=== PATIENT | male | born 1945 | race Caucasian/White ===

== ENCOUNTER 2017-06-09 07:00 | Inpatient (IN) | payer MEDICARE ==
[~2017-06-09] VITALS: Ht 185.4 cm; Wt 92.1 kg
[2017-06-13] MEDS ORDERED: ASPI81TA11 PO (10:46)
[2017-06-13] MEDS ORDERED: CARV3.12 PO (10:46)
[2017-06-13] MEDS ORDERED: CYCL1TAB29 PO (10:46)
[2017-06-13] MEDS ORDERED: SODI650T PO (10:46)
[2017-06-13] MEDS ORDERED: DESO0.0560 TOPICAL (10:46)
[2017-06-13] MEDS ORDERED: ALLO100T PO (10:46)
[2017-06-13] MEDS ORDERED: TRIA1SPR5 EACH NARE (10:46)
[2017-06-13] MEDS ORDERED: VITA100036 PO (10:46)
[2017-06-13] MEDS ORDERED: TAMS0.4C4 PO (10:46)
[2017-06-13] MEDS ORDERED: HYZA100T6 PO (10:46)
[2017-06-13] MEDS ORDERED: AMLO10 PO (10:46)
[2017-06-13] MEDS ORDERED: TRIA1SPR6 EACH NARE (10:46)
[2017-06-23 14:35] VITALS: BP 137/65; PULSE 62; RESP 18; TEMP 97.1; O2SAT 96
[2017-06-23 16:00] VITALS: BP 159/69; PULSE 60; RESP 16; TEMP 96.6; O2SAT 97
[2017-06-23 18:20] LABS: BLOOD, URINE TRACE (NEG); COMMENT (UR) CULT NOT INDICATED; CULTURE IF INDICATED CULT NOT INDICATED; GLUCOSE,URINE NEG (NEG); KETONE, URINE NEG (NEG); NITRITE,URINE NEG (NEG); PH, URINE 5.5 (5.0-8.5); SQUAMOUS EPITHELIAL CELL URINE <1 /hpf (0-5); URINE COLOR LIGHT-YELLOW (YELLW/STRAW)
[2017-06-23] MEDS ORDERED: SODIUM CHLOR 0.9% 1000 ML INJ 1,000 ML IV SCH (19:15)
--- NOTE | 2017-06-23 19:45 | PD.CONS ---
HPI Consult Requested By Reason for Consult Management of chronic kidney disease perioperatively. Primary Care Physician Unknown History of Present Illness This patient is a 72-year-old male well known to me from the office for several years. The patient has a history of progressive CKD stage IV slowly approaching end-stage renal disease. The patient also has a history of severe osteoarthritis of the left knee. The patient was attempting to delay total left knee arthroplasty because of the associated risk of acute renal insufficiency associated with the surgery however recently the patient informed me that his arthritis was essentially now incapacitating with chronic pain. It is estimated that patient will require renal replacement therapy within a few months and the patient has decided given the severity of his osteoarthritis wishes to proceed with knee surgery and accepts the fact that he may require renal replacement therapy permanently postoperatively. The patient's base line GFR lately he has been in the low 20s but when he came in for preoperative evaluation as GFR had deteriorated significantly to about 17 with evidence of hyperkalemia. His losartan which he was taking for blood pressure control as well as to slow progression of chronic kidney disease in the presence of proteinuria was discontinued in view of the hyperkalemia. Subsequent follow-up laboratory study indicated an improvement in his GFR to about 20 and hyperkalemia had improved. It was decided to continue to hold losartan and the patient was placed on Veltassa for management of hyperkalemia in the preoperative phase. In view of improvement in laboratory studies although still indicating severe CKD the patient wishes to proceed with knee arthroplasty and as indicated above accepts that there is a risk that he may have to require dialysis postoperatively. Review of Systems Constitutional: DENIES: Diaphoretic episodes, Fatigue, Fever, Weight gain, Weight loss, Chills, Dizziness, Change in appetite, Night Sweats Cardiovascular: DENIES: Chest pain, Palpitations, Syncope, Dyspnea on Exertion , PND, Lower Extremity Edema, Orthopnea, Claudication Gastrointestinal: DENIES: Abdominal pain, Black stools, Bloody stools, Constipation, Diarrhea, Nausea, Vomiting, Difficulty Swallowing, Anorexia Musculoskeletal: COMPLAINS OF: Joint pain, Stiffness, DENIES: Muscle aches, Joint Swelling, Back pain, Neck pain Neurologic: COMPLAINS OF: Abnormal gait (related to osteoarthritis of knee.) Past Family Social History Allergies: Coded Allergies: acetaminophen (Verified Allergy, Severe, 06/13/17) renal protection morphine (Verified Allergy, Severe, Nausea/Vomiting, 06/13/17) oxycodone (Verified Allergy, Severe, 06/13/17) renal protection rivaroxaban (Verified Allergy, Severe, 06/13/17) renal protection diclofenac (Unverified Adverse Reaction, Severe, PATIENT HAS RENAL INSUFFICIENCY STAGE IV, 05/06/17) etodolac (Unverified Adverse Reaction, Severe, PATIENT HAS RENAL INSUFFICIENCY STAGE IV, 05/06/17) flurbiprofen (Unverified Adverse Reaction, Severe, PATIENT HAS RENAL INSUFFICIENCY STAGE IV, 05/06/17) ibuprofen (Unverified Adverse Reaction, Severe, PATIENT HAS RENAL INSUFFICIENCY STAGE IV, 05/06/17) indomethacin (Unverified Adverse Reaction, Severe, PATIENT HAS RENAL INSUFFICIENCY STAGE IV, 05/06/17) ketoprofen (Unverified Adverse Reaction, Severe, PATIENT HAS RENAL INSUFFICIENCY STAGE IV, 05/06/17) ketorolac (Unverified Adverse Reaction, Severe, PATIENT HAS STAGE IV CHRONIC RENAL INSUFFICIENCY, 05/06/17) naproxen (Unverified Adverse Reaction, Severe, PATIENT HAS RENAL INSUFFICIENCY STAGE IV, 05/06/17) oxaprozin (Unverified Adverse Reaction, Severe, PATIENT HAS RENAL INSUFFICIENCY STAGE IV, 05/06/17) lactose (Unverified Adverse Reaction, Intermediate, STOMACH ACHE, 05/06/17) Past Medical History CKD stage IV progressive and approaching end-stage renal disease. 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 Hemangioma of the bladder. Proteinuria. Severe osteoarthritis knee. Recent development of hyperkalemia being managed with diet and more recently with Veltassa. Past Surgical History Previous left knee arthroplasty. Reported Medications Reported Meds & Active Scripts Active Reported Flexeril (Cyclobenzaprine HCl) 10 Mg Tab 10 Mg PO PRN Desonide Topical (Desonide) 0.05% Cream 1 Applic TOPICAL DAILY Nasacort Allergy 24Hr Nasal [place] (Triamcinolone Acetonide Nasal [place]) 55 Mcg Spr 16.5 Gm EACH NARE PRN [place] Allergy 24Hr Nasal (Triamcinolone Nasal) 55 Mcg Spr 1 [place] EACH NARE DAILY Vitamin D3 (Cholecalciferol) 1,000 Unit Cap 2 Cap PO DAILY Aspirin EC (Aspirin) 81 Mg Tabdr 81 Mg PO EVERY OTHER DAY Sodium Bicarbonate 650 Mg Tab 650 Mg PO TIDPC Allopurinol 100 Mg Tab 100 Mg PO BID Carvedilol 3.125 Mg Tab 3.125 Mg PO BID Tamsulosin (Tamsulosin HCl) 0.4 Mg Cap 0.4 Mg PO HS Norvasc (Amlodipine Besylate) 10 Mg Tab 10 Mg PO DAILY Hyzaar (Losartan-Hydrochlorothiazide) 100-25 Mg Tab 1 Tab PO DAILY Active Ordered Medications Current Medications Sodium Chloride 1,000 ml @ 70 mls/hr [id number] IV ; Start 06/23/17 at 19:15 Amlodipine Besylate (Norvasc) 10 mg DAILY PO ; Start 06/24/17 at 09:00 Tamsulosin HCl (Flomax) 0.4 mg HS PO ; Start 06/23/17 at 21:00 Carvedilol (Coreg) 3.125 mg Q12HR PO ; Start 06/23/17 at 21:00 Sodium Bicarbonate (Sodium Bicarbonate) 1,300 mg Q8HR PO ; Start 06/23/17 at 22: 00 Cholecalciferol (Vitamin D3) 1,000 units DAILY PO ; Start 06/24/17 at 09:00 Family History Family history of coronary disease and CVA. Social History No history of illicit drug use, alcohol abuse. Physical Exam Physical Exam GENERAL: Patient lying comfortably in bed. Not in respiratory distress. SKIN: Warm and dry. HEAD: Normocephalic. EYES: No scleral icterus. No injection or drainage. NECK: Supple, trachea midline. No JVD or lymphadenopathy. CARDIOVASCULAR: Regular rate and rhythm without murmurs, gallops, or rubs. RESPIRATORY: Breath sounds equal bilaterally. No accessory muscle use. GASTROINTESTINAL: Abdomen soft, non-tender, nondistended. MUSCULOSKELETAL: No cyanosis, or edema. BACK: Nontender without obvious deformity. No CVA tenderness. Laboratory Laboratory Tests Test 06/23/17 17:00 Urine Color LIGHT-YELLOW Urine Turbidity CLEAR Urine pH 5.5 Urine Specific [place] 1.007 Urine Protein 30 Urine Glucose (UA) NEG Urine Ketones NEG Urine Occult Blood TRACE Urine Nitrite NEG Urine Bilirubin NEG Urine Urobilinogen LESS THAN 2.0 Urine Leukocyte Esterase NEG Urine RBC LESS THAN 1 Urine Squamous Epithelial Cells <1 Microscopic Urinalysis Comment CULT NOT INDICATED Assessment and Plan Problem List: (1) CKD (chronic kidney disease) stage 4, GFR 15-29 ml/min ICD Codes: N18.4 - Chronic kidney disease, stage 4 (severe) Status: Chronic Plan: As discussed with the patient he is at significant risk for development of acute renal insufficiency associated with his surgery which may result in a requirement for dialytic support temporarily or permanently postoperatively. In view of the severity of his osteoarthritis with associated debilitating symptoms he has decided he accepts this risk and wishes to proceed with surgery and is clear as such from a renal point of view. His renal indices did improve somewhat after his office visit and hopefully dialysis will not be required during this admission but this remains to be determined. As discussed with orthopedic surgeon the patient is being admitted day prior to surgery for IV hydration overnight. I have ordered normal saline at 70 cc an hour. Medication should be adjusted for the patient's estimated GFR when indicated. Please avoid agents with significant potential for nephrotoxicity including NSAIDs for analgesia such as Toradol. Also avoid iodine contrast agents if possible. Gadolinium is contraindicated. In view of recent development of hyperkalemia believe it would be prudent to avoid Bactrim can precipitate hyperkalemia in susceptible patients secondary to trimethoprim. Adequate hydration should be maintained postoperatively also. Try to avoid hypotension if possible. (2) Hyperkalemia ICD Codes: E87.5 - Hyperkalemia Plan: Recommendations as above. Losartan has been held also in view of recent development of hyperkalemia. I may however consider resuming same postoperatively in view of his history of proteinuria as angiotensin receptor blockers have been shown to slow progression of CKD insetting of proteinuria. He was originally on the 100 mg a consideration will be given to resumption at a lower dose. Low potassium diet as ordered. Please avoid potassium-containing parenteral fluids unless the patient does have evidence of hypokalemia. (3) chronic metabolic acidosis Status: Chronic Plan: Continue all sodium bicarbonate. If the patient is nothing by mouth for a period of time with a low bicarbonate level will supplement parenterally. (4) Hypertension ICD Codes: I10 - Hypertension Status: Chronic Plan: Continue current hypertensive regimen with monitoring of blood pressure. Didi Valencia MD Jun 23, 2017 19:45
[2017-06-23 20:00] VITALS: BP 144/65; PULSE 59; RESP 20; TEMP 98.1; O2SAT 96
[2017-06-23] MEDS ORDERED: TAMSULOSIN HCL 0.4 MG CAP PO SCH (21:00)
[2017-06-23] MEDS: SODIUM BICARBONATE 650 MG TAB PO SCH (21:05)
[2017-06-23] MEDS: CARVEDILOL 3.125 MG TAB PO SCH (21:05)
[2017-06-23] MEDS ORDERED: POVIDONE IODINE 5% (ANTISEPSIS KIT) 4 APPLICATIONS EACH NARE PRN (23:15)
[2017-06-23] MEDS ORDERED: CHLORHEXIDINE GLUCONATE 2 % 1 PACK (2 CLOTHS) TOPICAL PRN (23:15)
[2017-06-23] MEDS ORDERED: INSULIN HUMAN REGULAR 1,000 UNITS/10 ML VIAL SQ PRN (23:15)
[2017-06-23] MEDS ORDERED: SODIUM CHLORID 0.9% 500 ML IV PRN (23:15)
[2017-06-23] MEDS ORDERED: LACTATED RINGER'S 1000 ML IV PRN (23:15)
[2017-06-23] MEDS ORDERED: CHLORHEXIDINE GLUCONATE 4% SOLN 120 ML BTL TOPICAL SCH (23:45)
[2017-06-24] VITALS: BP 137/68; PULSE 63; RESP 20; TEMP 98.5; O2SAT 97
[2017-06-24] MEDS: CARVEDILOL 3.125 MG TAB PO SCH ×2 (05:32→22:12)
[2017-06-24 05:35] LABS: AUTOMATED NEUTROPHIL # 2.9 TH/MM3 (1.8-7.7); BASOPHIL # 0.1 TH/MM3 (0-0.2); BASOPHIL % 1.1 % (0.0-2.0); EOSINOPHIL # 0.2 TH/MM3 (0-0.4); EOSINOPHIL % 3.3 % (0.0-4.0); HEMATOCRIT 28.6 % (39.0-51.0); HEMO FLAGS DIFF FINAL; LYMPH % 36.3 % (9.0-44.0); LYMPHOCYTE # 2.3 TH/MM3 (1.0-4.8); MEAN CELL VOLUME 92.4 FL (80.0-100.0); MEAN CORPUSCULAR HEMOGLOBIN 31.5 PG (27.0-34.0); MEAN CORPUSCULAR HGB CONC 34.1 % (32.0-36.0); MONO % 14.1 % (0.0-8.0); NEUT % 45.2 % (16.0-70.0); PLATELET COUNT 261 TH/MM3 (150-450); RED CELL DISTRIBUTION WIDTH 14.8 % (11.6-17.2); WHITE BLOOD COUNT 6.5 TH/MM3 (4.0-11.0)
[2017-06-24] MEDS: SODIUM BICARBONATE 650 MG TAB PO SCH ×3 (05:48→22:13)
[2017-06-24 05:49] LABS: PROTHROMBIN TIME - PATIENT 11.1 SEC (9.8-11.6)
[2017-06-24] MEDS ORDERED: GENTAMICIN SULFATE 80 MG/2 ML VIAL ONE (06:00)
[2017-06-24 06:02] LABS: BICARBONATE 24.5 MEQ/L (21.0-32.0); POTASSIUM 4.2 MEQ/L (3.5-5.1)
[2017-06-24] MEDS: ceFAZolin 2 GM PREMIX 50 ML IV SCH ×2 (06:48→06:50)
[2017-06-24] MEDS ORDERED: ONDANSETRON HCL 4 MG/2 ML VIAL IVP PRN (07:15)
[2017-06-24] MEDS ORDERED: Post-op Orders (for Pharmacy) MISC XX ONE (07:15)
[2017-06-24] MEDS ORDERED: SODIUM CHLORIDE 0.9% FLUSH 5 ML FLUSH IVF PRN (07:15)
[2017-06-24] MEDS ORDERED: MAGNESIUM HYDROXIDE SUSP 30 ML CUP PO PRN (07:15)
[2017-06-24] MEDS ORDERED: SODIUM CHLORIDE 0.9% IV SCH ×3 (07:15→10:30)
[2017-06-24] MEDS ORDERED: ZOLPIDEM TARTRATE 5 MG TAB PO PRN (07:15)
[2017-06-24] MEDS ORDERED: TRANEXAMIC ACID IV SCH ×3 (07:15→10:30)
[2017-06-24] MEDS ORDERED: ACETAMINOPHEN/HYDROcodone 325 MG/7.5 MG TAB PO PRN (07:15)
[2017-06-24] MEDS ORDERED: HYDROmorphone HCL PF 2 MG/ML VIAL IV PRN (07:15)
[2017-06-24] MEDS ORDERED: EXPAREL PERI-ARTICULAR INJECTION (TOTAL VOL. 100 ML) P-ARTICULR SCH ×2 (07:30)
[2017-06-24] MEDS ORDERED: PROPOFOL 500 MG/50 ML INJ 50 ML ONE (08:24)
[2017-06-24] MEDS: CHOLECALCIFEROL (VIT D3) 1000 UNIT TAB PO SCH (09:00)
[2017-06-24] MEDS: ASPIRIN EC 81 MG TABEC PO SCH ×2 (09:00→22:12)
[2017-06-24] MEDS: SODIUM CHLORIDE 0.9% FLUSH 5 ML FLUSH IVF SCH ×2 (09:00→22:12)
--- NOTE | 2017-06-24 09:43 | HHI.FF ---
Face to Face Verification Diagnosis: (1) Status post total right knee replacement Physical Therapy Gait training Knee: Total knee, Protocol: Right, Full weight bearing Right LE Weight Bearing: WB as tolerated Right LE Range of Motion: Active ROM (AROM, AAROM, PROM. ROM goal is 0 to 135 degrees. ROM in the OR was 0 to 150 degrees.) Nursing Nursing: Dressing changes Dressing Changes: Daily dressing change, Coverderm/Primapore Additional Instructions Remove steristrips on postop day 14. I have seen patient Anurag Cervanteskavita Bolton, on 06/24/17. My clinical findings support the need for the requested home health care services because: Ltd mobility - disease progression Limited ability to care for self High risk of falls I certify that my clinical findings support that this patient is homebound because: Post-op weakness Unsteady gait/balance Unsafe to leave home unassisted Olayinka Marcelino MD (Charles) Jun 24, 2017 09:43
[2017-06-24] MEDS ORDERED: DO NOT ADM ANY ANTICOAGULANT DRUGS PRN (09:51)
--- NOTE | 2017-06-24 10:23 | MP ---
cc: Naz THOMPSON. DATE OF SURGERY 06/24/2017 PREOPERATIVE DIAGNOSIS Primary osteoarthritis right knee POSTOPERATIVE DIAGNOSIS Primary osteoarthritis right knee OPERATION PERFORMED Right total knee arthroplasty using David Triathlon prosthesis (uncemented). SURGEON Sarah Thompson MD [employer] Anurag Snyder, CSF ANESTHESIA Spinal with supplemental adductor canal block and local. INDICATIONS AND FINDINGS This 72-year-old man has had longstanding arthritis in his right knee which has been nonresponsive to conservative measures. He is unable to take anti-inflammatory agents because of chronic renal failure. He has used analgesics and in the past has had injections of corticosteroid, but none recently. His ambulation tolerance is limited to less than a few blocks. He has rest pain and has pain on standing from a seated position and sitting. He has difficulty with stairs. Physical findings showed genu varum with palpable medial osteophytes and crepitation throughout the entire range of motion. There is an effusion. There is medial laxity. Radiographic findings showed loss of articular cartilage to [id number] in the medial compartment with large osteophytes medially, laterally and in the patellofemoral joint. Operative findings showed severe osteoarthritis in the medial compartment with degeneration also into the lateral compartment with loss of articular cartilage to exposed subchondral bone in both compartments. There was also a change in the patellofemoral compartment which is slightly less, but still fairly significant. The prosthesis used was a David Triathlon prosthesis with the femur being a size 6 cruciate-retaining uncemented, the tibia being a size 7 Tritanium baseplate also uncemented with a 13 mm cruciate-retaining spacer and a size 38 asymmetric patella Tritanium backed. PROCEDURE The patient was brought to the clean-air operating suite and a spinal anesthetic was administered. An adductor canal block was then administered by Dr. Soni as well. He was then placed into a supine position on the operating table with a small bolster under the right hip. Pneumatic tourniquet was applied to the right thigh. The limb was then prepped with alcohol, Hibiclens and Chloraprep and draped in the usual manner with the knee draped free. An appropriate time-out procedure was carried out. Local anesthesia was administered into the incision site with Exparel. The incision was then made from about three fingerbreadths above the superior medial pole of patella down to the tibial tubercle. The incision was deepened through the subcutaneous tissues to the retinacular structures which were exposed medially and laterally. A medial retinacular incision was made from the superior medial pole of the patella down to the tibial tubercle and up to the quadriceps tendon splitting it longitudinally in the medial one-third. The patella was reflected. The infrapatellar fat pad was debulked. Medial and lateral dissection was carried out. The posterior surface of the patella was excised with the oscillating saw taking care to prevent injury to ligamentous and tendinous structures. The patella protector was applied. Fenestrations were made in the distal end of the femur and at the proximal end of the tibia for intermedullary referencing guides. Osteophytes were trimmed from the medial femur and the medial tibia. The distal femoral cutting guide and jig were assembled for a 5 degrees 8-mm cut. The cutting guide was stabilized with pins. The jig was removed. The distal femoral cut was completed with the oscillating saw. The sizing guide was positioned along white sides line in the epicondylar axis. With this pinned in place, the size was determined to be a size six femur. The four in one cutting block was then positioned on the distal femur and stabilized with pins. Anterior and posterior cuts were made followed by posterior and anterior chamfer cuts. After removal of this, further osteophytes were trimmed. Medial and lateral meniscectomies were carried out. Dissection was carried out about the proximal tibia. Osteophytes were trimmed from the tibia. The proximal tibial cutting guide and jig were then assembled and positioned appropriately with the this being pinned into position after determining appropriate rotation. The stylus was used to identify the level of cut, removing 2 mm from the medial side. The cutting block was stabilized with pins. The jig was removed. The depth of cut was verified with the spacer block. The proximal and tibial cut was then completed with the oscillating saw taking care to prevent injury to neurovascular and ligamentous structures. The size of the tibia was determined to be a size seven. The fenestrations in the distal femur and proximal tibia were plugged with bone graft. Local anesthesia was administered in the posterior capsule medially and laterally with Exparel. The tibial baseplate trial with the spacer was inserted. The femoral trial was impacted into place. The tibial baseplate was stabilized with pins in the appropriate rotation. The patella drill holes were made for a 38-mm asymmetric patella. The trial patella was then positioned in place. The knee was taken through a range of motion which was 0 degrees extension to 150 degrees of flexion with excellent stability in flexion and extension and throughout the entire range. The tracking of the patella was appropriate. The patella trial was removed. The femoral drill holes were made. The femoral trial was removed. The tibial spacer was removed. The tibial punch was impacted through its guide and then removed. After removal of the tibial baseplate trial, the drill guide was positioned and drill holes were made. The cut ends of bone were cleaned with pulse lavage. The uncemented tibial component was then impacted into place and seated appropriately. The spacer was inserted and seated as well. The knee was repositioned. Pulse lavage was used to clean the cut ends of bone again for the patella and the femur. The femoral component was then impacted into place and seated appropriately. The patella component was placed on the posterior surface of the patella and seated with the patella vice. The stability was excellent. The range of motion was comparable to the operative range of motion with the trial. The tracking was appropriate. Drains were brought out the superolateral aspect of the suprapatellar pouch. The remainder of the Exparel was injected throughout the knee in the usual manner. Wound closure then commenced using 0 Vicryl interrupted [id number] sutures for the capsular and retinacular structures, 2-0 Vicryl interrupted simple sutures with buried knots for the subcutaneous tissues and 4-0 Monocryl continuous subcuticular closure for the skin. The wound was dressed with Steri-Strips followed by dry dressing, sterile Sof-Rol, cooling pad, further sterile Sof-Rol and Jose bandage from the base the toes to the midthigh. The patient was transferred from the operating room to the recovery room in satisfactory condition having tolerated the procedure well. Counts were correct. Specimens, none. Estimated blood loss 150 mL. MD FERNANDO Burt/JORY /9:45 AM /10:07 AM
[2017-06-24] MEDS ORDERED: ONDANSETRON HCL 4 MG/2 ML VIAL IV PUSH ONE (10:24)
[2017-06-24] MEDS ORDERED: MIDAZOLAM HCL 2 MG/2 ML VIAL IV ONE (10:24)
[2017-06-24] MEDS ORDERED: PROPOFOL 200 MG/20 ML AMP IV ONE (10:24)
[2017-06-24] MEDS ORDERED: PHENYLEPH/NS 1000 MCG/10 ML SYR IV ONE (10:24)
[2017-06-24] MEDS ORDERED: SODIUM CHLORIDE 0.9% 20 ML VIAL IV ONE (10:24)
[2017-06-24] MEDS ORDERED: SODIUM CHLORID 0.9% 500 ML INJ 500 ML IV ONE (10:24)
[2017-06-24] MEDS ORDERED: ePHEDrine/NS 25 MG/5 ML SYR IV ONE (10:24)
[2017-06-24] MEDS ORDERED: METOPROLOL TARTRATE 5 MG/5 ML VIAL IV PUSH ONE (10:24)
[2017-06-24] MEDS ORDERED: GLYCOPYRROLATE 1 MG/5 ML SYRINGE IV PUSH ONE (10:24)
[2017-06-24] MEDS ORDERED: *HYDROmorphone PF 1 MG VIAL PERIprocedural Use ONLY ONE (10:27)
[2017-06-24] MEDS: SODIUM CHLOR 0.9% 1000 ML INJ 1,000 ML IV SCH (10:30)
--- NOTE | 2017-06-24 10:38 | RADRPT ---
EXAM DATE/TIME: 06/24/2017 09:59 [facility] COMPARISON: No previous studies available for comparison. INDICATIONS : Post op right total knee. MEDICAL HISTORY : None. SURGICAL HISTORY : None. ENCOUNTER: Initial ACUITY: 1 day PAIN SCORE: 8/10 LOCATION: Right Knee. FINDINGS: Postsurgical features of right knee arthroplasty. Arthroplasty components are in anatomic alignment. No significant acute bony fracture. Immediate postsurgical soft tissue features. CONCLUSION: 1. Status post right knee arthroplasty in anatomic alignment without significant acute bony fracture. Masoud Johnson MD on June 24, 2017 at 10:35 Board Certified Radiologist. This report was verified electronically.
[2017-06-24 11:44] VITALS: BP 139/72; PULSE 73; RESP 19; TEMP 95.2; O2SAT 95
--- NOTE | 2017-06-24 14:55 | PD.CONS ---
HPI Service [facility] Hospitalists Consult Requested By Primary Care Physician Unknown Diagnoses: History of Present Illness Hospitalist is being consulted for medical management of a 72-year-old white male who was admitted for a right knee replacement. Patient has a significant past medical history of hypertension, CKD, BPH. Patient is getting his right knee replaced due to refractory, painful osteoarthritis. He is currently status post surgery, says that he feels he has to urinate but hasn't been able to go just yet. Denies any nausea or vomiting and abdominal discomfort, has no Abdul in place currently. Review of Systems Except as stated in HPI: all other systems reviewed are Neg Past Family Social History Allergies: Coded Allergies: acetaminophen (Verified Allergy, Severe, 06/13/17) renal protection morphine (Verified Allergy, Severe, Nausea/Vomiting, 06/13/17) oxycodone (Verified Allergy, Severe, 06/13/17) renal protection rivaroxaban (Verified Allergy, Severe, 06/13/17) renal protection diclofenac (Unverified Adverse Reaction, Severe, PATIENT HAS RENAL INSUFFICIENCY STAGE IV, 05/06/17) etodolac (Unverified Adverse Reaction, Severe, PATIENT HAS RENAL INSUFFICIENCY STAGE IV, 05/06/17) flurbiprofen (Unverified Adverse Reaction, Severe, PATIENT HAS RENAL INSUFFICIENCY STAGE IV, 05/06/17) ibuprofen (Unverified Adverse Reaction, Severe, PATIENT HAS RENAL INSUFFICIENCY STAGE IV, 05/06/17) indomethacin (Unverified Adverse Reaction, Severe, PATIENT HAS RENAL INSUFFICIENCY STAGE IV, 05/06/17) ketoprofen (Unverified Adverse Reaction, Severe, PATIENT HAS RENAL INSUFFICIENCY STAGE IV, 05/06/17) ketorolac (Unverified Adverse Reaction, Severe, PATIENT HAS STAGE IV CHRONIC RENAL INSUFFICIENCY, 05/06/17) naproxen (Unverified Adverse Reaction, Severe, PATIENT HAS RENAL INSUFFICIENCY STAGE IV, 05/06/17) oxaprozin (Unverified Adverse Reaction, Severe, PATIENT HAS RENAL INSUFFICIENCY STAGE IV, 05/06/17) lactose (Unverified Adverse Reaction, Intermediate, STOMACH ACHE, 05/06/17) Past Medical History Hypertension, CKD, OA Past Surgical History Left knee replacement Family History No family history of kidney disease Social History Lives with his , denies ever smoking or any illicit drug use. Says he drinks light alcohol - wine about twice a week. Physical Exam Vital Signs Vital Signs Date Time Temp Pulse Resp B/P (MAP) Pulse Ox O2 Delivery O2 Flow Rate FiO2 06/24/17 11:44 95.2 73 19 139/72 (94) 95 06/24/17 11:15 97.5 68 16 131/68 (89) 98 Room Air 06/24/17 10:45 69 16 130/69 (89) 97 Room Air 06/24/17 10:30 70 15 132/67 (88) 96 Room Air 06/24/17 10:15 72 15 134/69 (90) 96 Room Air 06/24/17 10:00 78 14 128/75 (92) 95 Room Air 06/24/17 09:50 97.5 82 12 126/71 (89) 100 Nasal Cannula 2 06/24/17 00:00 98.5 63 20 137/68 (91) 97 06/23/17 20:00 98.1 59 20 144/65 (91) 96 06/23/17 16:00 96.6 60 16 159/69 (99) 97 Physical Exam VS: Normotensive, afebrile GENERAL: No acute distress SKIN: Warm and dry. EYES: No scleral icterus. No injection or drainage. ENT: No nasal bleeding or discharge. Mucous membranes pink and moist. CARDIOVASCULAR: Regular rate and rhythm. no murmurs RESPIRATORY: No accessory muscle use. Clear to auscultation. Breath sounds equal bilaterally. GASTROINTESTINAL: Abdomen soft, non-tender, nondistended. MUSCULOSKELETAL: Extremities without clubbing, cyanosis, or edema. No obvious deformities. grossly intact ROM with 5/5 strength in proximal upper extremities bilaterally and as well as left proximal lower extremity, is actually moving his right knee considerably well for being postop, RLE in postop dressing. intact motion of BL feet, intact pedal pulses NEUROLOGICAL: Awake and alert. No obvious cranial nerve deficits. No facial droop nor slurred speech noted. PSYCHIATRIC: Appropriate mood and affect; insight and judgment normal. Laboratory Laboratory Tests Test 06/23/17 17:00 06/24/17 05:24 Urine Color LIGHT-YELLOW Urine Turbidity CLEAR Urine pH 5.5 Urine Specific [place] 1.007 Urine Protein 30 Urine Glucose (UA) NEG Urine Ketones NEG Urine Occult Blood TRACE Urine Nitrite NEG Urine Bilirubin NEG Urine Urobilinogen LESS THAN 2.0 Urine Leukocyte Esterase NEG Urine RBC LESS THAN 1 Urine Squamous Epithelial Cells <1 Microscopic Urinalysis Comment CULT NOT INDICATED White Blood Count 6.5 Red Blood Count 3.10 Hemoglobin 9.8 Hematocrit 28.6 Mean Corpuscular Volume 92.4 Mean Corpuscular Hemoglobin 31.5 Mean Corpuscular Hemoglobin Concent 34.1 Red Cell Distribution Width 14.8 Platelet Count 261 Mean Platelet Volume 7.1 Neutrophils (%) (Auto) 45.2 Lymphocytes (%) (Auto) 36.3 Monocytes (%) (Auto) 14.1 Eosinophils (%) (Auto) 3.3 Basophils (%) (Auto) 1.1 Neutrophils # (Auto) 2.9 Lymphocytes # (Auto) 2.3 Monocytes # (Auto) 0.9 Eosinophils # (Auto) 0.2 Basophils # (Auto) 0.1 CBC Comment DIFF FINAL Differential Comment Prothrombin Time 11.1 Prothromb Time International Ratio 1.0 Blood Urea Nitrogen 60 Creatinine 3.05 Random Glucose 88 Calcium Level 8.8 Sodium Level 135 Potassium Level 4.2 Chloride Level 101 Carbon Dioxide Level 24.5 Anion Gap 10 Estimat Glomerular Filtration Rate 20 Result Diagram: 06/24/1752306/24/1724 Imaging Last Impressions Knee X-Ray 06/24/17 0706 Signed Impressions: Service Date/Time: Saturday, June 24, 2017 09:59 - CONCLUSION: 1. Status post right knee arthroplasty in anatomic alignment without significant acute bony fracture. Masoud Johnson MD Assessment and Plan Assessment and Plan 72-year-old white male status post right knee replacement with significant past medical history of hypertension and CKD, hemodynamically stable Hypertension - Continue home medications per nephrology recommendations CKD - Monitor renal function, nephrology following Hypercoagulable state - Secondary to knee replacement, prefer Lovenox given patient's extensive medication contraindication list given his CKD and allergies, will touch base with nephrology before doing so, SCDs in place otherwise until then. Left vcm w / nephro, awaiting call back. BPH - floTrevor Burnham MD Jun 24, 2017 14:55
[2017-06-24 16:00] VITALS: BP 133/61; PULSE 62; RESP 18; TEMP 96.1; O2SAT 96
[2017-06-24 16:10] LABS: BICARBONATE 21.3 MEQ/L (21.0-32.0); POTASSIUM 4.3 MEQ/L (3.5-5.1)
[2017-06-24] MEDS: ACETAMINOPHEN/HYDROcodone 325 MG/7.5 MG TAB PO PRN ×2 (18:15→22:13)
[2017-06-24 20:05] VITALS: BP 156/69; PULSE 71; RESP 17; TEMP 98.3; O2SAT 96
[2017-06-24] MEDS ORDERED: TAMSULOSIN HCL 0.4 MG CAP PO SCH (21:00)
[2017-06-24 21:50] VITALS: O2SAT 97
[2017-06-25 00:19] VITALS: BP 177/76; PULSE 70; RESP 17; TEMP 97.8; O2SAT 95
[2017-06-25] MEDS: SODIUM CHLOR 0.9% 1000 ML INJ 1,000 ML IV SCH (02:14)
[2017-06-25] MEDS: ACETAMINOPHEN/HYDROcodone 325 MG/7.5 MG TAB PO PRN ×5 (02:14→18:05)
[2017-06-25 04:32] VITALS: BP 150/69; PULSE 74; RESP 18; TEMP 99.7; O2SAT 93
[2017-06-25] MEDS: SODIUM BICARBONATE 650 MG TAB PO SCH ×2 (06:01→13:59)
[2017-06-25 07:51] VITALS: BP 150/71; PULSE 78; RESP 19; TEMP 98.6; O2SAT 92
--- NOTE | 2017-06-25 08:09 | PD.ORT.PN ---
Subjective Post Op Day #: 1 Subjective Remarks He had trouble sleeping due to full bladder. He is okay since catheterization. The knee is fairly comfortable. Range of Motion -10 to 75 degrees. Distance Walked 20 feet with PT. Objective Vitals Vital Signs Date Time Temp Pulse Resp B/P (MAP) Pulse Ox O2 Delivery O2 Flow Rate FiO2 06/25/17 07:51 98.6 78 19 150/71 (97) 92 06/25/17 04:32 99.7 74 18 150/69 (96) 93 06/25/17 00:19 97.8 70 17 177/76 (109) 95 06/24/17 21:50 97 06/24/17 20:05 98.3 71 17 156/69 (98) 96 06/24/17 16:00 96.1 62 18 133/61 (85) 96 06/24/17 15:16 18 06/24/17 11:44 95.2 73 19 139/72 (94) 95 06/24/17 11:15 97.5 68 16 131/68 (89) 98 Room Air 06/24/17 10:45 69 16 130/69 (89) 97 Room Air 06/24/17 10:30 70 15 132/67 (88) 96 Room Air 06/24/17 10:15 72 15 134/69 (90) 96 Room Air 06/24/17 10:00 78 14 128/75 (92) 95 Room Air 06/24/17 09:50 97.5 82 12 126/71 (89) 100 Nasal Cannula 2 I/O 06/24/17 06/24/17 06/24/17 06/25/17 06/25/17 06/25/17 07:00 15:00 23:00 07:00 15:00 23:00 Intake Total 650 ml 909.21 ml 680 ml 1257 ml Output Total 275 ml 140 ml 1535 ml Balance 650 ml 634.21 ml 540 ml -278 ml Intake Oral 0 ml 480 ml 240 ml IV Total 650 ml 209.21 ml 200 ml 1017 ml Other 700 ml Output Urine Total 1475 ml Drainage Total 125 ml 140 ml 60 ml Other 150 ml Bladder Scan Volume Amount 534 ml 999 ml 534 ml # Voids 3 0 0 # Bowel Movements 0 Result Diagram: 06/24/17 0524 06/24/17 1456 Imaging Last 72 hours Impressions Knee X-Ray 06/24/17 0706 Signed Impressions: Service Date/Time: Saturday, June 24, 2017 09:59 - CONCLUSION: 1. Status post right knee arthroplasty in anatomic alignment without significant acute bony fracture. Masoud Johnson MD Objective Remarks He is resting comfortably, supine in bed in the CPM. The neurovascular status is intact. The dressing is dry and intact. Assessment & Plan Ortho Post Op Day #: 1 Problem List: (1) Status post total right knee replacement ICD Codes: Z96.651 - Presence of right artificial knee joint Plan: Continue postop care and PT. (2) CKD (chronic kidney disease) stage 4, GFR 15-29 ml/min ICD Codes: N18.4 - Chronic kidney disease, stage 4 (severe) Status: Chronic Assessment and Plan Condition: Good. Orthopaedically stable. DVT prophylaxis: TEDs, sequentials, ASA. Discharge plans: Home with [facility]. Has appointment. Rx: [place] 7.5/325 Olayinka Marcelino MD (Charles) Jun 25, 2017 08:09
[2017-06-25 08:15] LABS: HEMATOCRIT 25.5 % (39.0-51.0); MEAN CELL VOLUME 93.8 FL (80.0-100.0); MEAN CORPUSCULAR HEMOGLOBIN 31.7 PG (27.0-34.0); MEAN CORPUSCULAR HGB CONC 33.8 % (32.0-36.0); PLATELET COUNT 223 TH/MM3 (150-450); RED BLOOD COUNT 2.72 MIL/MM3 (4.50-5.90); RED CELL DISTRIBUTION WIDTH 15.1 % (11.6-17.2); REVIEW FLAG FINAL; WHITE BLOOD COUNT 9.6 TH/MM3 (4.0-11.0)
[2017-06-25] MEDS ORDERED: HYDR-3580 PO (08:40)
[2017-06-25 08:55] LABS: BICARBONATE 23.8 MEQ/L (21.0-32.0); POTASSIUM 4.2 MEQ/L (3.5-5.1)
[2017-06-25] MEDS: SODIUM CHLORIDE 0.9% FLUSH 5 ML FLUSH IVF SCH (09:00)
[2017-06-25 09:38] VITALS: O2SAT 92
[2017-06-25] MEDS: CARVEDILOL 3.125 MG TAB PO SCH (10:04)
[2017-06-25] MEDS: CHOLECALCIFEROL (VIT D3) 1000 UNIT TAB PO SCH (10:04)
[2017-06-25] MEDS: ASPIRIN EC 81 MG TABEC PO SCH (10:05)
[2017-06-25] MEDS ORDERED: TAMS0.4C4 PO (10:21)
[2017-06-25] MEDS ORDERED: TAMSULOSIN HCL 0.4 MG CAP PO ONE (10:30)
[2017-06-25 11:18] VITALS: BP 146/76; PULSE 84; RESP 19; TEMP 98.1; O2SAT 94
--- NOTE | 2017-06-25 13:05 | HHI.PR ---
Subjective Remarks Discussed with Dr. Valencia from nephrology, no contraindication to anticoagulation just needs appropriate renal dosing. When discussed with Dr. Marcelino, prefers to keep patient just on aspirin for DVT PE prophylaxis. Per nursing, patient did have persistently significant urinary hesitancy last night, was unable to spontaneously void. Needed a in and out catheterization, bladder scan initially showed retaining 900 mL's. Second in and out catheterization was needed, bladder scan at that time showed a retention of about 1400 mL's per nursing. Discussed with Dr. Montes from urology, recommended increasing Flomax to max dose of 0.8 mg daily and to discharge patient with Abdul catheter to do voiding trial in his office next week on the . Objective Vital Signs Date Time Temp Pulse Resp B/P (MAP) Pulse Ox O2 Delivery O2 Flow Rate FiO2 06/25/17 11:18 98.1 84 19 146/76 (99) 94 06/25/17 11:04 18 06/25/17 09:38 92 06/25/17 07:51 98.6 78 19 150/71 (97) 92 06/25/17 04:32 99.7 74 18 150/69 (96) 93 06/25/17 00:19 97.8 70 17 177/76 (109) 95 06/24/17 21:50 97 06/24/17 20:05 98.3 71 17 156/69 (98) 96 06/24/17 16:00 96.1 62 18 133/61 (85) 96 06/24/17 15:16 18 I/O 06/24/17 06/24/17 06/24/17 06/25/17 06/25/17 06/25/17 07:00 15:00 23:00 07:00 15:00 23:00 Intake Total 650 ml 909.21 ml 680 ml 1257 ml Output Total 275 ml 140 ml 1535 ml Balance 650 ml 634.21 ml 540 ml -278 ml Intake Oral 0 ml 480 ml 240 ml IV Total 650 ml 209.21 ml 200 ml 1017 ml Other 700 ml Output Urine Total 1475 ml Drainage Total 125 ml 140 ml 60 ml Other 150 ml Bladder Scan Volume Amount 534 ml 999 ml 534 ml # Voids 3 0 0 # Bowel Movements 0 Result Diagram: 06/25/17 0656 06/25/17 0656 Imaging Last Impressions Knee X-Ray 06/24/17 0706 Signed Impressions: Service Date/Time: Saturday, June 24, 2017 09:59 - CONCLUSION: 1. Status post right knee arthroplasty in anatomic alignment without significant acute bony fracture. Masoud Johnson MD Objective Remarks No acute distress, lying in bed, awake No suprapubic tenderness to palpation, no distention of abdomen Abdul catheter in place Able to wiggle toes on right foot and move his lower leg as well. A/P Assessment and Plan 72-year-old white male status post right knee replacement with significant past medical history of hypertension and CKD, hemodynamically stable Hypertension - Continue home medications per nephrology recommendations CKD - Monitor renal function, nephrology following Hypercoagulable state - Secondary to knee replacement, ASA per ortho. BPH - flomax (doubling to max dose) New problem of urinary hesitancy - Likely combination of BPH and postanesthesia retention - doubling Flomax to max dose per urology, stable to discharge with Abdul catheter, suspect acute stretch injury of bladder, will need voiding trial next week at urology office. Trevor Mann MD Jun 25, 2017 13:05
[2017-06-25 16:00] VITALS: BP 160/65; PULSE 68; RESP 19; TEMP 97.4; O2SAT 96
--- NOTE | 2017-06-25 16:38 | HHI.NPPN ---
Subjective History of Present Illness This patient is a 72-year-old male well known to me from the office for several years. The patient has a history of progressive CKD stage IV slowly approaching end-stage renal disease. The patient also has a history of severe osteoarthritis of the left knee. The patient was attempting to delay total left knee arthroplasty because of the associated risk of acute renal insufficiency associated with the surgery however recently the patient informed me that his arthritis was essentially now incapacitating with chronic pain. It is estimated that patient will require renal replacement therapy within a few months and the patient has decided given the severity of his osteoarthritis wished to proceed with knee surgery and accepts the fact that he may have required renal replacement therapy permanently postoperatively. The patient's base line GFR lately he has been in the low 20s but when he came in for preoperative evaluation as GFR had deteriorated significantly to about 17 with evidence of hyperkalemia. His losartan which he was taking for blood pressure control as well as to slow progression of chronic kidney disease in the presence of proteinuria was discontinued in view of the hyperkalemia. Subsequent follow-up laboratory study indicated an improvement in his GFR to about 20 and hyperkalemia had improved. It was decided to continue to hold losartan and the patient was placed on Veltassa for management of hyperkalemia in the preoperative phase. Interval History Patient apparently was having issues with bladder obstruction last night requiring straight catheter and subsequently Abdul catheter placement. Urology was consulted and they recommended increasing his Flomax with outpatient follow- up. Discharge with a Abdul catheter. Objective Data Data 06/25/17 06/26/17 19:00 07:00 Intake Total 800 ml Output Total 300 ml Balance 500 ml Intake Oral 800 ml Output Urine Total 300 ml # Bowel Movements 0 Vital Signs Date Time Temp Pulse Resp B/P (MAP) Pulse Ox O2 Delivery O2 Flow Rate FiO2 06/25/17 16:00 97.4 68 19 160/65 (96) 96 06/25/17 14:49 18 06/25/17 11:18 98.1 84 19 146/76 (99) 94 06/25/17 09:38 92 06/25/17 07:51 98.6 78 19 150/71 (97) 92 06/25/17 04:32 99.7 74 18 150/69 (96) 93 06/25/17 00:19 97.8 70 17 177/76 (109) 95 06/24/17 21:50 97 06/24/17 20:05 98.3 71 17 156/69 (98) 96 -: 06/25/17 0656 06/25/17 0656 Tubes & Lines: Abdul Physical Exam General Appearance: Well Developed, Well Nourished, No Acute Distress, Comfortable Eyes Eye Exam: Sclera White Pulmonary Resp Exam: Clear Bilaterally, Breath Sounds Equal, No Distress Cardiology CV Exam: Regular, Normal Sinus Rhythm, Good Perfusion Gastrointestinal/Abdomen GI Exam: Soft, Non-Tender Genitourinary Exam: Clear Urine Integumentary Skin Exam: Clear, Normal Turgor Extremeties Extremities Exam: No Edema Neurologic Neuro Exam: Alert, Awake Psychiatric Psych Exam: Appropriate Responses Assessment/Plan Discussed Condition With: Patient, Spouse Problem List: (1) CKD (chronic kidney disease) stage 4, GFR 15-29 ml/min ICD Codes: N18.4 - Chronic kidney disease, stage 4 (severe) Status: Chronic Plan: On questioning the patient he indicated that he was having some increasing nocturia prior to this admission and his urinary stream was diminishing. It appears that he was developing worsening bladder outlet obstruction. Agree with the patient follow-up with urology post discharge and this was emphasized to the patient. Hopefully the increased dosage of Flomax will improve the situation. Potassium has been stable in house. He was advised to continue a low potassium diet. Blood pressure slightly elevated most likely related to anxiety regarding his bladder issues. Increase dose of Flomax may also help to improve his blood pressure. He was advised however to contact me if his blood pressure remains elevated. I may consider resuming a small dose of losartan as an outpatient. Repeat renal panel this coming Friday with follow-up visit in the office this coming Friday. Medication should be adjusted for the patient's estimated GFR when indicated. Please avoid agents with significant potential for nephrotoxicity including NSAIDs for analgesia such as Toradol. Also avoid iodine contrast agents if possible. Gadolinium is contraindicated. In view of recent development of hyperkalemia believe it would be prudent to avoid Bactrim can precipitate hyperkalemia in susceptible patients secondary to trimethoprim. Adequate hydration should be maintained postoperatively also. Try to avoid hypotension if possible. (2) Hyperkalemia ICD Codes: E87.5 - Hyperkalemia Plan: Continue low potassium diet. (3) chronic metabolic acidosis Status: Chronic Plan: Continue all sodium bicarbonate. (4) Hypertension ICD Codes: I10 - Hypertension Status: Chronic Plan: Continue current hypertensive regimen with monitoring of blood pressure. Didi Valencia MD Jun 25, 2017 16:38
[2017-06-25] MEDS ORDERED: DOCUSATE SODIUM 100 MG CAP PO SCH (21:00)
== END 2017-06-25 18:16 | disposition home health service (06) | DRG 470 ==
LOC: N06B 06-23 13:51 → OBSVTOIN 06-24 07:09
PROVIDERS: ADMIT Orthopaedic Surgery; ATTEND Orthopaedic Surgery
PROC: 3E0T3BZ Introduction of Anesthetic Agent into Peripheral Nerves and Plexi, Percutaneous Approach (ICD-10-PCS; 2017-06-24)
PROC: 0SRC0JA Replacement of Right Knee Joint with Synthetic Substitute, Uncemented, Open Approach (ICD-10-PCS; principal; 2017-06-24 07:00)
DX: M17.11 Unilateral primary osteoarthritis, right knee (principal); E87.2 Acidosis; N18.4 Chronic kidney disease, stage 4 (severe); I12.9 Hypertensive chronic kidney disease with stage 1 through stage 4 chronic kidney disease, or unspecified chronic kidney disease; E87.5 Hyperkalemia; Z96.652 Presence of left artificial knee joint; N40.1 Benign prostatic hyperplasia with lower urinary tract symptoms; R39.11 Hesitancy of micturition; N32.0 Bladder-neck obstruction; M21.161 Varus deformity, not elsewhere classified, right knee
CPT/HCPCS: 73560; 80048; 80069; 81001; 85025; 85027; 85610; 86850; 86900; 86901; 94150; C1776; C9290; J0690; J1170; J1580; J2250; J2370; J2405; J3010; J7030; J7040; J7120

== ENCOUNTER → 2017-06-13 | Outpatient (CLI) | payer MEDICARE ==
[~2017-06-13] MED LIST: 1-ME1LIQ PO; ALLO100T PO; AMIO200T PO; AMLO10 PO; ASPI81CH25 PO; ASPI81TA11 PO; BRIL90TA PO; BUME1TAB PO; CARV3.12 PO; CARV3.125 PO; COZA50TA PO; CYCL1TAB29 PO; DESO0.0560 TOPICAL; ENOX30P SQ; ERGO1CAP30 PO; FLUT50SP NASAL; FOLI1TAB6 PO; HYDR-3580 PO; HYZA100T6 PO; LACT10SO PO; LORTA5 PO; Lactulose Liq PO; NEPHRO PO; PANT20 PO; POLY119S PO; POLY17S PO; PRAV20TA PO; SENN1TAB PO; SODI650T PO; TAMS0.4C4 PO; TRIA1SPR5 EACH NARE; TRIA1SPR6 EACH NARE; ULTR50TA5 PO; VITA100036 PO; [UNRECOGNIZED DRUG - OTHER] PO
[2017-06-13 09:37] LABS: HEMATOCRIT 31.4 % (39.0-51.0); MEAN CELL VOLUME 93.2 FL (80.0-100.0); MEAN CORPUSCULAR HEMOGLOBIN 30.9 PG (27.0-34.0); MEAN CORPUSCULAR HGB CONC 33.2 % (32.0-36.0); PLATELET COUNT 315 TH/MM3 (150-450); RED BLOOD COUNT 3.37 MIL/MM3 (4.50-5.90); RED CELL DISTRIBUTION WIDTH 14.8 % (11.6-17.2); REVIEW FLAG FINAL
[2017-06-13 09:46] LABS: APTT (PATIENT) 26.7 SEC (24.3-30.1); PROTHROMBIN TIME - PATIENT 10.8 SEC (9.8-11.6)
[2017-06-13 10:02] LABS: BICARBONATE 22.4 MEQ/L (21.0-32.0)
[2017-06-13 10:46] LABS: BLOOD, URINE NEG (NEG); COMMENT (UR) CULT NOT INDICATED; CULTURE IF INDICATED CULT NOT INDICATED; GLUCOSE,URINE NEG (NEG); KETONE, URINE NEG (NEG); MUCUS URINE FEW /lpf (OCC); NITRITE,URINE NEG (NEG); PH, URINE 5.5 (5.0-8.5); URINE COLOR LIGHT-YELLOW (YELLW/STRAW)
--- NOTE | 2017-06-14 14:56 | EKG ---
Date Performed: 06/13/2017 Time Performed: 09:24:59 PTAGE: 72 years EKG: SINUS BRADYCARDIA WITH FIRST DEGREE AV BLOCK NONSPECIFIC T-WAVE ABNORMALITY ABNORMAL ECG NO PREVIOUS TRACING DOCTOR: Nikolai Lipscomb Interpretating Date/Time 06/14/2017 14:54:01
== END ==
LOC: CPRE 08:58
PROVIDERS: ATTEND Orthopaedic Surgery
DX: Z01.810 Encounter for preprocedural cardiovascular examination (principal); Z01.812 Encounter for preprocedural laboratory examination; M79.609 Pain in unspecified limb; M17.11 Unilateral primary osteoarthritis, right knee; I10 Essential (primary) hypertension; R94.31 Abnormal electrocardiogram [ECG] [EKG]
CPT/HCPCS: 36415; 80048; 81001; 85027; 85610; 85730; 93005

== ENCOUNTER 2017-06-27 12:03 | Inpatient (IN) | payer MEDICARE ==
[2017-06-27] VITALS (14 sets, daily range): BP systolic 114–130; BP diastolic 50–65; PULSE 77–93; RESP 16–18; TEMP 98.6–99.5; O2SAT 93–99
[~2017-06-27] VITALS: Ht 185.4 cm; Wt 85.0 kg
[~2017-06-27 12:03] MED LIST changes: -1-ME1LIQ PO; -AMIO200T PO; -ASPI81CH25 PO; -BRIL90TA PO; -BUME1TAB PO; -CARV3.125 PO; -COZA50TA PO; -ENOX30P SQ; -ERGO1CAP30 PO; -FLUT50SP NASAL; -FOLI1TAB6 PO; -LACT10SO PO; -LORTA5 PO; -Lactulose Liq PO; -NEPHRO PO; -PANT20 PO; -POLY119S PO; -POLY17S PO; -PRAV20TA PO; -SENN1TAB PO; -ULTR50TA5 PO; -[UNRECOGNIZED DRUG - OTHER] PO
[2017-06-27] MEDS ORDERED: [UNRECOGNIZED DRUG - OTHER] PO (12:57)
--- NOTE | 2017-06-27 13:09 | PD ---
HPI Chief Complaint: Fever Time Seen by Provider: 12:51 Travel History International Travel<30 days: No Contact w/Intl Traveler<30days: No Traveled to known affect area: No History of Present Illness HPI This 72-year-old male is complaining of low-grade fever. He had a temp of 99.5 yesterday. He's had a slight cough. On Friday he had his right knee replaced by Dr. Marcelino. The surgery apparently went well. Since then he's been very tired. He's had a bad taste in his mouth. He's had a slight cough. He did develop urinary retention after surgery and has an indwelling catheter now. He has had some trouble urinating off and on in the past. He is concerned that he might have a urinary tract infection. He has had some burning from his stomach going up his chest to the back of his throat she thinks his accident yesterday. He has not had this before. He has been having it since his surgery. 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) Cardiovascular Problems: No High Cholesterol: Yes Diabetes: No Endocrine: No Genitourinary: No Hepatitis: No Hiatal Hernia: No Hypertension: Yes Immune Disorder: No Implanted Vascular Access Dvce: Yes Musculoskeletal: Yes (OSTEOARTHRITIS, BACK, NECK PROBLEMS) Neurologic: No Psychiatric: Yes (CLAUSTROPHOBIC) Reproductive: No Respiratory: No Thyroid Disease: No Influenza Vaccination: Yes Past Surgical History Abdominal Surgery: No AICD: No Cardiac Surgery: No Ear Surgery: No Endocrine Surgery: No Eye Surgery: Yes (bilat cataract removal) Genitourinary Surgery: No Gynecologic Surgery: No Joint Replacement: Yes (LEFT TOTAL KNEE; rt total knee) Oral Surgery: Yes (dentures) Pacemaker: No Thoracic Surgery: No Social History Alcohol Use: Yes (twice a week) Tobacco Use: No (never) Substance Use: No Allergies-Medications (Allergen,Severity, Reaction): Coded Allergies: acetaminophen (Verified Allergy, Severe, 06/27/17) renal protection morphine (Verified Allergy, Severe, Nausea/Vomiting, 06/27/17) oxycodone (Verified Allergy, Severe, 06/27/17) renal protection rivaroxaban (Verified Allergy, Severe, 06/27/17) renal protection diclofenac (Unverified Adverse Reaction, Severe, PATIENT HAS RENAL INSUFFICIENCY STAGE IV, 06/27/17) etodolac (Unverified Adverse Reaction, Severe, PATIENT HAS RENAL INSUFFICIENCY STAGE IV, 06/27/17) flurbiprofen (Unverified Adverse Reaction, Severe, PATIENT HAS RENAL INSUFFICIENCY STAGE IV, 06/27/17) ibuprofen (Unverified Adverse Reaction, Severe, PATIENT HAS RENAL INSUFFICIENCY STAGE IV, 06/27/17) indomethacin (Unverified Adverse Reaction, Severe, PATIENT HAS RENAL INSUFFICIENCY STAGE IV, 06/27/17) ketoprofen (Unverified Adverse Reaction, Severe, PATIENT HAS RENAL INSUFFICIENCY STAGE IV, 06/27/17) ketorolac (Unverified Adverse Reaction, Severe, PATIENT HAS STAGE IV CHRONIC RENAL INSUFFICIENCY, 06/27/17) naproxen (Unverified Adverse Reaction, Severe, PATIENT HAS RENAL INSUFFICIENCY STAGE IV, 06/27/17) oxaprozin (Unverified Adverse Reaction, Severe, PATIENT HAS RENAL INSUFFICIENCY STAGE IV, 06/27/17) lactose (Unverified Adverse Reaction, Intermediate, STOMACH ACHE, 06/27/17) Reported Meds & Prescriptions Reported Meds & Active Scripts Active Tamsulosin (Tamsulosin HCl) 0.4 Mg Cap 2 Cap PO HS Hydrocodone-Acetaminophen 7.5-325 mg Tab 1 Tab PO Q4H PRN Reported [proOptic Areds 2] 1 Tab PO BID Desonide Topical (Desonide) 0.05% Cream 1 Applic TOPICAL DAILY Nasacort Allergy 24Hr Nasal [place] (Triamcinolone Acetonide Nasal [place]) 55 Mcg Spr 16.5 Gm EACH NARE PRN Vitamin D3 (Cholecalciferol) 1,000 Unit Cap 1 Cap PO BID Aspirin EC (Aspirin) 81 Mg Tabdr 162 Mg PO EVERY OTHER DAY Sodium Bicarbonate 650 Mg Tab 650 Mg PO TIDPC Allopurinol 100 Mg Tab 100 Mg PO BID Carvedilol 3.125 Mg Tab 3.125 Mg PO BID Norvasc (Amlodipine Besylate) 10 Mg Tab 10 Mg PO DAILY Review of Systems General / Constitutional: Positive: Fever, No: Chills Eyes: No: Diploplia, Blurred Vision HENT: No: Headaches, Vertigo Cardiovascular: No: Chest Pain or Discomfort, Palpitations Respiratory: Positive: Cough Gastrointestinal: No: Vomiting, Diarrhea Genitourinary: Positive: Other (indwelling Abdul), No: Urgency, Frequency Musculoskeletal: No: Myalgias, Arthralgias Skin: No Rash Physical Exam Narrative GENERAL: Well-developed male SKIN: Focused skin assessment warm/dry. HEAD: Atraumatic. Normocephalic. EYES: Pupils equal and round. No scleral icterus. No injection or drainage. ENT: No nasal bleeding or discharge. Mucous membranes pink and moist. NECK: Trachea midline. No JVD. CARDIOVASCULAR: Regular rate and rhythm. No murmur appreciated. RESPIRATORY: No accessory muscle use. There are a few bibasilar rales. Breath sounds equal bilaterally. GASTROINTESTINAL: Abdomen soft, non-tender, nondistended. Hepatic and splenic margins not palpable. MUSCULOSKELETAL: No obvious deformities. No clubbing. No cyanosis. No edema. There is a midline incision on the knee which has Steri-Strips on it. There is no evidence of infection. NEUROLOGICAL: Awake and alert. No obvious cranial nerve deficits. Motor grossly within normal limits. Normal speech. PSYCHIATRIC: Appropriate mood and affect; insight and judgment normal. Data Data Last Documented VS Vital Signs Date Time Temp Pulse Resp B/P (MAP) Pulse Ox O2 Delivery O2 Flow Rate FiO2 06/27/17 14:36 84 18 117/59 (78) 97 Room Air 06/27/17 12:38 98.6 Orders Orders Complete Blood Count With Diff (06/27/17 13:04) Basic Metabolic Panel (Bmp) (06/27/17 13:04) Urinalysis - C+S If Indicated (06/27/17 13:04) Chest, Single Ap (06/27/17 13:04) Al-Mag Hy-Si 40-40-4 Mg/Ml Liq (Mag-Al P (06/27/17 13:45) Electrocardiogram (06/27/17 13:34) Troponin I (06/27/17 13:48) B-Type Natriuretic Peptide (06/27/17 13:48) Aspirin (Aspirin) (06/27/17 14:00) Nitroglycerin Sl (Nitrostat Sl) (06/27/17 14:00) Nitroglycerin 2% Oint (Nitroglycerin 2% (06/27/17 14:00) Prothrombin Time / Inr (Pt) (06/27/17 14:36) Act Partial Throm Time (Ptt) (06/27/17 14:36) Consult Cardiology (06/27/17 ) Consult Nephrology (06/27/17 ) Admit Order (Ed Use Only) (06/27/17 15:23) Labs Laboratory Tests Test 06/27/17 13:15 White Blood Count 12.2 TH/MM3 Red Blood Count 2.65 MIL/MM3 Hemoglobin 7.9 GM/DL Hematocrit 24.5 % Mean Corpuscular Volume 92.3 FL Mean Corpuscular Hemoglobin 29.8 PG Mean Corpuscular Hemoglobin Concent 32.2 % Red Cell Distribution Width 14.2 % Platelet Count 255 TH/MM3 Mean Platelet Volume 7.5 FL Neutrophils (%) (Auto) 78.4 % Lymphocytes (%) (Auto) 7.6 % Monocytes (%) (Auto) 12.7 % Eosinophils (%) (Auto) 0.7 % Basophils (%) (Auto) 0.6 % Neutrophils # (Auto) 9.6 TH/MM3 Lymphocytes # (Auto) 0.9 TH/MM3 Monocytes # (Auto) 1.5 TH/MM3 Eosinophils # (Auto) 0.1 TH/MM3 Basophils # (Auto) 0.1 TH/MM3 CBC Comment DIFF FINAL Differential Comment Prothrombin Time 10.7 SEC Prothromb Time International Ratio 1.0 RATIO Activated Partial Thromboplast Time 35.7 SEC Urine Collection Type CLEAN CATCH Urine Color STRAW Urine Turbidity CLEAR Urine pH 5.0 Urine Specific [place] 1.011 Urine Protein 100 mg/dL Urine Glucose (UA) NEG mg/dL Urine Ketones NEG mg/dL Urine Occult Blood MOD Urine Nitrite NEG Urine Bilirubin NEG Urine Leukocyte Esterase SMALL Urine RBC 0-3 /hpf Urine WBC 0-2 /hpf Microscopic Urinalysis Comment CULT NOT INDICATED Blood Urea Nitrogen 66 MG/DL Creatinine 3.60 MG/DL Random Glucose 118 MG/DL Calcium Level 8.6 MG/DL Sodium Level 127 MEQ/L Potassium Level 4.1 MEQ/L Chloride Level 92 MEQ/L Carbon Dioxide Level 24.3 MEQ/L Anion Gap 11 MEQ/L Estimat Glomerular Filtration Rate 17 ML/MIN Troponin I 4.30 NG/ML B-Type Natriuretic Peptide 837 PG/ML [facility] Medical Decision Making Medical Screen Exam Complete: Yes Emergency Medical Condition: Yes Medical Record Reviewed: Yes Differential Diagnosis Because of the burning sensation that he had requested an EKG. EKG shows some ST depression in leads 1 2 V4 through V6. The patient had an EKG prior to his surgery and these abnormalities are not present on that EKG. The patient was given an antacid with good response of his indigestion. His creatinine is elevated at 3.6. His troponin has come back at 4. Narrative Course Patient appears well in the emergency department. He was complaining of indigestion in his been given an antacid with good response. I was concerned the burning may represent ischemia and an EKG is suggestive of possible ischemia. Troponin is elevated at 4.6. Patient has been given aspirin though his been taking aspirin every day. He is not having precordial pain though he is having intermittent burning which she thinks is heartburn and which responded to antacids. Patient requests Dr. Eddi nowak. At this time the patient is pain-free. Diagnosis Primary Impression: NSTEMI (non-ST elevated myocardial infarction) Admitting Information Admitting Physician Requests: Eben Altamirano MD Jun 27, 2017 13:09
[2017-06-27 13:28] LABS: AUTOMATED NEUTROPHIL # 9.6 TH/MM3 (1.8-7.7); BASOPHIL # 0.1 TH/MM3 (0-0.2); BASOPHIL % 0.6 % (0.0-2.0); EOSINOPHIL # 0.1 TH/MM3 (0-0.4); EOSINOPHIL % 0.7 % (0.0-4.0); HEMATOCRIT 24.5 % (39.0-51.0); LYMPH % 7.6 % (9.0-44.0); LYMPHOCYTE # 0.9 TH/MM3 (1.0-4.8); MEAN CELL VOLUME 92.3 FL (80.0-100.0); MEAN CORPUSCULAR HEMOGLOBIN 29.8 PG (27.0-34.0); MEAN CORPUSCULAR HGB CONC 32.2 % (32.0-36.0); MONO % 12.7 % (0.0-8.0); NEUT % 78.4 % (16.0-70.0); PLATELET COUNT 255 TH/MM3 (150-450); RED BLOOD COUNT 2.65 MIL/MM3 (4.50-5.90); RED CELL DISTRIBUTION WIDTH 14.2 % (11.6-17.2); WHITE BLOOD COUNT 12.2 TH/MM3 (4.0-11.0)
[2017-06-27 13:29] LABS: BLOOD, URINE MOD (NEG); GLUCOSE,URINE NEG (NEG); HEMO FLAGS DIFF FINAL; KETONE, URINE NEG (NEG); NITRITE,URINE NEG (NEG)
[2017-06-27 13:35] LABS: POTASSIUM 4.1 MEQ/L (3.5-5.1)
[2017-06-27 13:38] LABS: BICARBONATE 24.3 MEQ/L (21.0-32.0); METHOD OF COLLECTION CLEAN CATCH; URINE COLOR STRAW (YELLW/STRAW)
[2017-06-27 13:39] LABS: COMMENT (UR) CULT NOT INDICATED; CULTURE IF INDICATED CULT NOT INDICATED; RBC, URINE 0-3 /hpf (0-3); WBC, URINE 0-2 /hpf (0-5)
[2017-06-27] MEDS ORDERED: ALUMINUM/MAGNESIUM/SIMETH 30 ML CUP PO ONE (13:45)
[2017-06-27] MEDS ORDERED: ASPIRIN 325 MG TAB PO ONE (14:00)
[2017-06-27] MEDS ORDERED: NITROGLYCERIN 0.4 MG SL 25 TABS/BTL SL ONE (14:00)
[2017-06-27] MEDS ORDERED: NITROGLYCERIN 2% OINT 1 GM PACKET TOPICAL ONE (14:00)
--- NOTE | 2017-06-27 14:02 | RADRPT ---
EXAM DATE/TIME: 06/27/2017 13:28 [facility] COMPARISON: CHEST PA & LAT, September 30, 2013, 11:25. INDICATIONS : Fever post total knee surgery. MEDICAL HISTORY : Hypercholesterolemia. Hypertension Osteoarthritis. Stage 4 renal disease SURGICAL HISTORY : Total knee replacement, right. Total knee replacement, left. ENCOUNTER: Initial ACUITY: 1 day PAIN SCORE: 0/10 LOCATION: chest FINDINGS: Mild interstitial prominence with minimal left basilar airspace disease. Cardiac silhouette is in the upper limits of normal. Osseous structures are intact. CONCLUSION: 1. Mild interstitial prominence may reflect minimal positive fluid balance. 2. Mild left lower lung zone airspace disease, likely atelectasis. Masoud Johnson MD on June 27, 2017 at 14:00 Board Certified Radiologist. This report was verified electronically.
[2017-06-27 15:00] LABS: APTT (PATIENT) 35.7 SEC (24.3-30.1); PROTHROMBIN TIME - PATIENT 10.7 SEC (9.8-11.6)
[2017-06-27] MEDS ORDERED: SODIUM CHLOR 0.9% 1000 ML INJ 1,000 ML IV SCH (16:15)
[2017-06-27] MEDS ORDERED: HEPARIN-D5W 25,000 U/250 ML 250 ML IV PRN ×2 (16:15)
[2017-06-27] MEDS ORDERED: MORPHINE SULFATE 4 MG/ML INJ IV PUSH PRN (16:15)
[2017-06-27] MEDS ORDERED: HEPARIN SODIUM - IV 10,000 UNITS/10 ML VIAL IV PUSH ONE (16:15)
[2017-06-27] MEDS ORDERED: SODIUM CHLORIDE 0.9% FLUSH 10 ML FLUSH IV FLUSH PRN (16:15)
[2017-06-27] MEDS ORDERED: ATORVASTATIN 80 MG TAB PO ONE (16:15)
[2017-06-27] MEDS ORDERED: ATORVASTATIN 40 MG TAB PO ONE (16:30)
--- NOTE | 2017-06-27 16:40 | HHI.HP ---
[facility] Primary Care Physician Bo Flannery MD Admission Diagnosis NSTEMI Diagnoses: Chief Complaint: Heartburn Travel History International Travel<30 Days: No Contact w/Intl Traveler <30 Da: No Traveled to Known Affected Are: No History of Present Illness This patient is a very pleasant 72-year-old gentleman with a strong family history of coronary artery disease. He did have severe unexplained heartburn symptoms over the last evening. He says the discomfort was 10 out of 10 and he did not find any relief with supportive measures. Patient was recently discharged from the hospital on 06/24 after a right total knee replacement. During that hospitalization he had some severe urinary retention which required a urinary catheter to be maintained he was referred to outpatient urology. Patient apparently over the last several days had initially been doing well at home but began to be lethargic and had some low-grade temperatures of about 100.5. His significant other says that he was much more sleepy and then he began complaining of the chest discomfort. Patient describes it as severe heartburn in the middle of his chest and radiating up into his throat. Chest pain was improved with nitroglycerin. He was brought into the emergency room and evaluation did show patient had elevated troponin 4.3 as well as EKG changes which were worrisome for ischemic changes. Patient is admitted to the hospital for further evaluation of non-ST elevation [place]. He has no personal cardiac history but has significant family history of sudden cardiac . At age 72 he has outlived all of his immediate family including mother father and brother and sister who apparently from sudden cardiac. 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 He has been hyponatremic and anemic and this evaluation today also. Patient's been admitted to the cardiac unit for further evaluation. Review of Systems Constitutional: COMPLAINS OF: Fatigue, Fever (100.5 at home), DENIES: Diaphoretic episodes, Weight gain, Weight loss, Chills, Dizziness, Change in appetite, Night Sweats Endocrine: DENIES: Heat/cold intolerance, Polydipsia, Polyuria, Polyphagia Eyes: DENIES: Blurred vision, Diplopia, Eye inflammation, Eye pain, Vision loss , Photosensitivity, Double Vision Ears, nose, mouth, throat: DENIES: Tinnitus, Hearing loss, Vertigo, Nasal discharge, Oral lesions, Throat pain, Hoarseness, Ear Pain, Running Nose, Epistaxis, Sinus Pain, Toothache, Odynophagia Respiratory: DENIES: Apneas, Cough, Snoring, Wheezing, Hemoptysis, Sputum production, Shortness of breath Cardiovascular: COMPLAINS OF: Chest pain Gastrointestinal: COMPLAINS OF: Nausea, DENIES: Abdominal pain, Black stools, Bloody stools, Constipation, Diarrhea, Vomiting, Difficulty Swallowing, Anorexia Genitourinary: DENIES: Sexual dysfunction, Urinary frequency, Urinary incontinence, Urgency, Hematuria, Dysuria, Nocturia, Penile Discharge, Testicular Pain, Testicular Swelling Musculoskeletal: COMPLAINS OF: Joint pain, DENIES: Muscle aches, Stiffness, Joint Swelling, Back pain, Neck pain Integumentary: DENIES: Abnormal pigmentation, Nail changes, Pruritus, Rash Hematologic/lymphatic: DENIES: Bruising, Lymphadenopathy Immunologic/allergic: DENIES: Eczema, Urticaria Neurologic: COMPLAINS OF: Abnormal gait (perioperatively), DENIES: Headache, Localized weakness, Paresthesias, Seizures, Speech Problems, Tremor, Poor Balance Psychiatric: DENIES: Anxiety, Confusion, Mood changes, Depression, Hallucinations, Agitation, Suicidal Ideation, Homicidal Ideation, Delusions Except as stated in HPI: all other systems reviewed are Neg Past Family Social History Past Medical History Osteoarthritis Chronic kidney disease stage IV Past Surgical History Left knee replacement Right knee replacement 06/24 Reported Medications Reviewed in the EMR Allergies: Coded Allergies: acetaminophen (Verified Allergy, Severe, 06/27/17) renal protection morphine (Verified Allergy, Severe, Nausea/Vomiting, 06/27/17) oxycodone (Verified Allergy, Severe, 06/27/17) renal protection rivaroxaban (Verified Allergy, Severe, 06/27/17) renal protection diclofenac (Unverified Adverse Reaction, Severe, PATIENT HAS RENAL INSUFFICIENCY STAGE IV, 06/27/17) etodolac (Unverified Adverse Reaction, Severe, PATIENT HAS RENAL INSUFFICIENCY STAGE IV, 06/27/17) flurbiprofen (Unverified Adverse Reaction, Severe, PATIENT HAS RENAL INSUFFICIENCY STAGE IV, 06/27/17) ibuprofen (Unverified Adverse Reaction, Severe, PATIENT HAS RENAL INSUFFICIENCY STAGE IV, 06/27/17) indomethacin (Unverified Adverse Reaction, Severe, PATIENT HAS RENAL INSUFFICIENCY STAGE IV, 06/27/17) ketoprofen (Unverified Adverse Reaction, Severe, PATIENT HAS RENAL INSUFFICIENCY STAGE IV, 06/27/17) ketorolac (Unverified Adverse Reaction, Severe, PATIENT HAS STAGE IV CHRONIC RENAL INSUFFICIENCY, 06/27/17) naproxen (Unverified Adverse Reaction, Severe, PATIENT HAS RENAL INSUFFICIENCY STAGE IV, 06/27/17) oxaprozin (Unverified Adverse Reaction, Severe, PATIENT HAS RENAL INSUFFICIENCY STAGE IV, 06/27/17) lactose (Unverified Adverse Reaction, Intermediate, STOMACH ACHE, 06/27/17) Active Ordered Medications Reviewed in the EMR Family History "Everyone of a heart attack", mom decided her 50s from sudden cardiac , father in his 60s from sudden cardiac , sister and brother also have had acute MIs in their 50s and 60s Social History No tobacco, no alcohol, lives with his significant other Retired from [place] with the [employer] Physical Exam Vital Signs Vital Signs Date Time Temp Pulse Resp B/P (MAP) Pulse Ox O2 Delivery O2 Flow Rate FiO2 06/27/17 14:36 84 18 117/59 (78) 97 Room Air 06/27/17 14:10 83 16 120/60 (80) 06/27/17 12:39 87 18 97 Room Air 06/27/17 12:38 98.6 06/27/17 12:12 99.5 87 17 130/60 (83) Physical Exam GENERAL: This is a well-nourished, well-developed patient, in no apparent distress. SKIN: No rashes, ecchymoses or lesions. Cool and dry. HEAD: Atraumatic. Normocephalic. No temporal or scalp tenderness. EYES: Pupils equal round and reactive. Extraocular motions intact. No scleral icterus. No injection or drainage. ENT: Nose without bleeding, purulent drainage or septal hematoma. Throat without erythema, tonsillar hypertrophy or exudate. Uvula midline. Airway patent. NECK: Trachea midline. No JVD or lymphadenopathy. Supple, nontender, no meningeal signs. CARDIOVASCULAR: Regular rate and rhythm without murmurs, gallops, or rubs. RESPIRATORY: Clear to auscultation. Breath sounds equal bilaterally. No wheezes , rales, or rhonchi. GASTROINTESTINAL: Abdomen soft, non-tender, nondistended. No hepato-splenomegaly , or palpable masses. No guarding. MUSCULOSKELETAL: right knee dressed, Extremities without clubbing, cyanosis, or edema. No joint tenderness, effusion, or edema noted. No calf tenderness. Negative Homans sign bilaterally. NEUROLOGICAL: Awake and alert. Cranial nerves II through XII intact. Motor and sensory grossly within normal limits. Five out of 5 muscle strength in all muscle groups. Normal speech. Laboratory Laboratory Tests Test 06/27/17 13:15 White Blood Count 12.2 Red Blood Count 2.65 Hemoglobin 7.9 Hematocrit 24.5 Mean Corpuscular Volume 92.3 Mean Corpuscular Hemoglobin 29.8 Mean Corpuscular Hemoglobin Concent 32.2 Red Cell Distribution Width 14.2 Platelet Count 255 Mean Platelet Volume 7.5 Neutrophils (%) (Auto) 78.4 Lymphocytes (%) (Auto) 7.6 Monocytes (%) (Auto) 12.7 Eosinophils (%) (Auto) 0.7 Basophils (%) (Auto) 0.6 Neutrophils # (Auto) 9.6 Lymphocytes # (Auto) 0.9 Monocytes # (Auto) 1.5 Eosinophils # (Auto) 0.1 Basophils # (Auto) 0.1 CBC Comment DIFF FINAL Differential Comment Prothrombin Time 10.7 Prothromb Time International Ratio 1.0 Activated Partial Thromboplast Time 35.7 Urine Collection Type CLEAN CATCH Urine Color STRAW Urine Turbidity CLEAR Urine pH 5.0 Urine Specific [place] 1.011 Urine Protein 100 Urine Glucose (UA) NEG Urine Ketones NEG Urine Occult Blood MOD Urine Nitrite NEG Urine Bilirubin NEG Urine Leukocyte Esterase SMALL Urine RBC 0-3 Urine WBC 0-2 Microscopic Urinalysis Comment CULT NOT INDICATED Blood Urea Nitrogen 66 Creatinine 3.60 Random Glucose 118 Calcium Level 8.6 Sodium Level 127 Potassium Level 4.1 Chloride Level 92 Carbon Dioxide Level 24.3 Anion Gap 11 Estimat Glomerular Filtration Rate 17 Troponin I 4.30 B-Type Natriuretic Peptide 837 Result Diagram: 06/27/17 1315 06/27/17 1315 Imaging Last Impressions Chest X-Ray 06/27/17 1304 Signed Impressions: Service Date/Time: Tuesday, June 27, 2017 13:28 - CONCLUSION: 1. Mild interstitial prominence may reflect minimal positive fluid balance. 2. Mild left lower lung zone airspace disease, likely atelectasis. Masoud Johnson MD Course transfer to [facility] cardiac unit Caprinadeline VTE Risk Assessment Caprini VTE Risk Assessment: Mod/High Risk (score >= 2) Caprini Risk Assessment Model Point Value = 1 Point Value = 2 Point Value = 3 Point Value = 5 Age 41-60 Minor surgery BMI > 25 kg/m2 Swollen legs Varicose veins or History of unexplained or recurrent spontaneous Oral contraceptives or hormone replacement Sepsis (< 1 month) Serious lung disease, including pneumonia (< 1 month) Abnormal pulmonary function Acute myocardial infarction Congestive heart failure (< 1 month) History of inflammatory bowel disease Medical patient at bed rest Age 61-74 Arthroscopic surgery Major open surgery (> 45 min) Laparoscopic surgery (> 45 min) Malignancy Confined to bed (> 72 hours) Immobilizing plaster cast Central venous access Age >= 75 History of VTE Family history of VTE Factor V Leiden Prothrombin [id number] Lupus anticoagulant Anticardiolipin antibodies Elevated serum homocysteine Heparin-induced thrombocytopenia Other congenital or acquired thrombophilia Stroke (< 1 month) Elective arthroplasty Hip, pelvis, or leg fracture Acute spinal cord injury (< 1 month) Prophylaxis Regimen Total Risk Factor Score Risk Level Prophylaxis Regimen 0-1 Low Early ambulation 2 Moderate Order ONE of the following: *Sequential Compression Device (SCD) *Heparin 5000 units SQ BID 3-4 Higher Order ONE of the following medications: *Heparin 5000 units SQ TID *Enoxaparin/Lovenox 40 mg SQ daily (WT < 150 kg, CrCl > 30 mL/min) *Enoxaparin/Lovenox 30 mg SQ daily (WT < 150 kg, CrCl > 10-29 mL/min) *Enoxaparin/Lovenox 30 mg SQ BID (WT < 150 kg, CrCl > 30 mL/min) AND/OR *Sequential Compression Device (SCD) 5 or more Highest Order ONE of the following medications: *Heparin 5000 units SQ TID (Preferred with Epidurals) *Enoxaparin/Lovenox 40 mg SQ daily (WT < 150 kg, CrCl > 30 mL/min) *Enoxaparin/Lovenox 30 mg SQ daily (WT < 150 kg, CrCl > 10-29 mL/min) *Enoxaparin/Lovenox 30 mg SQ BID (WT < 150 kg, CrCl > 30 mL/min) AND *Sequential Compression Device (SCD) Assessment and Plan Problem List: (1) Anemia ICD Code: D64.9 - Anemia, unspecified Plan: type screen hg has gone from 9.8 to 7.9, follow trend transfuse as needed (2) Hyponatremia ICD Code: E87.1 - Hypo-osmolality and hyponatremia Plan: We'll follow with gentle IV hydration and avoid overcorrection (3) Urinary retention ICD Code: R33.9 - Retention of urine, unspecified Plan: Patient with benign prostatic hypertrophy and will need to retain Abdul ( present on admission and placed at last admission), Dr. Montes urologist (4) CKD (chronic kidney disease) stage 4, GFR 15-29 ml/min ICD Code: N18.4 - Chronic kidney disease, stage 4 (severe) Status: Chronic Plan: Patient follows up with Dr. Valencia About at baseline We'll continue hydration prior to possible heart catheter (5) Primary osteoarthritis of right knee ICD Code: M17.11 - Unilateral primary osteoarthritis, right knee (6) NSTEMI (non-ST elevated myocardial infarction) ICD Code: I21.4 - Non-ST elevation (NSTEMI) myocardial infarction Status: Acute Plan: Perioperative? Right knee replacement 06/24 With anginal equivalent symptoms, abnormal EKG and with positive troponin ST aspirin and Heparin, statin, BB, no Acei due to renal failure) he depression in leads 1 2 V4 through V6 on my review (7) status post left total knee replacement Status: Acute Plan: Currently weightbearing as tolerated, right knee with DME Postop from 06/24 Dr. Martin (discharged on TEDs and aspirin) program Code Status Full code Discussed Condition With Plan of care discussed with patient, significant other and ER M.D. 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 In the case of services not specified as inpatient-only, they are appropriately provided as inpatient services in accordance with the 2-midnight benchmark. Estimated LOS (days): 3 3 days is the estimated time the patient will need to remain in the hospital, assuming treatment plan goals are met and no additional complications. Post-Hospital Plan: Not yet determined Renetta Montoya MD Jun 27, 2017 16:40
[2017-06-27] MEDS ORDERED: NITROGLYCERIN 2% OINT 1 GM PACKET TOP SCH ×2 (17:00→20:00)
[2017-06-27] MEDS: PANTOPRAZOLE SODIUM 40 MG VIAL IV PUSH SCH (17:35)
[2017-06-27] MEDS ORDERED: NITROGLYCERIN-D5W 50 MG/250 ML 250 ML IV PRN (17:45)
[2017-06-27] MEDS ORDERED: SODIUM BICARBONATE 650 MG TAB PO SCH (18:30)
[2017-06-27] MEDS: SODIUM BICARBONATE 325 MG TAB PO SCH (18:36)
[2017-06-27] MEDS: HYDROmorphone HCL PF 2 MG/ML VIAL IVS PRN (19:36)
[2017-06-27 20:15] LABS: CREATINE KINASE 227 U/L (39-308)
[2017-06-27 20:27] LABS: CKMB 12.4 NG/ML (0.5-3.6)
[2017-06-27] MEDS: SODIUM CHLORIDE 0.9% FLUSH 10 ML FLUSH IV FLUSH SCH (21:00)
[2017-06-27] MEDS ORDERED: HEPARIN SODIUM - IV 10,000 UNITS/10 ML VIAL IV PUSH PRN ×2 (22:15)
[2017-06-28] VITALS (17 sets, daily range): BP systolic 124–158; BP diastolic 59–83; PULSE 81–128; RESP 14–25; TEMP 99.1–101.6; O2SAT 91–100
[2017-06-28 00:11] LABS: APTT (PATIENT) 52.7 SEC (24.3-30.1)
--- NOTE | 2017-06-28 00:39 | RADRPT ---
EXAM DATE/TIME: 06/28/2017 00:30 [facility] COMPARISON: CHEST SINGLE AP, June 27, 2017, 13:28. INDICATIONS : Shortness of breath MEDICAL HISTORY : Hypercholesterolemia. Hypertension Stage 4 Renal disease, Osteoarthritis SURGICAL HISTORY : Total knee replacement, left. Total knee replacement, right. ENCOUNTER: Subsequent ACUITY: 2 days PAIN SCORE: 7/10 LOCATION: Bilateral chest FINDINGS: A single portable frontal view of the chest shows cardiomegaly with pulmonary vascular engorgement. B ibasilar intralobular opacities. No discrete effusions. A degenerative thoracic spine. CONCLUSION: Radiographic pattern consistent with intra-alveolar pulmonary edema. Simon Gomez Jr., MD on June 28, 2017 at 0:37 Board Certified Radiologist. This report was verified electronically.
[2017-06-28] MEDS ORDERED: RESP: ALBUTEROL 2.5 MG/IPRATROPIUM 0.5 MG NEB (SCH) NEB ONE (00:45)
[2017-06-28] MEDS ORDERED: FUROSEMIDE 40 MG/4 ML VIAL IV PUSH ONE (00:45)
[2017-06-28] MEDS: CARVEDILOL 3.125 MG TAB PO SCH ×3 (00:56→20:20)
[2017-06-28] MEDS: ALLOPURINOL 100 MG TAB PO SCH ×3 (00:56→20:20)
[2017-06-28 00:57] LABS: BLOOD GAS BASE EXCESS -3.2 mmol/L (-2-2); BLOOD GAS CARBOXYHEMOGLOBIN 1.6 % (0-4); BLOOD GAS HCO3 21 mmol/L (22-26); BLOOD GAS METHEMOGLOBIN 0.7 % (0-2); BLOOD GAS O2 HGB SATURATION 92 % (90-100); BLOOD GAS OXYGEN CONTENT 8.9 Vol % (12.0-20.0); BLOOD GAS PCO2 32 mmHg (38-42); BLOOD GAS PO2 68 mmHG (61-120); BLOOD GAS TOTAL HGB 6.8 G/DL (12.0-16.0); TEMP CORR TO 98.6
[2017-06-28 00:59] LABS: CRITICAL VALUE YES; LITER FLOW 12 L/M; OXYGEN DEVICE NONREB MASK
[2017-06-28 01:00] LABS: DRAW SITE RT RADIAL; NUMBER OF ARTERIAL PUNCTURES 1; STAT YES; ULNAR PULSE PRESENT
[2017-06-28] MEDS ORDERED: SODIUM CHLOR 0.9% 250 ML INJ 250 ML IV ONE (01:30)
[2017-06-28] MEDS ORDERED: FUROSEMIDE 20 MG/2 ML VIAL IV PUSH PRN (01:30)
[2017-06-28] MEDS ORDERED: ATROPINE SULFATE 1 MG/10 ML SYRINGE ONE (01:58)
[2017-06-28] MEDS ORDERED: EPINEPHrine HCL (1:10,000) 1 MG/10 ML SYRINGE ONE (01:58)
[2017-06-28] MEDS ORDERED: LIDOCAINE HCL 2% 100 MG/5 ML SYRINGE ONE (01:58)
[2017-06-28 02:19] LABS: AUTOMATED NEUTROPHIL # 8.8 TH/MM3 (1.8-7.7); BASOPHIL % 0.2 % (0.0-2.0); EOSINOPHIL % 0.1 % (0.0-4.0); LYMPH % 8.7 % (9.0-44.0); MEAN CORPUSCULAR HEMOGLOBIN 31.3 PG (27.0-34.0); MEAN CORPUSCULAR HGB CONC 32.9 % (32.0-36.0); MONO % 15.3 % (0.0-8.0); NEUT % 75.7 % (16.0-70.0); PLATELET COUNT 204 TH/MM3 (150-450); RED BLOOD COUNT 2.15 MIL/MM3 (4.50-5.90); WHITE BLOOD COUNT 11.6 TH/MM3 (4.0-11.0)
[2017-06-28 02:21] LABS: HEMO FLAGS DIFF FINAL
[2017-06-28 02:22] LABS: CREATINE KINASE 221 U/L (39-308)
[2017-06-28 02:30] LABS: HEMATOCRIT 20.4 % (39.0-51.0)
[2017-06-28 02:49] LABS: CKMB 11.3 NG/ML (0.5-3.6)
[2017-06-28] MEDS ORDERED: RESP: ALBUTEROL 2.5 MG/IPRATROPIUM 0.5 MG NEB (PRN) NEB (03:00)
[2017-06-28] MEDS ORDERED: DEXTROSE 50% IN WATER 50 ML VIAL(D50) IV PUSH PRN (03:00)
[2017-06-28] MEDS ORDERED: GLUCAGON 1 MG/ML VIAL OTHER PRN (03:00)
[2017-06-28] MEDS: INSULIN NovoLIN REGULAR SUPPLEMENTAL SCALE SQ SCH ×4 (03:00→20:20)
[2017-06-28] MEDS: RESP: ALBUTEROL 2.5 MG/IPRATROPIUM 0.5 MG NEB (SCH) NEB ×5 (03:11→20:31)
--- NOTE | 2017-06-28 04:31 | HHI.PR ---
Addendum to Inpatient Note Addendum Reason: Additional Documentation Additional Information 72 y/o male s/p total knee replacement by Dr. Marcelino on 06/24/17 presented to the [place] ED with chest pain and was found to have an elevated Troponin I of 4.3, 4.4 and EKGs with significant ST changes in anterolateral leads. He was placed on Heparin and ntg drips and cardiology was consulted. He was transferred from [place] to the [facility] via ambulance. En route to the [facility], he developed hypoxia requiring placement on a non- rebreather mask at 100%. Of note, he has acute on chronic renal failure with a creatinine of 3.6 and eGFR of 17. We were notified by nursing of the patient's change in condition upon arrival to the [facility]. The patient was still complaining of some chest discomfort on arrival but did not appear to be in any distress. He denies feeling short of breath. I ordered a stat CXR and ABGs. The case was reviewed with Dr. Arriaza. She recommended Lasix 40 mg IV , duo nebs, cardiac enzymes and for nurse to notify cardiology of patient's current situation to assist with management of complex cardiac condition. ABGs showed hgb 6.8, oxygen saturation of 92, PO2 68, PCO2 32 on nonrebreather mask. CXR shows intra-alveolar pulmonary edema. The patient demonstrates no respiratory distress at the time of my visit. He is complaining of 2/10 central chest pain that is described as a burning sensation radiating to back but not arms, jaw, or neck and not accompanied by palpitations, nausea, vomiting , or diaphoresis. The pain is worsened with deep breathing. Bilateral lower lobe fine crackles are auscultated. VSS. Discussed with Dr. Arriaza; will transfer to ICU, Dr. Arriaza. Orders placed for blood transfusion 2 units, bipap, and auto dealer consult - I spoke with Dr. Charlton and he graciously agreed to accept the patient in transfer. He asked that one unit of blood be transfused and the second unit to be placed upon hold. Orders were placed. Neelam Johnson Jun 28, 2017 04:31
--- NOTE | 2017-06-28 05:06 | EKG ---
Date Performed: 06/27/2017 Time Performed: 19:22:48 PTAGE: 72 years EKG: Sinus rhythm NONSPECIFIC ST & T-WAVE ABNORMALITY BORDERLINE ECG PREVIOUS TRACING : 06/27/2017 17.26 DOCTOR: Dao Bradley Interpretating Date/Time 06/28/2017 05:03:25
--- NOTE | 2017-06-28 05:09 | EKG ---
Date Performed: 06/27/2017 Time Performed: 17:26:03 PTAGE: 72 years EKG: Sinus rhythm NONSPECIFIC ST & T-WAVE ABNORMALITY BORDERLINE ECG PREVIOUS TRACING : 06/27/2017 13.46 DOCTOR: Dao Bradley Interpretating Date/Time 06/28/2017 05:04:36
--- NOTE | 2017-06-28 05:15 | EKG ---
Date Performed: 06/27/2017 Time Performed: 13:46:23 PTAGE: 72 years EKG: Sinus rhythm NONSPECIFIC ST & T-WAVE ABNORMALITY BORDERLINE ECG PREVIOUS TRACING : 06/13/2017 09.24 DOCTOR: Dao Bradley Interpretating Date/Time 06/28/2017 05:08:05
[2017-06-28 07:04] LABS: AUTOMATED NEUTROPHIL # 8.8 TH/MM3 (1.8-7.7); BASOPHIL % 0.4 % (0.0-2.0); EOSINOPHIL % 0.1 % (0.0-4.0); HEMATOCRIT 27.2 % (39.0-51.0); HEMO FLAGS DIFF FINAL; LYMPHOCYTE # 0.9 TH/MM3 (1.0-4.8); MEAN CELL VOLUME 91.7 FL (80.0-100.0); MEAN CORPUSCULAR HEMOGLOBIN 30.6 PG (27.0-34.0); MEAN CORPUSCULAR HGB CONC 33.4 % (32.0-36.0); MONO % 15.4 % (0.0-8.0); NEUT % 76.1 % (16.0-70.0); PLATELET COUNT 206 TH/MM3 (150-450); RED BLOOD COUNT 2.97 MIL/MM3 (4.50-5.90); RED CELL DISTRIBUTION WIDTH 14.8 % (11.6-17.2); WHITE BLOOD COUNT 11.6 TH/MM3 (4.0-11.0)
[2017-06-28 07:09] LABS: PROTHROMBIN TIME - PATIENT 11.1 SEC (9.8-11.6)
[2017-06-28 07:12] LABS: APTT (PATIENT) 56.7 SEC (24.3-30.1)
--- NOTE | 2017-06-28 07:16 | MB ---
cc: LUKE NATARAJAN M.D. DATE OF CONSULTATION: 06/27/2017 DATE OF : 1945 REASON FOR CONSULTATION: The patient is a 72 year old male with past medical history of osteoarthritis, chronic kidney disease, stage IV who was admitted to [facility] on June 27, 2017 under hospitalist service for anemia and non-ST elevation myocardial infarction. The patient was found to have a troponin of 4.3 which is gradually increasing to 6.05 early this morning. He was placed on heparin and nitro drip. In addition the patient was found to have acute on chronic kidney disease with creatinine level of 3.6, BUN 66 and hyponatremia with sodium level of 127. His initial chest x-ray showed mild interstitial prominence and atelectasis at the left lower lung zone. The patient has been requiring increased o2 and was subsequently placed on a [id number], repeat chest x-ray was preformed this morning which shows a pulmonary edema. Also he had arterial blood gas on non-rebreather mask which showed pH of 7.42, co2 32, pa02 68, bicarb 21, saturation 92%. He was found to have a hemoglobin of 6.7 and the patient is scheduled to receive two units of packed red blood cells. The patient was given 40 mg IV push prior to transfer. When seen he was on a BiPAP 10/5 with 40% FIO2. The patient appears uncomfortable. An electrocardiogram from last night showed nonspecific ST wave abnormalities, sinus rhythm with heart rate of 92 beats per minute. PAST MEDICAL HISTORY: Significant for osteoarthritis. Chronic kidney disease stage IV. PAST SURGICAL HISTORY: Previous left and right knee replacements. ALLERGIES ACETAMINOPHEN MORPHINE OXYCODONE XARELTO NAPROXEN MEDICATIONS current medications include 1. Heparin drip. 2. Nitro drip. 3. Lasix. 4. Coreg. FAMILY HISTORY Coronary artery disease runs in the family. SOCIAL HISTORY No history of tobacco, alcohol use. REVIEW OF SYSTEMS As per HPI. Rest of the system unremarkable. PHYSICAL EXAMINATION: IN GENERAL: 72-year-old male lying in bed in mild respiratory distress on BiPAP. VITAL SIGNS: Temperature 100.3, pulse of 82, blood pressure 123/61, saturation 99% on a BiPap 10 over five at 40% FIO2. HEAD, EYES, EARS, NOSE, AND THROAT: Atraumatic, normocephalic pupil equal and reactive to accommodation X on muscles intact. Conjunctivae pink. Nonicteric sclerae. Oral mucosa within normal. NECK: Supple. No JVD, adenopathy, thyromegaly. Trachea midline CARDIOVASCULAR SYSTEM: Regular rate and rhythm. Normal S1-S2. No murmurs, rubs or gallops noted. PULMONARY: Pulmonary exam bilateral equal entry with few coarse breath sounds. ABDOMEN: Abdomen: Soft, nontender, no distension. Positive bowel sounds. EXTREMITIES: No cyanosis or edema. NEUROLOGIC: No focal sensory deficit. LABORATORY DATA WBC 11.6, hemoglobin 6.7, hematocrit 28, 20, platelet count 204, sodium 127, 1004.1, chloride 92, CO2 24, BUN 66, creatinine 3.60, glucose 118. Troponin 6.05 with total CK 221 and MB 11.3 years. RADIOGRAPHY Chest x-ray From this morning showed pulmonary edema. EKG showed a normal sinus rhythm rate 92 beats per minute, nonspecific ST wave abnormalities. IMPRESSION 1. Acute hypoxemic respiratory insufficiency 2. Non-ST elevation myocardial infarction. 3. Pulmonary edema. 4. Anemia 5. Acute on chronic kidney disease. 6. Hyponatremia. 7. Osteoarthritis. RECOMMENDATIONS: 1. We will monitor the neuro status and avoid any sedatives. 2. Wean down oxygen as tolerated and maintain sats above 92%. 3. Bronchodilators in the form of DuoNeb q. 4+ q. two p.r.n. for shortness of breath. 4. Noninvasive positive pressure ventilation p.r.n. for respiratory distress. 5. Monitor heart rate and blood pressure closely and maintain MAP greater than 65 mmHg. 6. Monitor cardiac enzymes with troponins and we will obtain 2-D echo to evaluate LV function and to rule out regional wall motion abnormalities. 7. Dr. Jenkins from cardiology service is following. 8. Continue with heparin and nitro drip for now. 9. The patient is on Coreg 3.125 mg b.i.d. 10. He was given Lipitor x1 yesterday. 11. Monitor renal function, Is and Os and avoid nephrotoxins. 12. We will obtain renal ultrasound to rule out hydronephrosis. 13. 14. Consult the nephrology service. 15. Keep n.p.o. for now until respiratory status improves. 16. Place on Protonix 40 mg IV daily for GI prophylaxis. 17. Monitor for signs of infections which include fever and WBC. 18. Obtain culture if spikes a fever. 19. His urinalysis from yesterday negative for UTI. 20. Sliding scale insulin with Accu-Chek's if needed for glycemic control. 21. Monitor CBC. 22. The patient is for transfusion 2 units of packed RBCs. Will check H&H post transfusion. 23. GI prophylaxis with Protonix 40 mg daily and DVT prophylaxis with SCDs, in addition he is on heparin drip. 24. Further recommendations will be based on hospital course. Critical care time 35 minutes excluding procedures. MD ANAHI Rojo/kevin /3:13 AM /6:57 AM
[2017-06-28 07:23] LABS: ANION GAP 12 MEQ/L (5-15); BICARBONATE 22.2 MEQ/L (21.0-32.0); BLOOD UREA NITROGEN 76 MG/DL (7-18); CHLORIDE 97 MEQ/L (98-107); GLOMERULAR FILTRATION RATE 15 ML/MIN (>89); POTASSIUM 4.2 MEQ/L (3.5-5.1); SODIUM (NA) 131 MEQ/L (136-145)
[2017-06-28 07:26] LABS: ALKALINE PHOSPHATASE 96 U/L (45-117); ALT (GPT) 7 U/L (12-78); AST (GOT) 36 U/L (15-37); FERRITIN 351 NG/ML (26-388); TOTAL BILIRUBIN ADULT 1.1 MG/DL (0.2-1.0); TRANSFERRIN IRON PROFILE 136 MG/DL (200-360)
[2017-06-28 07:40] LABS: CREATINE KINASE 237 U/L (39-308)
[2017-06-28 07:52] LABS: CKMB 11.2 NG/ML (0.5-3.6)
[2017-06-28] MEDS ORDERED: IOHEXOL 350 MG/ML 50 ML BTL (for Cath Lab) OTHER ONE (08:44)
[2017-06-28] MEDS ORDERED: IOHEXOL 350 MG/ML 100 ML BTL (for Cath Lab) OTHER ONE (08:44)
[2017-06-28] MEDS: SODIUM CHLORIDE 0.9% FLUSH 10 ML FLUSH IV FLUSH SCH ×2 (09:00→20:20)
[2017-06-28] MEDS: HYDROmorphone HCL PF 2 MG/ML VIAL IVS PRN ×2 (09:24→18:01)
[2017-06-28] MEDS: SODIUM BICARBONATE 325 MG TAB PO SCH ×3 (09:49→17:40)
--- NOTE | 2017-06-28 10:09 | RADRPT ---
EXAM DATE/TIME: 06/28/2017 09:24 [place] COMPARISON: No previous studies available for comparison. INDICATIONS : Acute renal failure. MEDICAL HISTORY : Hypercholesterolemia. Hypertension. Chronic kidney disease stage 4. osteoarthritis. SURGICAL HISTORY : Left knee surgery. Bilateral cataracts. ENCOUNTER: Initial ACUITY: 1 day PAIN SCORE: 0/10 LOCATION: Bilateral flank MEASUREMENTS: RIGHT KIDNEY: 11.4 x 4.4 x 4.5 cm LEFT KIDNEY: 11.3 x 4.3 x 5.6 cm FINDINGS: RIGHT KIDNEY: There is increased echogenicity of the renal cortex. The renal cortex appears thinned. There is no hy dronephrosis. Exam would be consistent with underlying medical renal disease. LEFT KIDNEY: There is increased echogenicity of the renal cortex. The renal cortex appears thinned. There is no hy dronephrosis. Findings would be consistent with underlying medical renal disease. BLADDER: Within normal limits given the degree of distension. There is a Abdul catheter within the bladder. CONCLUSION: 1. Cortical thinning and increased echogenicity suggesting underlying medical renal disease. Kei Daley MD on June 28, 2017 at 10:03 Board Certified Radiologist. This report was verified electronically.
[2017-06-28] MEDS ORDERED: SODIUM CHLORID 0.9% 500 ML INJ 500 ML ONE (11:51)
[2017-06-28] MEDS ORDERED: HEPARIN-NS/PF INJ 1,000 ML ONE (11:51)
[2017-06-28] MEDS ORDERED: MIDAZOLAM HCL 2 MG/2 ML VIAL ONE (11:51)
--- NOTE | 2017-06-28 12:32 | MB ---
cc: Didi SEGURA M.D. JOSE MANUEL SERNA MD DATE OF CONSULTATION: 06/28/2017 REASON FOR CONSULTATION: Mr. Bolton is a 72-year-old white male with a history of Stage IV chronic kidney disease and recent right knee surgery. He presented to [facility] Emergency room with substernal chest discomfort for. He was found to have elevated troponin 4.3. He developed increased short of the night. He was found to be anemic and his chest x-ray was consistent with pulmonary edema, his hemoglobin was 6.7 and he received two units of packed red blood cells. He was also given IV Lasix. PAST MEDICAL HISTORY Positive for chronic kidney disease stage IV Bilateral arthritis Recent right knee surgery. No previous cardiac history. MEDICATIONS medications include 1. DuoNeb inhaler. 2. Insulin. 3. Allopurinol. 4. Carvedilol. 5. Sodium bicarbonate. 6. Pantoprazole. ALLERGIES ACETAMINOPHEN DICLOFENAC ETODOLAC FLURBIPROFEN IBUPROFEN INDOMETHACIN KETOPROFEN KETOROLAC LACTULOSE MORPHINE NAPROXEN OXAPROZIN OXYCODONE XARELTO RIVAROXABAN SOCIAL HISTORY: Patient does not smoke, does not drink excessively. FAMILY HISTORY: Positive for heart disease. REVIEW OF SYSTEMS Otherwise negative. PHYSICAL EXAMINATION: VITAL SIGNS: Blood pressure 124/65, 88 and regular. HEAD, EYES, EARS, NOSE, AND THROAT: Negative. NECK: 2+ carotid upstrokes, no bruits. LUNGS: Clear to rhonchi. HEART: Regular with no murmur, gallop or rub. ABDOMEN: Soft, no bruits. EXTREMITIES: Without edema, 1-2+ positive pulses, NEUROLOGIC: Neurologically nonfocal. The patient appears comfortable lying flat. RADIOLOGIC: EKG was reviewed and showed normal sinus rhythm, normal axis and diffuse ST-T changes. LABORATORY DATA Hemoglobin 7.9, 67 and 90.1 after transfusion testing for point to creatinine 3.6 and 3.9, troponin 0.40, 6.05 and 8.11, CK 227, 221 and 237, CK-MB 12.4, 11.3 and 11.2. DIAGNOSIS [id number] myocardial function. Pulmonary edema Acute hypoxemic respiratory insufficiency. Acute exacerbation of Stage IV chronic kidney disease. Recent right knee surgery. DISPOSITION: Mr. Bloton was found to have evidence [id number] myocardial function. He continues to have intermittent chest discomfort. We will proceed with cardiac catheterization and coronary intervention if necessary. The procedure has significant risks due to his anemia and progressive renal insufficiency. With ongoing angina I do believe that risk of medical management alone is significant. This was discussed with the patient and family and they wish to be wish to proceed with the cardiac catheterization. This will be scheduled today with Dr. Segura, his primary saturator tender will follow him as well. MD JESSE Tan/kevin /10:51 AM /11:58 AM
[2017-06-28] MEDS ORDERED: HEPARIN SODIUM - IV 10,000 UNITS/10 ML VIAL ONE (12:34)
[2017-06-28] MEDS ORDERED: ASPIRIN 81 MG CHEW TAB ONE (13:16)
[2017-06-28] MEDS ORDERED: TICAGRELOR 90 MG TAB PO ONE ×2 (13:16→13:32)
--- NOTE | 2017-06-28 13:34 | PD.CONS ---
HPI Consult Requested By Reason for Consult Acute on chronic renal insufficiency Primary Care Physician Bo Flannery MD History of Present Illness This patient is a 72-year-old male with a history of progressive severe chronic kidney disease with a baseline GFR of approximately 20 although more recently has had GFR is below this level. Patient underwent a total right knee arthroplasty deferred of June, for severe degenerative joint disease. Patient wished to proceed despite the severity of his chronic kidney disease and risk of worsening renal function because of the severity of debilitation associated with his degenerative joint disease. Patient's renal function fortunately did remain relatively stable postoperatively and the patient was discharged in stable clinical condition except for the fact that he did develop some bladder outlet obstruction and required an indwelling Abdul catheter with follow-up with urology post discharge. Patient noted to have presented to the emergency room in [place] with complaints of "heartburn". Subsequent diagnosis having and non-ST AK with elevations in troponin. His serum creatinine level on presentation was 3.6 subsequently deteriorating today to 3.9. He is also said to have developed some respiratory insufficiency in route to the main campus. Chest x-ray showed some evidence of interstitial edema and symptomatology improved with IV furosemide. Patient was seen by cardiology and was taken urgently to the cardiac catheter lab for angiogram. Patient did receive IV saline since admission. Patient now status post placement of 2 bare metal stents. Seen postprocedure resting comfortably. Review of Systems Constitutional: DENIES: Diaphoretic episodes, Fatigue, Fever, Weight gain, Weight loss, Chills, Dizziness, Change in appetite, Night Sweats Respiratory: DENIES: Apneas, Cough, Snoring, Wheezing, Hemoptysis, Sputum production, Shortness of breath Cardiovascular: DENIES: Chest pain, Palpitations, Syncope, Dyspnea on Exertion , PND, Lower Extremity Edema, Orthopnea, Claudication Gastrointestinal: DENIES: Abdominal pain, Black stools, Bloody stools, Constipation, Diarrhea, Nausea, Vomiting, Difficulty Swallowing, Anorexia Musculoskeletal: COMPLAINS OF: Joint pain, DENIES: Muscle aches, Stiffness, Joint Swelling, Back pain, Neck pain Past Family Social History Allergies: Coded Allergies: acetaminophen (Verified Allergy, Severe, 06/27/17) renal protection morphine (Verified Allergy, Severe, Nausea/Vomiting, 06/27/17) oxycodone (Verified Allergy, Severe, 06/27/17) renal protection rivaroxaban (Verified Allergy, Severe, 06/27/17) renal protection diclofenac (Unverified Adverse Reaction, Severe, PATIENT HAS RENAL INSUFFICIENCY STAGE IV, 06/27/17) etodolac (Unverified Adverse Reaction, Severe, PATIENT HAS RENAL INSUFFICIENCY STAGE IV, 06/27/17) flurbiprofen (Unverified Adverse Reaction, Severe, PATIENT HAS RENAL INSUFFICIENCY STAGE IV, 06/27/17) ibuprofen (Unverified Adverse Reaction, Severe, PATIENT HAS RENAL INSUFFICIENCY STAGE IV, 06/27/17) indomethacin (Unverified Adverse Reaction, Severe, PATIENT HAS RENAL INSUFFICIENCY STAGE IV, 06/27/17) ketoprofen (Unverified Adverse Reaction, Severe, PATIENT HAS RENAL INSUFFICIENCY STAGE IV, 06/27/17) ketorolac (Unverified Adverse Reaction, Severe, PATIENT HAS STAGE IV CHRONIC RENAL INSUFFICIENCY, 06/27/17) naproxen (Unverified Adverse Reaction, Severe, PATIENT HAS RENAL INSUFFICIENCY STAGE IV, 06/27/17) oxaprozin (Unverified Adverse Reaction, Severe, PATIENT HAS RENAL INSUFFICIENCY STAGE IV, 06/27/17) lactose (Unverified Adverse Reaction, Intermediate, STOMACH ACHE, 06/27/17) Past Medical History Chronic kidney disease stage IV progressive and approaching end-stage renal disease. Hypertension Proteinuria Degenerative joint disease Recent hyperkalemia controlled by discontinuance of losartan and dietary restriction. Past Surgical History Initial left total knee arthroplasty and subsequent more recently right total knee arthroplasty. Reported Medications Reported Meds & Active Scripts Active Tamsulosin (Tamsulosin HCl) 0.4 Mg Cap 2 Cap PO HS Hydrocodone-Acetaminophen 7.5-325 mg Tab 1 Tab PO Q4H PRN Reported [proOptic Areds 2] 1 Tab PO BID Desonide Topical (Desonide) 0.05% Cream 1 Applic TOPICAL DAILY Nasacort Allergy 24Hr Nasal Printer (Triamcinolone Acetonide Nasal Printer) 55 Mcg Spr 16.5 Gm EACH NARE PRN Vitamin D3 (Cholecalciferol) 1,000 Unit Cap 1 Cap PO BID Aspirin EC (Aspirin) 81 Mg Tabdr 162 Mg PO EVERY OTHER DAY Sodium Bicarbonate 650 Mg Tab 650 Mg PO TIDPC Allopurinol 100 Mg Tab 100 Mg PO BID Carvedilol 3.125 Mg Tab 3.125 Mg PO BID Norvasc (Amlodipine Besylate) 10 Mg Tab 10 Mg PO DAILY Active Ordered Medications Current Medications Al Hydrox/Mg Hydrox/Simethicone (Mag-Al Plus Susp Liq) 30 ml ONCE ONCE PO Last administered on 06/27/17 14:13; Start 06/27/17 at 13:45; Stop 06/27/17 at 13:46; Status DC Aspirin (Aspirin) 325 mg ONCE ONCE PO Last administered on 06/27/17 14:13; Start 06/27/17 at 14:00; Stop 06/27/17 at 14:01; Status DC Nitroglycerin (Nitrostat Sl) 0.4 mg ONCE ONCE SL Last administered on 14:19; Start 06/27/17 at 14:00; Stop 06/27/17 at 14:01; Status DC Nitroglycerin (Nitroglycerin 2% Oint) 0.5 inch ONCE ONCE TOPICAL Last administered on 06/27/17 14:23; Start 06/27/17 at 14:00; Stop 06/27/17 at 17:34 ; Status DC Atorvastatin Calcium (Lipitor) 80 mg ONCE ONCE PO ; Start 06/27/17 at 16:15; Stop 06/27/17 at 16:16; Status DC Sodium Chloride 1,000 ml @ 100 mls/hr Q10H IV Last administered on 06/27/17 16:48; Start 06/27/17 at 16:15; Stop 06/28/17 at 00:18; Status DC Heparin Sodium (Porcine) (Heparin Inj) 5,000 units UNSCH PRN IV PUSH APTT LESS THAN 25; Start 06/27/17 at 22:15; Status Cancel Heparin Sodium (Porcine) (Heparin Inj) 2,500 units UNSCH PRN IV PUSH APTT 25 TO 39; Start 06/27/17 at 22:15; Status Cancel Heparin Sodium/ Dextrose 250 ml @ 11.436 mls/ hr TITRATE PRN IV Coagulation management; Start 06/27/17 at 16:15; Status UNV Heparin Sodium (Porcine) (Heparin Inj) 4,000 units ONCE ONCE IV PUSH Last administered on 06/27/17 16:57; Start 06/27/17 at 16:15; Stop 06/27/17 at 16:16 ; Status DC Sodium Chloride (NS Flush) 2 ml BID IV FLUSH Last administered on 06/28/17 09: 00; Start 06/27/17 at 21:00 Sodium Chloride (NS Flush) 2 ml UNSCH PRN IV FLUSH FLUSH AFTER USING IV ACCESS ; Start 06/27/17 at 16:15 Nitroglycerin (Nitroglycerin 2% Oint) 1 inch Q6H TOP ; Start 06/27/17 at 17:00; Stop 06/27/17 at 17:22; Status DC Morphine Sulfate (Morphine Inj) 2 mg Q30M PRN IV PUSH CHEST PAIN; Start at 16:15; Stop 06/27/17 at 18:30; Status DC Heparin Sodium/ Dextrose 250 ml @ 11.436 mls/ hr TITRATE PRN IV Coagulation management Last administered on 06/27/17 16:59; Start 06/27/17 at 16:15 Atorvastatin Calcium (Lipitor) 80 mg ONCE ONCE PO Last administered on 16:57; Start 06/27/17 at 16:30; Stop 06/27/17 at 16:31; Status DC Pantoprazole Sodium (Protonix Inj) 40 mg Q24H IV PUSH Last administered on 06/27 17:35; Start 06/27/17 at 17:00 Allopurinol (Zyloprim) 100 mg BID PO Last administered on 06/28/17 09:22; Start 06/27/17 at 21:00 Carvedilol (Coreg) 3.125 mg BID PO Last administered on 06/28/17 09:22; Start 06/27/17 at 21:00 Sodium Bicarbonate (Sodium Bicarbonate) 650 mg TIDPC PO ; Start 06/27/17 at 18: 30; Stop 06/27/17 at 18:30; Status DC Nitroglycerin (Nitroglycerin 2% Oint) 1 inch Q6H TOP ; Start 06/27/17 at 20:00; Stop 06/27/17 at 20:00; Status DC Nitroglycerin/ Dextrose 250 ml @ 1.5 mls/hr TITRATE PRN IV Chest pain relief Last administered on 06/27/17 18:32; Start 06/27/17 at 17:45 Sodium Bicarbonate (Sodium Bicarbonate) 650 mg TIDPC PO Last administered on 09:49; Start 06/27/17 at 18:30 Hydromorphone HCl (Dilaudid Pf Inj) 2 mg Q4H PRN IVS pain Last administered on 06/28/17 09:24; Start 06/27/17 at 18:30 Albuterol/ Ipratropium (Duoneb Neb) 1 ampule ONCE ONCE NEB Last administered on 06/28/17 03:11; Start 06/28/17 at 00:45; Stop 06/28/17 at 00:46; Status DC Furosemide (Lasix Inj) 40 mg ONCE ONCE IV PUSH Last administered on 06/28/17 00:56; Start 06/28/17 at 00:45; Stop 06/28/17 at 00:46; Status DC Sodium Chloride 250 ml @ 15 mls/hr ONCE ONCE IV ; Start 06/28/17 at 01:30; Stop 06/28/17 at 18:09 Furosemide (Lasix Inj) 20 mg UNSCH X1 PRN IV PUSH SEE LABEL COMMENTS Last administered on 06/28/17 03:56; Start 06/28/17 at 01:30; Stop 06/28/17 at 15:00 Atropine Sulfate (Atropine Inj) 1 mg STK-MED ONCE .ROUTE ; Start 06/28/17 at 01: 58; Stop 06/28/17 at 01:59; Status DC Lidocaine HCl (Xylocaine 2% Inj) 100 mg STK-MED ONCE .ROUTE ; Start 06/28/17 at 01:58; Stop 06/28/17 at 01:59; Status DC Epinephrine HCl (EPINEPHrine (1:10,000) INJ) 1 mg STK-MED ONCE .ROUTE ; Start 06/28/17 at 01:58; Stop 06/28/17 at 01:59; Status DC Albuterol/ Ipratropium (Duoneb Neb) 1 ampule Q4HR NEB NEB Last administered on 06/28/17 10:02; Start 06/28/17 at 04:00 Albuterol/ Ipratropium (Duoneb Neb) 1 ampule Q2HR NEB PRN NEB SHORTNESS OF BREATH; Start 06/28/17 at 03:00 Dextrose (D50w (Vial) Inj) 50 ml UNSCH PRN IV PUSH HYPOGLYCEMIA-SEE COMMENTS; Start 06/28/17 at 03:00 Glucagon (Glucagon Inj) 1 mg UNSCH PRN OTHER HYPOGLYCEMIA-SEE COMMENTS; Start 06/28/17 at 03:00 Insulin Human Regular (NovoLIN R SUPPLEMENTAL SCALE) 1 Q6H SQ ; Start 06/28/17 at 03:00 Influenza Virus Vaccine (Flu (Quadrivalent) Vaccine Inj) 0.5 ml ONCE ONCE IM ; Start 06/29/17 at 10:00; Stop 06/29/17 at 10:01 Heparin Sodium/ Sodium Chloride 1,000 ml @ As Directed STK-MED ONCE .ROUTE ; Start 06/28/17 at 11:51; Stop 06/28/17 at 11:52; Status DC Sodium Chloride 500 ml @ As Directed STK-MED ONCE .ROUTE ; Start 06/28/17 at 11 :51; Stop 06/28/17 at 11:52; Status DC Midazolam HCl (Versed Inj) 2 mg STK-MED ONCE .ROUTE ; Start 06/28/17 at 11:51; Stop 06/28/17 at 11:52; Status DC Fentanyl Citrate (fentaNYL INJ) 100 mcg STK-MED ONCE .ROUTE ; Start 06/28/17 at 11:51; Stop 06/28/17 at 11:52; Status DC Heparin Sodium (Porcine) (Heparin Inj) 10,000 units STK-MED ONCE .ROUTE ; Start 06/28/17 at 12:34; Stop 06/28/17 at 12:35; Status DC Ticagrelor (Brilinta) 180 mg STK-MED ONCE PO ; Start 06/28/17 at 13:16; Stop at 13:17; Status DC Aspirin (Aspirin Chew) 81 mg STK-MED ONCE .ROUTE ; Start 06/28/17 at 13:16; Stop 06/28/17 at 13:17; Status DC Family History Family history of cardiac disease. Social History No history of illicit drug use. No history of alcohol abuse. Patient is . Physical Exam Vital Signs Vital Signs Date Time Temp Pulse Resp B/P (MAP) Pulse Ox O2 Delivery O2 Flow Rate FiO2 06/28/17 10:04 97 Partial Rebreather 12.00 06/28/17 10:00 88 06/28/17 08:00 87 06/28/17 08:00 100.7 96 25 140/71 (94) 91 06/28/17 07:00 94 Partial Non-Rebreather 13.00 06/28/17 04:30 100.1 82 22 124/60 95 06/28/17 04:13 99.8 90 20 124/60 95 06/28/17 04:00 100.3 82 22 124/60 (81) 95 06/28/17 04:00 81 06/28/17 03:12 99.7 83 22 124/59 100 06/28/17 03:00 100.3 86 20 126/59 93 06/28/17 02:30 99 40 06/28/17 01:57 99.7 87 127/68 (87) 95 06/28/17 01:31 87 127/68 06/28/17 01:30 83 06/28/17 00:41 99.8 94 136/70 (92) 95 06/27/17 23:30 85 06/27/17 23:30 94 136/70 06/27/17 23:00 93 Non-Rebreather 12.00 06/27/17 22:22 77 119/61 (80) 06/27/17 21:26 88 16 126/65 (85) 97 Nasal Cannula 2.00 06/27/17 20:11 78 16 114/59 (77) 98 06/27/17 19:40 96 06/27/17 19:40 99.5 86 16 118/50 (72) 96 Nasal Cannula 2.00 06/27/17 19:20 93 Nasal Cannula 2.00 06/27/17 19:00 98.9 93 16 120/63 (82) 97 Room Air 06/27/17 18:32 91 118/56 06/27/17 17:30 97 21 06/27/17 17:00 92 16 118/65 (82) 99 Nasal Cannula 2.00 06/27/17 14:36 84 18 117/59 (78) 97 Room Air 06/27/17 14:10 83 16 120/60 (80) Physical Exam GENERAL: Patient lying in bed not in respiratory distress. SKIN: Warm and dry. HEAD: Normocephalic. EYES: No scleral icterus. No injection or drainage. NECK: Supple, trachea midline. No JVD or lymphadenopathy. CARDIOVASCULAR: Regular rate and rhythm without murmurs, gallops, or rubs. RESPIRATORY: Breath sounds equal bilaterally. No accessory muscle use. GASTROINTESTINAL: Abdomen soft, non-tender, nondistended. MUSCULOSKELETAL: No cyanosis, or edema. BACK: Nontender without obvious deformity. No CVA tenderness. Laboratory Laboratory Tests Test 06/27/17 19:30 06/27/17 23:40 06/28/17 00:45 06/28/17 01:52 Total Creatine Kinase 227 221 Creatine Kinase MB 12.4 11.3 Troponin I 4.40 6.05 Activated Partial Thromboplast Time 52.7 Blood Gas Puncture Site RT RADIAL Blood Gas Patient Temperature 98.6 Blood Gas HCO3 21 Blood Gas Base Excess -3.2 Blood Gas Oxygen Saturation 92 Arterial Blood pH 7.42 Arterial Blood Partial Pressure CO2 32 Arterial Blood Partial Pressure O2 68 Arterial Blood Oxygen Content 8.9 Arterial Blood Carboxyhemoglobin 1.6 Arterial Blood Methemoglobin 0.7 Blood Gas Hemoglobin 6.8 Oxygen Delivery Device NONREB MASK Blood Gas Liter Flow 12 White Blood Count 11.6 Red Blood Count 2.15 Hemoglobin 6.7 Hematocrit 20.4 Mean Corpuscular Volume 95.0 Mean Corpuscular Hemoglobin 31.3 Mean Corpuscular Hemoglobin Concent 32.9 Red Cell Distribution Width 15.0 Platelet Count 204 Mean Platelet Volume 7.8 Neutrophils (%) (Auto) 75.7 Lymphocytes (%) (Auto) 8.7 Monocytes (%) (Auto) 15.3 Eosinophils (%) (Auto) 0.1 Basophils (%) (Auto) 0.2 Neutrophils # (Auto) 8.8 Lymphocytes # (Auto) 1.0 Monocytes # (Auto) 1.8 Eosinophils # (Auto) 0.0 Basophils # (Auto) 0.0 CBC Comment DIFF FINAL Differential Comment Test 06/28/17 05:15 06/28/17 06:35 Nasal Screen MRSA (PCR) MRSA NOT DETECTED White Blood Count 11.6 Red Blood Count 2.97 Hemoglobin 9.1 Hematocrit 27.2 Mean Corpuscular Volume 91.7 Mean Corpuscular Hemoglobin 30.6 Mean Corpuscular Hemoglobin Concent 33.4 Red Cell Distribution Width 14.8 Platelet Count 206 Mean Platelet Volume 7.9 Neutrophils (%) (Auto) 76.1 Lymphocytes (%) (Auto) 8.0 Monocytes (%) (Auto) 15.4 Eosinophils (%) (Auto) 0.1 Basophils (%) (Auto) 0.4 Neutrophils # (Auto) 8.8 Lymphocytes # (Auto) 0.9 Monocytes # (Auto) 1.8 Eosinophils # (Auto) 0.0 Basophils # (Auto) 0.0 CBC Comment DIFF FINAL Differential Comment Prothrombin Time 11.1 Prothromb Time International Ratio 1.0 Activated Partial Thromboplast Time 56.7 Blood Urea Nitrogen 76 Creatinine 3.90 Random Glucose 109 Total Protein 6.6 Albumin 2.7 Calcium Level 8.4 Alkaline Phosphatase 96 Aspartate Amino Transf (AST/SGOT) 36 Alanine Aminotransferase (ALT/SGPT) 7 Total Bilirubin 1.1 Sodium Level 131 Potassium Level 4.2 Chloride Level 97 Carbon Dioxide Level 22.2 Anion Gap 12 Estimat Glomerular Filtration Rate 15 Iron Level 37 Total Iron Binding Capacity 190 Percent Iron Saturation 19.4 Ferritin 351 Total Creatine Kinase 237 Creatine Kinase MB 11.2 Troponin I 8.11 Result Diagram: 06/28/1763406/28/17634 Assessment and Plan Problem List: (1) Acute kidney insufficiency ICD Codes: N28.9 - Disorder of kidney and ureter, unspecified Status: Acute Plan: Most likely secondary to hemodynamic factors related to acute AK with cardiac decompensation. Unfortunately the patient is that high risk for development of contrast nephrotoxicity but given the situation does not appear that there was any significant alternative. Patient did receive IV fluids initially however this had to be discontinued appropriately secondary to cardiac decompensation. It was inevitable patient would approach end-stage renal disease prior to this episode and the patient has been counseled previously regarding options available for dialysis. He expressed interest in peritoneal dialysis. If he requires dialysis during this acute illness however he will have to proceed with hemodialysis pending stabilization my opinion. Remains be determined however if dialysis will be required during this admission. Unfortunately patient will require antiplatelet therapy with current medication for about 1 month as indicated by cardiology which would preclude placement of hemodialysis PermCath or peritoneal catheter. If we do need dialysis within may have to get by with a Vas-Cath for a few weeks. (2) NSTEMI (non-ST elevated myocardial infarction) ICD Codes: I21.4 - Non-ST elevation (NSTEMI) myocardial infarction Status: Acute Plan: Management per cardiology. (3) CKD (chronic kidney disease) stage 4, GFR 15-29 ml/min ICD Codes: N18.4 - Chronic kidney disease, stage 4 (severe) Status: Chronic Plan: History of progressive and severe stage IV CKD. Prior to this admission associated with chronic metabolic acidosis being managed by by mouth sodium bicarbonate. As indicated above the patient was being prepared for initiation of dialysis the not too distant future. Peritoneal dialysis was his chronic modality of choice. (4) Hypertension ICD Codes: I10 - Hypertension Status: Chronic (5) chronic metabolic acidosis Status: Chronic Plan: Will need to continue sodium bicarbonate supplementation pending initiation of dialysis chronically. (6) Urinary retention ICD Codes: R33.9 - Retention of urine, unspecified Plan: Discontinue Abdul catheter at drainage pending stabilization and evaluation by urology which was planned as an outpatient. (7) Anemia of renal disease ICD Codes: D63.1 - Anemia in chronic kidney disease Plan: With a component of iron deficiency and hemodilution. Didi Valencia MD Jun 28, 2017 13:33
--- NOTE | 2017-06-28 13:41 | CATHPROC ---
[employer] HIS Report Study Information Study Number Admission Scheduled Start Study Start [id number] Jun 27 2017 3:25PM 06/28/2017 Jun 28 2017 11:30AM [facility] Cardiac Catheterization Admit Source Facility Department Emergency department [facility] - Basketball Coach Physician and Clinical Staff Initial Brittany Rothman Field Sales Consultant Neol Dillon,RN Field Sales Consultant Cyn Bruno,SRI Recorder Reena Perera,RT(R) Scrub Ashley Snell,FITZ TECH2 Procedures Performed Procedure Location (Site) Vessel Name Angiogram LV LV Ventricle Coronary Angiograms LCA Left Coronary Coronary Angiograms RCA Right Coronary L Heart Cath PTCA CIRC Prox CIRC PTCA RCA Prox Right Coronary Stent CIRC Prox CIRC Stent RCA Prox Right Coronary Wire insertion Fem Art (right) Femoral Art Equipment Time Insurance Sales Manager Description Size Mfg Part Number Used/Scraped WIRE, BALANCE MIDDLEWEIGHT [id number] 12:34 [employer] 190CM Used 190CM (CHANDNI) *[id number] TRANSDUCER, TRUWAVE [id number] 12:02 [employer]AM[employer] P[place] * Used W/STOCKCOCK *[id number] [phone] *[id number] [phone] *[id number] [id number] *[id number] 534-520T *[id number] [id number] *[id number] [phone] *[id number] [phone] *[id number] 13:16 [facility] [employer] ANGIOSEAL, FR6 VIP FR 6 Used *[id number] 12:02 [employer] PACK, CCL CUSTOM * Used *[id number] 12:02 [employer] PACER PEN, SKIN DUAL W/ RULER * Used *[id number] 12:37 MED[employer] BALLOON, 2.5 X 12MM EUPHORA 12MM Used *[id number] 13:09 [employer] STENT, 2.5 18 INTEGRITY 2.5 18 Used *[id number] 12:49 [employer] STENT, 3.5 30 INTEGRITY 3.5 30 Used *[id number] 12:41 [employer] 30 DAPHNIE INDEFLATOR Used *[id number] 12:34 [employer] SHEATH, FR6.5 PRELUDE 11CM FR 6.5 038ACT Used *[id number] 12:29 [employer] WIRE, 3MMJ .035 180CM 180CM Used *[id number] 12:02 [employer] WIRE, 3MMJ .035 180CM 180CM Used *[id number] PROBE COVER, STERILE [id number] 12:02 [employer] MEDICAL * Used ULTRASOUND W/ GEL *[id number] 12:02 NAMIC MANIFOLD, 4 PORT * Used *[id number] 12:02 NAMIC TUBING, HIGH PRESSURE 48" 48" Used *[id number] 12:02 [employer] OMNIPAQUE, 350 MG, 150ML 150ML [id number] Used [id number] 12:02 [employer],WARM AIR CCL * Used *[id number] 12:02 [employer] MED[employer] SHEATH, FR5 TERUMO (10CM) FR 5 Used *[id number] Equipment Model, Serial, Lot Number and Expiration Data Description Model Number Serial Number Lot Number Expiration Date ANGIOSEAL, FR6 VIP [id number] 04-21-2018 STENT, 2.5 18 INTEGRITY [id number] 12-10-2018 STENT, 3.5 30 INTEGRITY [id number] 03-18-2018 History: Current Medications Medication Dosage/Unit Route Frequency Last Date/Time Taken LIPITOR Beta Angie ASA HEPARIN History: Allergies Allergy Reaction indomethacin PATIENT HAS RENAL INSUFFICIENCY STAGE IV ibuprofen PATIENT HAS RENAL INSUFFICIENCY STAGE IV naproxen PATIENT HAS RENAL INSUFFICIENCY STAGE IV flurbiprofen PATIENT HAS RENAL INSUFFICIENCY STAGE IV ketoprofen PATIENT HAS RENAL INSUFFICIENCY STAGE IV lactose STOMACH ACHE etodolac PATIENT HAS RENAL INSUFFICIENCY STAGE IV oxaprozin PATIENT HAS RENAL INSUFFICIENCY STAGE IV diclofenac PATIENT HAS RENAL INSUFFICIENCY STAGE IV ketorolac PATIENT HAS STAGE IV CHRONIC RENAL INSUFFICIENCY morphine Nausea/Vomiting oxycodone acetaminophen rivaroxaban History: Risk Factors Family History of Hypertension Dyslipidemia Previous PA Previous Heart Failure Premature CAD Yes Yes Yes No No Prior Valve Prior PCI Prior CABG Surgery No No No Cerebrovascular Peripheral Artery Chronic Lung On Dialysis Diabetes Disease Disease Disease Yes No No No No History: Stress Tests Stress or Imaging Studies Performed No History: Other Current Smoker No Labs Hgb (g/dl) Hct (%) WBC (l/cumm) Platelets (thousands) 11.60-17.00 35.00-51.00 4.00-11.00 150.00-450.00 9.1 27.2 11.6 206 Glucose (mg/dl) BUN (mg/dl) Creatinine (mg/dl) BUN:Creatinine (1:x) 74.00-106.00 7.00-18.00 0.50-1.30 10.00-20.00 109 76 3.9 19.5 Na (meq/l) K (meq/l) 136.00-145.00 3.50-5.10 131 4.2 INR (PTT:PT) 0.90-1.10 1 Troponin I (ng/ml) CPK (u/l) CPK-MB (ng/ML) 0.02-0.05 26.00-308.00 0.50-3.60 8.11 237 11.2 Medication Medication Total Dose (Bolus/Oral) Medication Total Dosage/Unit 1% XYLOCAINE 20 mL ASPIRIN 81 mg BRILLINTA 180 mg FENTANYL 25 mcg HEPARIN 7000 units NTG (IC) 100 mcg VERSED 0.5 mg Medications (Bolus/Oral) Medication Time Given Dosage/Unit Administered By Reason VERSED 06/28/2017 12:15:00 PM 0.5 mg Noel Dillon 0.5 mg VERSED given in lab by Noel Dillon RN in Right Antecubital via Peripheral IV. FENTANYL 06/28/2017 12:15:30 PM 25 mcg Noel Dillon 25 mcg FENTANYL given in lab by Noel Dillon RN in Right Antecubital via Peripheral IV. 1% XYLOCAINE 06/28/2017 12:16:47 PM 20 mL Brittany Jenkins 20 mL 1% XYLOCAINE given in lab by Brittany Jenkins in Right Groin via Subcutaneous. HEPARIN 06/28/2017 12:35:00 PM 7000 units Noel Dillon 7000 units HEPARIN given in lab by Noel Dillon RN in Right Antecubital via Peripheral IV. NTG (IC) 06/28/2017 1:12:54 PM 100 mcg Brittany Jenkins 100 mcg NTG (IC) given in lab by Brittany Jenkins in Right Groin via Intra-coronary. BRILLINTA 06/28/2017 1:30:00 PM 180 mg Noel Dillon 180 mg BRILLINTA given in lab by Noel Dillon RN in Per mouth via Oral. Ordered by Brittany Jenkins . ASPIRIN 06/28/2017 1:31:00 PM 81 mg Noel Dillon 81 mg ASPIRIN given in lab by Noel Dillon RN via Oral. Ordered by Brittany Jenkins. Initial Case Assessment Cardiovascular HR Rhythm NIBP Chest Pain 85 sr 137/698 0 Skin color Skin Normal Warm Dry Circulatory - Right Pulses Dorsalis Pedis Femoral 2 2 Scale (0,1,2,3,4,d) Circulatory - Left Pulses Dorsalis Pedis Femoral 2 2 Scale (0,1,2,3,4,d) Neurological State Oriented to time-place- Alert Moves all extremities person Respiration - General Respiration Rate SpO2 (%) O2 (lpm) (B/min) 13 92 15 Comment: non-rebreather Chronological Log Time Study Chronological Log 11:41:56 Patient arrived via Bed. 11:42:01 Patient Name, D.O.B, / Armband Verified By R.N. 11:42:02 Consent signed by the physician and the patient and verified by the Basketball Coach staff. 11:42:42 Pre-op and post- op instructions given; patient acknowledges understanding of instructions. 11:42:43 Verbal Stimulation=2 Physical Stimulation=2 Airway=2 Respiration=2 TOTAL=8. (0=absent, 1=li mited, 2=present) 11:42:49 Presedation assessment performed by Basketball Coach RN. 11:42:55 Patient has been NPO for More than 6Hrs. 11:42:56 Skin Breakdown- right knee surgical incision 11:42:57 Patient Warmer Placed on the Table. 11:43:00 Julisa Prominences Protected 11:43:03 A # 20 IV was noted in the Antecubital (right). Grade = 0 11:43:03 A # 20 IV was noted in the Wrist (left). Grade = 0 11:43:03 A # 20 IV was noted in the Forearm (left). Grade = 0 11:43:04 History and physical on the chart or being dictated. Assessment: Initial Case, HR=85 BPM, Rhythm=sr, QHKP=045/698 mmhg, Chest Pain=0, Color=Normal, Skin = Warm, Dry Right Pulses: Geoffrey Ped=2, Femoral=2 11:43:05 Left Pulses: Geoffrey Ped=2, Femoral=2 Neurological: State=Alert, Ox3, YO Respiration: Resp=13 B/min, SpO2=92 %, O2=15 lpm, Comment=non-rebreather Vitals capture started with the following parameters, Patient=Adult, Interval=3 min, Initial Pr vmueke=212 mmHg, 11:48:01 Deflation Rate=5 mmHg, Cuff placed on Left Ankle 11:48:44 AETX=233/78 mmhg, SpO2=91.0 % 11:51:01 Reference ECG taken 11:51:44 HR=86 bpm, DXDA=446/69 mmhg, SpO2=91.0 %, Resp=16 B/min 11:54:42 HR=83 bpm, GXGL=749/79 mmhg, SpO2=92.0 %, Resp=12 B/min 11:57:41 HR=83 bpm, CAIH=425/73 mmhg, SpO2=94.0 %, Resp=15 B/min 12:00:41 HR=84 bpm, BKRY=105/70 mmhg, SpO2=91.0 %, Resp=13 B/min 12:02:00 MD paged 12:03:41 HR=80 bpm, YWUU=271/69 mmhg, SpO2=93.0 %, Resp=11 B/min 12:06:41 HR=77 bpm, YIEE=543/69 mmhg, SpO2=95.0 %, Resp=10 B/min 12:07:04 Pressure channel 1 zeroed. 12:07:32 MD responded 12:09:42 HR=76 bpm, WHGD=423/69 mmhg, SpO2=95.0 %, Resp=10 B/min 12:12:42 HR=78 bpm, VSST=198/71 mmhg, SpO2=96.0 %, Resp=10 B/min 12:13:55 MD arrived. 12:15:00 0.5 mg VERSED given in lab by Noel Dillon, SRI in Right Antecubital via Peripheral IV. 12:15:30 25 mcg FENTANYL given in lab by Noel Dillon, RN in Right Antecubital via Peripheral IV. 12:15:42 HR=77 bpm, TGER=220/68 mmhg, SpO2=95.0 %, Resp=10 B/min Time Out. Correct patient, correct procedure, correct physician, power injector loaded, or not loaded with contrast with 12:16:25 surgical team present. Time Out Concurred by MD and individual staff in procedure. 12:16:44 Case Start 12:16:47 20 mL 1% XYLOCAINE given in lab by Brittany Jenkins in Right Groin via Subcutaneous. 12:18:36 Access site was Right Femoral Artery. 12:18:42 HR=78 bpm, PZMQ=614/69 mmhg, SpO2=95.0 %, Resp=9 B/min 12:19:21 A SHEATH, FR5 TERUMO (10CM) FR 5 was advanced into the Fem Art (right) using the Percutaneo us technique. A PIGTAIL ANG. INFINITI CATHETER FR 5 was advanced over a wire. OMNIPAQUE, 350 MG, 150ML 150ML was used 12:20:13 for injections. Recorded Pressure: LV, HR=80, Condition=Condition 1 12:21:33 (Left Ventricle) LV 122/18/27 12:21:43 HR=76 bpm, CPPA=637/74 mmhg, SpO2=95.0 %, Resp=8 B/min 12:22:00 The LV was injected at 10 cc/sec for a total of 20. OMNIPAQUE, 350 MG, 150ML 150ML used. Recorded Pressure: LV, Ao, HR=82, Condition=Condition 1 12:23:13 (Left Ventricle) LV 119/16/25, (Aorta) Ao 119/55/84 After removing the current catheter a JL 4.0 INFINITI CATHETER FR 5 was advanced over a WIRE, 3 MMJ .035 180CM 12:24:15 180CM. 12:24:45 HR=78 bpm, EPOF=414/71 mmhg, SpO2=96.0 %, Resp=9 B/min 12:24:53 The LCA was injected and visualized at various angles. OMNIPAQUE, 350 MG, 150ML 150ML used . After removing the current catheter a AR MOD INFINITI CATHETER FR 5 was advanced over a WIRE, 3 MMJ .035 180CM 12:27:19 180CM. 12:27:43 HR=77 bpm, SLHX=872/73 mmhg, SpO2=96.0 %, Resp=9 B/min 12:27:56 Activated Clotting Time Drawn 12::24 The RCA was injected and visualized at various angles. OMNIPAQUE, 350 MG, 150ML 150ML used . Recorded Pressure: Ao, HR=76, Condition=Condition 1 12:29:27 (Aorta) Ao 107/56/76 12:29:37 Catheter was removed 12:30:47 HR=77 bpm, KFYD=866/70 mmhg, SpO2=96.0 %, Resp=9 B/min 12:30:59 ACT (Normal Range 90-180) = 130 12:33:46 HR=77 bpm, RWVX=823/74 mmhg, SpO2=96.0 %, Resp=9 B/min 12:35:00 7000 units HEPARIN given in lab by Noel Dillon RN in Right Antecubital via Peripheral I V. A SHEATH, FR6.5 PRELUDE 11CM FR 6.5 was exchanged in the Fem Art (right). This was necessary in order to 12:35:20 accomodate a larger catheter. A [address] [place] [address] GUIDE CATHETER FR 6 was advanced over a wire. OMNIPAQUE, 350 MG, 150ML 150ML was used for 12:36:27 injections. 12:36:44 HR=79 bpm, IVOP=305/72 mmhg, SpO2=95.0 %, Resp=10 B/min 12:37:57 A WIRE, BALANCE MIDDLEWEIGHT 190CM (CHANDNI) 190CM was inserted via Fem Art (right). 12:38:34 Interventional wire has crossed the lesion A BALLOON, 2.5 X 12MM EUPHORA 12MM was inserted over WIRE, BALANCE MIDDLEWEIGHT 190CM (CHANDNI) 19 0CM 12:39:26 via the Fem Art (right). 12:39:44 HR=76 bpm, YUOM=858/72 mmhg, SpO2=97.0 %, Resp=10 B/min A BALLOON, 2.5 X 12MM EUPHORA 12MM over a WIRE, BALANCE MIDDLEWEIGHT 190CM (CHANDNI) 190CM in the RCA 12:40:30 Prox was inflated using a 30 DAPHNIE INDEFLATOR at 17 daphnie for 14 sec. A BALLOON, 2.5 X 12MM EUPHORA 12MM over a WIRE, BALANCE MIDDLEWEIGHT 190CM (CHANDNI) 190CM in the RCA 12:41:00 Prox was inflated using a 30 DAPHNIE INDEFLATOR at 17 daphnie for 6 sec. A BALLOON, 2.5 X 12MM EUPHORA 12MM over a WIRE, BALANCE MIDDLEWEIGHT 190CM (CHANDNI) 190CM in the RCA 12:41:13 Prox was inflated using a 30 DAPHNIE INDEFLATOR at 17 daphnie for 7 sec. A BALLOON, 2.5 X 12MM EUPHORA 12MM over a WIRE, BALANCE MIDDLEWEIGHT 190CM (CHANDNI) 190CM in the RCA 12:41:25 Prox was inflated using a 30 DAPHNIE INDEFLATOR at 17 daphnie for 6 sec. 12:42:40 HR=76 bpm, OGAO=329/72 mmhg, SpO2=96.0 %, Resp=10 B/min 12:45:01 Balloon Removed. 12:45:42 HR=76 bpm, FXYA=122/76 mmhg, SpO2=96.0 %, Resp=10 B/min 12:46:45 Activated Clotting Time Drawn 12:48:43 HR=75 bpm, GGFV=282/73 mmhg, SpO2=96.0 %, Resp=10 B/min An STENT, 3.5 30 INTEGRITY 3.5 30 Bare Metal Stent was inserted through a [address] [place] [address] GUIDE CATHETE R FR 6 over a 12:49:41 WIRE, BALANCE MIDDLEWEIGHT 190CM (CHANDNI) 190CM. 12:51:47 HR=75 bpm, AYES=381/67 mmhg, SpO2=95.0 %, Resp=9 B/min A STENT, 3.5 30 INTEGRITY 3.5 30 was deployed using a 30 DAPHNIE INDEFLATOR at 9 atmospheres for 14 seconds in the 12:51:51 RCA Prox. 12:52:03 ACT (Normal Range 90-180) = 263 12:53:18 Re-inflated the stent balloon in the RCA Prox to 12 DAPHNIE for 12 seconds. 12:53:34 Stent deployed. Delivery device removed 12:54:30 Wire removed 12:54:43 HR=81 bpm, WXUY=201/71 mmhg, SpO2=95.0 %, Resp=12 B/min 12:55:17 Catheter was removed A XBC 3.5 GUIDE CATHETER FR 6 was advanced over a wire. OMNIPAQUE, 350 MG, 150ML 150ML was used for 12:56:43 injections. 12:57:45 HR=78 bpm, FNEA=460/71 mmhg, SpO2=95.0 %, Resp=9 B/min 12:59:14 Catheter was removed A XBC 3.0 GUIDE CATHETER FR 6 was advanced over a wire. OMNIPAQUE, 350 MG, 150ML 150ML was used for 13:00:01 injections. 13:00:46 HR=77 bpm, WPMI=855/71 mmhg, SpO2=95.0 %, Resp=9 B/min 13:00:49 Catheter was removed 13:01:55 A AL 2 GUIDE CATHETER FR 6 was advanced over a wire. OMNIPAQUE, 350 MG, 150ML 150ML was use d for injections. 13:03:10 A WIRE, BALANCE MIDDLEWEIGHT 190CM (CHANDNI) 190CM was inserted via Fem Art (right). 13:03:48 HR=78 bpm, XDPQ=139/67 mmhg, SpO2=95.0 %, Resp=9 B/min 13:06:06 Interventional wire has crossed the lesion A BALLOON, 2.5 X 12MM EUPHORA 12MM was inserted over WIRE, BALANCE MIDDLEWEIGHT 190CM (CHANDNI) 19 0CM 13:06:12 via the CIRC Prox. A BALLOON, 2.5 X 12MM EUPHORA 12MM over a WIRE, BALANCE MIDDLEWEIGHT 190CM (CHANDNI) 190CM in the CIRC 13:06:37 Prox was inflated using a 30 DAPHNIE INDEFLATOR at 8 daphnie for 14 sec. 13:06:46 HR=80 bpm, DRHD=964/72 mmhg, SpO2=93.0 %, Resp=9 B/min 13:08:00 Balloon Removed. 13:09:44 HR=81 bpm, FQON=749/74 mmhg, SpO2=94.0 %, Resp=10 B/min An STENT, 2.5 18 INTEGRITY 2.5 18 Bare Metal Stent was inserted through a AL 2 GUIDE CATHETER F R 6 over a 13:10:18 WIRE, BALANCE MIDDLEWEIGHT 190CM (CHANDNI) 190CM. A STENT, 2.5 18 INTEGRITY 2.5 18 was deployed using a 30 DAPHNIE INDEFLATOR at 10 atmospheres for 3 0 seconds in 13:10:47 the CIRC Prox. 13:11:46 Stent deployed. Delivery device removed 13:11:50 Wire removed 13:12:47 HR=78 bpm, NECG=268/72 mmhg, SpO2=95.0 %, Resp=10 B/min 13:12:54 100 mcg NTG (IC) given in lab by Brittany Jenkins in Right Groin via Intra-coronary. 13:13:53 Catheter was removed A JL 4.0 INFINITI CATHETER FR 5 was advanced over a wire. OMNIPAQUE, 350 MG, 150ML 150ML was us ed for 13:14:27 injections. 13:15:47 HR=85 bpm, JTKS=618/73 mmhg, SpO2=93.0 %, Resp=14 B/min 13:16:01 Catheter was removed 13:16:51 An injection in the Groin (right) was made through the SHEATH, FR6.5 PRELUDE 11CM FR 6.5. 13:17:23 ANGIOSEAL, FR6 VIP FR 6 placement in the Fem Art (right) 13:18:33 Case End 13:18:49 HR=91 bpm, RXXC=175/69 mmhg, SpO2=89.0 %, Resp=19 B/min 13:21:06 Sterile dressing applied to site 13:21:06 No case complications noted. 13:21:08 Cine recording checked. 13:21:47 HR=90 bpm, LNFG=726/75 mmhg, SpO2=89.0 %, Resp=18 B/min 13:22:50 Bedside Report will be given. 13:22:52 Implantable Device card placed in patient's chart. 13:22:58 A Left Heart Cath was performed. 13:23:02 Patient moved to [facility] 13:24:50 HR=76 bpm, GODM=268/78 mmhg, SpO2=91.0 %, Resp=14 B/min 13:25:06 Vitals capture stopped. 13:30:00 180 mg BRILLINTA given in lab by Noel Dillon, SRI in Per mouth via Oral. Ordered by Brittany Enciso. 13:31:00 81 mg ASPIRIN given in lab by Noel Dillon, SRI via Oral. Ordered by Brittany Jenkins. End Study - Contrast Media Used In Study Contrast Total Opened (mL) Total Used (mL) Total Wasted (mL) Omnipaque 140 140 0 End Study - Maximum Contrast Load Max Contrast Load (mL) 121.8 End Study - Radiation Exposure Fluoro Time (minutes) 13.0 End Study - Patient Disposition Complications Transferred To Interventional Outcome No Telemetry Bed successful
--- NOTE | 2017-06-28 13:52 | MA ---
cc: JOSE MANUEL SERNA DATE: 06/28/2017 INDICATIONS FOR THE PROCEDURE: Non-ST elevation myocardial infarction, class IV angina, cardiomyopathy, congestive heart failure class IV. PROCEDURES PERFORMED: 1. Retrograde heart catheterization with left ventriculography and selective coronary angiography. 2. Angioplasty and stenting of the proximal right coronary artery. 3. Angioplasty and stenting of the proximal circumflex artery. 4. Moderate sedation. ACCESS SITE: Right femoral artery using ultrasound guidance. MEDICATIONS: 1. Versed IV. 2. Fentanyl IV. 3. Heparin IV. 4. Brilinta 180 milligrams p.o. 5. Aspirin 81 milligrams p.o. 6. Nitroglycerin. EQUIPMENT USED: 3DRC guide with side holes. 2.5 balloon for pre-dilatation. 3.5 x 30 mm Integrity stent at 12 atmospheres. AR2 guide, 2.5 mm balloon for pre-dilatation. 2.5 x 18 mm Integrity stent at 10 atmospheres. CONTRAST: Omnipaque 140 cc. COMPLICATIONS: None. ESTIMATED BLOOD LOSS: Less than 10 cc. METHOD OF HEMOSTASIS: Angio-Seal closure. RESULTS: A. Heart rate 80 beats per minute. Left ventricular end diastolic pressure 60 mmHg. Left ventricle 110/16. Aorta 110/56/76. B. Left ventriculography: Ejection fraction 35%. Wall motion inferior kinesis, no mitral regurgitation. C. Coronary arteriography: 1. Right main coronary artery has 20% distal stenosis. 2. The proximal left anterior descending has 75% ostial stenosis. 3. Ramus intermedius is patent. 4. Left circumflex artery has 90% stenosis in the proximal portion. 5. Large obtuse marginal branch is patent. 6. Diagonal arteries are small and patent. 7. Right coronary artery is the dominant vessel with 80% and 95% sequential stenosis in the proximal portion. 8. The posterior descending artery has 70% ostial stenosis and 80% stenosis in the midportion. 9. The PLV is patent. 10. Stenosis in the right coronary artery was 25 mm long. LUCINDA flow III. Post stenosis is 0. 11. Stenosis in the left circumflex artery was 14 mm long. LUCINDA flow III. Post stenosis is 0. DIAGNOSIS: 1. Non-ST elevation myocardial infarction. 2. Severe multivessel coronary artery disease. 3. Moderate left ventricular dysfunction consistent with ischemic cardiomyopathy. 4. Successful stenting of the right coronary artery. 5. Successful stenting of the left circumflex artery. DISPOSITION: Mr. Bolton will be managed on telemetry after his procedure. Will continue aggressive modification of his cardiac risk factors. Will continue therapy for congestive heart failure. Will monitor his hemoglobin and hematocrit. Will closely monitor his renal function. I will follow him for cardiology during his hospitalization. He will be also seen by his liquor tester. MD JESSE Tan/SEVERO /1:30 PM /1:35 PM
--- NOTE | 2017-06-28 14:20 | EKG ---
Date Performed: 06/28/2017 Time Performed: 07:59:54 PTAGE: 72 years EKG: Sinus rhythm POSSIBLE LEFT ATRIAL ENLARGEMENT BORDERLINE ECG PREVIOUS TRACING : 06/28/2017 01.18 DOCTOR: Dao Bradley Interpretating Date/Time 06/28/2017 14:14:56
--- NOTE | 2017-06-28 14:22 | EKG ---
Date Performed: 06/28/2017 Time Performed: 01:18:12 PTAGE: 72 years EKG: Sinus rhythm Anterolateral ST-T changes are nonspecific Borderline ECG PREVIOUS TRACING : 06/27/2017 19.22 DOCTOR: Dao Bradley Interpretating Date/Time 06/28/2017 14:16:00
[2017-06-28] MEDS: FLUTICASONE PROPIONATE 50 MCG/ACT 16 GM NASAL SPRAY NASAL PRN (15:37)
[2017-06-28] MEDS: PATIENT OWN MEDICATION PO SCH (16:00)
[2017-06-28] MEDS: PANTOPRAZOLE SODIUM 40 MG VIAL IV PUSH SCH (16:18)
[2017-06-28] MEDS: ACETYLCYSTEINE 20% 6,000 MG/30 ML ORAL SOLN VIAL PO SCH ×2 (16:51→20:31)
[2017-06-28] MEDS ORDERED: METOPROLOL TARTRATE 5 MG/5 ML VIAL IV PUSH PRN (17:30)
[2017-06-28] MEDS ORDERED: METOPROLOL TARTRATE 5 MG/5 ML VIAL ONE (17:32)
[2017-06-28] MEDS ORDERED: CARVEDILOL 6.25 MG TAB PO ONE (18:15)
[2017-06-28 18:55] LABS: AUTOMATED NEUTROPHIL # 9.5 TH/MM3 (1.8-7.7); BASOPHIL % 0.3 % (0.0-2.0); EOSINOPHIL % 0.2 % (0.0-4.0); HEMATOCRIT 27.9 % (39.0-51.0); HEMO FLAGS DIFF FINAL; LYMPH % 5.3 % (9.0-44.0); LYMPHOCYTE # 0.6 TH/MM3 (1.0-4.8); MEAN CELL VOLUME 90.5 FL (80.0-100.0); MEAN CORPUSCULAR HEMOGLOBIN 31.4 PG (27.0-34.0); MEAN CORPUSCULAR HGB CONC 34.7 % (32.0-36.0); MONO % 12.4 % (0.0-8.0); NEUT % 81.8 % (16.0-70.0); PLATELET COUNT 225 TH/MM3 (150-450); RED BLOOD COUNT 3.09 MIL/MM3 (4.50-5.90); RED CELL DISTRIBUTION WIDTH 15.1 % (11.6-17.2); WHITE BLOOD COUNT 11.6 TH/MM3 (4.0-11.0)
[2017-06-28] MEDS: PRAVASTATIN SOD 10 MG TAB PO SCH (20:20)
[2017-06-28] MEDS: TICAGRELOR 90 MG TAB PO SCH (20:21)
[2017-06-28] MEDS ORDERED: METOPROLOL TARTRATE 5 MG/5 ML VIAL IV PUSH ONE (21:45)
[2017-06-28] MEDS: ACETAMINOPHEN 325 MG TAB PO PRN (21:58)
[2017-06-29] VITALS (12 sets, daily range): BP systolic 118–156; BP diastolic 70–80; PULSE 80–118; RESP 16–21; TEMP 98.5–101.8; O2SAT 93–98
[2017-06-29] MEDS: RESP: ALBUTEROL 2.5 MG/IPRATROPIUM 0.5 MG NEB (SCH) NEB ×6 (00:56→21:47)
[2017-06-29] MEDS: INSULIN NovoLIN REGULAR SUPPLEMENTAL SCALE SQ SCH ×4 (03:00→21:00)
--- NOTE | 2017-06-29 06:03 | EKG ---
Date Performed: 06/28/2017 Time Performed: 14:28:41 PTAGE: 72 years EKG: Sinus rhythm NORMAL ECG PREVIOUS TRACING : 06/28/2017 07.59 DOCTOR: Dao Bradley Interpretating Date/Time 06/29/2017 05:58:16
[2017-06-29 06:10] LABS: AUTOMATED NEUTROPHIL # 9.5 TH/MM3 (1.8-7.7); BASOPHIL % 0.2 % (0.0-2.0); EOSINOPHIL % 0.2 % (0.0-4.0); HEMATOCRIT 28.2 % (39.0-51.0); HEMO FLAGS DIFF FINAL; LYMPH % 7.2 % (9.0-44.0); LYMPHOCYTE # 0.9 TH/MM3 (1.0-4.8); MEAN CELL VOLUME 91.8 FL (80.0-100.0); MEAN CORPUSCULAR HEMOGLOBIN 30.9 PG (27.0-34.0); MEAN CORPUSCULAR HGB CONC 33.7 % (32.0-36.0); NEUT % 79.4 % (16.0-70.0); PLATELET COUNT 242 TH/MM3 (150-450); RED BLOOD COUNT 3.07 MIL/MM3 (4.50-5.90); RED CELL DISTRIBUTION WIDTH 15.1 % (11.6-17.2); WHITE BLOOD COUNT 11.9 TH/MM3 (4.0-11.0)
[2017-06-29 06:41] LABS: ANION GAP 13 MEQ/L (5-15); BICARBONATE 21.6 MEQ/L (21.0-32.0); BLOOD UREA NITROGEN 87 MG/DL (7-18); CHLORIDE 95 MEQ/L (98-107); CREATINE KINASE 190 U/L (39-308); GLOMERULAR FILTRATION RATE 13 ML/MIN (>89); HDL CHOLESTEROL 36.9 MG/DL (40.0-60.0); LDL CHOLESTEROL 64 MG/DL (0-99); POTASSIUM 4.3 MEQ/L (3.5-5.1); SODIUM (NA) 130 MEQ/L (136-145)
[2017-06-29 06:45] LABS: APTT (PATIENT) 35.9 SEC (24.3-30.1)
[2017-06-29 07:20] LABS: CKMB 6.7 NG/ML (0.5-3.6)
[2017-06-29] MEDS: SODIUM BICARBONATE 325 MG TAB PO SCH ×3 (08:12→17:52)
[2017-06-29] MEDS: ALLOPURINOL 100 MG TAB PO SCH ×2 (08:12→20:32)
[2017-06-29] MEDS: IRON SUCROSE INJ 100 MG in SODIUM CHLORIDE 0.9% INJ 100 ML IV SCH (08:12)
[2017-06-29] MEDS: ASPIRIN 81 MG CHEW TAB PO SCH (08:12)
[2017-06-29] MEDS: CARVEDILOL 3.125 MG TAB PO SCH ×2 (08:13→20:32)
[2017-06-29] MEDS: SODIUM CHLORIDE 0.9% FLUSH 10 ML FLUSH IV FLUSH SCH ×2 (08:13→21:00)
[2017-06-29] MEDS: TICAGRELOR 90 MG TAB PO SCH ×2 (08:13→20:32)
[2017-06-29] MEDS: PATIENT OWN MEDICATION PO SCH (08:13)
[2017-06-29] MEDS ORDERED: INFLUENZA VIRUS VACCINE (QUADRIVALENT) 0.5 ML SYR IM ONE (10:00)
--- NOTE | 2017-06-29 12:09 | HHI.NPPN ---
Subjective History of Present Illness This patient is a 72-year-old male with a history of progressive severe chronic kidney disease with a baseline GFR of approximately 20 although more recently has had GFR is below this level. Patient underwent a total right knee arthroplasty deferred of June, for severe degenerative joint disease. Patient wished to proceed despite the severity of his chronic kidney disease and risk of worsening renal function because of the severity of debilitation associated with his degenerative joint disease. Patient's renal function fortunately did remain relatively stable postoperatively and the patient was discharged in stable clinical condition except for the fact that he did develop some bladder outlet obstruction and required an indwelling Abdul catheter with follow-up with urology post discharge. Patient noted to have presented to the emergency room in [place] with complaints of "heartburn". Subsequent diagnosis having and non-ST UT with elevations in troponin. His serum creatinine level on presentation was 3.6 subsequently deteriorating today to 3.9. He is also said to have developed some respiratory insufficiency in route to the main campus. Chest x-ray showed some evidence of interstitial edema and symptomatology improved with IV furosemide. Patient was seen by cardiology and was taken urgently to the cardiac catheter lab for angiogram. Patient did receive IV saline since admission. Patient now status post placement of 2 bare metal stents. Interval History Patient denying any shortness of breath. Had an episode of atrial fibrillation. Objective Data Data Vital Signs Date Time Temp Pulse Resp B/P (MAP) Pulse Ox O2 Delivery O2 Flow Rate FiO2 06/29/17 10:00 114 06/29/17 09:16 96 Partial Rebreather 12.00 06/29/17 08:00 97 06/29/17 08:00 100.2 90 16 136/80 (98) 97 06/29/17 07:00 97 Partial Non-Rebreather 13.00 06/29/17 04:00 98.5 94 16 118/77 (91) 95 06/29/17 00:00 99.4 118 16 129/73 (91) 98 06/28/17 22:58 20 06/28/17 20:34 96 Partial Rebreather 14.00 06/28/17 20:00 Partial Non-Rebreather 13.00 06/28/17 20:00 111 06/28/17 20:00 101.6 128 14 158/83 (108) 92 06/28/17 18:00 117 06/28/17 16:00 99.1 94 24 156/72 (100) 96 06/28/17 16:00 97 06/28/17 14:00 85 -: 06/29/17 0552 06/29/17 0552 Imaging Last 48 hours Impressions Renal Ultrasound 06/28/17 0000 Signed Impressions: Service Date/Time: Wednesday, June 28, 2017 09:24 - CONCLUSION: 1. Cortical thinning and increased echogenicity suggesting underlying medical renal disease. Kei Daley MD Chest X-Ray 06/28/17 0000 Signed Impressions: Service Date/Time: Wednesday, June 28, 2017 00:30 - CONCLUSION: Radiographic pattern consistent with intra-alveolar pulmonary edema. Simon Gomez Jr., MD Chest X-Ray 06/27/17 1304 Signed Impressions: Service Date/Time: Tuesday, June 27, 2017 13:28 - CONCLUSION: 1. Mild interstitial prominence may reflect minimal positive fluid balance. 2. Mild left lower lung zone airspace disease, likely atelectasis. Masoud Johnson MD Physical Exam General Appearance: Comfortable Eyes Eye Exam: Sclera White Pulmonary Resp Exam: Breath Sounds Equal, Decreased Bases Resp Remarks Few basilar crackles. Cardiology CV Exam: Regular Gastrointestinal/Abdomen GI Exam: Soft, Non-Tender Integumentary Skin Exam: Clear, Warm, Normal Turgor Extremeties Extremities Exam: No Edema Neurologic Neuro Exam: Alert, Awake, Speech Clear, Moving All Extremities Psychiatric Psych Exam: Appropriate Responses Assessment/Plan Discussed Condition With: Patient, Daughter Problem List: (1) Acute kidney insufficiency ICD Codes: N28.9 - Disorder of kidney and ureter, unspecified Status: Acute Plan: Acute renal insufficiency. Contributory factors include hemodynamic issues with acute UT, cardiac decompensation as well as now contrast nephrotoxicity with probable development of some degree of ATN. No acute indication to initiate dialysis presently. Acid base status is stable , potassium is normal however if azotemia continues to deteriorate significantly we'll have to consider initiation of hemodialysis as discussed with patient and significant other. Monitor volume status and renal indices daily. It was inevitable patient would approach end-stage renal disease prior to this episode and the patient has been counseled previously regarding options available for dialysis. He expressed interest in peritoneal dialysis. If he requires dialysis during this acute illness however he will have to proceed with hemodialysis pending stabilization my opinion. Remains be determined however if dialysis will be required during this admission. Unfortunately patient will require antiplatelet therapy with current medication for about 1 month as indicated by cardiology which would preclude placement of hemodialysis PermCath or peritoneal catheter. If we do need dialysis within may have to get by with a Vas-Cath for a few weeks. (2) NSTEMI (non-ST elevated myocardial infarction) ICD Codes: I21.4 - Non-ST elevation (NSTEMI) myocardial infarction Status: Acute Plan: Management per cardiology. (3) CKD (chronic kidney disease) stage 4, GFR 15-29 ml/min ICD Codes: N18.4 - Chronic kidney disease, stage 4 (severe) Status: Chronic Plan: History of progressive and severe stage IV CKD. Prior to this admission associated with chronic metabolic acidosis being managed by by mouth sodium bicarbonate. As indicated above the patient was being prepared for initiation of dialysis the not too distant future. Peritoneal dialysis was his chronic modality of choice. (4) Hypertension ICD Codes: I10 - Hypertension Status: Chronic (5) chronic metabolic acidosis Status: Chronic Plan: Will need to continue sodium bicarbonate supplementation pending initiation of dialysis chronically. (6) Urinary retention ICD Codes: R33.9 - Retention of urine, unspecified Plan: Discontinue Abdul catheter at drainage pending stabilization and evaluation by urology which was planned as an outpatient. (7) Anemia of renal disease ICD Codes: D63.1 - Anemia in chronic kidney disease Plan: With a component of iron deficiency and hemodilution. Didi Valencia MD Jun 29, 2017 12:09
[2017-06-29] MEDS: HYDROmorphone HCL PF 2 MG/ML VIAL IVS PRN (12:10)
--- NOTE | 2017-06-29 12:11 | HHI.CCPN ---
Subjective Remarks/Hospital Course The patient is a 72 year old male with past medical history of osteoarthritis, chronic kidney disease, stage IV who was admitted to [facility] on June 27, 2017 under hospitalist service for anemia and non-ST elevation myocardial infarction. The patient was found to have a troponin of 4.3 which is gradually increasing to 6.05 early this morning. He was placed on heparin and nitro drip. In addition the patient was found to have acute on chronic kidney disease with creatinine level of 3.6, BUN 66 and hyponatremia with sodium level of 127. 06/29: Cardiac cath and stent X 2 yesterday. Rising creatinine > 4 today. Hx CKD. New a-fib with rate controlled. Breathing comfortably. Objective Vital Signs Date Time Temp Pulse Resp B/P (MAP) Pulse Ox O2 Delivery O2 Flow Rate FiO2 06/29/17 10:00 114 06/29/17 09:16 96 Partial Rebreather 12.00 06/29/17 08:00 100.2 16 136/80 (98) 06/28/17 02:30 40 Intake and Output 06/29/17 06/29/17 06/30/17 08:00 16:00 00:00 Intake Total 240 ml Output Total 475 ml Balance -235 ml Result Diagram: 06/29/17 0552 06/29/17 0552 Objective Remarks HEAD, EYES, EARS, NOSE, AND THROAT: Atraumatic, normocephalic pupil equal and reactive to accommodation X on muscles intact. Conjunctivae pink. Nonicteric sclerae. Oral mucosa within normal. NECK: Supple. No JVD, adenopathy, thyromegaly. Trachea midline CARDIOVASCULAR SYSTEM: Irreg rate and rhythm. Normal S1-S2. No JVD. PULMONARY: Clear, comfortable pattern, good shashi air movement. ABDOMEN: Abdomen: Soft, nontender, no distension. Active bowel sounds. EXTREMITIES: No cyanosis or edema. Well perfused. NEUROLOGIC: M/S grossly intact. Conversant, O X 3. A/P Assessment and Plan IMPRESSION: 1. Acute hypoxemic respiratory insufficiency 2. Non-ST elevation myocardial infarction -> Stent X 2 (06/28) 3. Pulmonary edema. 4. Anemia 5. Acute on chronic kidney disease. 6. Hyponatremia. 7. Osteoarthritis. Plan: CV: DAPT, rate control per cardiology. RESP: FM O2. Unable to diurese now. NEURO: Minimal sedation. GI: Renal diet. RENAL: Per nephrology service. ENDO: SSI prn HEME: Follow Hgb. ID: Culture for fevers. PX: Pepcid, reduced heparin when OK with Cardiology Service Overall impression: Critically ill on arrival with respiratory distress and chest pain. Due to CKD catheterization occurred after considerable deliberation with family. Creatinine rise after expected. Jaurez Sin MD Jun 29, 2017 12:11
[2017-06-29] MEDS ORDERED: BUMETANIDE INJ 1 MG/4 ML VIAL IV PUSH ONE (12:30)
--- NOTE | 2017-06-29 12:57 | EKG ---
Date Performed: 06/29/2017 Time Performed: 07:27:49 PTAGE: 72 years EKG: ATRIAL FIBRILLATION ST DEVIATION AND MODERATE T-WAVE ABNORMALITY, CONSIDER LATERAL ISCHEMIA ST DEVIATION AND MODERATE T-WAVE ABNORMALITY, CONSIDER INFERIOR ISCHEMIA ABNORMAL ECG PREVIOUS TRACING : 06/28/2017 14.28 DOCTOR: Dao Bradley Interpretating Date/Time 06/29/2017 12:55:42
--- NOTE | 2017-06-29 14:56 | PD.CARD.PN ---
Subjective Subjective Remarks No angina. Now in a fib with increased VR. Objective Medications Administered Medications Medications (Trade) Dose Ordered Sig/Cory Route PRN Reason Start Time Stop Time Status Last Admin Dose Admin Sodium Chloride (NS Flush) 2 ml BID IV FLUSH 06/27/17 21:00 06/29/17 08:13 Heparin Sodium/ Dextrose 250 ml @ 11.436 mls/ hr TITRATE PRN IV Coagulation management 06/27/17 16:15 06/27/17 16:59 Pantoprazole Sodium (Protonix Inj) 40 mg Q24H IV PUSH 06/27/17 17:00 06/28/17 16:18 Allopurinol (Zyloprim) 100 mg BID PO 06/27/17 21:00 06/29/17 08:12 Carvedilol (Coreg) 3.125 mg BID PO 06/27/17 21:00 06/29/17 08:13 Nitroglycerin/ Dextrose 250 ml @ 1.5 mls/hr TITRATE PRN IV Chest pain relief 06/27/17 17:45 06/27/17 18:32 Sodium Bicarbonate (Sodium Bicarbonate) 650 mg TIDPC PO 06/27/17 18:30 06/29/17 12:10 Hydromorphone HCl (Dilaudid Pf Inj) 2 mg Q4H PRN IVS pain 06/27/17 18:30 06/29/17 12:10 Albuterol/ Ipratropium (Duoneb Neb) 1 ampule Q4HR NEB NEB 06/28/17 04:00 06/29/17 12:07 Albuterol/ Ipratropium (Duoneb Neb) 1 ampule Q2HR NEB PRN NEB SHORTNESS OF BREATH 06/28/17 03:00 06/28/17 13:50 Aspirin (Aspirin Chew) 81 mg DAILY PO 06/29/17 09:00 06/29/17 08:12 Ticagrelor (Brilinta) 90 mg BID PO 06/28/17 21:00 06/29/17 08:13 Pravastatin Sodium (Pravachol) 20 mg HS PO 06/28/17 21:00 06/28/17 20:20 Iron Sucrose 100 mg/Sodium Chloride 105 ml @ 105 mls/hr DAILY IV 06/29/17 09:00 07/01/17 09:59 06/29/17 08:12 Fluticasone Propionate (Flonase Ethan Spr) 1 spray Q12H PRN NASAL NASAL CONGESTION 06/28/17 14:45 06/28/17 15:37 Patient Own Medication PT OWN MED: [facility] ARED... DAILY PO 06/28/17 16:00 06/29/17 08:13 Metoprolol Tartrate (Lopressor Inj) 5 mg Q6H PRN IV PUSH Pulse > 120 06/28/17 17:30 06/28/17 17:46 Acetaminophen (Tylenol) 650 mg Q6H PRN PO SEE LABEL COMMENTS 06/28/17 21:30 06/28/17 21:58 Vital Signs / I&O Vital Signs Date Time Temp Pulse Resp B/P (MAP) Pulse Ox O2 Delivery O2 Flow Rate FiO2 06/29/17 12:00 99.5 112 21 146/73 (97) 94 06/29/17 12:00 112 06/29/17 10:00 114 06/29/17 09:16 96 Partial Rebreather 12.00 06/29/17 08:00 97 06/29/17 08:00 100.2 90 16 136/80 (98) 97 06/29/17 07:00 97 Partial Non-Rebreather 13.00 06/29/17 04:00 98.5 94 16 118/77 (91) 95 06/29/17 00:00 99.4 118 16 129/73 (91) 98 06/28/17 22:58 20 06/28/17 20:34 96 Partial Rebreather 14.00 06/28/17 20:00 Partial Non-Rebreather 13.00 06/28/17 20:00 111 06/28/17 20:00 101.6 128 14 158/83 (108) 92 06/28/17 18:00 117 06/28/17 16:00 99.1 94 24 156/72 (100) 96 06/28/17 16:00 97 I/O 06/28/17 06/28/17 06/28/17 06/29/17 06/29/17 06/29/17 07:00 15:00 23:00 07:00 15:00 23:00 Intake Total 739 ml 240 ml Output Total 575 ml 1300 ml 475 ml Balance 164 ml -1300 ml -235 ml Intake Oral 240 ml IV Total 89 ml Packed Cells 500 ml Blood Product IV Normal Saline Flush 150 ml Output Urine Total 575 ml 1300 ml 475 ml # Bowel Movements 0 0 0 Physical Exam GENERAL: In NAD. SKIN: Warm and dry. HEAD: Normocephalic. EYES: No scleral icterus. No injection or drainage. NECK: Supple, trachea midline. No JVD or lymphadenopathy. CARDIOVASCULAR: Irreg, without murmurs, gallops, or rubs. RESPIRATORY: Breath sounds equal bilaterally. No accessory muscle use. GASTROINTESTINAL: Abdomen soft, non-tender, nondistended. MUSCULOSKELETAL: No cyanosis, mild edema. Groin stable. Laboratory Laboratory Tests Test 06/28/17 18:12 06/29/17 05:52 White Blood Count 11.6 TH/MM3 11.9 TH/MM3 Red Blood Count 3.09 MIL/MM3 3.07 MIL/MM3 Hemoglobin 9.7 GM/DL 9.5 GM/DL Hematocrit 27.9 % 28.2 % Mean Corpuscular Volume 90.5 FL 91.8 FL Mean Corpuscular Hemoglobin 31.4 PG 30.9 PG Mean Corpuscular Hemoglobin Concent 34.7 % 33.7 % Red Cell Distribution Width 15.1 % 15.1 % Platelet Count 225 TH/MM3 242 TH/MM3 Mean Platelet Volume 7.7 FL 7.3 FL Neutrophils (%) (Auto) 81.8 % 79.4 % Lymphocytes (%) (Auto) 5.3 % 7.2 % Monocytes (%) (Auto) 12.4 % 13.0 % Eosinophils (%) (Auto) 0.2 % 0.2 % Basophils (%) (Auto) 0.3 % 0.2 % Neutrophils # (Auto) 9.5 TH/MM3 9.5 TH/MM3 Lymphocytes # (Auto) 0.6 TH/MM3 0.9 TH/MM3 Monocytes # (Auto) 1.4 TH/MM3 1.5 TH/MM3 Eosinophils # (Auto) 0.0 TH/MM3 0.0 TH/MM3 Basophils # (Auto) 0.0 TH/MM3 0.0 TH/MM3 CBC Comment DIFF FINAL DIFF FINAL Differential Comment Activated Partial Thromboplast Time 35.9 SEC Blood Urea Nitrogen 87 MG/DL Creatinine 4.45 MG/DL Random Glucose 96 MG/DL Calcium Level 8.9 MG/DL Sodium Level 130 MEQ/L Potassium Level 4.3 MEQ/L Chloride Level 95 MEQ/L Carbon Dioxide Level 21.6 MEQ/L Anion Gap 13 MEQ/L Estimat Glomerular Filtration Rate 13 ML/MIN Total Creatine Kinase 190 U/L Creatine Kinase MB 6.7 NG/ML Triglycerides Level 132 MG/DL Cholesterol Level 127 MG/DL LDL Cholesterol 64 MG/DL HDL Cholesterol 36.9 MG/DL Cholesterol/HDL Ratio 3.44 RATIO Assessment and Plan Problem List: (1) NSTEMI (non-ST elevated myocardial infarction) ICD Codes: I21.4 - Non-ST elevation (NSTEMI) myocardial infarction Status: Acute (2) Multi-vessel coronary artery stenosis ICD Codes: I25.10 - Atherosclerotic heart disease of [place] coronary artery without angina pectoris (3) Cardiomyopathy ICD Codes: I42.9 - Cardiomyopathy, unspecified (4) Atrial fibrillation ICD Codes: I48.91 - Unspecified atrial fibrillation (5) Stented coronary artery ICD Codes: Z95.5 - Presence of coronary angioplasty implant and graft (6) CKD (chronic kidney disease) stage 4, GFR 15-29 ml/min ICD Codes: N18.4 - Chronic kidney disease, stage 4 (severe) Status: Chronic (7) Anemia ICD Codes: D64.9 - Anemia, unspecified (8) Hypertension ICD Codes: I10 - Hypertension Status: Chronic Assessment and Plan No recurrent angina. Renal fx worse. He developed a fib which complicates his management from the standpoint of anticoagulation given his recent significant anemia. Continue Brilinta and baby ASA for now to prevent stent thrombosis. Will start amiodarone. Continue tx for CHF. Aggressive risk factor modification. Increase activity. Continue monitoring in the ICU. Brittany Jenkins MD Jun 29, 2017 14:56
[2017-06-29] MEDS: AMIODARONE 200 MG TAB PO SCH ×2 (15:25→20:33)
[2017-06-29] MEDS: PANTOPRAZOLE SODIUM 40 MG VIAL IV PUSH SCH (17:52)
[2017-06-29] MEDS: ACETAMINOPHEN 325 MG TAB PO PRN (20:33)
[2017-06-29] MEDS: PRAVASTATIN SOD 10 MG TAB PO SCH (20:33)
[2017-06-30] VITALS (14 sets, daily range): BP systolic 131–151; BP diastolic 58–78; PULSE 76–94; RESP 16–26; TEMP 98.7–100.8; O2SAT 90–99
[2017-06-30] MEDS: RESP: ALBUTEROL 2.5 MG/IPRATROPIUM 0.5 MG NEB (SCH) NEB ×7 (00:30→23:22)
[2017-06-30] MEDS: INSULIN NovoLIN REGULAR SUPPLEMENTAL SCALE SQ SCH ×4 (03:00→21:00)
[2017-06-30 06:17] LABS: HEMATOCRIT 26.9 % (39.0-51.0); MEAN CELL VOLUME 91.1 FL (80.0-100.0); MEAN CORPUSCULAR HEMOGLOBIN 31.2 PG (27.0-34.0); MEAN CORPUSCULAR HGB CONC 34.2 % (32.0-36.0); PLATELET COUNT 250 TH/MM3 (150-450); RED BLOOD COUNT 2.96 MIL/MM3 (4.50-5.90); REVIEW FLAG FINAL; WHITE BLOOD COUNT 10.4 TH/MM3 (4.0-11.0)
[2017-06-30 06:45] LABS: BICARBONATE 22.1 MEQ/L (21.0-32.0); POTASSIUM 4.1 MEQ/L (3.5-5.1)
[2017-06-30] MEDS ORDERED: INFLUENZA VIRUS VACCINE (QUADRIVALENT) 0.5 ML SYR IM ONE (09:00)
--- NOTE | 2017-06-30 09:58 | PD.ORT.PN ---
Subjective Post Op Day #: 6 Subjective Remarks He was hospitalized for an acute ME last Friday. He had cardiac catheterization with stents placed. His right knee, which was replaced 6 days ago, is not really causing him pain. He is somewhat concerned about its rehabilitation. Distance Walked He is not walking yet. Objective Vitals Vital Signs Date Time Temp Pulse Resp B/P (MAP) Pulse Ox O2 Delivery O2 Flow Rate FiO2 06/30/17 08:25 96 Partial Rebreather 15.00 06/30/17 06:00 76 06/30/17 04:00 99.9 80 18 133/65 (87) 97 06/30/17 04:00 80 06/30/17 02:00 82 06/30/17 00:00 77 06/30/17 00:00 100.0 77 16 135/67 (89) 96 06/29/17 22:00 80 06/29/17 21:49 93 Partial Rebreather 06/29/17 20:00 92 06/29/17 20:00 101.8 88 19 156/72 (100) 93 06/29/17 19:00 92 Partial Non-Rebreather 13.00 06/29/17 18:00 118 06/29/17 16:00 109 06/29/17 16:00 99.7 118 16 136/70 (92) 93 06/29/17 14:00 106 06/29/17 12:00 99.5 112 21 146/73 (97) 94 06/29/17 12:00 112 06/29/17 10:00 114 I/O 06/29/17 06/29/17 06/29/17 06/30/17 06/30/17 06/30/17 07:00 15:00 23:00 07:00 15:00 23:00 Intake Total 240 ml 720 ml 120 ml Output Total 475 ml 325 ml 50 ml Balance -235 ml 395 ml 70 ml Intake Oral 240 ml 720 ml 120 ml Output Urine Total 475 ml 325 ml 50 ml # Bowel Movements 0 0 Result Diagram: 06/30/17 0548 06/30/17 0548 Objective Remarks He is resting relatively comfortably, supine in bed with the knees flexed on a pillow. The dressing is dry and intact. There is no erythema, nor induration. Assessment & Plan Ortho Post Op Day #: 6 Problem List: (1) Status post total right knee replacement ICD Codes: Z96.651 - Presence of right artificial knee joint Plan: Continue postop care. Resume PT when stable from a medical/cardiac standpoint. CPM can be used until PT can resume. Assessment and Plan Orthopaedically, he is stable. Plans for the knee are as above. Please contact me if there are issues, concerns or questions about his knee. Olayinka Marcelino MD (Charles) Jun 30, 2017 09:58
[2017-06-30] MEDS: FLUTICASONE PROPIONATE 50 MCG/ACT 16 GM NASAL SPRAY NASAL PRN (10:11)
[2017-06-30] MEDS: PATIENT OWN MEDICATION PO SCH (10:13)
[2017-06-30] MEDS: ACETAMINOPHEN 325 MG TAB PO PRN (10:14)
[2017-06-30] MEDS: ALLOPURINOL 100 MG TAB PO SCH ×2 (10:15→21:19)
[2017-06-30] MEDS: SODIUM CHLORIDE 0.9% FLUSH 10 ML FLUSH IV FLUSH SCH ×2 (10:16→21:18)
[2017-06-30] MEDS: IRON SUCROSE INJ 100 MG in SODIUM CHLORIDE 0.9% INJ 100 ML IV SCH (10:16)
[2017-06-30] MEDS: TICAGRELOR 90 MG TAB PO SCH ×2 (10:16→21:18)
[2017-06-30] MEDS: SODIUM BICARBONATE 325 MG TAB PO SCH ×3 (10:16→18:13)
[2017-06-30] MEDS: ASPIRIN 81 MG CHEW TAB PO SCH (10:16)
[2017-06-30] MEDS: CARVEDILOL 3.125 MG TAB PO SCH ×2 (10:16→21:19)
[2017-06-30] MEDS: AMIODARONE 200 MG TAB PO SCH ×2 (10:27→21:19)
[2017-06-30] MEDS ORDERED: SODIUM CHLOR 0.9% 1000 ML INJ 1,000 ML IV PRN (10:38)
[2017-06-30] MEDS ORDERED: SODIUM CHLOR 0.9% 1000 ML INJ 1,000 ML OTHER PRN ×2 (10:38)
[2017-06-30] MEDS ORDERED: NITROGLYCERIN 0.4 MG SL 25 TABS/BTL SL PRN (10:45)
[2017-06-30] MEDS ORDERED: HEPARIN SODIUM - IV 10,000 UNITS/10 ML VIAL PRN (10:45)
[2017-06-30] MEDS ORDERED: cloNIDine HCL 0.1 MG TAB PO PRN (10:45)
[2017-06-30] MEDS ORDERED: diphenhydrAMINE HCL 25 MG CAP PO PRN (10:45)
[2017-06-30] MEDS ORDERED: ALBUMIN HUMAN 25% 25 GM/100 ML BAGP IV PRN (10:45)
[2017-06-30] MEDS ORDERED: GELATIN 12 MM/7 MM FOAM TOP PRN (10:45)
[2017-06-30] MEDS ORDERED: ACETAMINOPHEN 325 MG TAB PO PRN (10:45)
[2017-06-30] MEDS ORDERED: SODIUM CHLORIDE 0.9% FLUSH 10 ML FLUSH IV FLUSH PRN ×2 (10:45→12:00)
[2017-06-30] MEDS ORDERED: HEPARIN SODIUM - IV 10,000 UNITS/10 ML VIAL IV FLUSH PRN (10:45)
[2017-06-30] MEDS ORDERED: MANNITOL 12.5 GM/50 ML VIAL IV PRN (10:45)
[2017-06-30] MEDS ORDERED: ONDANSETRON HCL 4 MG/2 ML VIAL IV PUSH PRN (10:45)
--- NOTE | 2017-06-30 10:54 | HHI.NPPN ---
Subjective History of Present Illness This patient is a 72-year-old male with a history of progressive severe chronic kidney disease with a baseline GFR of approximately 20 although more recently has had GFR is below this level. Patient underwent a total right knee arthroplasty deferred of June, for severe degenerative joint disease. Patient wished to proceed despite the severity of his chronic kidney disease and risk of worsening renal function because of the severity of debilitation associated with his degenerative joint disease. Patient's renal function fortunately did remain relatively stable postoperatively and the patient was discharged in stable clinical condition except for the fact that he did develop some bladder outlet obstruction and required an indwelling Abdul catheter with follow-up with urology post discharge. Patient noted to have presented to the emergency room in [place] with complaints of "heartburn". Subsequent diagnosis having and non-ST [place] with elevations in troponin. His serum creatinine level on presentation was 3.6 subsequently deteriorating today to 3.9. He is also said to have developed some respiratory insufficiency in route to the main campus. Chest x-ray showed some evidence of interstitial edema and symptomatology improved with IV furosemide. Patient was seen by cardiology and was taken urgently to the cardiac catheter lab for angiogram. Patient did receive IV saline since admission. Patient now status post placement of 2 bare metal stents. Interval History Patient had some nausea this a.m. Still requiring oxygen supplementation. Otherwise no verbal complaints. Review of Systems General Constitutional: Fatigue Respiratory Lungs: Cough Objective Data Data Vital Signs Date Time Temp Pulse Resp B/P (MAP) Pulse Ox O2 Delivery O2 Flow Rate FiO2 06/30/17 08:25 96 Partial Rebreather 15.00 06/30/17 06:00 76 06/30/17 04:00 99.9 80 18 133/65 (87) 97 06/30/17 04:00 80 06/30/17 02:00 82 06/30/17 00:00 77 06/30/17 00:00 100.0 77 16 135/67 (89) 96 06/29/17 22:00 80 06/29/17 21:49 93 Partial Rebreather 06/29/17 20:00 92 06/29/17 20:00 101.8 88 19 156/72 (100) 93 06/29/17 19:00 92 Partial Non-Rebreather 13.00 06/29/17 18:00 118 06/29/17 16:00 109 06/29/17 16:00 99.7 118 16 136/70 (92) 93 06/29/17 14:00 106 06/29/17 12:00 99.5 112 21 146/73 (97) 94 06/29/17 12:00 112 -: 06/30/17 0548 06/30/17 0548 Tubes & Lines: Abdul Physical Exam General Appearance: Comfortable Eyes Eye Exam: Sclera White Pulmonary Resp Exam: Breath Sounds Equal, Decreased Bases Resp Remarks Few basilar crackles. Cardiology CV Exam: Regular Gastrointestinal/Abdomen GI Exam: Soft, Non-Tender Integumentary Skin Exam: Clear, Warm, Normal Turgor Extremeties Extremities Exam: No Edema, Trace Edema (lower legs.) Neurologic Neuro Exam: Alert, Awake, Speech Clear, Moving All Extremities Psychiatric Psych Exam: Appropriate Responses Assessment/Plan Discussed Condition With: Patient, Daughter Problem List: (1) Acute kidney insufficiency ICD Codes: N28.9 - Disorder of kidney and ureter, unspecified Status: Acute Plan: Acute renal insufficiency. Contributory factors include hemodynamic issues with acute [place], cardiac decompensation as well as now contrast nephrotoxicity with probable development of some degree of ATN. Unfortunately the patient's renal indices are deteriorating fairly rapidly and the patient is oliguric with only 50 cc of urine output overnight despite having a Abdul catheter with a dose of bumetanide yesterday. Still requiring oxygen with some bibasilar rales. In view of severe CKD previously and severity of acute renal insufficiency with oliguria still evidence of some fluid retention clinically and development of what I suspect are uremic symptoms I recommended the initiation of dialytic support at this time. Indications for, alternatives to and risks of dialysis including hypotension, cardiac arrhythmia and were reviewed with them and the patient agreed to proceed with Vas-Cath placement and initiation of dialysis. I advised patient previously we initiated dialysis there is a good chance it would be permanent. Dialysis services contacted. Consult placed to radiology for Vas-Cath placement. Issues regarding subsequent placement of PermCath if required discussed below. Plan will be to stabilize patient on hemodialysis and when clinically stable subsequently convert patient to peritoneal dialysis most likely as an outpatient. It was inevitable patient would approach end-stage renal disease prior to this episode and the patient has been counseled previously regarding options available for dialysis. He expressed interest in peritoneal dialysis.. Unfortunately patient will require antiplatelet therapy with current medication for about 1 month as indicated by cardiology which would preclude placement of hemodialysis PermCath or peritoneal catheter. (2) NSTEMI (non-ST elevated myocardial infarction) ICD Codes: I21.4 - Non-ST elevation (NSTEMI) myocardial infarction Status: Acute Plan: Management per cardiology. (3) CKD (chronic kidney disease) stage 4, GFR 15-29 ml/min ICD Codes: N18.4 - Chronic kidney disease, stage 4 (severe) Status: Chronic Plan: History of progressive and severe stage IV CKD. Prior to this admission associated with chronic metabolic acidosis being managed by by mouth sodium bicarbonate. As indicated above the patient was being prepared for initiation of dialysis the not too distant future. Peritoneal dialysis was his chronic modality of choice. (4) Hypertension ICD Codes: I10 - Hypertension Status: Chronic (5) chronic metabolic acidosis Status: Chronic Plan: Will need to continue sodium bicarbonate supplementation pending initiation of dialysis chronically. (6) Urinary retention ICD Codes: R33.9 - Retention of urine, unspecified Plan: Discontinue Abdul catheter at drainage pending stabilization and evaluation by urology which was planned as an outpatient. (7) Anemia of renal disease ICD Codes: D63.1 - Anemia in chronic kidney disease Plan: With a component of iron deficiency and hemodilution. Didi Valencia MD Jun 30, 2017 10:54
--- NOTE | 2017-06-30 11:52 | PD.RAD ---
Post Procedure Progress Note Pre Procedure Diagnosis: (1) CKD (chronic kidney disease) stage 4, GFR 15-29 ml/min (2) Acute kidney insufficiency Post Procedure Diagnosis: (1) CKD (chronic kidney disease) stage 4, GFR 15-29 ml/min (2) Acute kidney insufficiency Procedure Date: Jun 30, 2017 Supervising Radiologist: Masoud Johnson Proceduralist/Assist: Neida Noe, RT(R), Starr Hunt RT(R)() Anesthesia: Local Plan of Activity Patient to Unit: Nursing Unit Patient Condition: Good Additional Comments: Placed right IJ temp HD cath See PACS Report for procedural detail/treatment Masoud Johnson MD Jun 30, 2017 11:52
[2017-06-30] MEDS ORDERED: HEPARIN SODIUM - IV 2,000 UNITS/2 ML VIAL IV FLUSH PRN (12:00)
[2017-06-30] MEDS ORDERED: HEPARIN SODIUM - IV 10,000 UNITS/10 ML VIAL IV ONE (12:03)
--- NOTE | 2017-06-30 12:59 | ECHRPT ---
Indication: + TROP CONCLUSIONS Normal left ventricular size. Wall thickness is normal. The left ventricular systolic function is low normal with an estimated ejection fraction in the rang e of 50- 55%. Moderate mitral valve regurgitation. Trace aortic valve regurgitation. There is moderate to severe tricuspid valve regurgitation. There is estimated nqvtqnsd-[id number]-tnhgnq pulmonary hypertension present ( 66 mmHg). BP: / HR: Rhythm: Sinus MEASUREMENTS (Male / Female) Normal Values Technical Quality:Good 2D ECHO LV Diastolic Diameter PLAX 5.2 cm 4.2 - 5.9 / 3.9 - 5.3 cm LV Systolic Diameter PLAX 4.3 cm IVS Diastolic Thickness 1.1 cm 0.6 - 1.0 / 0.6 - 0.9 cm LVPW Diastolic Thickness 0.8 cm 0.6 - 1.0 / 0.6 - 0.9 cm LV Relative Wall Thickness 0.4 RV Internal Dim ED PLAX 2.0 cm LA Systolic Diameter LX 4.7 cm 3.0 - 4.0 / 2.7 - 3.8 cm M-MODE Aortic Root Diameter MM 3.5 cm AV Cusp Separation MM 1.9 cm DOPPLER MR Peak Velocity 506.0 cm/s MR Peak Gradient 102.4 mmHg Mitral E Point Velocity 122.0 cm/s Mitral A Point Velocity 85.8 cm/s Mitral E to A Ratio 1.4 LV E' Lateral Velocity 6.1 cm/s Mitral E to LV E' Lateral Ratio 19.9 LV E' Septal Velocity 5.2 cm/s Mitral E to LV E' Septal Ratio 23.6 TR Peak Velocity 358.0 cm/s TR Peak Gradient 51.3 mmHg Right Atrial Pressure 15.0 mmHg Pulmonary Artery Systolic Pressu 66.3 mmHg Right Ventricular Systolic Press 66.3 mmHg FINDINGS LEFT VENTRICLE Normal left ventricular size. Wall thickness is normal. The left ventricular systolic function is low normal with an estimated ejection fraction in the rang e of 50- 55%. RIGHT VENTRICLE Normal right ventricular size and systolic function. LEFT ATRIUM The left atrial size is normal. RIGHT ATRIUM The right atrial size is normal. ATRIAL SEPTUM Normal atrial septal thickness without atrial level shunting by limited color doppler interrogation. AORTA The aortic root and proximal ascending aorta are normal in size on limited imaging. MITRAL VALVE Moderate mitral valve regurgitation. AORTIC VALVE Trace aortic valve regurgitation. TRICUSPID VALVE There is moderate to severe tricuspid valve regurgitation. There is estimated ypajlisu-dc-hbcyfg pulmonary hypertension present ( 66 mmHg). PULMONARY VALVE No pulmonary valve regurgitation or stenosis. VESSELS The inferior vena cava is normal in size. PERICARDIUM No pericardial effusion. Aamir Osborn MD, FACC (Electronically Signed) Final Date:30 June 2017 12:58
--- NOTE | 2017-06-30 13:23 | RADRPT ---
EXAM DATE/TIME: 06/30/2017 12:05 [facility] COMPARISON: No previous studies available for comparison. INDICATIONS : Dyspnea with chest pain and hypoxia. DOSE: 8.5 mCi Tc99m MAA IV 1.1 mCi Tc99m DTPA aerosol MEDICAL HISTORY : Hypertension. Renal failure, chronic. Myocardial infarction. Pulmonary edema. SURGICAL HISTORY : Coronary artery stent. Right and left knee. ENCOUNTER: Initial ACUITY: 2 days PAIN SCALE: 1/10 LOCATION: Left chest TECHNIQUE: Following five minutes of tidal breathing of DTPA aerosol, planar images of the lungs were performed in eight projections. The patient was then injected with MAA, and eight-view perfusion scan was perf ormed. FINDINGS: Minimal central airway tracer deposition is noted on the left. The perfusion lung scan demonstrates a homogenous pattern of uptake in both lungs. No segmental or s ubsegmental defects are seen. CONCLUSION: Perfusion better than the ventilation, low probability for pulmonary embolism. Venkat Daley MD FACR on June 30, 2017 at 13:20 Board Certified Radiologist. This report was verified electronically.
--- NOTE | 2017-06-30 13:30 | RADRPT ---
EXAM DATE/TIME: 06/30/2017 11:20 [facility] COMPARISON: No previous studies available for comparison. INDICATIONS : Patient with a history of renal failure. MEDICAL HISTORY : Chronic renal disease Osteoarthritis SURGICAL HISTORY : Left knee replacement Right knee replacement ENCOUNTER: Initial ACUITY: 3 days PAIN SCORE: 5/10 LOCATION: Right knee FLUORO TIME: 0.2 minutes IMAGE SERIES: 0 ACCESS: Right internal jugular vein DEVICE(S): 1.) 14 [place] dual lumen 15 cm Vas Cath PROCEDURE : 1. Ultrasound guided venipuncture. 2. Fluoroscopic guidance. 3. Central line placement. The risks, benefits and alternatives to the procedure were explained and verbal and written consent w as obtained. The site was prepped in sterile fashion. Full sterile technique was used, including ca p, mask, sterile gloves and gown and a large sterile sheet. Hand hygiene and 2% chlorhexidine prep w as utilized per protocol for cutaneous antisepsis with appropriate dry time for site. Sterile gel an d sterile probe cover were utilized for ultrasound guidance. The skin and subcutaneous tissues were infiltrated with local anesthetic solution. A suitable site a lyssa the vein was selected with ultrasound and fluoroscopic guidance. A small incision was made. Th e vein was accessed under direct ultrasound visualization using the micropuncture technique. The robyn ropuncture set was exchanged for a 0.035 wire. The tract was dilated. The catheter was advanced int o position under direct fluoroscopic visualization. The catheter was fixed in place with suture and a sterile dressing was applied. The patient tolerated the procedure well and there were no complications. CONCLUSION: Successful Vas-Cath placement via the right internal jugular vein. The patient tolera bridger the procedure without difficulty. Kei Daley MD on June 30, 2017 at 13:28 Board Certified Radiologist. This report was verified electronically.
[2017-06-30] MEDS: GENTAMICIN SULFATE (DIALYSIS USE ONLY) 20 MG/2 ML VIAL OTHER PRN (13:54)
[2017-06-30] MEDS: EPOETIN ALFA 10,000 UNITS/ML VIAL IV PUSH PRN (13:54)
--- NOTE | 2017-06-30 17:27 | PD.CARD.PN ---
Subjective Subjective Remarks No CP or SOB, in dialysis, 3 l removed Objective Medications Administered Medications Medications (Trade) Dose Ordered Sig/Cory Route PRN Reason Start Time Stop Time Status Last Admin Dose Admin Sodium Chloride (NS Flush) 2 ml BID IV FLUSH 06/27/17 21:00 06/30/17 10:16 Pantoprazole Sodium (Protonix Inj) 40 mg Q24H IV PUSH 06/27/17 17:00 06/29/17 17:52 Allopurinol (Zyloprim) 100 mg BID PO 06/27/17 21:00 06/30/17 10:15 Carvedilol (Coreg) 3.125 mg BID PO 06/27/17 21:00 06/30/17 10:16 Sodium Bicarbonate (Sodium Bicarbonate) 650 mg TIDPC PO 06/27/17 18:30 06/30/17 14:20 Hydromorphone HCl (Dilaudid Pf Inj) 2 mg Q4H PRN IVS pain 06/27/17 18:30 06/29/17 12:10 Albuterol/ Ipratropium (Duoneb Neb) 1 ampule Q4HR NEB NEB 06/28/17 04:00 06/30/17 16:28 Albuterol/ Ipratropium (Duoneb Neb) 1 ampule Q2HR NEB PRN NEB SHORTNESS OF BREATH 06/28/17 03:00 06/28/17 13:50 Aspirin (Aspirin Chew) 81 mg DAILY PO 06/29/17 09:00 06/30/17 10:16 Ticagrelor (Brilinta) 90 mg BID PO 06/28/17 21:00 06/30/17 10:16 Pravastatin Sodium (Pravachol) 20 mg HS PO 06/28/17 21:00 06/29/17 20:33 Iron Sucrose 100 mg/Sodium Chloride 105 ml @ 105 mls/hr DAILY IV 06/29/17 09:00 07/01/17 09:59 06/30/17 10:16 Fluticasone Propionate (Flonase Ethan Spr) 1 spray Q12H PRN NASAL NASAL CONGESTION 06/28/17 14:45 06/30/17 10:11 Patient Own Medication PT OWN MED: [facility]... DAILY PO 06/28/17 16:00 06/30/17 10:13 Metoprolol Tartrate (Lopressor Inj) 5 mg Q6H PRN IV PUSH Pulse > 120 06/28/17 17:30 06/28/17 17:46 Acetaminophen (Tylenol) 650 mg Q6H PRN PO SEE LABEL COMMENTS 06/28/17 21:30 06/30/17 10:14 Amiodarone HCl (Cordarone) 400 mg Q12HR PO 06/29/17 15:00 06/30/17 10:27 Gentamicin Sulfate (Gentamicin (Dialysis) Inj) 20 mg UNSCH PRN OTHER WITH DIALYSIS 06/30/17 10:45 06/30/17 13:54 Epoetin Benji (Epogen Inj) 5,000 units UNSCH PRN IV PUSH WITH DIALYSIS 06/30/17 10:45 06/30/17 13:54 Vital Signs / I&O Vital Signs Date Time Temp Pulse Resp B/P (MAP) Pulse Ox O2 Delivery O2 Flow Rate FiO2 06/30/17 16:00 85 06/30/17 16:00 98.7 85 25 146/78 (100) 99 06/30/17 14:00 84 06/30/17 12:00 85 06/30/17 12:00 98.7 85 17 135/65 (88) 95 06/30/17 10:00 86 06/30/17 08:25 96 Partial Rebreather 15.00 06/30/17 08:00 99.6 88 26 131/58 (82) 93 06/30/17 08:00 88 06/30/17 07:00 97 Partial Non-Rebreather 13.00 06/30/17 06:00 76 06/30/17 04:00 99.9 80 18 133/65 (87) 97 06/30/17 04:00 80 06/30/17 02:00 82 06/30/17 00:00 77 06/30/17 00:00 100.0 77 16 135/67 (89) 96 06/29/17 22:00 80 06/29/17 21:49 93 Partial Rebreather 06/29/17 20:00 92 06/29/17 20:00 101.8 88 19 156/72 (100) 93 06/29/17 19:00 92 Partial Non-Rebreather 13.00 06/29/17 18:00 118 I/O 10/8/17 06/29/17 06/29/17 06/30/17 06/30/17 06/30/17 06:59 14:59 22:59 06:59 14:59 22:59 Intake Total 240 ml 720 ml 120 ml 100 ml Output Total 475 ml 325 ml 50 ml 3000 ml Balance -235 ml 395 ml 70 ml -2900 ml Intake Oral 240 ml 720 ml 120 ml IV Total 100 ml Output Urine Total 475 ml 325 ml 50 ml Hemodialysis 3000 ml # Bowel Movements 0 0 Physical Exam GENERAL: In NAD. SKIN: Warm and dry. HEAD: Normocephalic. EYES: No scleral icterus. No injection or drainage. NECK: Supple, trachea midline. No JVD or lymphadenopathy. CARDIOVASCULAR: Irreg, without murmurs, gallops, or rubs. RESPIRATORY: Breath sounds equal bilaterally. No accessory muscle use. GASTROINTESTINAL: Abdomen soft, non-tender, nondistended. MUSCULOSKELETAL: No cyanosis, mild edema. Groin stable. Laboratory Laboratory Tests Test 06/30/17 05:48 06/30/17 14:20 White Blood Count 10.4 TH/MM3 Red Blood Count 2.96 MIL/MM3 Hemoglobin 9.2 GM/DL Hematocrit 26.9 % Mean Corpuscular Volume 91.1 FL Mean Corpuscular Hemoglobin 31.2 PG Mean Corpuscular Hemoglobin Concent 34.2 % Red Cell Distribution Width 15.0 % Platelet Count 250 TH/MM3 Mean Platelet Volume 7.6 FL Blood Urea Nitrogen 108 MG/DL Creatinine 6.44 MG/DL Random Glucose 98 MG/DL Albumin 2.3 GM/DL Calcium Level 8.5 MG/DL Phosphorus Level 5.2 MG/DL Sodium Level 129 MEQ/L Potassium Level 4.1 MEQ/L Chloride Level 94 MEQ/L Carbon Dioxide Level 22.1 MEQ/L Anion Gap 13 MEQ/L Estimat Glomerular Filtration Rate 9 ML/MIN Imaging Last 24 hours Impressions Lung Scan-VQ Nuclear Medicine 06/30/17 0000 Signed Impressions: Service Date/Time: Friday, June 30, 2017 12:05 - CONCLUSION: Perfusion better than the ventilation, low probability for pulmonary embolism. Venkat Daley MD FACR Catheter Placement X-Ray 06/30/17 0000 Signed Impressions: Service Date/Time: Friday, June 30, 2017 11:20 - CONCLUSION: Successful Vas-Cath placement via the right internal jugular vein. The patient tolerated the procedure without difficulty. Kei Daley MD Assessment and Plan Problem List: (1) NSTEMI (non-ST elevated myocardial infarction) ICD Codes: I21.4 - Non-ST elevation (NSTEMI) myocardial infarction Status: Acute (2) Multi-vessel coronary artery stenosis ICD Codes: I25.10 - Atherosclerotic heart disease of [place] coronary artery without angina pectoris (3) Cardiomyopathy ICD Codes: I42.9 - Cardiomyopathy, unspecified (4) Atrial fibrillation ICD Codes: I48.91 - Unspecified atrial fibrillation (5) Stented coronary artery ICD Codes: Z95.5 - Presence of coronary angioplasty implant and graft (6) CKD (chronic kidney disease) stage 4, GFR 15-29 ml/min ICD Codes: N18.4 - Chronic kidney disease, stage 4 (severe) Status: Chronic (7) Anemia ICD Codes: D64.9 - Anemia, unspecified (8) Hypertension ICD Codes: I10 - Hypertension Status: Chronic Assessment and Plan No recurrent angina. Renal fx worse, dialysis started. He developed a fib which complicates his management from the standpoint of anticoagulation given his recent significant anemia, amio started, now back in SR. Continue Brilinta and baby ASA for now to prevent stent thrombosis. Continue tx for CHF. VQ scan low prob. Aggressive risk factor modification. Increase activity. Continue monitoring in the ICU. Brittany Jenkins MD Jun 30, 2017 17:27
[2017-06-30] MEDS: PANTOPRAZOLE SODIUM 40 MG VIAL IV PUSH SCH (18:13)
[2017-06-30] MEDS: PRAVASTATIN SOD 10 MG TAB PO SCH (21:19)
[2017-06-30] MEDS ORDERED: RESP: ALBUTEROL 2.5 MG/3 ML NEB (PRN) NEB (22:30)
[2017-06-30] MEDS ORDERED: LACTULOSE SYRUP 20 GM/30 ML CUP PO ONE (22:45)
[2017-06-30] MEDS ORDERED: METHYLNALTREXONE BROMIDE 12 MG/0.6 ML VIAL SQ ONE (22:45)
[2017-06-30] MEDS ORDERED: GLYCERIN ADULT 2 GM SUPP RECTAL PRN ×2 (22:45)
--- NOTE | 2017-06-30 22:48 | HHI.CCPN ---
Subjective Remarks/Hospital Course The patient is a 72 year old male with past medical history of osteoarthritis, chronic kidney disease, stage IV who was admitted to [facility] on June 27, 2017 under hospitalist service for anemia and non-ST elevation myocardial infarction. The patient was found to have a troponin of 4.3 which is gradually increasing to 6.05 early this morning. He was placed on heparin and nitro drip. In addition the patient was found to have acute on chronic kidney disease with creatinine level of 3.6, BUN 66 and hyponatremia with sodium level of 127. 06/29: Cardiac cath and stent X 2 yesterday. Rising creatinine > 4 today. Hx CKD. New a-fib with rate controlled. Breathing comfortably. Subjective 06/30: Resting currently in bed in no acute distress. Currently on aerosolized mask. Currently in atrial fibrillation currently rate controlled. Status post hemodialysis catheter today with -3 L. Objective Vital Signs Date Time Temp Pulse Resp B/P (MAP) Pulse Ox O2 Delivery O2 Flow Rate FiO2 06/30/17 19:36 90 Aerosol Mask 70 06/30/17 19:00 13.00 06/30/17 18:00 92 06/30/17 16:00 98.7 25 146/78 (100) Intake and Output 06/30/17 06/30/17 07/01/17 08:00 16:00 00:00 Intake Total 120 ml 100 ml Output Total 50 ml 3000 ml 150 ml Balance 70 ml -3000 ml -50 ml Result Diagram: 06/30/17 0548 06/30/17 0548 Imaging Last Impressions Lung Scan-VQ Nuclear Medicine 06/30/17 0000 Signed Impressions: Service Date/Time: Friday, June 30, 2017 12:05 - CONCLUSION: Perfusion better than the ventilation, low probability for pulmonary embolism. Venkat Daley MD FACR Catheter Placement X-Ray 06/30/17 0000 Signed Impressions: Service Date/Time: Friday, June 30, 2017 11:20 - CONCLUSION: Successful Vas-Cath placement via the right internal jugular vein. The patient tolerated the procedure without difficulty. Kei Daley MD Renal Ultrasound 06/28/17 0000 Signed Impressions: Service Date/Time: Wednesday, June 28, 2017 09:24 - CONCLUSION: 1. Cortical thinning and increased echogenicity suggesting underlying medical renal disease. Kei Daley MD Chest X-Ray 06/28/17 0000 Signed Impressions: Service Date/Time: Wednesday, June 28, 2017 00:30 - CONCLUSION: Radiographic pattern consistent with intra-alveolar pulmonary edema. Simon Gomez Jr., MD Objective Remarks GENERAL: 72-year-old male, resting in bed in no acute distress SKIN: Warm and dry. HEAD: Atraumatic. Normocephalic. EYES: Pupils equal and round. No scleral icterus. No injection or drainage. ENT: No nasal bleeding or discharge. Mucous membranes pink and moist. NECK: Trachea midline. No JVD. CARDIOVASCULAR: IRR. S1, S2. No S4. RESPIRATORY: Few crackles appreciated in the bases bilaterally. Essentially clear anteriorly no wheezes. GASTROINTESTINAL: Abdomen soft, non-tender, nondistended. Hepatic and splenic margins not palpable. MUSCULOSKELETAL: Right lower extremity with Steri-Strips over right knee. Incision site is clean dry and intact No significant peripheral edema. NEUROLOGICAL: Awake and alert. No obvious cranial nerve deficits. Motor grossly within normal limits. Five out of 5 muscle strength in the arms and legs. Normal speech. A/P Assessment and Plan Neuro/psych: Acetaminophen for fever Hydromorphone for pain management CV: Non-STEMI Coronary disease status post stent 2 Hypertension Dyslipidemia Status post cardiac catheterization with stents to the RCA and left circumflex Currently being on aspirin 81 mg daily and Ticagrelor 90 mg twice a day Cardiology/Dr. cote following Echocardiogram 06/30 revealed EF 50-55%. Moderate to severe TR. PAP 60 mmHg Continue pravastatin 20 mg by mouth daily for dyslipidemia Continue amiodarone 400 mg by mouth 3 times a day for atrial fibrillation currently rate controlled Continue carvedilol 3.125 mg by mouth twice a day for hypertension. Holding amlodipine 10 mg daily/home medication Resp: Acute hypoxemic respiratory failure likely secondary to pulmonary edema/ pulmonary hypertension Currently on aerosolized mask to maintain saturations greater than or equal to 92% Incentive spirometry while awake Added a cappella every 4 hours to aerosolized treatments Follow-up chest x-ray in a.m. -3 L with hemodialysis today. VQ scan 06/30 low probability for pulmonary embolism. GI: Continue heart healthy diet Pantoprazole 20 mg by mouth daily for GI prophylaxis Docusate sodium, Senokot, polyethylene glycol lactulose for bowel regimen. : BPH Resumed tamsulosin 0.8 mg by mouth daily Endo: Gout Continue allopurinol 100 mg by mouth twice a day/home medication Check TSH with atrial fibrillation Sliding-scale insulin low scale every before meals/at bedtime Renal: Acute and chronic kidney disease stage V Hemodialysis catheter right IJ placed by IR today. Status post hemodialysis -3 L today. Likely repeat in AM. Nephrology following Heme: Anemia of chronic kidney disease Hemoglobin essentially stable. No indication for transfusion of blood products at this time ID: Monitor for infection MSK: Status post right total knee replacement by Dr. Marcelino Osteoarthritis Knee device FEN: Hyponatremia Hyperphosphatemia Replace electrolytes as clinically indicated Start calcium acetate 667 mg 3 times a day Access - Utilize peripheral IV. Central line if indicated Prophylaxis - GI - pantoprazole - DVT - SCD/pharmacological prophylaxis/therapy once okay with cardiology Level II follow-up Zain Garcia MD Jun 30, 2017 22:48
[2017-07-01] VITALS (13 sets, daily range): BP systolic 123–140; BP diastolic 61–73; PULSE 74–94; RESP 16–30; TEMP 98.5–99; O2SAT 88–97
[2017-07-01] MEDS: HYDROmorphone HCL PF 2 MG/ML VIAL IVS PRN (00:05)
[2017-07-01] MEDS: RESP: ALBUTEROL 2.5 MG/IPRATROPIUM 0.5 MG NEB (SCH) NEB ×6 (03:05→23:33)
[2017-07-01 06:21] LABS: BICARBONATE 24.8 MEQ/L (21.0-32.0); POTASSIUM 3.7 MEQ/L (3.5-5.1)
--- NOTE | 2017-07-01 07:01 | PD.ORT.PN ---
Subjective Post Op Day #: 7 Subjective Remarks He is improved somewhat since dialysis yesterday. The CPM has helped with his knee. He has not been OOB. Objective Vitals Vital Signs Date Time Temp Pulse Resp B/P (MAP) Pulse Ox O2 Delivery O2 Flow Rate FiO2 07/01/17 04:00 80 07/01/17 04:00 98.5 80 30 135/71 (92) 97 07/01/17 02:00 86 07/01/17 00:35 21 07/01/17 00:00 94 07/01/17 00:00 99.0 94 21 140/71 (94) 88 06/30/17 22:00 92 06/30/17 20:00 100.8 92 25 151/67 (95) 91 06/30/17 20:00 94 06/30/17 19:36 90 Aerosol Mask 70 06/30/17 19:00 95 Partial Non-Rebreather 13.00 06/30/17 18:00 92 06/30/17 16:00 85 06/30/17 16:00 98.7 85 25 146/78 (100) 99 06/30/17 14:00 84 06/30/17 12:00 85 06/30/17 12:00 98.7 85 17 135/65 (88) 95 06/30/17 10:00 86 06/30/17 08:25 96 Partial Rebreather 15.00 06/30/17 08:00 99.6 88 26 131/58 (82) 93 06/30/17 08:00 88 06/30/17 07:00 97 Partial Non-Rebreather 13.00 I/O 06/30/17 06/30/17 06/30/17 07/01/17 07/01/17 07/01/17 07:00 15:00 23:00 07:00 15:00 23:00 Intake Total 120 ml 100 ml Output Total 50 ml 3150 ml Balance 70 ml -3050 ml Intake Oral 120 ml IV Total 100 ml Output Urine Total 50 ml 150 ml Hemodialysis 3000 ml # Bowel Movements 0 Result Diagram: 06/30/17 0548 07/01/17 0531 Objective Remarks He is resting relatively comfortably, supine in bed. The dressing is dry and intact. There is no erythema, nor induration. Assessment & Plan Ortho Post Op Day #: 6 Problem List: (1) Status post total right knee replacement ICD Codes: Z96.651 - Presence of right artificial knee joint Plan: Continue postop care. Resume PT when stable from a medical/cardiac standpoint. CPM can be used until PT can resume. Assessment and Plan Orthopaedically, he remains stable. Plans for the knee are as above. Please contact me if there are issues, concerns or questions about his knee. Olayinka Marcelino MD ([place]) Jul 01, 2017 07:01
[2017-07-01] MEDS: INSULIN NovoLIN REGULAR SUPPLEMENTAL SCALE SQ SCH ×4 (08:00→21:00)
[2017-07-01] MEDS: SODIUM BICARBONATE 325 MG TAB PO SCH (08:39)
[2017-07-01] MEDS: AMIODARONE 200 MG TAB PO SCH ×2 (08:39→20:25)
[2017-07-01] MEDS: PANTOPRAZOLE SOD 20 MG DELAYED RELEASE TAB PO SCH (08:40)
[2017-07-01] MEDS: SODIUM CHLORIDE 0.9% FLUSH 10 ML FLUSH IV FLUSH SCH ×2 (08:40→20:26)
[2017-07-01] MEDS: ASPIRIN 81 MG CHEW TAB PO SCH (08:40)
[2017-07-01] MEDS: TICAGRELOR 90 MG TAB PO SCH ×2 (08:40→20:23)
[2017-07-01] MEDS: PATIENT OWN MEDICATION PO SCH (08:40)
[2017-07-01] MEDS: DOCUSATE SODIUM 50 MG/SENNA 8.6 MG TAB PO SCH ×2 (08:41→20:25)
[2017-07-01] MEDS: LACTULOSE SYRUP 20 GM/30 ML CUP PO SCH (08:41)
[2017-07-01] MEDS: CALCIUM ACETATE 667 MG CAP PO SCH ×3 (08:41→18:48)
[2017-07-01] MEDS: POLYETHYLENE GLYCOL 17 GM PKG PO SCH ×2 (08:41→20:23)
[2017-07-01] MEDS: ALLOPURINOL 100 MG TAB PO SCH ×2 (08:42→20:24)
[2017-07-01] MEDS: IRON SUCROSE INJ 100 MG in SODIUM CHLORIDE 0.9% INJ 100 ML IV SCH (08:48)
--- NOTE | 2017-07-01 11:35 | HHI.NPPN ---
Subjective History of Present Illness This patient is a 72-year-old male with a history of progressive severe chronic kidney disease with a baseline GFR of approximately 20 although more recently has had GFR is below this level. Patient underwent a total right knee arthroplasty deferred of June, for severe degenerative joint disease. Patient wished to proceed despite the severity of his chronic kidney disease and risk of worsening renal function because of the severity of debilitation associated with his degenerative joint disease. Patient's renal function fortunately did remain relatively stable postoperatively and the patient was discharged in stable clinical condition except for the fact that he did develop some bladder outlet obstruction and required an indwelling Abdul catheter with follow-up with urology post discharge. Patient noted to have presented to the emergency room in [place] with complaints of "heartburn". Subsequent diagnosis having and non-ST AL with elevations in troponin. His serum creatinine level on presentation was 3.6 subsequently deteriorating today to 3.9. He is also said to have developed some respiratory insufficiency in route to the main campus. Chest x-ray showed some evidence of interstitial edema and symptomatology improved with IV furosemide. Patient was seen by cardiology and was taken urgently to the cardiac catheter lab for angiogram. Patient did receive IV saline since admission. Patient now status post placement of 2 bare metal stents. Interval History Pt seen during 2nd session of HD today. Says he is feeling much better Breathing improved UF of 3L 06/30 & 07/01 (Deborah Garcia) Review of Systems General Constitutional: Fatigue (Deborah Garcia) Objective Data Data 07/01/17 07/02/17 19:00 07:00 Intake Total 105 ml Balance 105 ml IV Total 105 ml Vital Signs Date Time Temp Pulse Resp B/P (MAP) Pulse Ox O2 Delivery O2 Flow Rate FiO2 07/01/17 10:00 79 07/01/17 08:00 88 07/01/17 08:00 98.7 88 28 127/62 (83) 93 07/01/17 07:53 94 Partial Rebreather 12.00 07/01/17 07:00 92 Partial Non-Rebreather 15.00 07/01/17 06:00 80 07/01/17 04:00 80 07/01/17 04:00 98.5 80 30 135/71 (92) 97 07/01/17 02:00 86 07/01/17 00:35 21 07/01/17 00:00 94 07/01/17 00:00 99.0 94 21 140/71 (94) 88 06/30/17 22:00 92 06/30/17 20:00 100.8 92 25 151/67 (95) 91 06/30/17 20:00 94 06/30/17 19:36 90 Aerosol Mask 70 06/30/17 19:00 95 Partial Non-Rebreather 13.00 06/30/17 18:00 92 06/30/17 16:00 85 06/30/17 16:00 98.7 85 25 146/78 (100) 99 06/30/17 14:00 84 06/30/17 12:00 85 06/30/17 12:00 98.7 85 17 135/65 (88) 95 (Deborah Garcia) -: 06/30/17 0548 07/01/17 0531 Microbiology 07/01/17 Stool Occult Blood (ISHA) - Final, Complete HEMOCCULT NEGATIVE Imaging Last Impressions Lung Scan-VQ Nuclear Medicine 06/30/17 0000 Signed Impressions: Service Date/Time: Friday, June 30, 2017 12:05 - CONCLUSION: Perfusion better than the ventilation, low probability for pulmonary embolism. Venkat Daley MD FACR Catheter Placement X-Ray 06/30/17 0000 Signed Impressions: Service Date/Time: Friday, June 30, 2017 11:20 - CONCLUSION: Successful Vas-Cath placement via the right internal jugular vein. The patient tolerated the procedure without difficulty. Kei Daley MD Renal Ultrasound 06/28/17 0000 Signed Impressions: Service Date/Time: Wednesday, June 28, 2017 09:24 - CONCLUSION: 1. Cortical thinning and increased echogenicity suggesting underlying medical renal disease. Kei Daley MD Chest X-Ray 06/28/17 0000 Signed Impressions: Service Date/Time: Wednesday, June 28, 2017 00:30 - CONCLUSION: Radiographic pattern consistent with intra-alveolar pulmonary edema. Simon Gomez Jr., MD Tubes & Lines: Abdul Medication Review Current Medications Medications (Trade) Dose Ordered Sig/Cory Route Start Time Stop Time Status Last Admin (NS Flush) 2 ml BID IV FLUSH 06/27/17 21:00 07/01/17 08:40 (NS Flush) 2 ml UNSCH PRN IV FLUSH 06/27/17 16:15 (Zyloprim) 100 mg BID PO 06/27/17 21:00 07/01/17 08:42 (Coreg) 3.125 mg BID PO 06/27/17 21:00 06/30/17 21:19 (Sodium Bicarbonate) 650 mg TIDPC PO 06/27/17 18:30 06/30/17 18:13 (Dilaudid Pf Inj) 2 mg Q4H PRN IVS 06/27/17 18:30 07/01/17 00:05 (Duoneb Neb) 1 ampule Q4HR NEB NEB 06/28/17 04:00 07/01/17 07:52 (D50w (Vial) Inj) 50 ml UNSCH PRN IV PUSH 06/28/17 03:00 (Glucagon Inj) 1 mg UNSCH PRN OTHER 06/28/17 03:00 (Aspirin Chew) 81 mg DAILY PO 06/29/17 09:00 07/01/17 08:40 (Brilinta) 90 mg BID PO 06/28/17 21:00 07/01/17 08:40 (Pravachol) 20 mg HS PO 06/28/17 21:00 06/30/17 21:19 (Flonase Ethan Spr) 1 spray Q12H PRN NASAL 06/28/17 14:45 06/30/17 10:11 Patient Own Medication PT OWN MED: OPTIC ARED... DAILY PO 06/28/17 16:00 07/01/17 08:40 (Lopressor Inj) 5 mg Q6H PRN IV PUSH 06/28/17 17:30 06/28/17 17:46 (Tylenol) 650 mg Q6H PRN PO 06/28/17 21:30 06/30/17 10:14 (Cordarone) 400 mg Q12HR PO 06/29/17 15:00 07/01/17 08:39 Sodium Chloride 1,000 ml @ 0 mls/hr Q0M PRN OTHER 06/30/17 10:38 (Heparin Inj) 8,000 units UNSCH PRN IV FLUSH 06/30/17 10:45 Sodium Chloride 1,000 ml @ 200 mls/hr Q5H PRN IV 06/30/17 10:38 Sodium Chloride 1,000 ml @ 0 mls/hr Q0M PRN OTHER 06/30/17 10:38 (Mannitol Inj) 12.5 gm UNSCH PRN IV 06/30/17 10:45 (Albumin 25% Inj) 25 gm UNSCH PRN IV 06/30/17 10:45 (NS Flush) 5 ml UNSCH PRN IV FLUSH 06/30/17 10:45 (Heparin Inj) UNSCH PRN .XX 06/30/17 10:45 (Gentamicin (Dialysis) Inj) 20 mg UNSCH PRN OTHER 06/30/17 10:45 06/30/17 13:54 (Zofran Inj) 4 mg UNSCH PRN IV PUSH 06/30/17 10:45 (Tylenol) 650 mg UNSCH PRN PO 06/30/17 10:45 (Benadryl) 25 mg UNSCH PRN PO 06/30/17 10:45 (Nitrostat Sl) 0.4 mg UNSCH PRN SL 06/30/17 10:45 (Catapres) 0.1 mg UNSCH PRN PO 06/30/17 10:45 (Epogen Inj) 5,000 units UNSCH PRN IV PUSH 06/30/17 10:45 06/30/17 13:54 (Gelfoam 12 Mm/7 Mm Top) 1 foam UNSCH PRN TOP 06/30/17 10:45 (NS Flush) UNSCH PRN IV FLUSH 06/30/17 12:00 (Heparin Inj) UNSCH PRN IV FLUSH 06/30/17 12:00 (Albuterol Neb) 2.5 mg Q2HR NEB PRN NEB 06/30/17 22:30 (Protonix) 20 mg DAILY PO 07/01/17 09:00 07/01/17 08:40 (Ally-Colace) 1 tab BID PO 07/01/17 09:00 (Glycerin Adult Supp) 2 gm DAILY PRN RECTAL 06/30/17 22:45 (Miralax) 17 gm BID PO 07/01/17 09:00 (Lactulose Liq) 30 ml DAILY PO 07/01/17 09:00 (Glycerin Adult Supp) 2 gm BID PRN RECTAL 06/30/17 22:45 (NovoLIN R SUPPLEMENTAL SCALE) 1 ACHS SQ 07/01/17 08:00 (Flomax) 0.8 mg HS PO 07/01/17 21:00 (Phoslo) 667 mg TID PO 07/01/17 09:00 07/01/17 08:41 (Deborah Garcia) Physical Exam General Appearance: Comfortable (Deborah Garcia) Eyes Eye Exam: Sclera White (Deborah Garcia) Pulmonary Resp Exam: Breath Sounds Equal, Decreased Bases (Deborah Garcia) Cardiology CV Exam: Regular (Deborah Garcia) Gastrointestinal/Abdomen GI Exam: Soft, Non-Tender (Deborah Garcia) Integumentary Skin Exam: Clear, Warm, Normal Turgor (Deborah Garcia) Extremeties Extremities Exam: No Edema (Deborah Garcia) Neurologic Neuro Exam: Alert, Awake, Speech Clear, Moving All Extremities (Deborah Garcia) Psychiatric Psych Exam: Appropriate Responses (Deborah Garcia) Assessment/Plan Discussed Condition With: Patient, Daughter Problem List: (1) Acute kidney insufficiency ICD Codes: N28.9 - Disorder of kidney and ureter, unspecified Status: Acute Plan: Contributory factors include hemodynamic issues with acute AL, cardiac decompensation as well as now contrast nephrotoxicity with probable development of some degree of ATN. Pt seen during HD today. Access working well. States he feels much better. Understands this is likely chronic and voices again that he wishes to transition in the future to peritoneal dialysis and potentially even go for transplant evaluation. Ideally would like his VasCath exchanged for PermCath before discharge, but his need for antiplatelet therapy precludes this. Will continue to follow labs and dialyze TTS Epogen with HD as ordered. On PhosLo for hyperphosphatemia Check iPTH and Vit D. D/C po bicarbonate (2) NSTEMI (non-ST elevated myocardial infarction) ICD Codes: I21.4 - Non-ST elevation (NSTEMI) myocardial infarction Status: Acute Plan: Management per cardiology. (3) CKD (chronic kidney disease) stage 4, GFR 15-29 ml/min ICD Codes: N18.4 - Chronic kidney disease, stage 4 (severe) Status: Chronic Plan: History of progressive and severe stage IV CKD. Prior to this admission associated with chronic metabolic acidosis being managed by by mouth sodium bicarbonate. As indicated above the patient was being prepared for initiation of dialysis the not too distant future. Peritoneal dialysis was his chronic modality of choice. (4) Hypertension ICD Codes: I10 - Hypertension Status: Chronic (5) chronic metabolic acidosis Status: Chronic Plan: Resolved with HD (6) Urinary retention ICD Codes: R33.9 - Retention of urine, unspecified Plan: Discontinue Abdul catheter at drainage pending stabilization and evaluation by urology which was planned as an outpatient. (7) Anemia of renal disease ICD Codes: D63.1 - Anemia in chronic kidney disease Plan: With a component of iron deficiency and hemodilution. Epogen with HD as ordered (Deborah Garcia) Plan Patient clinically improved with dialysis. Urine output still marginal. At this point in time believe patient has developed end-stage renal disease and will require dialysis indefinitely considering the severity of his CKD prior to initiation.. Volume status improved. Remains be determined whether or not we will need to repeat dialysis tomorrow. It is noted that the patient may be discharged to [facility]. I did inform the patient and family that I do not have privileges of inpatient care at that facility presently and a covering special forces senior sergeant would have to see the patient during his stated with the patient did indicate that he would like to return to my care post discharge. My discussion with the radiologist indicated that he may be able to convert his Vas-Cath to a PermCath prior to discharge even with the antiplatelet therapy on board. I will discuss again with the radiologist when discharge appears to be near. All of the above reviewed with patient and his family by bedside today. The exam, history, and the medical decision-making described in the above note were completed with the assistance of the MAGALI. I reviewed and agree with the findings presented. I attest that I had a [id number] encounter with the patient on the same day, and personally performed and documented my assessment and findings in the medical record. (Didi Valencia MD) Deborah Garcia Jul 01, 2017 11:35 Didi Valencia MD Jul 01, 2017 19:58
[2017-07-01] MEDS: CARVEDILOL 3.125 MG TAB PO SCH ×2 (13:08→20:25)
[2017-07-01] MEDS: HEPARIN SODIUM - SQ 10,000 UNITS/ML VIAL SQ SCH ×2 (14:00→20:23)
--- NOTE | 2017-07-01 17:31 | HHI.CCPN ---
Subjective Remarks/Hospital Course The patient is a 72 year old male with past medical history of osteoarthritis, chronic kidney disease, stage IV who was admitted to [facility] on June 27, 2017 under hospitalist service for anemia and non-ST elevation myocardial infarction. The patient was found to have a troponin of 4.3 which is gradually increasing to 6.05 early this morning. He was placed on heparin and nitro drip. In addition the patient was found to have acute on chronic kidney disease with creatinine level of 3.6, BUN 66 and hyponatremia with sodium level of 127. 06/29: Cardiac cath and stent X 2 yesterday. Rising creatinine > 4 today. Hx CKD. New a-fib with rate controlled. Breathing comfortably. 06/30: Resting currently in bed in no acute distress. Currently on aerosolized mask. Currently in atrial fibrillation currently rate controlled. Status post hemodialysis catheter today with -3 L. Subjective 07/01: Resting currently in bed in no acute distress. -3 L hemodialysis today. Currently on nasal cannula at 5 L. Appears most comfortable. Examination much improved Objective Vital Signs Date Time Temp Pulse Resp B/P (MAP) Pulse Ox O2 Delivery O2 Flow Rate FiO2 07/01/17 16:00 98.5 80 18 135/73 (93) 93 07/01/17 07:53 Partial Rebreather 12.00 06/30/17 19:36 70 Intake and Output 07/01/17 07/01/17 07/02/17 08:00 16:00 00:00 Intake Total 480 ml 105 ml Output Total 275 ml 3000 ml Balance 205 ml -2895 ml Result Diagram: 06/30/17 0548 07/01/17 0531 Other Results Microbiology Date/Time Source Procedure Growth Status 07/01/17 05:30 Stool Stool Stool Occult Blood (ISHA) - Final HEMOCCULT NEGATIVE Complete Imaging Last Impressions Lung Scan-VQ Nuclear Medicine 06/30/17 0000 Signed Impressions: Service Date/Time: Friday, June 30, 2017 12:05 - CONCLUSION: Perfusion better than the ventilation, low probability for pulmonary embolism. Venkat Daley MD FACR Catheter Placement X-Ray 06/30/17 0000 Signed Impressions: Service Date/Time: Friday, June 30, 2017 11:20 - CONCLUSION: Successful Vas-Cath placement via the right internal jugular vein. The patient tolerated the procedure without difficulty. Kei Daley MD Renal Ultrasound 06/28/17 0000 Signed Impressions: Service Date/Time: Wednesday, June 28, 2017 09:24 - CONCLUSION: 1. Cortical thinning and increased echogenicity suggesting underlying medical renal disease. Kei Daley MD Chest X-Ray 06/28/17 Signed Impressions: Service Date/Time: Wednesday, June 28, 2017 00:30 - CONCLUSION: Radiographic pattern consistent with intra-alveolar pulmonary edema. Simon Goemz Jr., MD Objective Remarks GENERAL: 72-year-old male, resting in bed in no acute distress on nasal cannula SKIN: Warm and dry. HEAD: Atraumatic. Normocephalic. EYES: Pupils equal and round. No scleral icterus. No injection or drainage. ENT: No nasal bleeding or discharge. Mucous membranes pink and moist. NECK: Trachea midline. No JVD. CARDIOVASCULAR: IRR. S1, S2. No S4. RESPIRATORY: Few crackles appreciated in the bases bilaterally. Essentially clear anteriorly no wheezes. GASTROINTESTINAL: Abdomen soft, non-tender, nondistended. Hepatic and splenic margins not palpable. MUSCULOSKELETAL: Right lower extremity with Steri-Strips over right knee. Incision site is clean dry and intact No significant peripheral edema. NEUROLOGICAL: Awake and alert. No obvious cranial nerve deficits. Motor grossly within normal limits. Five out of 5 muscle strength in the arms and legs. Normal speech. A/P Assessment and Plan Neuro/psych: Acetaminophen for fever Hydromorphone for pain management CV: Non-STEMI Coronary disease status post stent 2 Hypertension Dyslipidemia Status post cardiac catheterization with stents to the RCA and left circumflex Currently being on aspirin 81 mg daily and Ticagrelor 90 mg twice a day Cardiology/Dr. cote following Echocardiogram 06/30 revealed EF 50-55%. Moderate to severe TR. PAP 60 mmHg Continue pravastatin 20 mg by mouth daily for dyslipidemia Continue amiodarone 400 mg by mouth 3 times a day for atrial fibrillation currently rate controlled Continue carvedilol 3.125 mg by mouth twice a day for hypertension. Holding amlodipine 10 mg daily/home medication Resp: Acute hypoxemic respiratory failure likely secondary to pulmonary edema/ pulmonary hypertension Currently on nasal cannula at 5 L to maintain saturations greater than or equal to 92% Incentive spirometry while awake Added a cappella every 4 hours with duo nebs every 4 hours scheduled Follow-up chest x-ray in a.m. -3 L with hemodialysis today. VQ scan 06/30 low probability for pulmonary embolism. GI: Continue heart healthy diet Pantoprazole 20 mg by mouth daily for GI prophylaxis Docusate sodium, Senokot, polyethylene glycol lactulose for bowel regimen. : BPH Resumed tamsulosin 0.8 mg by mouth daily Endo: Gout Continue allopurinol 100 mg by mouth twice a day/home medication Check TSH with atrial fibrillation Sliding-scale insulin low scale every before meals/at bedtime Renal: Acute and chronic kidney disease stage V Hemodialysis catheter right IJ placed by IR today. Status post hemodialysis -3 L today. Likely repeat in AM. Nephrology following Heme: Anemia of chronic kidney disease Hemoglobin essentially stable. No indication for transfusion of blood products at this time ID: Monitor for infection MSK: Status post right total knee replacement by Dr. Marcelino Osteoarthritis Knee device FEN: Hyponatremia Hyperphosphatemia Replace electrolytes as clinically indicated Start calcium acetate 667 mg 3 times a day Access - Utilize peripheral IV. Central line if indicated Prophylaxis - GI - pantoprazole - DVT - SCD/pharmacological prophylaxis/therapy once okay with cardiology Level II follow-up. Patient is stable from a critical care medicine standpoint. We'll assign care to hospitalist in a.m. 07/02 Zain Garcia MD Jul 01, 2017 17:31
[2017-07-01] MEDS ORDERED: ALUMINUM/MAGNESIUM/SIMETH 30 ML CUP PO PRN (18:00)
--- NOTE | 2017-07-01 18:17 | PD.CARD.PN ---
Subjective Subjective Remarks No CP, SOB improved, tolerating dialysis well again today, fluid removed Objective Medications Administered Medications Medications (Trade) Dose Ordered Sig/Cory Route PRN Reason Start Time Stop Time Status Last Admin Dose Admin Sodium Chloride (NS Flush) 2 ml BID IV FLUSH 06/27/17 21:00 07/01/17 08:40 Allopurinol (Zyloprim) 100 mg BID PO 06/27/17 21:00 07/01/17 08:42 Carvedilol (Coreg) 3.125 mg BID PO 06/27/17 21:00 07/01/17 13:08 Hydromorphone HCl (Dilaudid Pf Inj) 2 mg Q4H PRN IVS pain 06/27/17 18:30 07/01/17 00:05 Aspirin (Aspirin Chew) 81 mg DAILY PO 06/29/17 09:00 07/01/17 08:40 Ticagrelor (Brilinta) 90 mg BID PO 06/28/17 21:00 07/01/17 08:40 Pravastatin Sodium (Pravachol) 20 mg HS PO 06/28/17 21:00 06/30/17 21:19 Fluticasone Propionate (Flonase Ethan Spr) 1 spray Q12H PRN NASAL NASAL CONGESTION 06/28/17 14:45 06/30/17 10:11 Patient Own Medication PT OWN MED: OPTIC ARED... DAILY PO 06/28/17 16:00 07/01/17 08:40 Metoprolol Tartrate (Lopressor Inj) 5 mg Q6H PRN IV PUSH Pulse > 120 06/28/17 17:30 06/28/17 17:46 Acetaminophen (Tylenol) 650 mg Q6H PRN PO SEE LABEL COMMENTS 06/28/17 21:30 06/30/17 10:14 Amiodarone HCl (Cordarone) 400 mg Q12HR PO 06/29/17 15:00 07/01/17 08:39 Gentamicin Sulfate (Gentamicin (Dialysis) Inj) 20 mg UNSCH PRN OTHER WITH DIALYSIS 06/30/17 10:45 06/30/17 13:54 Epoetin Benji (Epogen Inj) 5,000 units UNSCH PRN IV PUSH WITH DIALYSIS 06/30/17 10:45 06/30/17 13:54 Pantoprazole Sodium (Protonix) 20 mg DAILY PO 07/01/17 09:00 07/01/17 08:40 Calcium Acetate (Phoslo) 667 mg TID PO 07/01/17 09:00 07/01/17 13:08 Vital Signs / I&O Vital Signs Date Time Temp Pulse Resp B/P (MAP) Pulse Ox O2 Delivery O2 Flow Rate FiO2 07/01/17 16:00 98.5 80 18 135/73 (93) 93 07/01/17 16:00 80 07/01/17 12:00 78 07/01/17 12:00 98.9 78 16 123/61 (81) 93 07/01/17 10:00 79 07/01/17 08:00 88 07/01/17 08:00 98.7 88 28 127/62 (83) 93 07/01/17 07:53 94 Partial Rebreather 12.00 07/01/17 07:00 92 Partial Non-Rebreather 15.00 07/01/17 06:00 80 07/01/17 04:00 80 07/01/17 04:00 98.5 80 30 135/71 (92) 97 07/01/17 02:00 86 07/01/17 00:35 21 07/01/17 00:00 94 07/01/17 00:00 99.0 94 21 140/71 (94) 88 06/30/17 22:00 92 06/30/17 20:00 100.8 92 25 151/67 (95) 91 06/30/17 20:00 94 06/30/17 19:36 90 Aerosol Mask 70 06/30/17 19:00 95 Partial Non-Rebreather 13.00 I/O 06/30/17 06/30/17 06/30/17 07/01/17 07/01/17 07/01/17 07:00 15:00 23:00 07:00 15:00 23:00 Intake Total 120 ml 100 ml 480 ml 105 ml Output Total 50 ml 3150 ml 275 ml 3000 ml Balance 70 ml -3050 ml 205 ml -2895 ml Intake Oral 120 ml 480 ml IV Total 100 ml 105 ml Output Urine Total 50 ml 150 ml 275 ml Hemodialysis 3000 ml 3000 ml # Bowel Movements 0 1 Physical Exam GENERAL: In NAD. SKIN: Warm and dry. HEAD: Normocephalic. EYES: No scleral icterus. No injection or drainage. NECK: Supple, trachea midline. No JVD or lymphadenopathy. CARDIOVASCULAR: Irreg, without murmurs, gallops, or rubs. RESPIRATORY: Breath sounds equal bilaterally. No accessory muscle use. GASTROINTESTINAL: Abdomen soft, non-tender, nondistended. MUSCULOSKELETAL: No cyanosis, mild edema. Groin stable. Laboratory Laboratory Tests Test 07/01/17 05:31 07/01/17 13:53 Blood Urea Nitrogen 79 MG/DL Creatinine 5.63 MG/DL Random Glucose 112 MG/DL Albumin 2.4 GM/DL Calcium Level 9.0 MG/DL Phosphorus Level 4.6 MG/DL Sodium Level 133 MEQ/L Potassium Level 3.7 MEQ/L Chloride Level 95 MEQ/L Carbon Dioxide Level 24.8 MEQ/L Anion Gap 13 MEQ/L Estimat Glomerular Filtration Rate 10 ML/MIN 25-Hydroxy Vitamin D Total 29.0 ng/ML Parathyroid Hormone (Intact) 216.6 PG/ML Assessment and Plan Problem List: (1) NSTEMI (non-ST elevated myocardial infarction) ICD Codes: I21.4 - Non-ST elevation (NSTEMI) myocardial infarction Status: Acute (2) Multi-vessel coronary artery stenosis ICD Codes: I25.10 - Atherosclerotic heart disease of [place] coronary artery without angina pectoris (3) Cardiomyopathy ICD Codes: I42.9 - Cardiomyopathy, unspecified (4) Atrial fibrillation ICD Codes: I48.91 - Unspecified atrial fibrillation (5) Stented coronary artery ICD Codes: Z95.5 - Presence of coronary angioplasty implant and graft (6) CKD (chronic kidney disease) stage 4, GFR 15-29 ml/min ICD Codes: N18.4 - Chronic kidney disease, stage 4 (severe) Status: Chronic (7) Anemia ICD Codes: D64.9 - Anemia, unspecified (8) Hypertension ICD Codes: I10 - Hypertension Status: Chronic Assessment and Plan No recurrent angina. Tolerating dialysis well. He developed a fib which complicates his management from the standpoint of anticoagulation given his recent significant anemia. Amio started, stays in SR. Continue Brilinta and baby ASA for now to prevent stent thrombosis. Continue therapy for CHF. VQ scan low prob. Aggressive risk factor modification. Increase activity. Continue monitoring in the ICU, will be ready for transfer to [facility] soon. Brittany Jenkins MD Jul 01, 2017 18:17
[2017-07-01] MEDS: PRAVASTATIN SOD 10 MG TAB PO SCH (20:23)
[2017-07-01] MEDS: TAMSULOSIN HCL 0.4 MG CAP PO SCH (20:24)
[2017-07-02] VITALS (15 sets, daily range): BP systolic 120–140; BP diastolic 65–70; PULSE 66–85; RESP 12–23; TEMP 98.1–99; O2SAT 92–99
[2017-07-02] MEDS: RESP: ALBUTEROL 2.5 MG/IPRATROPIUM 0.5 MG NEB (SCH) NEB ×5 (03:13→20:09)
[2017-07-02 05:44] LABS: HEMATOCRIT 30.5 % (39.0-51.0); MEAN CELL VOLUME 91.9 FL (80.0-100.0); MEAN CORPUSCULAR HEMOGLOBIN 30.1 PG (27.0-34.0); MEAN CORPUSCULAR HGB CONC 32.7 % (32.0-36.0); PLATELET COUNT 318 TH/MM3 (150-450); RED BLOOD COUNT 3.32 MIL/MM3 (4.50-5.90); RED CELL DISTRIBUTION WIDTH 14.9 % (11.6-17.2); REVIEW FLAG FINAL; WHITE BLOOD COUNT 9.8 TH/MM3 (4.0-11.0)
[2017-07-02] MEDS: HEPARIN SODIUM - SQ 10,000 UNITS/ML VIAL SQ SCH ×3 (06:09→20:34)
[2017-07-02 06:14] LABS: BICARBONATE 28.2 MEQ/L (21.0-32.0); POTASSIUM 3.7 MEQ/L (3.5-5.1)
[2017-07-02] MEDS: INSULIN NovoLIN REGULAR SUPPLEMENTAL SCALE SQ SCH ×4 (08:00→20:19)
--- NOTE | 2017-07-02 08:15 | PD.ORT.PN ---
Subjective Post Op Day #: 8 Subjective Remarks He is improved somewhat since dialysis yesterday. The CPM has helped with his knee. He has been OOB to the BSC and was surprised at how weak he feels. Objective Vitals Vital Signs Date Time Temp Pulse Resp B/P (MAP) Pulse Ox O2 Delivery O2 Flow Rate FiO2 07/02/17 06:00 79 07/02/17 04:00 71 07/02/17 04:00 98.6 71 12 120/66 (84) 97 07/02/17 02:00 71 07/02/17 00:00 98.7 75 23 130/65 (86) 92 07/02/17 00:00 76 07/01/17 22:00 75 07/01/17 21:24 23 07/01/17 20:03 94 Nasal Cannula 5.00 07/01/17 20:00 74 07/01/17 20:00 98.7 76 17 133/70 (91) 91 07/01/17 19:00 94 Nasal Cannula 5.00 07/01/17 18:00 80 07/01/17 16:00 98.5 80 18 135/73 (93) 93 07/01/17 16:00 80 07/01/17 12:00 78 07/01/17 12:00 98.9 78 16 123/61 (81) 93 07/01/17 10:00 79 I/O 07/01/17 07/01/17 07/01/17 07/02/17 07/02/17 07/02/17 07:00 15:00 23:00 07:00 15:00 23:00 Intake Total 480 ml 105 ml 650 ml 420 ml Output Total 275 ml 3000 ml 225 ml 500 ml Balance 205 ml -2895 ml 425 ml -80 ml Intake Oral 480 ml 650 ml 420 ml IV Total 105 ml 0 ml Output Urine Total 275 ml 225 ml 500 ml Stool Total 0 ml Hemodialysis 3000 ml # Bowel Movements 1 1 Result Diagram: 07/02/1751507/02/17 0516 Objective Remarks He is resting relatively comfortably, supine in bed. The wound is clean and dry. There is no erythema, nor induration. Assessment & Plan Ortho Post Op Day #: 8 Problem List: (1) Status post total right knee replacement ICD Codes: Z96.651 - Presence of right artificial knee joint Plan: Continue postop care. Resume PT when stable from a medical/cardiac standpoint. CPM can be used until PT can resume. Assessment and Plan Orthopaedically, he remains stable. Plans for the knee are as above. Please contact me if there are issues, concerns or questions about his knee. When he is ready for discharge, I believe that he would be a good candidate for placement in [facility], considering the TKR, recent UT and stents and his renal insufficiency. This facility would offer better continuity of care compared to similar facilities elsewhere. He still has a postop appointment with me. Olayinka Marcelino MD (Charles) Jul 02, 2017 08:15
[2017-07-02] MEDS: PATIENT OWN MEDICATION PO SCH (09:00)
[2017-07-02] MEDS: POLYETHYLENE GLYCOL 17 GM PKG PO SCH ×2 (09:00→20:06)
[2017-07-02] MEDS: LACTULOSE SYRUP 20 GM/30 ML CUP PO SCH (09:00)
[2017-07-02] MEDS: SODIUM CHLORIDE 0.9% FLUSH 10 ML FLUSH IV FLUSH SCH ×2 (09:00→20:07)
[2017-07-02] MEDS: ALLOPURINOL 100 MG TAB PO SCH ×2 (09:30→20:06)
[2017-07-02] MEDS: CALCIUM ACETATE 667 MG CAP PO SCH ×3 (09:30→17:25)
[2017-07-02] MEDS: TICAGRELOR 90 MG TAB PO SCH ×2 (09:31→20:05)
[2017-07-02] MEDS: CARVEDILOL 3.125 MG TAB PO SCH ×2 (09:31→20:06)
[2017-07-02] MEDS: VITAMIN B CMPLX/VITC/FOLIC AC CAP PO SCH (09:31)
[2017-07-02] MEDS: AMIODARONE 200 MG TAB PO SCH ×2 (09:31→20:06)
[2017-07-02] MEDS: DOCUSATE SODIUM 50 MG/SENNA 8.6 MG TAB PO SCH ×2 (09:31→20:06)
[2017-07-02] MEDS: FOLIC ACID 1 MG TAB PO SCH (09:31)
[2017-07-02] MEDS: PANTOPRAZOLE SOD 20 MG DELAYED RELEASE TAB PO SCH (09:31)
[2017-07-02] MEDS: ASPIRIN 81 MG CHEW TAB PO SCH (09:31)
--- NOTE | 2017-07-02 15:35 | PD.CARD.PN ---
Subjective Subjective Remarks No CP or SOB, feels much better, ambulating in the room Objective Medications Current Medications Medications (Trade) Dose Ordered Sig/Cory Route Start Time Stop Time Status Last Admin (NS Flush) 2 ml BID IV FLUSH 06/27/17 21:00 07/02/17 09:00 (NS Flush) 2 ml UNSCH PRN IV FLUSH 06/27/17 16:15 (Zyloprim) 100 mg BID PO 06/27/17 21:00 07/02/17 09:30 (Dilaudid Pf Inj) 2 mg Q4H PRN IVS 06/27/17 18:30 07/01/17 00:05 (D50w (Vial) Inj) 50 ml UNSCH PRN IV PUSH 06/28/17 03:00 (Glucagon Inj) 1 mg UNSCH PRN OTHER 06/28/17 03:00 (Aspirin Chew) 81 mg DAILY PO 06/29/17 09:00 07/02/17 09:31 (Brilinta) 90 mg BID PO 06/28/17 21:00 07/02/17 09:31 (Pravachol) 20 mg HS PO 06/28/17 21:00 07/01/17 20:23 (Flonase Ethan Spr) 1 spray Q12H PRN NASAL 06/28/17 14:45 06/30/17 10:11 Patient Own Medication PT OWN MED: OPTIC ARED... DAILY PO 06/28/17 16:00 07/02/17 09:00 (Lopressor Inj) 5 mg Q6H PRN IV PUSH 06/28/17 17:30 06/28/17 17:46 (Tylenol) 650 mg Q6H PRN PO 06/28/17 21:30 06/30/17 10:14 (Cordarone) 400 mg Q12HR PO 06/29/17 15:00 07/02/17 09:31 Sodium Chloride 1,000 ml @ 0 mls/hr Q0M PRN OTHER 06/30/17 10:38 (Heparin Inj) 8,000 units UNSCH PRN IV FLUSH 06/30/17 10:45 Sodium Chloride 1,000 ml @ 200 mls/hr Q5H PRN IV 06/30/17 10:38 Sodium Chloride 1,000 ml @ 0 mls/hr Q0M PRN OTHER 06/30/17 10:38 (Mannitol Inj) 12.5 gm UNSCH PRN IV 06/30/17 10:45 (Albumin 25% Inj) 25 gm UNSCH PRN IV 06/30/17 10:45 (NS Flush) 5 ml UNSCH PRN IV FLUSH 06/30/17 10:45 (Heparin Inj) UNSCH PRN .XX 06/30/17 10:45 (Gentamicin (Dialysis) Inj) 20 mg UNSCH PRN OTHER 06/30/17 10:45 06/30/17 13:54 (Zofran Inj) 4 mg UNSCH PRN IV PUSH 06/30/17 10:45 (Tylenol) 650 mg UNSCH PRN PO 06/30/17 10:45 07/01/17 20:24 (Benadryl) 25 mg UNSCH PRN PO 06/30/17 10:45 07/01/17 20:25 (Nitrostat Sl) 0.4 mg UNSCH PRN SL 06/30/17 10:45 (Catapres) 0.1 mg UNSCH PRN PO 06/30/17 10:45 (Epogen Inj) 5,000 units UNSCH PRN IV PUSH 06/30/17 10:45 06/30/17 13:54 (Gelfoam 12 Mm/7 Mm Top) 1 foam UNSCH PRN TOP 06/30/17 10:45 (NS Flush) UNSCH PRN IV FLUSH 06/30/17 12:00 (Heparin Inj) UNSCH PRN IV FLUSH 06/30/17 12:00 (Albuterol Neb) 2.5 mg Q2HR NEB PRN NEB 06/30/17 22:30 (Protonix) 20 mg DAILY PO 07/01/17 09:00 07/02/17 09:31 (Ally-Colace) 1 tab BID PO 07/01/17 09:00 07/02/17 09:31 (Glycerin Adult Supp) 2 gm DAILY PRN RECTAL 06/30/17 22:45 (Miralax) 17 gm BID PO 07/01/17 09:00 07/01/17 20:23 (Lactulose Liq) 30 ml DAILY PO 07/01/17 09:00 (Glycerin Adult Supp) 2 gm BID PRN RECTAL 06/30/17 22:45 (NovoLIN R SUPPLEMENTAL SCALE) 1 ACHS SQ 07/01/17 08:00 (Flomax) 0.8 mg HS PO 07/01/17 21:00 07/01/17 20:24 (Phoslo) 667 mg TID PO 07/01/17 09:00 07/02/17 13:06 (Heparin Inj) 5,000 units Q8HR SQ 07/01/17 14:00 07/02/17 13:06 (Mag-Al Plus Susp Liq) 30 ml Q6HR PRN PO 07/01/17 18:00 (Duoneb Neb) 1 ampule Q4HR NEB NEB 07/01/17 20:00 07/02/17 15:26 (Coreg) 6.25 mg BID PO 07/01/17 21:00 07/02/17 09:31 (Folate) 1 mg DAILY PO 07/02/17 09:00 07/02/17 09:31 (Nephrocaps) 1 cap DAILY PO 07/02/17 09:00 07/02/17 09:31 Vital Signs / I&O Vital Signs Date Time Temp Pulse Resp B/P (MAP) Pulse Ox O2 Delivery O2 Flow Rate FiO2 07/02/17 12:00 66 07/02/17 12:00 99 Nasal Cannula 2.00 07/02/17 12:00 98.1 66 22 130/68 (88) 99 07/02/17 11:07 97 Nasal Cannula 4.00 07/02/17 10:00 79 07/02/17 08:51 93 Nasal Cannula 5.00 07/02/17 08:00 98.3 78 20 134/68 (90) 94 07/02/17 08:00 78 07/02/17 07:00 95 Nasal Cannula 5.00 07/02/17 06:00 79 07/02/17 04:00 71 07/02/17 04:00 98.6 71 12 120/66 (84) 97 07/02/17 02:00 71 07/02/17 00:00 98.7 75 23 130/65 (86) 92 07/02/17 00:00 76 07/01/17 22:00 75 07/01/17 21:24 23 07/01/17 20:03 94 Nasal Cannula 5.00 07/01/17 20:00 74 07/01/17 20:00 98.7 76 17 133/70 (91) 91 07/01/17 19:00 94 Nasal Cannula 5.00 07/01/17 18:00 80 07/01/17 16:00 98.5 80 18 135/73 (93) 93 07/01/17 16:00 80 I/O 07/01/17 07/01/17 07/01/17 07/02/17 07/02/17 07/02/17 07:00 15:00 23:00 07:00 15:00 23:00 Intake Total 480 ml 105 ml 650 ml 420 ml Output Total 275 ml 3000 ml 225 ml 500 ml Balance 205 ml -2895 ml 425 ml -80 ml Intake Oral 480 ml 650 ml 420 ml IV Total 105 ml 0 ml Output Urine Total 275 ml 225 ml 500 ml Stool Total 0 ml Hemodialysis 3000 ml # Bowel Movements 1 1 Physical Exam GENERAL: In NAD. SKIN: Warm and dry. HEAD: Normocephalic. EYES: No scleral icterus. No injection or drainage. NECK: Supple, trachea midline. No JVD or lymphadenopathy. CARDIOVASCULAR: Reg, without murmurs, gallops, or rubs. RESPIRATORY: Breath sounds equal bilaterally. No accessory muscle use. GASTROINTESTINAL: Abdomen soft, non-tender, nondistended. MUSCULOSKELETAL: No cyanosis, mild edema. Groin stable. Laboratory Laboratory Tests Test 07/02/17 05:16 White Blood Count 9.8 TH/MM3 Red Blood Count 3.32 MIL/MM3 Hemoglobin 10.0 GM/DL Hematocrit 30.5 % Mean Corpuscular Volume 91.9 FL Mean Corpuscular Hemoglobin 30.1 PG Mean Corpuscular Hemoglobin Concent 32.7 % Red Cell Distribution Width 14.9 % Platelet Count 318 TH/MM3 Mean Platelet Volume 7.2 FL Blood Urea Nitrogen 73 MG/DL Creatinine 4.94 MG/DL Random Glucose 92 MG/DL Albumin 2.3 GM/DL Calcium Level 8.6 MG/DL Phosphorus Level 2.8 MG/DL Sodium Level 137 MEQ/L Potassium Level 3.7 MEQ/L Chloride Level 99 MEQ/L Carbon Dioxide Level 28.2 MEQ/L Anion Gap 10 MEQ/L Estimat Glomerular Filtration Rate 12 ML/MIN Assessment and Plan Problem List: (1) NSTEMI (non-ST elevated myocardial infarction) ICD Codes: I21.4 - Non-ST elevation (NSTEMI) myocardial infarction Status: Acute (2) Multi-vessel coronary artery stenosis ICD Codes: I25.10 - Atherosclerotic heart disease of [place] coronary artery without angina pectoris (3) Cardiomyopathy ICD Codes: I42.9 - Cardiomyopathy, unspecified (4) Atrial fibrillation ICD Codes: I48.91 - Unspecified atrial fibrillation (5) Stented coronary artery ICD Codes: Z95.5 - Presence of coronary angioplasty implant and graft (6) CKD (chronic kidney disease) stage 4, GFR 15-29 ml/min ICD Codes: N18.4 - Chronic kidney disease, stage 4 (severe) Status: Chronic (7) Anemia ICD Codes: D64.9 - Anemia, unspecified (8) Hypertension ICD Codes: I10 - Hypertension Status: Chronic Assessment and Plan No recurrent angina of CHF. Tolerating dialysis well. He developed a fib which complicates his management from the standpoint of anticoagulation given his recent significant anemia. Amio started, stays in SR. Continue Brilinta and baby ASA for now to prevent stent thrombosis, full anticoagulation later. Hgb stable. Continue therapy for CHF. VQ scan low prob. Aggressive risk factor modification. Increase activity. Transfer to [facility]. Brittany Jenkins MD Jul 02, 2017 15:35
--- NOTE | 2017-07-02 16:59 | HHI.PR ---
Subjective Remarks Follow-up for multiple medical issues Patient stated that he feels great today. He stated that he was able to move his leg little more today. She stated that shortness of breathing is improving. He stated that he has some soreness around his chest but now like the chest pain he had before. Deny any palpitations or lightheadedness dizziness. No events since patient was last seen. Objective Vitals Vital Signs Date Time Temp Pulse Resp B/P (MAP) Pulse Ox O2 Delivery O2 Flow Rate FiO2 07/02/17 16:00 98.3 74 17 138/70 (92) 95 07/02/17 16:00 74 07/02/17 14:00 74 07/02/17 12:00 66 07/02/17 12:00 99 Nasal Cannula 2.00 07/02/17 12:00 98.1 66 22 130/68 (88) 99 07/02/17 11:07 97 Nasal Cannula 4.00 07/02/17 10:00 79 07/02/17 08:51 93 Nasal Cannula 5.00 07/02/17 08:00 98.3 78 20 134/68 (90) 94 07/02/17 08:00 78 07/02/17 07:00 95 Nasal Cannula 5.00 07/02/17 06:00 79 07/02/17 04:00 71 07/02/17 04:00 98.6 71 12 120/66 (84) 97 07/02/17 02:00 71 07/02/17 00:00 98.7 75 23 130/65 (86) 92 07/02/17 00:00 76 07/01/17 22:00 75 07/01/17 21:24 23 07/01/17 20:03 94 Nasal Cannula 5.00 07/01/17 20:00 74 07/01/17 20:00 98.7 76 17 133/70 (91) 91 07/01/17 19:00 94 Nasal Cannula 5.00 07/01/17 18:00 80 I/O 07/01/17 07/01/17 07/01/17 07/02/17 07/02/17 07/02/17 06:59 14:59 22:59 06:59 14:59 22:59 Intake Total 480 ml 105 ml 650 ml 420 ml Output Total 275 ml 3000 ml 225 ml 500 ml Balance 205 ml -2895 ml 425 ml -80 ml Intake Oral 480 ml 650 ml 420 ml IV Total 105 ml 0 ml Output Urine Total 275 ml 225 ml 500 ml Stool Total 0 ml Hemodialysis 3000 ml # Bowel Movements 1 1 Result Diagram: 07/02/[id number]/02/17515 Objective Remarks GENERAL: in NAD CARDIOVASCULAR: Regular rate and rhythm without murmurs, gallops, or rubs. RESPIRATORY: Breath sounds equal bilaterally. No accessory muscle use. GASTROINTESTINAL: Abdomen soft, non-tender, nondistended. MUSCULOSKELETAL: No cyanosis, or edema. BACK: Nontender without obvious deformity. No CVA tenderness. Medications and IVs Current Medications Al Hydrox/Mg Hydrox/Simethicone (Mag-Al Plus Susp Liq) 30 ml ONCE ONCE PO Last administered on 06/27/17 14:13; Start 06/27/17 at 13:45; Stop 06/27/17 at 13:46; Status DC Aspirin (Aspirin) 325 mg ONCE ONCE PO Last administered on 06/27/17 14:13; Start 06/27/17 at 14:00; Stop 06/27/17 at 14:01; Status DC Nitroglycerin (Nitrostat Sl) 0.4 mg ONCE ONCE SL Last administered on 14:19; Start 06/27/17 at 14:00; Stop 06/27/17 at 14:01; Status DC Nitroglycerin (Nitroglycerin 2% Oint) 0.5 inch ONCE ONCE TOPICAL Last administered on 06/27/17 14:23; Start 06/27/17 at 14:00; Stop 06/27/17 at 17:34 ; Status DC Atorvastatin Calcium (Lipitor) 80 mg ONCE ONCE PO ; Start 06/27/17 at 16:15; Stop 06/27/17 at 16:16; Status DC Sodium Chloride 1,000 ml @ 100 mls/hr Q10H IV Last administered on 06/27/17 16:48; Start 06/27/17 at 16:15; Stop 06/28/17 at 00:18; Status DC Heparin Sodium (Porcine) (Heparin Inj) 5,000 units UNSCH PRN IV PUSH APTT LESS THAN 25; Start 06/27/17 at 22:15; Status Cancel Heparin Sodium (Porcine) (Heparin Inj) 2,500 units UNSCH PRN IV PUSH APTT 25 TO 39; Start 06/27/17 at 22:15; Status Cancel Heparin Sodium/ Dextrose 250 ml @ 11.436 mls/ hr TITRATE PRN IV Coagulation management; Start 06/27/17 at 16:15; Status UNV Heparin Sodium (Porcine) (Heparin Inj) 4,000 units ONCE ONCE IV PUSH Last administered on 06/27/17 16:57; Start 06/27/17 at 16:15; Stop 06/27/17 at 16:16 ; Status DC Sodium Chloride (NS Flush) 2 ml BID IV FLUSH Last administered on 07/02/17 09 :00; Start 06/27/17 at 21:00 Sodium Chloride (NS Flush) 2 ml UNSCH PRN IV FLUSH FLUSH AFTER USING IV ACCESS ; Start 06/27/17 at 16:15 Nitroglycerin (Nitroglycerin 2% Oint) 1 inch Q6H TOP ; Start 06/27/17 at 17:00; Stop 06/27/17 at 17:22; Status DC Morphine Sulfate (Morphine Inj) 2 mg Q30M PRN IV PUSH CHEST PAIN; Start at 16:15; Stop 06/27/17 at 18:30; Status DC Heparin Sodium/ Dextrose 250 ml @ 11.436 mls/ hr TITRATE PRN IV Coagulation management Last administered on 06/27/17 16:59; Start 06/27/17 at 16:15; Stop 06/29/17 at 14:59; Status DC Atorvastatin Calcium (Lipitor) 80 mg ONCE ONCE PO Last administered on 16:57; Start 06/27/17 at 16:30; Stop 06/27/17 at 16:31; Status DC Pantoprazole Sodium (Protonix Inj) 40 mg Q24H IV PUSH Last administered on 06/30 18:13; Start 06/27/17 at 17:00; Stop 06/30/17 at 22:25; Status DC Allopurinol (Zyloprim) 100 mg BID PO Last administered on 07/02/17 09:30; Start 06/27/17 at 21:00 Carvedilol (Coreg) 3.125 mg BID PO Last administered on 07/01/17 13:08; Start 06/27/17 at 21:00; Stop 07/01/17 at 18:19; Status DC Sodium Bicarbonate (Sodium Bicarbonate) 650 mg TIDPC PO ; Start 06/27/17 at 18: 30; Stop 06/27/17 at 18:30; Status DC Nitroglycerin (Nitroglycerin 2% Oint) 1 inch Q6H TOP ; Start 06/27/17 at 20:00; Stop 06/27/17 at 20:00; Status DC Nitroglycerin/ Dextrose 250 ml @ 1.5 mls/hr TITRATE PRN IV Chest pain relief Last administered on 06/27/17 18:32; Start 06/27/17 at 17:45; Stop 06/29/17 at 14:59; Status DC Sodium Bicarbonate (Sodium Bicarbonate) 650 mg TIDPC PO Last administered on 18:13; Start 06/27/17 at 18:30; Stop 07/01/17 at 11:37; Status DC Hydromorphone HCl (Dilaudid Pf Inj) 2 mg Q4H PRN IVS pain Last administered on 07/01/17 00:05; Start 06/27/17 at 18:30 Albuterol/ Ipratropium (Duoneb Neb) 1 ampule ONCE ONCE NEB Last administered on 06/28/17 03:11; Start 06/28/17 at 00:45; Stop 06/28/17 at 00:46; Status DC Furosemide (Lasix Inj) 40 mg ONCE ONCE IV PUSH Last administered on 06/28/17 00:56; Start 06/28/17 at 00:45; Stop 06/28/17 at 00:46; Status DC Sodium Chloride 250 ml @ 15 mls/hr ONCE ONCE IV ; Start 06/28/17 at 01:30; Stop 06/28/17 at 18:09; Status DC Furosemide (Lasix Inj) 20 mg UNSCH X1 PRN IV PUSH SEE LABEL COMMENTS Last administered on 06/28/17 03:56; Start 06/28/17 at 01:30; Stop 06/28/17 at 15:00 ; Status DC Atropine Sulfate (Atropine Inj) 1 mg STK-MED ONCE .ROUTE ; Start 06/28/17 at 01: 58; Stop 06/28/17 at 01:59; Status DC Lidocaine HCl (Xylocaine 2% Inj) 100 mg STK-MED ONCE .ROUTE ; Start 06/28/17 at 01:58; Stop 06/28/17 at 01:59; Status DC Epinephrine HCl (EPINEPHrine (1:10,000) INJ) 1 mg STK-MED ONCE .ROUTE ; Start 06/28/17 at 01:58; Stop 06/28/17 at 01:59; Status DC Albuterol/ Ipratropium (Duoneb Neb) 1 ampule Q4HR NEB NEB Last administered on 07/01/17 17:05; Start 06/28/17 at 04:00; Stop 07/01/17 at 17:30; Status DC Albuterol/ Ipratropium (Duoneb Neb) 1 ampule Q2HR NEB PRN NEB SHORTNESS OF BREATH Last administered on 06/28/17 13:50; Start 06/28/17 at 03:00; Stop 06/30 at 22:25; Status DC Dextrose (D50w (Vial) Inj) 50 ml UNSCH PRN IV PUSH HYPOGLYCEMIA-SEE COMMENTS; Start 06/28/17 at 03:00 Glucagon (Glucagon Inj) 1 mg UNSCH PRN OTHER HYPOGLYCEMIA-SEE COMMENTS; Start 06/28/17 at 03:00 Insulin Human Regular (NovoLIN R SUPPLEMENTAL SCALE) 1 Q6H SQ ; Start 06/28/17 at 03:00; Stop 06/30/17 at 22:51; Status DC Influenza Virus Vaccine (Flu (Quadrivalent) Vaccine Inj) 0.5 ml ONCE ONCE IM ; Start 06/29/17 at 10:00; Stop 06/29/17 at 10:00; Status DC Heparin Sodium/ Sodium Chloride 1,000 ml @ As Directed STK-MED ONCE .ROUTE Last administered on 06/28/17 11:51; Start 06/28/17 at 11:51; Stop 06/28/17 at 11:52; Status DC Sodium Chloride 500 ml @ As Directed STK-MED ONCE .ROUTE ; Start 06/28/17 at 11 :51; Stop 06/28/17 at 11:52; Status DC Midazolam HCl (Versed Inj) 2 mg STK-MED ONCE .ROUTE Last administered on 11:51; Start 06/28/17 at 11:51; Stop 06/28/17 at 11:52; Status DC Fentanyl Citrate (fentaNYL INJ) 100 mcg STK-MED ONCE .ROUTE Last administered on 06/28/17 11:51; Start 06/28/17 at 11:51; Stop 06/28/17 at 11:52; Status DC Heparin Sodium (Porcine) (Heparin Inj) 10,000 units STK-MED ONCE .ROUTE Last administered on 06/28/17 12:34; Start 06/28/17 at 12:34; Stop 06/28/17 at 12:35 ; Status DC Ticagrelor (Brilinta) 180 mg STK-MED ONCE PO Last administered on 06/28/17 13: 16; Start 06/28/17 at 13:16; Stop 06/28/17 at 13:17; Status DC Aspirin (Aspirin Chew) 81 mg STK-MED ONCE .ROUTE Last administered on 13:16; Start 06/28/17 at 13:16; Stop 06/28/17 at 13:17; Status DC Ticagrelor (Brilinta) 180 mg STK-MED ONCE PO ; Start 06/28/17 at 13:32; Stop at 13:33; Status DC Aspirin (Aspirin Chew) 81 mg DAILY PO Last administered on 07/02/17 09:31; Start 06/29/17 at 09:00 Ticagrelor (Brilinta) 90 mg BID PO Last administered on 07/02/17 09:31; Start 06/28/17 at 21:00 Pravastatin Sodium (Pravachol) 20 mg HS PO Last administered on 07/01/17 20: 23; Start 06/28/17 at 21:00 Iron Sucrose 100 mg/Sodium Chloride 105 ml @ 105 mls/hr DAILY IV Last administered on 07/01/17 08:48; Start 06/29/17 at 09:00; Stop 07/01/17 at 09: 59; Status DC Acetylcysteine (Mucomyst 20% Liq) 1,200 mg BID PO Last administered on 20:31; Start 06/28/17 at 14:30; Stop 06/29/17 at 04:00; Status DC Fluticasone Propionate (Flonase Ethan Spr) 1 spray Q12H PRN NASAL NASAL CONGESTION Last administered on 06/30/17 10:11; Start 06/28/17 at 14:45 Patient Own Medication PT OWN MED: OPTIC ARED... DAILY PO Last administered on 07/02/17 09:00; Start 06/28/17 at 16:00 Metoprolol Tartrate (Lopressor Inj) 5 mg STK-MED ONCE .ROUTE ; Start 06/28/17 at 17:32; Stop 06/28/17 at 17:33; Status DC Metoprolol Tartrate (Lopressor Inj) 5 mg Q6H PRN IV PUSH Pulse > 120 Last administered on 06/28/17 17:46; Start 06/28/17 at 17:30 Carvedilol (Coreg) 6.25 mg ONCE ONCE PO Last administered on 06/28/17 18:07; Start 06/28/17 at 18:15; Stop 06/28/17 at 18:16; Status DC Acetaminophen (Tylenol) 650 mg Q6H PRN PO SEE LABEL COMMENTS Last administered on 06/30/17 10:14; Start 06/28/17 at 21:30 Metoprolol Tartrate (Lopressor Inj) 5 mg NOW ONCE IV PUSH Last administered on 06/28/17 21:58; Start 06/28/17 at 21:45; Stop 06/28/17 at 21:46; Status DC Influenza Virus Vaccine (Flu (Quadrivalent) Vaccine Inj) 0.5 ml ONCE ONCE IM Last administered on 06/30/17 10:18; Start 06/30/17 at 09:00; Stop 06/30/17 at 09:01; Status DC Bumetanide (Bumex Inj) 1 mg ONCE ONCE IV PUSH Last administered on 06/29/17 12:10; Start 06/29/17 at 12:30; Stop 06/29/17 at 12:31; Status DC Amiodarone HCl (Cordarone) 400 mg Q12HR PO Last administered on 07/02/17 09: 31; Start 06/29/17 at 15:00 Iohexol (OMNIPAQUE 350 INJ (Feeder Catcher)) 100 ml STK-MED ONCE OTHER ; Start at 08:44; Stop 06/30/17 at 08:45; Status DC Iohexol (OMNIPAQUE 350 INJ (Feeder Catcher)) 50 ml STK-MED ONCE OTHER ; Start at 08:44; Stop 06/30/17 at 08:45; Status DC Sodium Chloride 1,000 ml @ 0 mls/hr Q0M PRN OTHER For Prime & Rinse Back; Start 06/30/17 at 10:38 Heparin Sodium (Porcine) (Heparin Inj) 8,000 units UNSCH PRN IV FLUSH WITH DIALYSIS; Start 06/30/17 at 10:45 Sodium Chloride 1,000 ml @ 200 mls/hr Q5H PRN IV WITH DIALYSIS; Start 06/30/17 at 10:38 Sodium Chloride 1,000 ml @ 0 mls/hr Q0M PRN OTHER WITH DIALYSIS; Start at 10:38 Mannitol (Mannitol Inj) 12.5 gm UNSCH PRN IV WITH DIALYSIS; Start 06/30/17 at 10:45 Albumin Human (Albumin 25% Inj) 25 gm UNSCH PRN IV WITH DIALYSIS; Start at 10:45 Sodium Chloride (NS Flush) 5 ml UNSCH PRN IV FLUSH WITH DIALYSIS; Start at 10:45 Heparin Sodium (Porcine) (Heparin Inj) UNSCH PRN .XX WITH DIALYSIS; Start 06/30/17 at 10:45 Gentamicin Sulfate (Gentamicin (Dialysis) Inj) 20 mg UNSCH PRN OTHER WITH DIALYSIS Last administered on 06/30/17 13:54; Start 06/30/17 at 10:45 Ondansetron HCl (Zofran Inj) 4 mg UNSCH PRN IV PUSH WITH DIALYSIS; Start at 10:45 Acetaminophen (Tylenol) 650 mg UNSCH PRN PO for headach, pain, temp > 101F Last administered on 07/01/17 20:24; Start 06/30/17 at 10:45 Diphenhydramine HCl (Benadryl) 25 mg UNSCH PRN PO for hives/itching/ anaphylaxis Last administered on 07/01/17 20:25; Start 06/30/17 at 10:45 Nitroglycerin (Nitrostat Sl) 0.4 mg UNSCH PRN SL CHEST PAIN; Start 06/30/17 at 10:45 Clonidine (Catapres) 0.1 mg UNSCH PRN PO for BP > 180/100 X 2 readings; Start 06/30/17 at 10:45 Epoetin Benji (Epogen Inj) 5,000 units UNSCH PRN IV PUSH WITH DIALYSIS Last administered on 06/30/17 13:54; Start 06/30/17 at 10:45 Gelatin (Gelfoam 12 Mm/7 Mm Top) 1 foam UNSCH PRN TOP SEE LABEL COMMENTS; Start 06/30/17 at 10:45 Sodium Chloride (NS Flush) UNSCH PRN IV FLUSH SEE PROTOCOL; Start 06/30/17 at 12:00 Heparin Sodium (Porcine) (Heparin Inj) UNSCH PRN IV FLUSH SEE PROTOCOL; Start 06/30/17 at 12:00 Heparin Sodium (Porcine) (Heparin Inj) 2,200 units STK-MED ONCE IV Last administered on 06/30/17 12:03; Start 06/30/17 at 12:03; Stop 06/30/17 at 12:05 ; Status DC Albuterol Sulfate (Albuterol Neb) 2.5 mg Q2HR NEB PRN NEB dyspnea; Start at 22:30 Pantoprazole Sodium (Protonix) 20 mg DAILY PO Last administered on 07/02/17 09:31; Start 07/01/17 at 09:00 Senna/Docusate Sodium (Ally-Colace) 1 tab BID PO Last administered on 09:31; Start 07/01/17 at 09:00 Glycerin (Glycerin Adult Supp) 2 gm DAILY PRN RECTAL CONSTIPATION; Start at 22:45 Polyethylene Glycol (Miralax) 17 gm BID PO Last administered on 07/01/17 20: 23; Start 07/01/17 at 09:00 Lactulose (Lactulose Liq) 30 ml ONCE ONCE PO Last administered on 07/01/17 03:13; Start 06/30/17 at 22:45; Stop 06/30/17 at 22:46; Status DC Lactulose (Lactulose Liq) 30 ml DAILY PO ; Start 07/01/17 at 09:00 Methylnaltrexone [place] (Relistor Inj) 12 mg ONCE ONCE SQ Last administered on 07/01/17 00:04; Start 06/30/17 at 22:45; Stop 06/30/17 at 22:46; Status DC Glycerin (Glycerin Adult Supp) 2 gm BID PRN RECTAL CONSTIPATION; Start at 22:45 Insulin Human Regular (NovoLIN R SUPPLEMENTAL SCALE) 1 ACHS SQ ; Start at 08:00 Tamsulosin HCl (Flomax) 0.8 mg HS PO Last administered on 07/01/17 20:24; Start 07/01/17 at 21:00 Calcium Acetate (Phoslo) 667 mg TID PO Last administered on 07/02/17 13:06; Start 07/01/17 at 09:00 Heparin Sodium (Porcine) (Heparin Inj) 5,000 units Q8HR SQ Last administered on 07/02/17 13:06; Start 07/01/17 at 14:00 Al Hydrox/Mg Hydrox/Simethicone (Mag-Al Plus Susp Liq) 30 ml Q6HR PRN PO dyspepsia; Start 07/01/17 at 18:00 Albuterol/ Ipratropium (Duoneb Neb) 1 ampule Q4HR NEB NEB Last administered on 07/02/17 15:26; Start 07/01/17 at 20:00 Carvedilol (Coreg) 6.25 mg BID PO Last administered on 07/02/17 09:31; Start 07/01/17 at 21:00 Folic Acid (Folate) 1 mg DAILY PO Last administered on 07/02/17 09:31; Start 07/02/17 at 09:00 Vitamin B Complex/ Vit C/Folic Acid (Nephrocaps) 1 cap DAILY PO Last administered on 07/02/17 09:31; Start 07/02/17 at 09:00 A/P Problem List: (1) Anemia ICD Code: D64.9 - Anemia, unspecified (2) Hyponatremia ICD Code: E87.1 - Hypo-osmolality and hyponatremia (3) Urinary retention ICD Code: R33.9 - Retention of urine, unspecified (4) CKD (chronic kidney disease) stage 4, GFR 15-29 ml/min ICD Code: N18.4 - Chronic kidney disease, stage 4 (severe) Status: Chronic (5) Primary osteoarthritis of right knee ICD Code: M17.11 - Unilateral primary osteoarthritis, right knee (6) NSTEMI (non-ST elevated myocardial infarction) ICD Code: I21.4 - Non-ST elevation (NSTEMI) myocardial infarction Status: Acute (7) status post left total knee replacement Status: Acute Assessment and Plan 72-year-old male p/w chest pain NSTEMI/atrial fibrillation/hypertension -Status post cardiac catheterization with stents to the RCA and left circumflex -on aspirin 81 mg daily and Ticagrelor 90 mg twice a day -Cardiology/Dr. cote following -Echocardiogram 06/30 revealed EF 50-55%. Moderate to severe TR. PAP 60 mmHg -Continue pravastatin, amiodarone, carvedilol. Amlodipine held. -Patient poor candidate for anticoagulation at the moment. Acute hypoxemic respiratory failure likely secondary to pulmonary edema/ pulmonary hypertension -Continue to wean off of nasal cannula as tolerated. -VQ scan 06/30 low probability for pulmonary embolism. -Patient is receiving hemodialysis to help with fluid removal. Acute and chronic kidney disease stage V -Hemodialysis catheter right IJ placed by IR today. -Per neurologist this is most likely end-stage renal disease and he most likely will need long-term dialysis. -Continue with dialysis per slubber runner. BPH/gout/anemia secondary to chronic kidney disease -Continue home medication. Status post right total knee replacement by Dr. Marcelino -Knee device -Orthosis following. FEN: Hyponatremia/Hyperphosphatemia -Replace electrolytes as clinically indicated -calcium acetate 667 mg 3 times a day Prophylaxis - GI - pantoprazole - DVT - SCD/pharmacological prophylaxis/therapy once okay with cardiology Discharge Planning Patient can be transferred to the [facility]. Sejal St MD Jul 02, 2017 16:59
--- NOTE | 2017-07-02 17:45 | HHI.NPPN ---
Subjective History of Present Illness This patient is a 72-year-old male with a history of progressive severe chronic kidney disease with a baseline GFR of approximately 20 although more recently has had GFR is below this level. Patient underwent a total right knee arthroplasty deferred of June, for severe degenerative joint disease. Patient wished to proceed despite the severity of his chronic kidney disease and risk of worsening renal function because of the severity of debilitation associated with his degenerative joint disease. Patient's renal function fortunately did remain relatively stable postoperatively and the patient was discharged in stable clinical condition except for the fact that he did develop some bladder outlet obstruction and required an indwelling Abdul catheter with follow-up with urology post discharge. Patient noted to have presented to the emergency room in [place] with complaints of "heartburn". Subsequent diagnosis having and non-ST WI with elevations in troponin. His serum creatinine level on presentation was 3.6 subsequently deteriorating today to 3.9. He is also said to have developed some respiratory insufficiency in route to the main campus. Chest x-ray showed some evidence of interstitial edema and symptomatology improved with IV furosemide. Patient was seen by cardiology and was taken urgently to the cardiac catheter lab for angiogram. Patient did receive IV saline since admission. Patient now status post placement of 2 bare metal stents. Interval History The patient states he is feeling much better. SOB improving, but still feels "tight" at times. present during exam. Had several questions regarding dialysis and rehab (Deborah Garcia) Review of Systems General Constitutional: Fatigue (Deborah Garcia) Respiratory Lungs: SOB (mild, improving) (Deborah Garcia) Objective Data Data Vital Signs Date Time Temp Pulse Resp B/P (MAP) Pulse Ox O2 Delivery O2 Flow Rate FiO2 07/02/17 16:00 98.3 74 17 138/70 (92) 95 07/02/17 16:00 74 07/02/17 14:00 74 07/02/17 12:00 66 07/02/17 12:00 99 Nasal Cannula 2.00 07/02/17 12:00 98.1 66 22 130/68 (88) 99 07/02/17 11:07 97 Nasal Cannula 4.00 07/02/17 10:00 79 07/02/17 08:51 93 Nasal Cannula 5.00 07/02/17 08:00 98.3 78 20 134/68 (90) 94 07/02/17 08:00 78 07/02/17 07:00 95 Nasal Cannula 5.00 07/02/17 06:00 79 07/02/17 04:00 71 07/02/17 04:00 98.6 71 12 120/66 (84) 97 07/02/17 02:00 71 07/02/17 00:00 98.7 75 23 130/65 (86) 92 07/02/17 00:00 76 07/01/17 22:00 75 07/01/17 21:24 23 07/01/17 20:03 94 Nasal Cannula 5.00 07/01/17 20:00 74 07/01/17 20:00 98.7 76 17 133/70 (91) 91 07/01/17 19:00 94 Nasal Cannula 5.00 07/01/17 18:00 80 (Deborah Garcia) -: 07/02/17 0516 07/02/17 0516 Imaging Last Impressions Lung Scan-V Nuclear Medicine 06/30/17 0000 Signed Impressions: Service Date/Time: Friday, June 30, 2017 12:05 - CONCLUSION: Perfusion better than the ventilation, low probability for pulmonary embolism. Venkat Daley MD FACR Catheter Placement X-Ray 06/30/17 0000 Signed Impressions: Service Date/Time: Friday, June 30, 2017 11:20 - CONCLUSION: Successful Vas-Cath placement via the right internal jugular vein. The patient tolerated the procedure without difficulty. Kei Daley MD Renal Ultrasound 06/28/17 0000 Signed Impressions: Service Date/Time: Wednesday, June 28, 2017 09:24 - CONCLUSION: 1. Cortical thinning and increased echogenicity suggesting underlying medical renal disease. Kei Daley MD Chest X-Ray 06/28/17 0000 Signed Impressions: Service Date/Time: Wednesday, June 28, 2017 00:30 - CONCLUSION: Radiographic pattern consistent with intra-alveolar pulmonary edema. Simon Gomez Jr., MD Tubes & Lines: Vas-Cath, Abdul Medication Review Current Medications Medications (Trade) Dose Ordered Sig/Cory Route Start Time Stop Time Status Last Admin (NS Flush) 2 ml BID IV FLUSH 06/27/17 21:00 07/02/17 09:00 (NS Flush) 2 ml UNSCH PRN IV FLUSH 06/27/17 16:15 (Zyloprim) 100 mg BID PO 06/27/17 21:00 07/02/17 09:30 (Dilaudid Pf Inj) 2 mg Q4H PRN IVS 06/27/17 18:30 07/01/17 00:05 (D50w (Vial) Inj) 50 ml UNSCH PRN IV PUSH 06/28/17 03:00 (Glucagon Inj) 1 mg UNSCH PRN OTHER 06/28/17 03:00 (Aspirin Chew) 81 mg DAILY PO 06/29/17 09:00 07/02/17 09:31 (Brilinta) 90 mg BID PO 06/28/17 21:00 07/02/17 09:31 (Pravachol) 20 mg HS PO 06/28/17 21:00 07/01/17 20:23 (Flonase Ethan Spr) 1 spray Q12H PRN NASAL 06/28/17 14:45 06/30/17 10:11 Patient Own Medication PT OWN MED: OPTIC ARED... DAILY PO 06/28/17 16:00 07/02/17 09:00 (Lopressor Inj) 5 mg Q6H PRN IV PUSH 06/28/17 17:30 06/28/17 17:46 (Tylenol) 650 mg Q6H PRN PO 06/28/17 21:30 06/30/17 10:14 (Cordarone) 400 mg Q12HR PO 06/29/17 15:00 07/02/17 09:31 Sodium Chloride 1,000 ml @ 0 mls/hr Q0M PRN OTHER 06/30/17 10:38 (Heparin Inj) 8,000 units UNSCH PRN IV FLUSH 06/30/17 10:45 Sodium Chloride 1,000 ml @ 200 mls/hr Q5H PRN IV 06/30/17 10:38 Sodium Chloride 1,000 ml @ 0 mls/hr Q0M PRN OTHER 06/30/17 10:38 (Mannitol Inj) 12.5 gm UNSCH PRN IV 06/30/17 10:45 (Albumin 25% Inj) 25 gm UNSCH PRN IV 06/30/17 10:45 (NS Flush) 5 ml UNSCH PRN IV FLUSH 06/30/17 10:45 (Heparin Inj) UNSCH PRN .XX 06/30/17 10:45 (Gentamicin (Dialysis) Inj) 20 mg UNSCH PRN OTHER 06/30/17 10:45 06/30/17 13:54 (Zofran Inj) 4 mg UNSCH PRN IV PUSH 06/30/17 10:45 (Tylenol) 650 mg UNSCH PRN PO 06/30/17 10:45 07/01/17 20:24 (Benadryl) 25 mg UNSCH PRN PO 06/30/17 10:45 07/01/17 20:25 (Nitrostat Sl) 0.4 mg UNSCH PRN SL 06/30/17 10:45 (Catapres) 0.1 mg UNSCH PRN PO 06/30/17 10:45 (Epogen Inj) 5,000 units UNSCH PRN IV PUSH 06/30/17 10:45 06/30/17 13:54 (Gelfoam 12 Mm/7 Mm Top) 1 foam UNSCH PRN TOP 06/30/17 10:45 (NS Flush) UNSCH PRN IV FLUSH 06/30/17 12:00 (Heparin Inj) UNSCH PRN IV FLUSH 06/30/17 12:00 (Albuterol Neb) 2.5 mg Q2HR NEB PRN NEB 06/30/17 22:30 (Protonix) 20 mg DAILY PO 07/01/17 09:00 07/02/17 09:31 (Ally-Colace) 1 tab BID PO 07/01/17 09:00 07/02/17 09:31 (Glycerin Adult Supp) 2 gm DAILY PRN RECTAL 06/30/17 22:45 (Miralax) 17 gm BID PO 07/01/17 09:00 07/01/17 20:23 (Lactulose Liq) 30 ml DAILY PO 07/01/17 09:00 (Glycerin Adult Supp) 2 gm BID PRN RECTAL 06/30/17 22:45 (NovoLIN R SUPPLEMENTAL SCALE) 1 ACHS SQ 07/01/17 08:00 (Flomax) 0.8 mg HS PO 07/01/17 21:00 07/01/17 20:24 (Phoslo) 667 mg TID PO 07/01/17 09:00 10/11/17 17:25 (Heparin Inj) 5,000 units Q8HR SQ 07/01/17 14:00 07/02/17 13:06 (Mag-Al Plus Susp Liq) 30 ml Q6HR PRN PO 07/01/17 18:00 (Duoneb Neb) 1 ampule Q4HR NEB NEB 07/01/17 20:00 07/02/17 15:26 (Coreg) 6.25 mg BID PO 07/01/17 21:00 07/02/17 09:31 (Folate) 1 mg DAILY PO 07/02/17 09:00 07/02/17 09:31 (Nephrocaps) 1 cap DAILY PO 07/02/17 09:00 07/02/17 09:31 (Deborah Garcia) Physical Exam General Appearance: Comfortable (Deborah Garcia) Eyes Eye Exam: Sclera White (Deborah Garcia) Pulmonary Resp Exam: Breath Sounds Equal, Crackles, Decreased Bases Resp Remarks mild crackles in LLL (Deborah Garcia) Cardiology CV Exam: Regular (Deborah Garcia) Gastrointestinal/Abdomen GI Exam: Soft, Non-Tender (Deborah Garcia) Integumentary Skin Exam: Clear, Warm, Normal Turgor (Deborah Garcia) Extremeties Extremities Exam: Trace Edema (hips) (Deborah Garcia) Neurologic Neuro Exam: Alert, Awake, Speech Clear, Moving All Extremities (Deborah Garcia) Psychiatric Psych Exam: Appropriate Responses (Deborah Garcia) Assessment/Plan Discussed Condition With: Patient, Daughter Problem List: (1) Acute kidney insufficiency ICD Codes: N28.9 - Disorder of kidney and ureter, unspecified Status: Acute Plan: Contributory factors include hemodynamic issues with acute WI, cardiac decompensation as well as now contrast nephrotoxicity with probable development of some degree of ATN. Next HD tomorrow with UF of 2-2.5L as tolerated. Will contact IR tomorrow regarding potential to exchange VasCath to PermCath on Friday. Epogen with HD as ordered. Will hold PhosLo for the present as PO4 2.8. Resume if level >5.5 Start Ergocalciferol weekly. Will continue to monitor. UOP picked up a bit, but as discussed with the patient, he likely will be chronic HD given his significantly impaired renal functions prior to his WI. Answered many questions today regarding current HD, exchanging to PermCath, and potential transfer to [facility] in the near future. He is going to rehab after his discharge and prefers to fo to [facility]. He has been advised that we do not round there and another nephrology group will see him while there, but desires to f/u again with our practice after discharge. (2) NSTEMI (non-ST elevated myocardial infarction) ICD Codes: I21.4 - Non-ST elevation (NSTEMI) myocardial infarction Status: Acute Plan: Management per cardiology. (3) CKD (chronic kidney disease) stage 4, GFR 15-29 ml/min ICD Codes: N18.4 - Chronic kidney disease, stage 4 (severe) Status: Chronic Plan: History of progressive and severe stage IV CKD. Prior to this admission associated with chronic metabolic acidosis being managed by by mouth sodium bicarbonate. As indicated above the patient was being prepared for initiation of dialysis the not too distant future. Peritoneal dialysis was his chronic modality of choice. (4) Hypertension ICD Codes: I10 - Hypertension Status: Chronic (5) chronic metabolic acidosis Status: Chronic Plan: Resolved with HD (6) Urinary retention ICD Codes: R33.9 - Retention of urine, unspecified Plan: Discontinue Abdul catheter at D/C pending stabilization and evaluation by urology which was planned as an outpatient. (7) Anemia of renal disease ICD Codes: D63.1 - Anemia in chronic kidney disease Plan: With a component of iron deficiency and hemodilution. Epogen with HD as ordered (Deborah Garcia) Plan The exam, history, and the medical decision-making described in the above note were completed with the assistance of the PA-C. I reviewed and agree with the findings presented. (Didi Valencia MD) Deborah Garcia Jul 02, 2017 17:45 Didi Valencia MD Jul 03, 2017 17:07
[2017-07-02] MEDS ORDERED: ERGOCALCIFEROL (VIT D2) 50,000 UNIT CAP PO SCH (18:00)
[2017-07-02] MEDS: PRAVASTATIN SOD 10 MG TAB PO SCH (20:05)
[2017-07-02] MEDS: TAMSULOSIN HCL 0.4 MG CAP PO SCH (20:05)
[2017-07-03] VITALS (16 sets, daily range): BP systolic 130–145; BP diastolic 67–78; PULSE 70–93; RESP 14–20; TEMP 98.3–99; O2SAT 92–96
[2017-07-03] MEDS: RESP: ALBUTEROL 2.5 MG/IPRATROPIUM 0.5 MG NEB (SCH) NEB ×6 (00:06→20:49)
[2017-07-03] MEDS ORDERED: FUROSEMIDE 40 MG/4 ML VIAL IV PUSH ONE (03:00)
[2017-07-03] MEDS ORDERED: HYDROmorphone HCL PF 2 MG/ML VIAL IVS PRN (05:00)
[2017-07-03] MEDS ORDERED: DEXTROSE 50% IN WATER 50 ML SYRINGE IV ONE (05:00)
[2017-07-03] MEDS: HEPARIN SODIUM - SQ 10,000 UNITS/ML VIAL SQ SCH ×3 (05:21→20:26)
[2017-07-03 05:45] LABS: HEMATOCRIT 30.8 % (39.0-51.0); MEAN CELL VOLUME 91.6 FL (80.0-100.0); MEAN CORPUSCULAR HEMOGLOBIN 30.5 PG (27.0-34.0); MEAN CORPUSCULAR HGB CONC 33.3 % (32.0-36.0); PLATELET COUNT 384 TH/MM3 (150-450); RED BLOOD COUNT 3.36 MIL/MM3 (4.50-5.90); RED CELL DISTRIBUTION WIDTH 14.9 % (11.6-17.2); REVIEW FLAG FINAL; WHITE BLOOD COUNT 10.5 TH/MM3 (4.0-11.0)
[2017-07-03 06:07] LABS: BICARBONATE 25.8 MEQ/L (21.0-32.0); POTASSIUM 3.7 MEQ/L (3.5-5.1)
[2017-07-03] MEDS: INSULIN NovoLIN REGULAR SUPPLEMENTAL SCALE SQ SCH ×4 (08:00→21:00)
[2017-07-03] MEDS: PATIENT OWN MEDICATION PO SCH (09:00)
[2017-07-03] MEDS: CARVEDILOL 3.125 MG TAB PO SCH ×2 (09:09→20:27)
[2017-07-03] MEDS: ASPIRIN 81 MG CHEW TAB PO SCH (09:09)
[2017-07-03] MEDS: AMIODARONE 200 MG TAB PO SCH ×2 (09:09→20:27)
[2017-07-03] MEDS: TICAGRELOR 90 MG TAB PO SCH ×2 (09:09→20:28)
[2017-07-03] MEDS: PANTOPRAZOLE SOD 20 MG DELAYED RELEASE TAB PO SCH (09:10)
[2017-07-03] MEDS: LACTULOSE SYRUP 20 GM/30 ML CUP PO SCH (09:10)
[2017-07-03] MEDS: POLYETHYLENE GLYCOL 17 GM PKG PO SCH ×2 (09:10→20:28)
[2017-07-03] MEDS: ALLOPURINOL 100 MG TAB PO SCH ×2 (09:10→20:27)
[2017-07-03] MEDS: FOLIC ACID 1 MG TAB PO SCH (09:10)
[2017-07-03] MEDS: DOCUSATE SODIUM 50 MG/SENNA 8.6 MG TAB PO SCH ×2 (09:10→20:28)
[2017-07-03] MEDS: SODIUM CHLORIDE 0.9% FLUSH 10 ML FLUSH IV FLUSH SCH ×2 (09:11→20:26)
--- NOTE | 2017-07-03 11:19 | HHI.PR ---
Subjective Remarks Follow-up for NSTEMI an acute on chronic renal failure Patient seen dialysis. He stated that last night he had some gas pain in which she was given IV pain medication were resolved. Patient denies any abdominal pain at the moment. Denies any nausea or vomiting. Patient also complaining of nasal congestion last night and stated that after blowing his nose he has some blood in the mucus. Otherwise he has no other complaints and stated that he is doing well. Objective Vitals Vital Signs Date Time Temp Pulse Resp B/P (MAP) Pulse Ox O2 Delivery O2 Flow Rate FiO2 07/03/17 08:38 96 Nasal Cannula 2.00 07/03/17 08:00 98.5 75 14 140/73 (95) 95 07/03/17 08:00 97 Nasal Cannula 3.00 07/03/17 07:15 74 07/03/17 06:00 77 07/03/17 05:52 16 07/03/17 05:00 75 07/03/17 04:00 78 07/03/17 03:00 94 Nasal Cannula 3.00 07/03/17 03:00 99.0 83 18 135/67 (89) 94 07/03/17 03:00 80 07/03/17 02:00 80 07/03/17 01:00 78 07/03/17 00:00 82 07/02/17 23:00 99.0 85 16 137/65 (89) 94 07/02/17 23:00 74 07/02/17 23:00 94 Nasal Cannula 3.00 07/02/17 22:00 82 07/02/17 20:10 93 Nasal Cannula 2.00 07/02/17 20:00 98.8 80 18 140/67 (91) 93 07/02/17 19:53 Nasal Cannula 2.00 07/02/17 18:00 79 07/02/17 16:00 98.3 74 17 138/70 (92) 95 07/02/17 16:00 74 07/02/17 14:00 74 07/02/17 12:00 66 07/02/17 12:00 99 Nasal Cannula 2.00 07/02/17 12:00 98.1 66 22 130/68 (88) 99 I/O 07/02/17 07/02/17 07/02/17 07/03/17 07/03/17 07/03/17 07:00 15:00 23:00 07:00 15:00 23:00 Intake Total 420 ml 700 ml 480 ml Output Total 500 ml 750 ml 1000 ml Balance -80 ml -50 ml -520 ml Intake Oral 420 ml 700 ml 480 ml IV Total 0 ml Output Urine Total 500 ml 750 ml 1000 ml # Bowel Movements 1 Result Diagram: 07/03/1753207/03/17532 Objective Remarks GENERAL: in NAD CARDIOVASCULAR: Regular rate and rhythm without murmurs, gallops, or rubs. RESPIRATORY: Breath sounds equal bilaterally. No accessory muscle use. GASTROINTESTINAL: Abdomen soft, non-tender, nondistended. MUSCULOSKELETAL: No cyanosis, or edema. BACK: Nontender without obvious deformity. No CVA tenderness. Medications and IVs Current Medications Al Hydrox/Mg Hydrox/Simethicone (Mag-Al Plus Susp Liq) 30 ml ONCE ONCE PO Last administered on 06/27/17 14:13; Start 06/27/17 at 13:45; Stop 06/27/17 at 13:46; Status DC Aspirin (Aspirin) 325 mg ONCE ONCE PO Last administered on 06/27/17 14:13; Start 06/27/17 at 14:00; Stop 06/27/17 at 14:01; Status DC Nitroglycerin (Nitrostat Sl) 0.4 mg ONCE ONCE SL Last administered on 14:19; Start 06/27/17 at 14:00; Stop 06/27/17 at 14:01; Status DC Nitroglycerin (Nitroglycerin 2% Oint) 0.5 inch ONCE ONCE TOPICAL Last administered on 06/27/17 14:23; Start 06/27/17 at 14:00; Stop 06/27/17 at 17:34 ; Status DC Atorvastatin Calcium (Lipitor) 80 mg ONCE ONCE PO ; Start 06/27/17 at 16:15; Stop 06/27/17 at 16:16; Status DC Sodium Chloride 1,000 ml @ 100 mls/hr Q10H IV Last administered on 06/27/17 16:48; Start 06/27/17 at 16:15; Stop 06/28/17 at 00:18; Status DC Heparin Sodium (Porcine) (Heparin Inj) 5,000 units UNSCH PRN IV PUSH APTT LESS THAN 25; Start 06/27/17 at 22:15; Status Cancel Heparin Sodium (Porcine) (Heparin Inj) 2,500 units UNSCH PRN IV PUSH APTT 25 TO 39; Start 06/27/17 at 22:15; Status Cancel Heparin Sodium/ Dextrose 250 ml @ 11.436 mls/ hr TITRATE PRN IV Coagulation management; Start 06/27/17 at 16:15; Status UNV Heparin Sodium (Porcine) (Heparin Inj) 4,000 units ONCE ONCE IV PUSH Last administered on 06/27/17 16:57; Start 06/27/17 at 16:15; Stop 06/27/17 at 16:16 ; Status DC Sodium Chloride (NS Flush) 2 ml BID IV FLUSH Last administered on 07/03/17 09 :11; Start 06/27/17 at 21:00 Sodium Chloride (NS Flush) 2 ml UNSCH PRN IV FLUSH FLUSH AFTER USING IV ACCESS ; Start 06/27/17 at 16:15 Nitroglycerin (Nitroglycerin 2% Oint) 1 inch Q6H TOP ; Start 06/27/17 at 17:00; Stop 06/27/17 at 17:22; Status DC Morphine Sulfate (Morphine Inj) 2 mg Q30M PRN IV PUSH CHEST PAIN; Start at 16:15; Stop 06/27/17 at 18:30; Status DC Heparin Sodium/ Dextrose 250 ml @ 11.436 mls/ hr TITRATE PRN IV Coagulation management Last administered on 06/27/17 16:59; Start 06/27/17 at 16:15; Stop 06/29/17 at 14:59; Status DC Atorvastatin Calcium (Lipitor) 80 mg ONCE ONCE PO Last administered on 16:57; Start 06/27/17 at 16:30; Stop 06/27/17 at 16:31; Status DC Pantoprazole Sodium (Protonix Inj) 40 mg Q24H IV PUSH Last administered on 06/30 18:13; Start 06/27/17 at 17:00; Stop 06/30/17 at 22:25; Status DC Allopurinol (Zyloprim) 100 mg BID PO Last administered on 07/03/17 09:10; Start 06/27/17 at 21:00 Carvedilol (Coreg) 3.125 mg BID PO Last administered on 07/01/17 13:08; Start 06/27/17 at 21:00; Stop 07/01/17 at 18:19; Status DC Sodium Bicarbonate (Sodium Bicarbonate) 650 mg TIDPC PO ; Start 06/27/17 at 18: 30; Stop 06/27/17 at 18:30; Status DC Nitroglycerin (Nitroglycerin 2% Oint) 1 inch Q6H TOP ; Start 06/27/17 at 20:00; Stop 06/27/17 at 20:00; Status DC Nitroglycerin/ Dextrose 250 ml @ 1.5 mls/hr TITRATE PRN IV Chest pain relief Last administered on 06/27/17 18:32; Start 06/27/17 at 17:45; Stop 06/29/17 at 14:59; Status DC Sodium Bicarbonate (Sodium Bicarbonate) 650 mg TIDPC PO Last administered on 18:13; Start 06/27/17 at 18:30; Stop 07/01/17 at 11:37; Status DC Hydromorphone HCl (Dilaudid Pf Inj) 2 mg Q4H PRN IVS pain Last administered on 07/01/17 00:05; Start 06/27/17 at 18:30; Stop 07/03/17 at 04:54; Status DC Albuterol/ Ipratropium (Duoneb Neb) 1 ampule ONCE ONCE NEB Last administered on 06/28/17 03:11; Start 06/28/17 at 00:45; Stop 06/28/17 at 00:46; Status DC Furosemide (Lasix Inj) 40 mg ONCE ONCE IV PUSH Last administered on 06/28/17 00:56; Start 06/28/17 at 00:45; Stop 06/28/17 at 00:46; Status DC Sodium Chloride 250 ml @ 15 mls/hr ONCE ONCE IV ; Start 06/28/17 at 01:30; Stop 06/28/17 at 18:09; Status DC Furosemide (Lasix Inj) 20 mg UNSCH X1 PRN IV PUSH SEE LABEL COMMENTS Last administered on 06/28/17 03:56; Start 06/28/17 at 01:30; Stop 06/28/17 at 15:00 ; Status DC Atropine Sulfate (Atropine Inj) 1 mg STK-MED ONCE .ROUTE ; Start 06/28/17 at 01: 58; Stop 06/28/17 at 01:59; Status DC Lidocaine HCl (Xylocaine 2% Inj) 100 mg STK-MED ONCE .ROUTE ; Start 06/28/17 at 01:58; Stop 06/28/17 at 01:59; Status DC Epinephrine HCl (EPINEPHrine (1:10,000) INJ) 1 mg STK-MED ONCE .ROUTE ; Start 06/28/17 at 01:58; Stop 06/28/17 at 01:59; Status DC Albuterol/ Ipratropium (Duoneb Neb) 1 ampule Q4HR NEB NEB Last administered on 07/01/17 17:05; Start 06/28/17 at 04:00; Stop 07/01/17 at 17:30; Status DC Albuterol/ Ipratropium (Duoneb Neb) 1 ampule Q2HR NEB PRN NEB SHORTNESS OF BREATH Last administered on 06/28/17 13:50; Start 06/28/17 at 03:00; Stop 06/30 at 22:25; Status DC Dextrose (D50w (Vial) Inj) 50 ml UNSCH PRN IV PUSH HYPOGLYCEMIA-SEE COMMENTS; Start 06/28/17 at 03:00 Glucagon (Glucagon Inj) 1 mg UNSCH PRN OTHER HYPOGLYCEMIA-SEE COMMENTS; Start 06/28/17 at 03:00 Insulin Human Regular (NovoLIN R SUPPLEMENTAL SCALE) 1 Q6H SQ ; Start 06/28/17 at 03:00; Stop 06/30/17 at 22:51; Status DC Influenza Virus Vaccine (Flu (Quadrivalent) Vaccine Inj) 0.5 ml ONCE ONCE IM ; Start 06/29/17 at 10:00; Stop 06/29/17 at 10:00; Status DC Heparin Sodium/ Sodium Chloride 1,000 ml @ As Directed STK-MED ONCE .ROUTE Last administered on 06/28/17 11:51; Start 06/28/17 at 11:51; Stop 06/28/17 at 11:52; Status DC Sodium Chloride 500 ml @ As Directed STK-MED ONCE .ROUTE ; Start 06/28/17 at 11 :51; Stop 06/28/17 at 11:52; Status DC Midazolam HCl (Versed Inj) 2 mg STK-MED ONCE .ROUTE Last administered on 11:51; Start 06/28/17 at 11:51; Stop 06/28/17 at 11:52; Status DC Fentanyl Citrate (fentaNYL INJ) 100 mcg STK-MED ONCE .ROUTE Last administered on 06/28/17 11:51; Start 06/28/17 at 11:51; Stop 06/28/17 at 11:52; Status DC Heparin Sodium (Porcine) (Heparin Inj) 10,000 units STK-MED ONCE .ROUTE Last administered on 06/28/17 12:34; Start 06/28/17 at 12:34; Stop 06/28/17 at 12:35 ; Status DC Ticagrelor (Brilinta) 180 mg STK-MED ONCE PO Last administered on 06/28/17 13: 16; Start 06/28/17 at 13:16; Stop 06/28/17 at 13:17; Status DC Aspirin (Aspirin Chew) 81 mg STK-MED ONCE .ROUTE Last administered on 13:16; Start 06/28/17 at 13:16; Stop 06/28/17 at 13:17; Status DC Ticagrelor (Brilinta) 180 mg STK-MED ONCE PO ; Start 06/28/17 at 13:32; Stop at 13:33; Status DC Aspirin (Aspirin Chew) 81 mg DAILY PO Last administered on 07/03/17 09:09; Start 06/29/17 at 09:00 Ticagrelor (Brilinta) 90 mg BID PO Last administered on 07/03/17 09:09; Start 06/28/17 at 21:00 Pravastatin Sodium (Pravachol) 20 mg HS PO Last administered on 07/02/17 20: 05; Start 06/28/17 at 21:00 Iron Sucrose 100 mg/Sodium Chloride 105 ml @ 105 mls/hr DAILY IV Last administered on 07/01/17 08:48; Start 06/29/17 at 09:00; Stop 07/01/17 at 09: 59; Status DC Acetylcysteine (Mucomyst 20% Liq) 1,200 mg BID PO Last administered on 20:31; Start 06/28/17 at 14:30; Stop 06/29/17 at 04:00; Status DC Fluticasone Propionate (Flonase Ethan Spr) 1 spray Q12H PRN NASAL NASAL CONGESTION Last administered on 06/30/17 10:11; Start 06/28/17 at 14:45 Patient Own Medication PT OWN MED: OPTIC ARED... DAILY PO Last administered on 07/02/17 09:00; Start 06/28/17 at 16:00 Metoprolol Tartrate (Lopressor Inj) 5 mg STK-MED ONCE .ROUTE ; Start 06/28/17 at 17:32; Stop 06/28/17 at 17:33; Status DC Metoprolol Tartrate (Lopressor Inj) 5 mg Q6H PRN IV PUSH Pulse > 120 Last administered on 06/28/17 17:46; Start 06/28/17 at 17:30 Carvedilol (Coreg) 6.25 mg ONCE ONCE PO Last administered on 06/28/17 18:07; Start 06/28/17 at 18:15; Stop 06/28/17 at 18:16; Status DC Acetaminophen (Tylenol) 650 mg Q6H PRN PO SEE LABEL COMMENTS Last administered on 06/30/17 10:14; Start 06/28/17 at 21:30 Metoprolol Tartrate (Lopressor Inj) 5 mg NOW ONCE IV PUSH Last administered on 06/28/17 21:58; Start 06/28/17 at 21:45; Stop 06/28/17 at 21:46; Status DC Influenza Virus Vaccine (Flu (Quadrivalent) Vaccine Inj) 0.5 ml ONCE ONCE IM Last administered on 06/30/17 10:18; Start 06/30/17 at 09:00; Stop 06/30/17 at 09:01; Status DC Bumetanide (Bumex Inj) 1 mg ONCE ONCE IV PUSH Last administered on 06/29/17 12:10; Start 06/29/17 at 12:30; Stop 06/29/17 at 12:31; Status DC Amiodarone HCl (Cordarone) 400 mg Q12HR PO Last administered on 07/03/17 09: 09; Start 06/29/17 at 15:00 Iohexol (OMNIPAQUE 350 INJ (Chemical Inspector)) 100 ml STK-MED ONCE OTHER ; Start at 08:44; Stop 06/30/17 at 08:45; Status DC Iohexol (OMNIPAQUE 350 INJ (Chemical Inspector)) 50 ml STK-MED ONCE OTHER ; Start at 08:44; Stop 06/30/17 at 08:45; Status DC Sodium Chloride 1,000 ml @ 0 mls/hr Q0M PRN OTHER For Prime & Rinse Back; Start 06/30/17 at 10:38 Heparin Sodium (Porcine) (Heparin Inj) 8,000 units UNSCH PRN IV FLUSH WITH DIALYSIS; Start 06/30/17 at 10:45 Sodium Chloride 1,000 ml @ 200 mls/hr Q5H PRN IV WITH DIALYSIS; Start 06/30/17 at 10:38 Sodium Chloride 1,000 ml @ 0 mls/hr Q0M PRN OTHER WITH DIALYSIS; Start at 10:38 Mannitol (Mannitol Inj) 12.5 gm UNSCH PRN IV WITH DIALYSIS; Start 06/30/17 at 10:45 Albumin Human (Albumin 25% Inj) 25 gm UNSCH PRN IV WITH DIALYSIS; Start at 10:45 Sodium Chloride (NS Flush) 5 ml UNSCH PRN IV FLUSH WITH DIALYSIS; Start at 10:45 Heparin Sodium (Porcine) (Heparin Inj) UNSCH PRN .XX WITH DIALYSIS; Start 06/30/17 at 10:45 Gentamicin Sulfate (Gentamicin (Dialysis) Inj) 20 mg UNSCH PRN OTHER WITH DIALYSIS Last administered on 06/30/17 13:54; Start 06/30/17 at 10:45 Ondansetron HCl (Zofran Inj) 4 mg UNSCH PRN IV PUSH WITH DIALYSIS; Start at 10:45 Acetaminophen (Tylenol) 650 mg UNSCH PRN PO for headach, pain, temp > 101F Last administered on 07/01/17 20:24; Start 06/30/17 at 10:45 Diphenhydramine HCl (Benadryl) 25 mg UNSCH PRN PO for hives/itching/ anaphylaxis Last administered on 07/01/17 20:25; Start 06/30/17 at 10:45 Nitroglycerin (Nitrostat Sl) 0.4 mg UNSCH PRN SL CHEST PAIN; Start 06/30/17 at 10:45 Clonidine (Catapres) 0.1 mg UNSCH PRN PO for BP > 180/100 X 2 readings; Start 06/30/17 at 10:45 Epoetin Benji (Epogen Inj) 5,000 units UNSCH PRN IV PUSH WITH DIALYSIS Last administered on 06/30/17 13:54; Start 06/30/17 at 10:45 Gelatin (Gelfoam 12 Mm/7 Mm Top) 1 foam UNSCH PRN TOP SEE LABEL COMMENTS; Start 06/30/17 at 10:45 Sodium Chloride (NS Flush) UNSCH PRN IV FLUSH SEE PROTOCOL; Start 06/30/17 at 12:00 Heparin Sodium (Porcine) (Heparin Inj) UNSCH PRN IV FLUSH SEE PROTOCOL; Start 06/30/17 at 12:00 Heparin Sodium (Porcine) (Heparin Inj) 2,200 units STK-MED ONCE IV Last administered on 06/30/17 12:03; Start 06/30/17 at 12:03; Stop 06/30/17 at 12:05 ; Status DC Albuterol Sulfate (Albuterol Neb) 2.5 mg Q2HR NEB PRN NEB dyspnea; Start at 22:30 Pantoprazole Sodium (Protonix) 20 mg DAILY PO Last administered on 07/03/17 09:10; Start 07/01/17 at 09:00 Senna/Docusate Sodium (Ally-Colace) 1 tab BID PO Last administered on 09:10; Start 07/01/17 at 09:00 Glycerin (Glycerin Adult Supp) 2 gm DAILY PRN RECTAL CONSTIPATION; Start at 22:45 Polyethylene Glycol (Miralax) 17 gm BID PO Last administered on 07/03/17 09: 10; Start 07/01/17 at 09:00 Lactulose (Lactulose Liq) 30 ml ONCE ONCE PO Last administered on 07/01/17 03:13; Start 06/30/17 at 22:45; Stop 06/30/17 at 22:46; Status DC Lactulose (Lactulose Liq) 30 ml DAILY PO Last administered on 07/03/17 09:10 ; Start 07/01/17 at 09:00 Methylnaltrexone [place] (Relistor Inj) 12 mg ONCE ONCE SQ Last administered on 10/10/17at 00:04; Start 06/30/17 at 22:45; Stop 06/30/17 at 22:46; Status DC Glycerin (Glycerin Adult Supp) 2 gm BID PRN RECTAL CONSTIPATION; Start at 22:45 Insulin Human Regular (NovoLIN R SUPPLEMENTAL SCALE) 1 ACHS SQ ; Start at 08:00 Tamsulosin HCl (Flomax) 0.8 mg HS PO Last administered on 07/02/17 20:05; Start 07/01/17 at 21:00 Calcium Acetate (Phoslo) 667 mg TID PO Last administered on 07/02/17 17:25; Start 07/01/17 at 09:00; Stop 07/02/17 at 17:47; Status DC Heparin Sodium (Porcine) (Heparin Inj) 5,000 units Q8HR SQ Last administered on 07/03/17 05:21; Start 07/01/17 at 14:00 Al Hydrox/Mg Hydrox/Simethicone (Mag-Al Plus Susp Liq) 30 ml Q6HR PRN PO dyspepsia; Start 07/01/17 at 18:00 Albuterol/ Ipratropium (Duoneb Neb) 1 ampule Q4HR NEB NEB Last administered on 07/03/17 08:38; Start 07/01/17 at 20:00 Carvedilol (Coreg) 6.25 mg BID PO Last administered on 07/03/17 09:09; Start 07/01/17 at 21:00 Folic Acid (Folate) 1 mg DAILY PO Last administered on 07/03/17 09:10; Start 07/02/17 at 09:00 Vitamin B Complex/ Vit C/Folic Acid (Nephrocaps) 1 cap DAILY PO Last administered on 07/02/17 09:31; Start 07/02/17 at 09:00 Ergocalciferol (Drisdol) 50,000 units Q7D PO ; Start 07/02/17 at 18:00 Furosemide (Lasix Inj) 40 mg ONCE ONCE IV PUSH Last administered on 02:58; Start 07/03/17 at 03:00; Stop 07/03/17 at 03:01; Status DC Hydromorphone HCl (Dilaudid Pf Inj) 2 mg Q4H PRN IVS pain Last administered on 07/03/17t 05:22; Start 07/03/17 at 05:00 Sodium Chloride (Baby [place] Saline 0.65% Ethan Drp/ [place]) 2 drop UNSCH PRN EACH NARE nasal congestion; Start 07/03/17 at 11:00; Status UNV Fluticasone Propionate (Flonase Ethan Spr) 1 spray BID NASAL ; Start 07/03/17 at 11:00; Status UNV A/P Problem List: (1) Anemia ICD Code: D64.9 - Anemia, unspecified (2) Hyponatremia ICD Code: E87.1 - Hypo-osmolality and hyponatremia (3) Urinary retention ICD Code: R33.9 - Retention of urine, unspecified (4) CKD (chronic kidney disease) stage 4, GFR 15-29 ml/min ICD Code: N18.4 - Chronic kidney disease, stage 4 (severe) Status: Chronic (5) Primary osteoarthritis of right knee ICD Code: M17.11 - Unilateral primary osteoarthritis, right knee (6) NSTEMI (non-ST elevated myocardial infarction) ICD Code: I21.4 - Non-ST elevation (NSTEMI) myocardial infarction Status: Acute (7) status post left total knee replacement Status: Acute Assessment and Plan 72-year-old male p/w chest pain NSTEMI/atrial fibrillation/hypertension -Status post cardiac catheterization with stents to the RCA and left circumflex -on aspirin 81 mg daily and Ticagrelor 90 mg twice a day -Cardiology/Dr. cote following -Echocardiogram 06/30 revealed EF 50-55%. Moderate to severe TR. PAP 60 mmHg -Continue pravastatin, amiodarone, carvedilol. Amlodipine held. -Patient poor candidate for anticoagulation at the moment. Acute hypoxemic respiratory failure likely secondary to pulmonary edema/ pulmonary hypertension -Continue to wean off of nasal cannula as tolerated. -VQ scan 06/30 low probability for pulmonary embolism. -Patient is receiving hemodialysis to help with fluid removal. Acute and chronic kidney disease stage V -Hemodialysis catheter right IJ placed by IR today. -Per neurologist this is most likely end-stage renal disease and he most likely will need long-term dialysis. -Continue with dialysis per boiler room operator. Nasal congestion -Will give nasal saline spray and Flonase. BPH/gout/anemia secondary to chronic kidney disease -Continue home medication. Status post right total knee replacement by Dr. Marcelino -Knee device -Orthosis following. Hyponatremia/Hyperphosphatemia -Replace electrolytes as clinically indicated -calcium acetate 667 mg 3 times a day Prophylaxis - GI - pantoprazole - DVT - SCD/pharmacological prophylaxis/therapy once okay with cardiology Discharge Planning Once patient is cleared by boiler room operator he can be discharged to rehabilitation. Sejal St MD Jul 03, 2017 11:19
--- NOTE | 2017-07-03 13:48 | PD.CARD.PN ---
Subjective Subjective Remarks No SOB, left sided atypical CP last night increased with deep inspiration Objective Medications Current Medications Medications (Trade) Dose Ordered Sig/Cory Route Start Time Stop Time Status Last Admin (NS Flush) 2 ml BID IV FLUSH 06/27/17 21:00 07/03/17 09:11 (NS Flush) 2 ml UNSCH PRN IV FLUSH 06/27/17 16:15 (Zyloprim) 100 mg BID PO 06/27/17 21:00 07/03/17 09:10 (D50w (Vial) Inj) 50 ml UNSCH PRN IV PUSH 06/28/17 03:00 (Glucagon Inj) 1 mg UNSCH PRN OTHER 06/28/17 03:00 (Aspirin Chew) 81 mg DAILY PO 06/29/17 09:00 07/03/17 09:09 (Brilinta) 90 mg BID PO 06/28/17 21:00 07/03/17 09:09 (Pravachol) 20 mg HS PO 06/28/17 21:00 07/02/17 20:05 (Flonase Ethan Spr) 1 spray Q12H PRN NASAL 06/28/17 14:45 06/30/17 10:11 Patient Own Medication PT OWN MED: OPTIC ARED... DAILY PO 06/28/17 16:00 07/02/17 09:00 (Lopressor Inj) 5 mg Q6H PRN IV PUSH 06/28/17 17:30 06/28/17 17:46 (Tylenol) 650 mg Q6H PRN PO 06/28/17 21:30 06/30/17 10:14 (Cordarone) 400 mg Q12HR PO 06/29/17 15:00 07/03/17 09:09 Sodium Chloride 1,000 ml @ 0 mls/hr Q0M PRN OTHER 06/30/17 10:38 (Heparin Inj) 8,000 units UNSCH PRN IV FLUSH 06/30/17 10:45 Sodium Chloride 1,000 ml @ 200 mls/hr Q5H PRN IV 06/30/17 10:38 Sodium Chloride 1,000 ml @ 0 mls/hr Q0M PRN OTHER 06/30/17 10:38 (Mannitol Inj) 12.5 gm UNSCH PRN IV 06/30/17 10:45 (Albumin 25% Inj) 25 gm UNSCH PRN IV 06/30/17 10:45 (NS Flush) 5 ml UNSCH PRN IV FLUSH 06/30/17 10:45 (Heparin Inj) UNSCH PRN .XX 06/30/17 10:45 (Gentamicin (Dialysis) Inj) 20 mg UNSCH PRN OTHER 06/30/17 10:45 06/30/17 13:54 (Zofran Inj) 4 mg UNSCH PRN IV PUSH 06/30/17 10:45 (Tylenol) 650 mg UNSCH PRN PO 06/30/17 10:45 07/01/17 20:24 (Benadryl) 25 mg UNSCH PRN PO 06/30/17 10:45 07/01/17 20:25 (Nitrostat Sl) 0.4 mg UNSCH PRN SL 06/30/17 10:45 (Catapres) 0.1 mg UNSCH PRN PO 06/30/17 10:45 (Epogen Inj) 5,000 units UNSCH PRN IV PUSH 06/30/17 10:45 06/30/17 13:54 (Gelfoam 12 Mm/7 Mm Top) 1 foam UNSCH PRN TOP 06/30/17 10:45 (NS Flush) UNSCH PRN IV FLUSH 06/30/17 12:00 (Heparin Inj) UNSCH PRN IV FLUSH 06/30/17 12:00 (Albuterol Neb) 2.5 mg Q2HR NEB PRN NEB 06/30/17 22:30 (Protonix) 20 mg DAILY PO 07/01/17 09:00 07/03/17 09:10 (Ally-Colace) 1 tab BID PO 07/01/17 09:00 07/03/17 09:10 (Glycerin Adult Supp) 2 gm DAILY PRN RECTAL 06/30/17 22:45 (Miralax) 17 gm BID PO 07/01/17 09:00 07/03/17 09:10 (Lactulose Liq) 30 ml DAILY PO 07/01/17 09:00 07/03/17 09:10 (Glycerin Adult Supp) 2 gm BID PRN RECTAL 06/30/17 22:45 (NovoLIN R SUPPLEMENTAL SCALE) 1 ACHS SQ 07/01/17 08:00 (Flomax) 0.8 mg HS PO 07/01/17 21:00 07/02/17 20:05 (Heparin Inj) 5,000 units Q8HR SQ 07/01/17 14:00 07/03/17 05:21 (Mag-Al Plus Susp Liq) 30 ml Q6HR PRN PO 07/01/17 18:00 (Duoneb Neb) 1 ampule Q4HR NEB NEB 07/01/17 20:00 07/03/17 08:38 (Coreg) 6.25 mg BID PO 07/01/17 21:00 07/03/17 09:09 (Folate) 1 mg DAILY PO 07/02/17 09:00 07/03/17 09:10 (Nephrocaps) 1 cap DAILY PO 07/02/17 09:00 07/02/17 09:31 (Drisdol) 50,000 units Q7D PO 07/02/17 18:00 (Dilaudid Pf Inj) 2 mg Q4H PRN IVS 07/03/17 05:00 07/03/17 05:22 ([address] Saline 0.65% Ethan Drp/ [place]) 2 drop UNSCH PRN EACH NARE 07/03/17 11:00 UNV (Flonase Ethan Spr) 1 spray BID NASAL 07/03/17 15:00 Vital Signs / I&O Vital Signs Date Time Temp Pulse Resp B/P (MAP) Pulse Ox O2 Delivery O2 Flow Rate FiO2 07/03/17 08:38 96 Nasal Cannula 2.00 07/03/17 08:00 98.5 75 14 140/73 (95) 95 07/03/17 08:00 97 Nasal Cannula 3.00 07/03/17 07:15 74 07/03/17 06:00 77 07/03/17 05:52 16 07/03/17 05:00 75 07/03/17 04:00 78 07/03/17 03:00 94 Nasal Cannula 3.00 07/03/17 03:00 99.0 83 18 135/67 (89) 94 07/03/17 03:00 80 07/03/17 02:00 80 07/03/17 01:00 78 07/03/17 00:00 82 07/02/17 23:00 99.0 85 16 137/65 (89) 94 07/02/17 23:00 74 07/02/17 23:00 94 Nasal Cannula 3.00 07/02/17 22:00 82 07/02/17 20:10 93 Nasal Cannula 2.00 07/02/17 20:00 98.8 80 18 140/67 (91) 93 07/02/17 19:53 Nasal Cannula 2.00 07/02/17 18:00 79 07/02/17 16:00 98.3 74 17 138/70 (92) 95 07/02/17 16:00 74 07/02/17 14:00 74 I/O 07/02/17 07/02/17 07/02/17 07/03/17 07/03/17 07/03/17 07:00 15:00 23:00 07:00 15:00 23:00 Intake Total 420 ml 700 ml 480 ml Output Total 500 ml 750 ml 1000 ml 2500 ml Balance -80 ml -50 ml -520 ml -2500 ml Intake Oral 420 ml 700 ml 480 ml IV Total 0 ml Output Urine Total 500 ml 750 ml 1000 ml Hemodialysis 2500 ml # Bowel Movements 1 Physical Exam GENERAL: In NAD. SKIN: Warm and dry. HEAD: Normocephalic. EYES: No scleral icterus. No injection or drainage. NECK: Supple, trachea midline. No JVD or lymphadenopathy. CARDIOVASCULAR: Reg, without murmurs, gallops, or rubs. RESPIRATORY: Breath sounds equal bilaterally. No accessory muscle use. GASTROINTESTINAL: Abdomen soft, non-tender, nondistended. MUSCULOSKELETAL: No cyanosis, trace edema. Laboratory Laboratory Tests Test 07/03/17 05:33 White Blood Count 10.5 TH/MM3 Red Blood Count 3.36 MIL/MM3 Hemoglobin 10.3 GM/DL Hematocrit 30.8 % Mean Corpuscular Volume 91.6 FL Mean Corpuscular Hemoglobin 30.5 PG Mean Corpuscular Hemoglobin Concent 33.3 % Red Cell Distribution Width 14.9 % Platelet Count 384 TH/MM3 Mean Platelet Volume 7.3 FL Blood Urea Nitrogen 78 MG/DL Creatinine 5.30 MG/DL Random Glucose 96 MG/DL Albumin 2.4 GM/DL Calcium Level 8.7 MG/DL Phosphorus Level 2.4 MG/DL Sodium Level 136 MEQ/L Potassium Level 3.7 MEQ/L Chloride Level 97 MEQ/L Carbon Dioxide Level 25.8 MEQ/L Anion Gap 13 MEQ/L Estimat Glomerular Filtration Rate 11 ML/MIN Assessment and Plan Problem List: (1) NSTEMI (non-ST elevated myocardial infarction) ICD Codes: I21.4 - Non-ST elevation (NSTEMI) myocardial infarction Status: Acute (2) Multi-vessel coronary artery stenosis ICD Codes: I25.10 - Atherosclerotic heart disease of [place] coronary artery without angina pectoris (3) Cardiomyopathy ICD Codes: I42.9 - Cardiomyopathy, unspecified (4) Atrial fibrillation ICD Codes: I48.91 - Unspecified atrial fibrillation (5) Stented coronary artery ICD Codes: Z95.5 - Presence of coronary angioplasty implant and graft (6) CKD (chronic kidney disease) stage 4, GFR 15-29 ml/min ICD Codes: N18.4 - Chronic kidney disease, stage 4 (severe) Status: Chronic (7) Anemia ICD Codes: D64.9 - Anemia, unspecified (8) Hypertension ICD Codes: I10 - Hypertension Status: Chronic Assessment and Plan No recurrent angina of CHF. Tolerating dialysis well. He developed a fib which complicates his management from the standpoint of anticoagulation given his recent significant anemia. Amio started, so far stays in SR. Continue Brilinta and baby ASA to prevent stent thrombosis, full anticoagulation later. Hgb stable. Continue therapy for CHF. VQ scan low prob. F/u echo with improved LV systolic fx. Aggressive risk factor modification. Increase activity. Dialysis today. Brittany Jenkins MD Jul 03, 2017 13:48
--- NOTE | 2017-07-03 14:39 | HHI.CCPN ---
Subjective Remarks/Hospital Course The patient is a 72 year old male with past medical history of osteoarthritis, chronic kidney disease, stage IV who was admitted to [facility] on June 27, 2017 under hospitalist service for anemia and non-ST elevation myocardial infarction. The patient was found to have a troponin of 4.3 which is gradually increasing to 6.05 early this morning. He was placed on heparin and nitro drip. In addition the patient was found to have acute on chronic kidney disease with creatinine level of 3.6, BUN 66 and hyponatremia with sodium level of 127. 06/29: Cardiac cath and stent X 2 yesterday. Rising creatinine > 4 today. Hx CKD. New a-fib with rate controlled. Breathing comfortably. 06/30: Resting currently in bed in no acute distress. Currently on aerosolized mask. Currently in atrial fibrillation currently rate controlled. Status post hemodialysis catheter today with -3 L. Subjective 07/01: Resting currently in bed in no acute distress. -3 L hemodialysis today. Currently on nasal cannula at 5 L. Appears most comfortable. Examination much improved 07/03: [facility] reconsult note: 72-year-old male originally admitted for non-ST elevation FL. History of chronic kidney disease stage IV CKD. On 06/28/17 and had cardiac catheterization and stent [address] Jenkins. He was moved to [facility] yesterday. I responded to [facility] today. Apparently patient was coming out of the bathroom after a shower and using the bathroom, had BM. While walking to bed, he felt lightheaded and RN assisted him to the floor, and then he lost pulses briefly. RN did CPR for less than 1 minute with return of spontaneous circulation and patient became conscious again. He was transferred to the bed, he was fully conscious and alert. Complains of left lateral chest wall tenderness. Patient did not feel arrhythmia palpitation or chest pain prior to his syncopal episode. Clinically sounds to be a vasovagal episode. I will check CBC CMP stat EKG and cardiac enzymes. Discussed with Dr. jenkins. He requested a stat echo for EF evaluation. VQ scan 06/30/17. Low probability for PE Objective Vital Signs Date Time Temp Pulse Resp B/P (MAP) Pulse Ox O2 Delivery O2 Flow Rate FiO2 07/03/17 08:38 96 Nasal Cannula 2.00 07/03/17 08:00 98.5 75 14 140/73 (95) 06/30/17 19:36 70 Intake and Output 07/03/17 07/03/17 07/04/17 08:00 16:00 00:00 Intake Total 480 ml Output Total 1000 ml 2500 ml Balance -520 ml -2500 ml Result Diagram: 07/03/17 0533 07/03/1733 Other Results Microbiology Date/Time Source Procedure Growth Status 07/01/17 05:30 Stool Stool Stool Occult Blood (ISHA) - Final HEMOCCULT NEGATIVE Complete Imaging Last Impressions Lung Scan-VQ Nuclear Medicine 06/30/17 0000 Signed Impressions: Service Date/Time: Friday, June 30, 2017 12:05 - CONCLUSION: Perfusion better than the ventilation, low probability for pulmonary embolism. Venkat Daley MD FACR Catheter Placement X-Ray 06/30/17 Signed Impressions: Service Date/Time: Friday, June 30, 2017 11:20 - CONCLUSION: Successful Vas-Cath placement via the right internal jugular vein. The patient tolerated the procedure without difficulty. Kei Daley MD Renal Ultrasound 06/28/17 Signed Impressions: Service Date/Time: Wednesday, June 28, 2017 09:24 - CONCLUSION: 1. Cortical thinning and increased echogenicity suggesting underlying medical renal disease. Kei Daley MD Chest X-Ray 06/28/17 Signed Impressions: Service Date/Time: Wednesday, June 28, 2017 00:30 - CONCLUSION: Radiographic pattern consistent with intra-alveolar pulmonary edema. Simon Gomez Jr., MD Objective Remarks GENERAL: 72-year-old male, lying in bed. AO x3 now. SKIN: Warm and diaphoretic HEAD: Atraumatic. Normocephalic. EYES: Pupils equal and round. No scleral icterus. No injection or drainage. ENT: No nasal bleeding or discharge. Mucous membranes pink and moist. NECK: Trachea midline. No JVD. CARDIOVASCULAR: IRR. S1, S2. No S4. Tenderness at the left cardiac apex RESPIRATORY: Few crackles appreciated in the bases bilaterally. Essentially clear anteriorly GASTROINTESTINAL: Abdomen soft, non-tender, nondistended. Hepatic and splenic margins not palpable. MUSCULOSKELETAL: Right lower extremity with Steri-Strips over right knee. Incision site is clean dry and intact No significant peripheral edema. NEUROLOGICAL: Awake and alert. No obvious cranial nerve deficits. Motor grossly within normal limits. Five out of 5 muscle strength in the arms and legs. Normal speech. A/P Assessment and Plan Neuro/psych: Syncope Most likely vasovagal syncope. No focal deficits no indication for CAT scan Acetaminophen for fever Hydromorphone for pain management CV: Brief cardiac arrest less than 1 minute Non-STEMI Coronary disease status post stent 2 Hypertension Dyslipidemia s/p probable vasovagal syncope, with loss of pulse. 1 minute CPR Check CBC CMP troponin and stat 2-D echo Stat EKG. Patient was not on telemetry during the episode because he using the shower Status post cardiac catheterization with stents to the RCA and left circumflex Currently being on aspirin 81 mg daily and Ticagrelor 90 mg twice a day Cardiology/Dr. jenkins following Echocardiogram 06/30 revealed EF 50-55%. Moderate to severe TR. PAP 60 mmHg Continue pravastatin 20 mg by mouth daily for dyslipidemia Continue amiodarone 400 mg by mouth 3 times a day for atrial fibrillation currently rate controlled Continue carvedilol 3.125 mg by mouth twice a day for hypertension. Holding amlodipine 10 mg daily/home medication Resp: Acute hypoxemic respiratory failure likely secondary to pulmonary edema/ pulmonary hypertension-Resolved Currently on nasal cannula to maintain saturations greater than or equal to 92% Incentive spirometry while awake Acapella every 4 hours with duo nebs every 4 hours scheduled Follow-up chest x-ray in a.m. HD per nephrology VQ scan 06/30 low probability for pulmonary embolism. GI: Continue heart healthy diet Pantoprazole 20 mg by mouth daily for GI prophylaxis Docusate sodium, Senokot, polyethylene glycol lactulose for bowel regimen. : BPH Tamsulosin 0.8 mg by mouth daily Endo: Gout Continue allopurinol 100 mg by mouth twice a day/home medication TSH with atrial fibrillation Sliding-scale insulin low scale every before meals/at bedtime Renal: Acute and chronic kidney disease stage V Hemodialysis catheter right IJ placed by IR HD per nephrology Nephrology following Heme: Anemia of chronic kidney disease Hemoglobin essentially stable. No indication for transfusion of blood products at this time ID: Monitor for infection MSK: Status post right total knee replacement by Dr. Marcelino Osteoarthritis Knee device. Incision clean dry FEN: Hyponatremia Hyperphosphatemia Replace electrolytes as clinically indicated Calcium acetate 667 mg 3 times a day Access Utilize peripheral IV. Central line if indicated Prophylaxis GI - pantoprazole DVT - SCD/pharmacological prophylaxis/therapy once okay with cardiology CCT 35 MIN D/W Dr. Jenkins and Jeremie Umana MD Jul 03, 2017 14:39
[2017-07-03] MEDS ORDERED: SODIUM CHLORIDE 0.65% NASAL DRP/SPRY 30 ML BTL EACH NARE PRN (15:00)
--- NOTE | 2017-07-03 15:00 | RADRPT ---
EXAM DATE/TIME: 07/03/2017 14:11 [place] COMPARISON: CHEST SINGLE AP, June 28, 2017, 0:30. INDICATIONS : Respiratory MEDICAL HISTORY : Hypercholesterolemia. Hypertension Stage 4 Renal disease, Osteoarthritis SURGICAL HISTORY : Total knee replacement, left. Total knee replacement, right ENCOUNTER: Subsequent ACUITY: 1 week PAIN SCORE: 0/10 LOCATION: chest FINDINGS: Right internal jugular Vas-Cath has been inserted. The lungs are well aerated without evidence of pneumothorax. Mild congestive changes seen on prior st udy have resolved. There is minimal residual airspace disease in the left base. Heart is mildly enlarged. CONCLUSION: 1. Resolving pulmonary congestion. 2. New right jugular Vas-Cath without evidence of pneumothorax. 3. Otherwise stable chest Marcus Devin Lewis MD on July 03, 2017 at 14:57 Board Certified Radiologist. This report was verified electronically.
[2017-07-03] MEDS: FLUTICASONE PROPIONATE 50 MCG/ACT 16 GM NASAL SPRAY NASAL SCH ×2 (15:03→20:25)
[2017-07-03] MEDS: VITAMIN B CMPLX/VITC/FOLIC AC CAP PO SCH (15:03)
[2017-07-03 15:30] LABS: MEAN CORPUSCULAR HEMOGLOBIN 30.3 PG (27.0-34.0); MEAN CORPUSCULAR HGB CONC 32.9 % (32.0-36.0); PLATELET COUNT 445 TH/MM3 (150-450); RED CELL DISTRIBUTION WIDTH 14.9 % (11.6-17.2); REVIEW FLAG FINAL; WHITE BLOOD COUNT 11.5 TH/MM3 (4.0-11.0)
[2017-07-03 15:53] LABS: ANION GAP 8 MEQ/L (5-15); AST (GOT) 35 U/L (15-37); BICARBONATE 31.5 MEQ/L (21.0-32.0); BLOOD UREA NITROGEN 45 MG/DL (7-18); CHLORIDE 97 MEQ/L (98-107); GLOMERULAR FILTRATION RATE 17 ML/MIN (>89); MAGNESIUM 2.3 MG/DL (1.5-2.5); POTASSIUM 3.5 MEQ/L (3.5-5.1); SODIUM (NA) 136 MEQ/L (136-145)
[2017-07-03 15:54] LABS: ALKALINE PHOSPHATASE 193 U/L (45-117); ALT (GPT) 20 U/L (12-78); TOTAL BILIRUBIN ADULT 0.7 MG/DL (0.2-1.0)
--- NOTE | 2017-07-03 16:30 | ECHRPT ---
Indication: EF S/P CARDIAC ARREST CONCLUSIONS Mildly dilated left ventricle. Wall thickness is normal. The left ventricular systolic function is low normal with an estimated ejection fraction in the rang e of 50- 55%. The left atrial size is mildly dilated. The right atrial size is mildly dilated. Moderate mitral valve regurgitation. Mitral annular calcification is present. There is moderate tricuspid regurgitation. There is estimated mild pulmonary hypertension present ( 48 mmHg). The pulmonary valve is not well visualized. BP: / HR: Rhythm: MEASUREMENTS (Male / Female) Normal Values Technical Quality: 2D ECHO LV Diastolic Diameter PLAX 6.0 cm 4.2 - 5.9 / 3.9 - 5.3 cm LV Systolic Diameter PLAX 4.9 cm IVS Diastolic Thickness 0.9 cm 0.6 - 1.0 / 0.6 - 0.9 cm LVPW Diastolic Thickness 0.8 cm 0.6 - 1.0 / 0.6 - 0.9 cm LV Relative Wall Thickness 0.3 DOPPLER TR Peak Velocity 328.0 cm/s TR Peak Gradient 43.0 mmHg FINDINGS LEFT VENTRICLE Mildly dilated left ventricle. Wall thickness is normal. The left ventricular systolic function is low normal with an estimated ejection fraction in the rang e of 50- 55%. RIGHT VENTRICLE Normal right ventricular size and systolic function. LEFT ATRIUM The left atrial size is mildly dilated. RIGHT ATRIUM The right atrial size is mildly dilated. ATRIAL SEPTUM Normal atrial septal thickness without atrial level shunting by limited color doppler interrogation. AORTA The aortic root and proximal ascending aorta are normal in size on limited imaging. MITRAL VALVE Moderate mitral valve regurgitation. Mitral annular calcification is present. AORTIC VALVE Trileaflet aortic valve. No aortic valve stenosis or regurgitation. TRICUSPID VALVE There is moderate tricuspid regurgitation. There is estimated mild pulmonary hypertension present ( 48 mmHg). PULMONARY VALVE The pulmonary valve is not well visualized. VESSELS The inferior vena cava is normal in size. PERICARDIUM No pericardial effusion. Aamir Osborn MD, FACC (Electronically Signed) Final Date:03 July 2017 16:29
--- NOTE | 2017-07-03 17:12 | HHI.NPPN ---
Subjective History of Present Illness This patient is a 72-year-old male with a history of progressive severe chronic kidney disease with a baseline GFR of approximately 20 although more recently has had GFR is below this level. Patient underwent a total right knee arthroplasty deferred of June, for severe degenerative joint disease. Patient wished to proceed despite the severity of his chronic kidney disease and risk of worsening renal function because of the severity of debilitation associated with his degenerative joint disease. Patient's renal function fortunately did remain relatively stable postoperatively and the patient was discharged in stable clinical condition except for the fact that he did develop some bladder outlet obstruction and required an indwelling Abdul catheter with follow-up with urology post discharge. Patient noted to have presented to the emergency room in [place] with complaints of "heartburn". Subsequent diagnosis having and non-ST AZ with elevations in troponin. His serum creatinine level on presentation was 3.6 subsequently deteriorating today to 3.9. He is also said to have developed some respiratory insufficiency in route to the main campus. Chest x-ray showed some evidence of interstitial edema and symptomatology improved with IV furosemide. Patient was seen by cardiology and was taken urgently to the cardiac catheter lab for angiogram. Patient did receive IV saline since admission. Patient now status post placement of 2 bare metal stents. Interval History Apparently shortly after his dialysis treatment patient went to the bar from and had a bowel movement subsequently stood up by himself and passed out. Patient now fully awake and alert. Critical care believes it was most likely vasovagal episode. Review of Systems General Constitutional: Fatigue Respiratory Lungs: SOB (mild, improving) Objective Data Data 07/03/17 07/04/17 19:00 07:00 Output Total 2500 ml Balance -2500 ml Hemodialysis 2500 ml Vital Signs Date Time Temp Pulse Resp B/P (MAP) Pulse Ox O2 Delivery O2 Flow Rate FiO2 07/03/17 15:00 98.6 70 20 145/70 (95) 94 07/03/17 15:00 70 07/03/17 15:00 94 Nasal Cannula 2.00 07/03/17 14:17 73 07/03/17 13:38 70 14 130/71 (90) 92 07/03/17 08:38 96 Nasal Cannula 2.00 07/03/17 08:00 98.5 75 14 140/73 (95) 95 07/03/17 08:00 97 Nasal Cannula 3.00 07/03/17 07:15 74 07/03/17 06:00 77 07/03/17 05:52 16 07/03/17 05:00 75 07/03/17 04:00 78 07/03/17 03:00 94 Nasal Cannula 3.00 07/03/17 03:00 99.0 83 18 135/67 (89) 94 07/03/17 03:00 80 07/03/17 02:00 80 07/03/17 01:00 78 07/03/17 00:00 82 07/02/17 23:00 99.0 85 16 137/65 (89) 94 07/02/17 23:00 74 07/02/17 23:00 94 Nasal Cannula 3.00 07/02/17 22:00 82 07/02/17 20:10 93 Nasal Cannula 2.00 07/02/17 20:00 98.8 80 18 140/67 (91) 93 07/02/17 19:53 Nasal Cannula 2.00 07/02/17 18:00 79 -: 07/03/17 1509 07/03/17 1509 Tubes & Lines: Vas-Cath, Abdul Physical Exam General Appearance: Comfortable Eyes Eye Exam: Sclera White Pulmonary Resp Exam: Breath Sounds Equal, Crackles, Decreased Bases Resp Remarks Few basilar crackles. Cardiology CV Exam: Regular Gastrointestinal/Abdomen GI Exam: Soft, Non-Tender Integumentary Skin Exam: Clear, Warm, Normal Turgor Extremeties Extremities Exam: Trace Edema (hips) Neurologic Neuro Exam: Alert, Awake, Speech Clear, Moving All Extremities Psychiatric Psych Exam: Appropriate Responses Assessment/Plan Discussed Condition With: Patient, Daughter Problem List: (1) Acute kidney insufficiency ICD Codes: N28.9 - Disorder of kidney and ureter, unspecified Status: Acute Plan: Contributory factors include hemodynamic issues with acute AZ, cardiac decompensation as well as now contrast nephrotoxicity with probable development of some degree of ATN. Patient's congestive heart failure improved clinically minimal presacral edema present. Patient was advised not to ambulate for the present without assistance especially just after dialysis. Patient still significantly debilitated given recent surgery and acute cardiac issues. Has also been on bed rest as discussed with them. Next hemodialysis tentatively Friday. Start Ergocalciferol weekly. Will continue to monitor. UOP picked up a bit, but as discussed with the patient, he likely will be chronic HD given his significantly impaired renal functions prior to his AZ. Answered many questions today regarding current HD, exchanging to [facility], and potential transfer to [facility] in the near future. He is going to rehab after his discharge and prefers to fo to [facility]. He has been advised that we do not round there and another nephrology group will see him while there, but desires to f/u again with our practice after discharge. (2) NSTEMI (non-ST elevated myocardial infarction) ICD Codes: I21.4 - Non-ST elevation (NSTEMI) myocardial infarction Status: Acute Plan: Management per cardiology. (3) CKD (chronic kidney disease) stage 4, GFR 15-29 ml/min ICD Codes: N18.4 - Chronic kidney disease, stage 4 (severe) Status: Chronic Plan: History of progressive and severe stage IV CKD. Prior to this admission associated with chronic metabolic acidosis being managed by by mouth sodium bicarbonate. As indicated above the patient was being prepared for initiation of dialysis the not too distant future. Peritoneal dialysis was his chronic modality of choice. (4) Hypertension ICD Codes: I10 - Hypertension Status: Chronic (5) chronic metabolic acidosis Status: Chronic Plan: Resolved with HD (6) Urinary retention ICD Codes: R33.9 - Retention of urine, unspecified Plan: Discontinue Abdul catheter at D/C pending stabilization and evaluation by urology which was planned as an outpatient. (7) Anemia of renal disease ICD Codes: D63.1 - Anemia in chronic kidney disease Plan: With a component of iron deficiency and hemodilution. Epogen with HD as ordered Plan The exam, history, and the medical decision-making described in the above note were completed with the assistance of the MAGALI. I reviewed and agree with the findings presented. Didi Valencia MD Jul 03, 2017 17:11
--- NOTE | 2017-07-03 18:48 | EKG ---
Date Performed: 07/03/2017 Time Performed: 14:11:12 PTAGE: 72 years EKG: Sinus rhythm . Inferior/lateral ST-T changes are nonspecific Borderline ECG PREVIOUS TRACING : 06/29/2017 07.27 Compared to previous tracing, sinus rhythm has replaced sin us rhythm, inferior/lateral ST/T changes have improved. DOCTOR: Sudhir Lee Interpretating Date/Time 07/03/2017 18:47:09
[2017-07-03] MEDS: PRAVASTATIN SOD 20 MG TAB PO SCH (20:26)
[2017-07-03] MEDS: TAMSULOSIN HCL 0.4 MG CAP PO SCH (20:26)
[2017-07-03] MEDS: HYDROmorphone HCL PF 1 MG/ML VIAL IV PRN (20:31)
[2017-07-04] VITALS (11 sets, daily range): BP systolic 115–140; BP diastolic 57–84; PULSE 68–83; RESP 16–18; TEMP 97.8–99.9; O2SAT 90–97
[2017-07-04] MEDS: RESP: ALBUTEROL 2.5 MG/IPRATROPIUM 0.5 MG NEB (SCH) NEB ×6 (00:08→19:43)
[2017-07-04] MEDS: HYDROmorphone HCL PF 1 MG/ML VIAL IV PRN (03:25)
[2017-07-04] MEDS: HEPARIN SODIUM - SQ 10,000 UNITS/ML VIAL SQ SCH ×3 (06:14→23:04)
[2017-07-04 07:35] LABS: CREATINE KINASE 101 U/L (39-308)
[2017-07-04] MEDS: INSULIN NovoLIN REGULAR SUPPLEMENTAL SCALE SQ SCH ×4 (08:00→20:38)
[2017-07-04] MEDS: FLUTICASONE PROPIONATE 50 MCG/ACT 16 GM NASAL SPRAY NASAL SCH ×2 (09:00→20:30)
[2017-07-04] MEDS: PATIENT OWN MEDICATION PO SCH (09:00)
[2017-07-04] MEDS: ASPIRIN 81 MG CHEW TAB PO SCH (09:01)
[2017-07-04] MEDS: PANTOPRAZOLE SOD 20 MG DELAYED RELEASE TAB PO SCH (09:01)
[2017-07-04] MEDS: LACTULOSE SYRUP 20 GM/30 ML CUP PO SCH (09:01)
[2017-07-04] MEDS: POLYETHYLENE GLYCOL 17 GM PKG PO SCH ×2 (09:01→20:15)
[2017-07-04] MEDS: FOLIC ACID 1 MG TAB PO SCH (09:02)
[2017-07-04] MEDS: DOCUSATE SODIUM 50 MG/SENNA 8.6 MG TAB PO SCH ×2 (09:02→20:30)
[2017-07-04] MEDS: AMIODARONE 200 MG TAB PO SCH ×2 (09:02→20:30)
[2017-07-04] MEDS: VITAMIN B CMPLX/VITC/FOLIC AC CAP PO SCH (09:02)
[2017-07-04] MEDS: TICAGRELOR 90 MG TAB PO SCH ×2 (09:02→20:30)
[2017-07-04] MEDS: SODIUM CHLORIDE 0.9% FLUSH 10 ML FLUSH IV FLUSH SCH ×2 (09:02→20:30)
[2017-07-04] MEDS: CARVEDILOL 3.125 MG TAB PO SCH ×2 (09:02→20:38)
[2017-07-04] MEDS: ALLOPURINOL 100 MG TAB PO SCH ×2 (09:03→20:30)
[2017-07-04] MEDS: ACETAMINOPHEN 325 MG TAB PO PRN (10:34)
--- NOTE | 2017-07-04 13:50 | HHI.PR ---
Subjective Remarks Follow-up for acute on chronic renal failure, NSTEMI, and vasovagal episode. Patient stated that he feels better today. He had an episode of vasovagal yesterday where he was on toilet right after dialysis and not any food and passed out. He stated that he hit the left side of his ribs. He stated that Tylenol is not working and Dilaudid makes him sleepy and is asking for medication for that. Deny any shortness of breathing or cough. Pain worsened with taking deep breaths. Patient is asking if he can walk today. His and daughter at the bedside during the interview. Patient also stated that the nasal sprays are helping a lot with his nasal congestion. He denies any chest pain, shortness of breathing, palpitation, lightheadedness/dizziness. No other complaints. Patient is now off of oxygen. Objective Vitals Vital Signs Date Time Temp Pulse Resp B/P (MAP) Pulse Ox O2 Delivery O2 Flow Rate FiO2 07/04/17 11:46 16 07/04/17 11:00 80 07/04/17 11:00 98.0 80 16 115/84 (94) 97 07/04/17 11:00 97 Nasal Cannula 2.00 07/04/17 08:15 94 Nasal Cannula 2.00 07/04/17 07:00 77 07/04/17 07:00 98.4 77 18 136/71 (92) 96 07/04/17 07:00 96 Nasal Cannula 2.00 07/04/17 04:25 16 07/04/17 03:00 95 Nasal Cannula 2.00 07/04/17 03:00 70 07/04/17 03:00 99.9 68 18 137/62 (87) 95 07/03/17 23:00 98.3 76 18 137/72 (93) 95 07/03/17 23:00 95 Nasal Cannula 2.00 07/03/17 23:00 93 07/03/17 20:50 94 Nasal Cannula 2.00 07/03/17 19:00 98.7 79 20 142/78 (99) 94 07/03/17 19:00 84 07/03/17 19:00 94 Nasal Cannula 2.00 07/03/17 15:00 98.6 70 20 145/70 (95) 94 07/03/17 15:00 70 07/03/17 15:00 94 Nasal Cannula 2.00 07/03/17 14:17 73 I/O 07/03/17 07/03/17 07/03/17 07/04/17 07/04/17 07/04/17 07:00 15:00 23:00 07:00 15:00 23:00 Intake Total 480 ml 440 ml Output Total 1000 ml 2500 ml 1650 ml 500 ml Balance -520 ml -2500 ml -1650 ml -60 ml Intake Oral 480 ml 440 ml Output Urine Total 1000 ml 1650 ml 500 ml Hemodialysis 2500 ml # Bowel Movements 1 0 Result Diagram: 07/03/17 1509 07/03/17 1509 Objective Remarks GENERAL: in NAD CARDIOVASCULAR: Regular rate and rhythm without murmurs, gallops, or rubs. Positive tenderness to palpation of the left lower rib area. No ecchymosis noted. No deformity noted. RESPIRATORY: Breath sounds equal bilaterally. No accessory muscle use. GASTROINTESTINAL: Abdomen soft, non-tender, nondistended. MUSCULOSKELETAL: No cyanosis, or edema. BACK: Nontender without obvious deformity. No CVA tenderness. Medications and IVs Current Medications Al Hydrox/Mg Hydrox/Simethicone (Mag-Al Plus Susp Liq) 30 ml ONCE ONCE PO Last administered on 06/27/17 14:13; Start 06/27/17 at 13:45; Stop 06/27/17 at 13:46; Status DC Aspirin (Aspirin) 325 mg ONCE ONCE PO Last administered on 06/27/17 14:13; Start 06/27/17 at 14:00; Stop 06/27/17 at 14:01; Status DC Nitroglycerin (Nitrostat Sl) 0.4 mg ONCE ONCE SL Last administered on 14:19; Start 06/27/17 at 14:00; Stop 06/27/17 at 14:01; Status DC Nitroglycerin (Nitroglycerin 2% Oint) 0.5 inch ONCE ONCE TOPICAL Last administered on 06/27/17 14:23; Start 06/27/17 at 14:00; Stop 06/27/17 at 17:34 ; Status DC Atorvastatin Calcium (Lipitor) 80 mg ONCE ONCE PO ; Start 06/27/17 at 16:15; Stop 06/27/17 at 16:16; Status DC Sodium Chloride 1,000 ml @ 100 mls/hr Q10H IV Last administered on 06/27/17 16:48; Start 06/27/17 at 16:15; Stop 06/28/17 at 00:18; Status DC Heparin Sodium (Porcine) (Heparin Inj) 5,000 units UNSCH PRN IV PUSH APTT LESS THAN 25; Start 06/27/17 at 22:15; Status Cancel Heparin Sodium (Porcine) (Heparin Inj) 2,500 units UNSCH PRN IV PUSH APTT 25 TO 39; Start 06/27/17 at 22:15; Status Cancel Heparin Sodium/ Dextrose 250 ml @ 11.436 mls/ hr TITRATE PRN IV Coagulation management; Start 06/27/17 at 16:15; Status UNV Heparin Sodium (Porcine) (Heparin Inj) 4,000 units ONCE ONCE IV PUSH Last administered on 06/27/17 16:57; Start 06/27/17 at 16:15; Stop 06/27/17 at 16:16 ; Status DC Sodium Chloride (NS Flush) 2 ml BID IV FLUSH Last administered on 07/04/17 09 :02; Start 06/27/17 at 21:00 Sodium Chloride (NS Flush) 2 ml UNSCH PRN IV FLUSH FLUSH AFTER USING IV ACCESS ; Start 06/27/17 at 16:15 Nitroglycerin (Nitroglycerin 2% Oint) 1 inch Q6H TOP ; Start 06/27/17 at 17:00; Stop 06/27/17 at 17:22; Status DC Morphine Sulfate (Morphine Inj) 2 mg Q30M PRN IV PUSH CHEST PAIN; Start at 16:15; Stop 06/27/17 at 18:30; Status DC Heparin Sodium/ Dextrose 250 ml @ 11.436 mls/ hr TITRATE PRN IV Coagulation management Last administered on 06/27/17 16:59; Start 06/27/17 at 16:15; Stop 06/29/17 at 14:59; Status DC Atorvastatin Calcium (Lipitor) 80 mg ONCE ONCE PO Last administered on 16:57; Start 06/27/17 at 16:30; Stop 06/27/17 at 16:31; Status DC Pantoprazole Sodium (Protonix Inj) 40 mg Q24H IV PUSH Last administered on 06/30 18:13; Start 06/27/17 at 17:00; Stop 06/30/17 at 22:25; Status DC Allopurinol (Zyloprim) 100 mg BID PO Last administered on 07/04/17 09:03; Start 06/27/17 at 21:00 Carvedilol (Coreg) 3.125 mg BID PO Last administered on 07/01/17 13:08; Start 06/27/17 at 21:00; Stop 07/01/17 at 18:19; Status DC Sodium Bicarbonate (Sodium Bicarbonate) 650 mg TIDPC PO ; Start 06/27/17 at 18: 30; Stop 06/27/17 at 18:30; Status DC Nitroglycerin (Nitroglycerin 2% Oint) 1 inch Q6H TOP ; Start 06/27/17 at 20:00; Stop 06/27/17 at 20:00; Status DC Nitroglycerin/ Dextrose 250 ml @ 1.5 mls/hr TITRATE PRN IV Chest pain relief Last administered on 06/27/17 18:32; Start 06/27/17 at 17:45; Stop 06/29/17 at 14:59; Status DC Sodium Bicarbonate (Sodium Bicarbonate) 650 mg TIDPC PO Last administered on 18:13; Start 06/27/17 at 18:30; Stop 07/01/17 at 11:37; Status DC Hydromorphone HCl (Dilaudid Pf Inj) 2 mg Q4H PRN IVS pain Last administered on 07/01/17 00:05; Start 06/27/17 at 18:30; Stop 07/03/17 at 04:54; Status DC Albuterol/ Ipratropium (Duoneb Neb) 1 ampule ONCE ONCE NEB Last administered on 06/28/17 03:11; Start 06/28/17 at 00:45; Stop 06/28/17 at 00:46; Status DC Furosemide (Lasix Inj) 40 mg ONCE ONCE IV PUSH Last administered on 06/28/17 00:56; Start 06/28/17 at 00:45; Stop 06/28/17 at 00:46; Status DC Sodium Chloride 250 ml @ 15 mls/hr ONCE ONCE IV ; Start 06/28/17 at 01:30; Stop 06/28/17 at 18:09; Status DC Furosemide (Lasix Inj) 20 mg UNSCH X1 PRN IV PUSH SEE LABEL COMMENTS Last administered on 06/28/17 03:56; Start 06/28/17 at 01:30; Stop 06/28/17 at 15:00 ; Status DC Atropine Sulfate (Atropine Inj) 1 mg STK-MED ONCE .ROUTE ; Start 06/28/17 at 01: 58; Stop 06/28/17 at 01:59; Status DC Lidocaine HCl (Xylocaine 2% Inj) 100 mg STK-MED ONCE .ROUTE ; Start 06/28/17 at 01:58; Stop 06/28/17 at 01:59; Status DC Epinephrine HCl (EPINEPHrine (1:10,000) INJ) 1 mg STK-MED ONCE .ROUTE ; Start 06/28/17 at 01:58; Stop 06/28/17 at 01:59; Status DC Albuterol/ Ipratropium (Duoneb Neb) 1 ampule Q4HR NEB NEB Last administered on 07/01/17 17:05; Start 06/28/17 at 04:00; Stop 07/01/17 at 17:30; Status DC Albuterol/ Ipratropium (Duoneb Neb) 1 ampule Q2HR NEB PRN NEB SHORTNESS OF BREATH Last administered on 06/28/17 13:50; Start 06/28/17 at 03:00; Stop 06/30 at 22:25; Status DC Dextrose (D50w (Vial) Inj) 50 ml UNSCH PRN IV PUSH HYPOGLYCEMIA-SEE COMMENTS; Start 06/28/17 at 03:00 Glucagon (Glucagon Inj) 1 mg UNSCH PRN OTHER HYPOGLYCEMIA-SEE COMMENTS; Start 06/28/17 at 03:00 Insulin Human Regular (NovoLIN R SUPPLEMENTAL SCALE) 1 Q6H SQ ; Start 06/28/17 at 03:00; Stop 06/30/17 at 22:51; Status DC Influenza Virus Vaccine (Flu (Quadrivalent) Vaccine Inj) 0.5 ml ONCE ONCE IM ; Start 06/29/17 at 10:00; Stop 06/29/17 at 10:00; Status DC Heparin Sodium/ Sodium Chloride 1,000 ml @ As Directed STK-MED ONCE .ROUTE Last administered on 06/28/17 11:51; Start 06/28/17 at 11:51; Stop 06/28/17 at 11:52; Status DC Sodium Chloride 500 ml @ As Directed STK-MED ONCE .ROUTE ; Start 06/28/17 at 11 :51; Stop 06/28/17 at 11:52; Status DC Midazolam HCl (Versed Inj) 2 mg STK-MED ONCE .ROUTE Last administered on 11:51; Start 06/28/17 at 11:51; Stop 06/28/17 at 11:52; Status DC Fentanyl Citrate (fentaNYL INJ) 100 mcg STK-MED ONCE .ROUTE Last administered on 06/28/17 11:51; Start 06/28/17 at 11:51; Stop 06/28/17 at 11:52; Status DC Heparin Sodium (Porcine) (Heparin Inj) 10,000 units STK-MED ONCE .ROUTE Last administered on 06/28/17 12:34; Start 06/28/17 at 12:34; Stop 06/28/17 at 12:35 ; Status DC Ticagrelor (Brilinta) 180 mg STK-MED ONCE PO Last administered on 06/28/17 13: 16; Start 06/28/17 at 13:16; Stop 06/28/17 at 13:17; Status DC Aspirin (Aspirin Chew) 81 mg STK-MED ONCE .ROUTE Last administered on 13:16; Start 06/28/17 at 13:16; Stop 06/28/17 at 13:17; Status DC Ticagrelor (Brilinta) 180 mg STK-MED ONCE PO ; Start 06/28/17 at 13:32; Stop at 13:33; Status DC Aspirin (Aspirin Chew) 81 mg DAILY PO Last administered on 07/04/17 09:01; Start 06/29/17 at 09:00 Ticagrelor (Brilinta) 90 mg BID PO Last administered on 07/04/17 09:02; Start 06/28/17 at 21:00 Pravastatin Sodium (Pravachol) 20 mg HS PO Last administered on 07/02/17 20: 05; Start 06/28/17 at 21:00; Stop 07/03/17 at 20:21; Status DC Iron Sucrose 100 mg/Sodium Chloride 105 ml @ 105 mls/hr DAILY IV Last administered on 07/01/17 08:48; Start 06/29/17 at 09:00; Stop 07/01/17 at 09: 59; Status DC Acetylcysteine (Mucomyst 20% Liq) 1,200 mg BID PO Last administered on 20:31; Start 06/28/17 at 14:30; Stop 06/29/17 at 04:00; Status DC Fluticasone Propionate (Flonase Ethan Spr) 1 spray Q12H PRN NASAL NASAL CONGESTION Last administered on 06/30/17 10:11; Start 06/28/17 at 14:45; Stop 07/03/17 at 14:25; Status DC Patient Own Medication PT OWN MED: OPTIC ARED... DAILY PO Last administered on 07/04/17 09:00; Start 06/28/17 at 16:00 Metoprolol Tartrate (Lopressor Inj) 5 mg STK-MED ONCE .ROUTE ; Start 06/28/17 at 17:32; Stop 06/28/17 at 17:33; Status DC Metoprolol Tartrate (Lopressor Inj) 5 mg Q6H PRN IV PUSH Pulse > 120 Last administered on 06/28/17 17:46; Start 06/28/17 at 17:30 Carvedilol (Coreg) 6.25 mg ONCE ONCE PO Last administered on 06/28/17 18:07; Start 06/28/17 at 18:15; Stop 06/28/17 at 18:16; Status DC Acetaminophen (Tylenol) 650 mg Q6H PRN PO SEE LABEL COMMENTS Last administered on 07/04/17 10:34; Start 06/28/17 at 21:30 Metoprolol Tartrate (Lopressor Inj) 5 mg NOW ONCE IV PUSH Last administered on 06/28/17 21:58; Start 06/28/17 at 21:45; Stop 06/28/17 at 21:46; Status DC Influenza Virus Vaccine (Flu (Quadrivalent) Vaccine Inj) 0.5 ml ONCE ONCE IM Last administered on 06/30/17 10:18; Start 06/30/17 at 09:00; Stop 06/30/17 at 09:01; Status DC Bumetanide (Bumex Inj) 1 mg ONCE ONCE IV PUSH Last administered on 06/29/17 12:10; Start 06/29/17 at 12:30; Stop 06/29/17 at 12:31; Status DC Amiodarone HCl (Cordarone) 400 mg Q12HR PO Last administered on 07/04/17 09: 02; Start 06/29/17 at 15:00 Iohexol (OMNIPAQUE 350 INJ (Rn Complex Care)) 100 ml STK-MED ONCE OTHER ; Start at 08:44; Stop 06/30/17 at 08:45; Status DC Iohexol (OMNIPAQUE 350 INJ (Rn Complex Care)) 50 ml STK-MED ONCE OTHER ; Start at 08:44; Stop 06/30/17 at 08:45; Status DC Sodium Chloride 1,000 ml @ 0 mls/hr Q0M PRN OTHER For Prime & Rinse Back; Start 06/30/17 at 10:38 Heparin Sodium (Porcine) (Heparin Inj) 8,000 units UNSCH PRN IV FLUSH WITH DIALYSIS; Start 06/30/17 at 10:45 Sodium Chloride 1,000 ml @ 200 mls/hr Q5H PRN IV WITH DIALYSIS; Start 06/30/17 at 10:38 Sodium Chloride 1,000 ml @ 0 mls/hr Q0M PRN OTHER WITH DIALYSIS; Start at 10:38 Mannitol (Mannitol Inj) 12.5 gm UNSCH PRN IV WITH DIALYSIS; Start 06/30/17 at 10:45 Albumin Human (Albumin 25% Inj) 25 gm UNSCH PRN IV WITH DIALYSIS; Start at 10:45 Sodium Chloride (NS Flush) 5 ml UNSCH PRN IV FLUSH WITH DIALYSIS; Start at 10:45 Heparin Sodium (Porcine) (Heparin Inj) UNSCH PRN .XX WITH DIALYSIS; Start 06/30/17 at 10:45 Gentamicin Sulfate (Gentamicin (Dialysis) Inj) 20 mg UNSCH PRN OTHER WITH DIALYSIS Last administered on 06/30/17 13:54; Start 06/30/17 at 10:45 Ondansetron HCl (Zofran Inj) 4 mg UNSCH PRN IV PUSH WITH DIALYSIS; Start at 10:45 Acetaminophen (Tylenol) 650 mg UNSCH PRN PO for headach, pain, temp > 101F Last administered on 07/01/17 20:24; Start 06/30/17 at 10:45 Diphenhydramine HCl (Benadryl) 25 mg UNSCH PRN PO for hives/itching/ anaphylaxis Last administered on 07/01/17 20:25; Start 06/30/17 at 10:45 Nitroglycerin (Nitrostat Sl) 0.4 mg UNSCH PRN SL CHEST PAIN; Start 06/30/17 at 10:45 Clonidine (Catapres) 0.1 mg UNSCH PRN PO for BP > 180/100 X 2 readings; Start 06/30/17 at 10:45 Epoetin Benji (Epogen Inj) 5,000 units UNSCH PRN IV PUSH WITH DIALYSIS Last administered on 06/30/17 13:54; Start 06/30/17 at 10:45 Gelatin (Gelfoam 12 Mm/7 Mm Top) 1 foam UNSCH PRN TOP SEE LABEL COMMENTS; Start 06/30/17 at 10:45 Sodium Chloride (NS Flush) UNSCH PRN IV FLUSH SEE PROTOCOL; Start 06/30/17 at 12:00 Heparin Sodium (Porcine) (Heparin Inj) UNSCH PRN IV FLUSH SEE PROTOCOL; Start 06/30/17 at 12:00 Heparin Sodium (Porcine) (Heparin Inj) 2,200 units STK-MED ONCE IV Last administered on 06/30/17 12:03; Start 06/30/17 at 12:03; Stop 06/30/17 at 12:05 ; Status DC Albuterol Sulfate (Albuterol Neb) 2.5 mg Q2HR NEB PRN NEB dyspnea; Start at 22:30 Pantoprazole Sodium (Protonix) 20 mg DAILY PO Last administered on 07/04/17 09:01; Start 07/01/17 at 09:00 Senna/Docusate Sodium (Ally-Colace) 1 tab BID PO Last administered on 09:02; Start 07/01/17 at 09:00 Glycerin (Glycerin Adult Supp) 2 gm DAILY PRN RECTAL CONSTIPATION; Start at 22:45 Polyethylene Glycol (Miralax) 17 gm BID PO Last administered on 07/04/17 09: 01; Start 07/01/17 at 09:00 Lactulose (Lactulose Liq) 30 ml ONCE ONCE PO Last administered on 07/01/17 03:13; Start 06/30/17 at 22:45; Stop 06/30/17 at 22:46; Status DC Lactulose (Lactulose Liq) 30 ml DAILY PO Last administered on 07/04/17 09:01 ; Start 07/01/17 at 09:00 Methylnaltrexone Rice (Relistor Inj) 12 mg ONCE ONCE SQ Last administered on 07/01/17 00:04; Start 06/30/17 at 22:45; Stop 06/30/17 at 22:46; Status DC Glycerin (Glycerin Adult Supp) 2 gm BID PRN RECTAL CONSTIPATION; Start at 22:45 Insulin Human Regular (NovoLIN R SUPPLEMENTAL SCALE) 1 ACHS SQ ; Start at 08:00 Tamsulosin HCl (Flomax) 0.8 mg HS PO Last administered on 07/03/17 20:26; Start 07/01/17 at 21:00 Calcium Acetate (Phoslo) 667 mg TID PO Last administered on 07/02/17 17:25; Start 07/01/17 at 09:00; Stop 07/02/17 at 17:47; Status DC Heparin Sodium (Porcine) (Heparin Inj) 5,000 units Q8HR SQ Last administered on 07/04/17 06:14; Start 07/01/17 at 14:00 Al Hydrox/Mg Hydrox/Simethicone (Mag-Al Plus Susp Liq) 30 ml Q6HR PRN PO dyspepsia; Start 07/01/17 at 18:00 Albuterol/ Ipratropium (Duoneb Neb) 1 ampule Q4HR NEB NEB Last administered on 07/04/17 11:55; Start 07/01/17 at 20:00 Carvedilol (Coreg) 6.25 mg BID PO Last administered on 07/04/17 09:02; Start 07/01/17 at 21:00 Folic Acid (Folate) 1 mg DAILY PO Last administered on 07/04/17 09:02; Start 07/02/17 at 09:00 Vitamin B Complex/ Vit C/Folic Acid (Nephrocaps) 1 cap DAILY PO Last administered on 07/04/17 09:02; Start 07/02/17 at 09:00 Ergocalciferol (Drisdol) 50,000 units Q7D PO ; Start 07/02/17 at 18:00 Furosemide (Lasix Inj) 40 mg ONCE ONCE IV PUSH Last administered on 02:58; Start 07/03/17 at 03:00; Stop 07/03/17 at 03:01; Status DC Hydromorphone HCl (Dilaudid Pf Inj) 2 mg Q4H PRN IVS pain Last administered on 07/03/17 05:22; Start 07/03/17 at 05:00; Stop 07/03/17 at 20:22; Status DC Sodium Chloride (Baby Allyn Saline 0.65% Ethan Drp/ [place]) 2 drop UNSCH PRN EACH NARE nasal congestion; Start 07/03/17 at 15:00 Fluticasone Propionate (Flonase Ethan Spr) 1 spray BID NASAL Last administered on 07/04/17 09:00; Start 07/03/17 at 15:00 Pravastatin Sodium (Pravachol) 20 mg HS PO Last administered on 07/03/17 20: 26; Start 07/03/17 at 21:00 Hydromorphone HCl (Dilaudid Pf Inj) 2 mg Q4H PRN IV PAIN SCALE 1 TO 10 Last administered on 07/04/17 03:25; Start 07/03/17 at 20:30; Stop 07/04/17 at 13 :44; Status DC Acetaminophen/ Hydrocodone Bitart ([place] 5-325 Mg) 1 tab Q4H PRN PO pain 1-7; Start 07/04/17 at 13:45; Status UNV Acetaminophen/ Hydrocodone Bitart ([place] 5-325 Mg) 2 tab Q4H PRN PO pain 8-10 ; Start 07/04/17 at 13:45; Status UNV A/P Problem List: (1) Anemia ICD Code: D64.9 - Anemia, unspecified (2) Hyponatremia ICD Code: E87.1 - Hypo-osmolality and hyponatremia (3) Urinary retention ICD Code: R33.9 - Retention of urine, unspecified (4) CKD (chronic kidney disease) stage 4, GFR 15-29 ml/min ICD Code: N18.4 - Chronic kidney disease, stage 4 (severe) Status: Chronic (5) Primary osteoarthritis of right knee ICD Code: M17.11 - Unilateral primary osteoarthritis, right knee (6) NSTEMI (non-ST elevated myocardial infarction) ICD Code: I21.4 - Non-ST elevation (NSTEMI) myocardial infarction Status: Acute (7) status post left total knee replacement Status: Acute Assessment and Plan 72-year-old male p/w chest pain Syncope 07/03 -evaluated by intensive care. Most likely secondary to vasovagal episode. He has been asymptomatic since that one episode. Left lower rib pain -Due to trauma from syncopal episode. -Will try [place] to control pain. -Patient already has incentive spirometry at bedside. NSTEMI/atrial fibrillation/hypertension -Status post cardiac catheterization with stents to the RCA and left circumflex -on aspirin 81 mg daily and Ticagrelor 90 mg twice a day -Cardiology/Dr. cote following -Echocardiogram 06/30 revealed EF 50-55%. Moderate to severe TR. PAP 60 mmHg -Continue pravastatin, amiodarone, carvedilol. Amlodipine held. -Patient poor candidate for anticoagulation at the moment. Acute hypoxemic respiratory failure likely secondary to pulmonary edema/ pulmonary hypertension -Continue to wean off of nasal cannula as tolerated. -VQ scan 06/30 low probability for pulmonary embolism. -Patient is receiving hemodialysis to help with fluid removal. Acute and chronic kidney disease stage V -Hemodialysis catheter right IJ placed by IR today. -Per neurologist this is most likely end-stage renal disease and he most likely will need long-term dialysis. Patient wants peritoneal dialysis. -Continue with dialysis per air box tester. Nasal congestion -Improving with Flonase and saline spray. BPH/gout/anemia secondary to chronic kidney disease -Continue home medication. Status post right total knee replacement by Dr. Marcelino -Knee device -Orthosis following. Hyponatremia/Hyperphosphatemia -Replace electrolytes as clinically indicated -calcium acetate 667 mg 3 times a day Prophylaxis - GI - pantoprazole - DVT - SCD/pharmacological prophylaxis/therapy once okay with cardiology Discharge Planning Once patient is cleared by air box tester he can be discharged to rehabilitation. He wants peritoneal dialysis. Sejal St MD Jul 04, 2017 13:50
[2017-07-04] MEDS: ACETAMINOPHEN/HYDROcodone 325 MG/5 MG TAB PO PRN ×2 (14:00→20:29)
--- NOTE | 2017-07-04 14:21 | HHI.NPPN ---
Subjective History of Present Illness This patient is a 72-year-old male with a history of progressive severe chronic kidney disease with a baseline GFR of approximately 20 although more recently has had GFR is below this level. Patient underwent a total right knee arthroplasty deferred of June, for severe degenerative joint disease. Patient wished to proceed despite the severity of his chronic kidney disease and risk of worsening renal function because of the severity of debilitation associated with his degenerative joint disease. Patient's renal function fortunately did remain relatively stable postoperatively and the patient was discharged in stable clinical condition except for the fact that he did develop some bladder outlet obstruction and required an indwelling Abdul catheter with follow-up with urology post discharge. Patient noted to have presented to the emergency room in [place] with complaints of "heartburn". Subsequent diagnosis having and non-ST HI with elevations in troponin. His serum creatinine level on presentation was 3.6 subsequently deteriorating today to 3.9. He is also said to have developed some respiratory insufficiency in route to the main campus. Chest x-ray showed some evidence of interstitial edema and symptomatology improved with IV furosemide. Patient was seen by cardiology and was taken urgently to the cardiac catheter lab for angiogram. Patient did receive IV saline since admission. Patient now status post placement of 2 bare metal stents. Interval History Pt s/p vasovagal episode 07/03. No recurrent Feeling better today. Getting up out of bed to ambulate. Abdul removed today and is urinating on his own. (Deborah Garcia) Review of Systems Respiratory Lungs: SOB (mild, improving) (Deborah Garcia) Objective Data Data Vital Signs Date Time Temp Pulse Resp B/P (MAP) Pulse Ox O2 Delivery O2 Flow Rate FiO2 07/04/17 11:46 16 07/04/17 11:00 80 07/04/17 11:00 98.0 80 16 115/84 (94) 97 07/04/17 11:00 97 Nasal Cannula 2.00 07/04/17 08:15 94 Nasal Cannula 2.00 07/04/17 07:00 77 07/04/17 07:00 98.4 77 18 136/71 (92) 96 07/04/17 07:00 96 Nasal Cannula 2.00 07/04/17 04:25 16 07/04/17 03:00 95 Nasal Cannula 2.00 07/04/17 03:00 70 07/04/17 03:00 99.9 68 18 137/62 (87) 95 07/03/17 23:00 98.3 76 18 137/72 (93) 95 07/03/17 23:00 95 Nasal Cannula 2.00 07/03/17 23:00 93 07/03/17 20:50 94 Nasal Cannula 2.00 07/03/17 19:00 98.7 79 20 142/78 (99) 94 07/03/17 19:00 84 07/03/17 19:00 94 Nasal Cannula 2.00 07/03/17 15:00 98.6 70 20 145/70 (95) 94 07/03/17 15:00 70 07/03/17 15:00 94 Nasal Cannula 2.00 07/03/17 14:17 71 (Deborah Garcia) -: 07/03/17 1509 07/03/17 1509 Tubes & Lines: Vas-Cath, Abdul Medication Review Current Medications Medications (Trade) Dose Ordered Sig/Cory Route Start Time Stop Time Status Last Admin (NS Flush) 2 ml BID IV FLUSH 06/27/17 21:00 07/04/17 09:02 (NS Flush) 2 ml UNSCH PRN IV FLUSH 06/27/17 16:15 (Zyloprim) 100 mg BID PO 06/27/17 21:00 07/04/17 09:03 (D50w (Vial) Inj) 50 ml UNSCH PRN IV PUSH 06/28/17 03:00 (Glucagon Inj) 1 mg UNSCH PRN OTHER 06/28/17 03:00 (Aspirin Chew) 81 mg DAILY PO 06/29/17 09:00 07/04/17 09:01 (Brilinta) 90 mg BID PO 06/28/17 21:00 07/04/17 09:02 Patient Own Medication PT OWN MED: OPTIC ARED... DAILY PO 06/28/17 16:00 07/04/17 09:00 (Lopressor Inj) 5 mg Q6H PRN IV PUSH 06/28/17 17:30 06/28/17 17:46 (Tylenol) 650 mg Q6H PRN PO 06/28/17 21:30 07/04/17 10:34 (Cordarone) 400 mg Q12HR PO 06/29/17 15:00 07/04/17 09:02 Sodium Chloride 1,000 ml @ 0 mls/hr Q0M PRN OTHER 06/30/17 10:38 (Heparin Inj) 8,000 units UNSCH PRN IV FLUSH 06/30/17 10:45 Sodium Chloride 1,000 ml @ 200 mls/hr Q5H PRN IV 06/30/17 10:38 Sodium Chloride 1,000 ml @ 0 mls/hr Q0M PRN OTHER 06/30/17 10:38 (Mannitol Inj) 12.5 gm UNSCH PRN IV 06/30/17 10:45 (Albumin 25% Inj) 25 gm UNSCH PRN IV 06/30/17 10:45 (NS Flush) 5 ml UNSCH PRN IV FLUSH 06/30/17 10:45 (Heparin Inj) UNSCH PRN .XX 06/30/17 10:45 (Gentamicin (Dialysis) Inj) 20 mg UNSCH PRN OTHER 06/30/17 10:45 06/30/17 13:54 (Zofran Inj) 4 mg UNSCH PRN IV PUSH 06/30/17 10:45 (Tylenol) 650 mg UNSCH PRN PO 06/30/17 10:45 07/01/17 20:24 (Benadryl) 25 mg UNSCH PRN PO 06/30/17 10:45 07/01/17 20:25 (Nitrostat Sl) 0.4 mg UNSCH PRN SL 06/30/17 10:45 (Catapres) 0.1 mg UNSCH PRN PO 06/30/17 10:45 (Epogen Inj) 5,000 units UNSCH PRN IV PUSH 06/30/17 10:45 06/30/17 13:54 (Gelfoam 12 Mm/7 Mm Top) 1 foam UNSCH PRN TOP 06/30/17 10:45 (NS Flush) UNSCH PRN IV FLUSH 06/30/17 12:00 (Heparin Inj) UNSCH PRN IV FLUSH 06/30/17 12:00 (Albuterol Neb) 2.5 mg Q2HR NEB PRN NEB 06/30/17 22:30 (Protonix) 20 mg DAILY PO 07/01/17 09:00 07/04/17 09:01 (Ally-Colace) 1 tab BID PO 07/01/17 09:00 07/04/17 09:02 (Glycerin Adult Supp) 2 gm DAILY PRN RECTAL 06/30/17 22:45 (Miralax) 17 gm BID PO 07/01/17 09:00 07/04/17 09:01 (Lactulose Liq) 30 ml DAILY PO 07/01/17 09:00 07/04/17 09:01 (Glycerin Adult Supp) 2 gm BID PRN RECTAL 06/30/17 22:45 (NovoLIN R SUPPLEMENTAL SCALE) 1 ACHS SQ 07/01/17 08:00 (Flomax) 0.8 mg HS PO 07/01/17 21:00 07/03/17 20:26 (Heparin Inj) 5,000 units Q8HR SQ 07/01/17 14:00 07/04/17 06:14 (Mag-Al Plus Susp Liq) 30 ml Q6HR PRN PO 07/01/17 18:00 (Duoneb Neb) 1 ampule Q4HR NEB NEB 07/01/17 20:00 07/04/17 11:55 (Coreg) 6.25 mg BID PO 07/01/17 21:00 07/04/17 09:02 (Folate) 1 mg DAILY PO 07/02/17 09:00 07/04/17 09:02 (Nephrocaps) 1 cap DAILY PO 07/02/17 09:00 07/04/17 09:02 (Drisdol) 50,000 units Q7D PO 07/02/17 18:00 (Baby [place] Saline 0.65% Ethan Drp/ [place]) 2 drop UNSCH PRN EACH NARE 07/03/17 15:00 (Flonase Ethan Spr) 1 spray BID NASAL 07/03/17 15:00 07/04/17 09:00 (Pravachol) 20 mg HS PO 07/03/17 21:00 07/03/17 20:26 ([place] 5-325 Mg) 1 tab Q4H PRN PO 07/04/17 13:45 UNV ([place] 5-325 Mg) 2 tab Q4H PRN PO 07/04/17 13:45 UNV (Deborah Garcia) Physical Exam General Appearance: Comfortable (Deborah Garcia) Eyes Eye Exam: Sclera White (Deborah Garcia) Pulmonary Resp Exam: Clear Bilaterally, Breath Sounds Equal (Deborah Garcia) Cardiology CV Exam: Regular (Deborah Garcia) Gastrointestinal/Abdomen GI Exam: Soft, Non-Tender (Deborah Garcia) Integumentary Skin Exam: Clear, Warm, Normal Turgor (Deborah Garcia) Extremeties Extremities Exam: No Edema (Deborah Garcia) Neurologic Neuro Exam: Alert, Awake, Speech Clear, Moving All Extremities (Deborah Garcia) Psychiatric Psych Exam: Appropriate Responses (Deborah Garcia) Assessment/Plan Discussed Condition With: Patient, Daughter Problem List: (1) Acute kidney insufficiency ICD Codes: N28.9 - Disorder of kidney and ureter, unspecified Status: Acute Plan: Contributory factors include hemodynamic issues with acute HI, cardiac decompensation as well as now contrast nephrotoxicity with probable development of some degree of ATN. s/p vasovagal response 07/03 Urinating more Next HD 07/05 with minimal UF Continue TTS schedule He is going to rehab after his discharge and prefers to fo to [facility]. He has been advised that we do not round there and another nephrology group will see him while there, but desires to f/u again with our practice after discharge. (2) NSTEMI (non-ST elevated myocardial infarction) ICD Codes: I21.4 - Non-ST elevation (NSTEMI) myocardial infarction Status: Acute Plan: Management per cardiology. (3) CKD (chronic kidney disease) stage 4, GFR 15-29 ml/min ICD Codes: N18.4 - Chronic kidney disease, stage 4 (severe) Status: Chronic Plan: History of progressive and severe stage IV CKD. Prior to this admission associated with chronic metabolic acidosis being managed by by mouth sodium bicarbonate. As indicated above the patient was being prepared for initiation of dialysis the not too distant future. Peritoneal dialysis was his chronic modality of choice. (4) Hypertension ICD Codes: I10 - Hypertension Status: Chronic (5) chronic metabolic acidosis Status: Chronic Plan: Resolved with HD (6) Urinary retention ICD Codes: R33.9 - Retention of urine, unspecified Plan: Improving. Abdul out 07/04 and urinating on his own. (7) Anemia of renal disease ICD Codes: D63.1 - Anemia in chronic kidney disease Plan: With a component of iron deficiency and hemodilution. Epogen with HD as ordered (Deborah Garcia) Plan The exam, history, and the medical decision-making described in the above note were completed with the assistance of the PA-C. I reviewed and agree with the findings presented. (Didi Valencia MD) Deborah Garcia Jul 04, 2017 14:20 Didi Valencia MD Jul 05, 2017 14:39
--- NOTE | 2017-07-04 15:05 | PD.ORT.PN ---
Subjective Post Op Day #: 11 Subjective Remarks He had a syncopal episode yesterday and was resuscitated He has left rib pain. He is able to do SLR. The CPM has helped with his knee but it fits poorly into the bed here. Range of Motion 0 to 90 degrees. Distance Walked 60 feet with PT yesterday. Walked in the [place] today. Objective Vitals Vital Signs Date Time Temp Pulse Resp B/P (MAP) Pulse Ox O2 Delivery O2 Flow Rate FiO2 07/04/17 11:46 16 07/04/17 11:00 80 07/04/17 11:00 98.0 80 16 115/84 (94) 97 07/04/17 11:00 97 Nasal Cannula 2.00 07/04/17 08:15 94 Nasal Cannula 2.00 07/04/17 07:00 77 07/04/17 07:00 98.4 77 18 136/71 (92) 96 07/04/17 07:00 96 Nasal Cannula 2.00 07/04/17 04:25 16 07/04/17 03:00 95 Nasal Cannula 2.00 07/04/17 03:00 70 07/04/17 03:00 99.9 68 18 137/62 (87) 95 07/03/17 23:00 98.3 76 18 137/72 (93) 95 07/03/17 23:00 95 Nasal Cannula 2.00 07/03/17 23:00 93 07/03/17 20:50 94 Nasal Cannula 2.00 07/03/17 19:00 98.7 79 20 142/78 (99) 94 07/03/17 19:00 84 07/03/17 19:00 94 Nasal Cannula 2.00 07/03/17 15:00 98.6 70 20 145/70 (95) 94 07/03/17 15:00 70 07/03/17 15:00 94 Nasal Cannula 2.00 I/O 07/03/17 07/03/17 07/03/17 07/04/17 07/04/17 07/04/17 07:00 15:00 23:00 07:00 15:00 23:00 Intake Total 480 ml 440 ml Output Total 1000 ml 2500 ml 1650 ml 500 ml Balance -520 ml -2500 ml -1650 ml -60 ml Intake Oral 480 ml 440 ml Output Urine Total 1000 ml 1650 ml 500 ml Hemodialysis 2500 ml # Bowel Movements 1 0 Result Diagram: 07/03/17 1509 07/03/17 1509 Objective Remarks He is resting relatively comfortably, supine in bed in the CPM. The wound is clean and dry. There is no erythema, nor induration. Assessment & Plan Ortho Post Op Day #: 11 Problem List: (1) Status post total right knee replacement ICD Codes: Z96.651 - Presence of right artificial knee joint Plan: Continue postop care and PT. Assessment and Plan Orthopaedically, he remains stable. Plans for the knee are as above. Please contact me if there are issues, concerns or questions about his knee. When he is ready for discharge, I believe that he would be a good candidate for placement in [facility], considering the TKR, recent [place] and stents and his renal insufficiency. This facility would offer better continuity of care compared to similar facilities elsewhere. He still has a postop appointment with me. Olayinka Marcelino MD (Charles) Jul 04, 2017 15:05
--- NOTE | 2017-07-04 17:07 | PD.CARD.PN ---
Subjective Subjective Remarks Mild SOB, chest wall pain, syncope yest (likely neurocardiogenic) Objective Medications Current Medications Medications (Trade) Dose Ordered Sig/Cory Route Start Time Stop Time Status Last Admin (NS Flush) 2 ml BID IV FLUSH 06/27/17 21:00 07/04/17 09:02 (NS Flush) 2 ml UNSCH PRN IV FLUSH 06/27/17 16:15 (Zyloprim) 100 mg BID PO 06/27/17 21:00 07/04/17 09:03 (D50w (Vial) Inj) 50 ml UNSCH PRN IV PUSH 06/28/17 03:00 (Glucagon Inj) 1 mg UNSCH PRN OTHER 06/28/17 03:00 (Aspirin Chew) 81 mg DAILY PO 06/29/17 09:00 07/04/17 09:01 (Brilinta) 90 mg BID PO 06/28/17 21:00 07/04/17 09:02 Patient Own Medication PT OWN MED: OPTIC ARED... DAILY PO 06/28/17 16:00 07/04/17 09:00 (Lopressor Inj) 5 mg Q6H PRN IV PUSH 06/28/17 17:30 06/28/17 17:46 (Tylenol) 650 mg Q6H PRN PO 06/28/17 21:30 07/04/17 10:34 (Cordarone) 400 mg Q12HR PO 06/29/17 15:00 07/04/17 09:02 Sodium Chloride 1,000 ml @ 0 mls/hr Q0M PRN OTHER 06/30/17 10:38 (Heparin Inj) 8,000 units UNSCH PRN IV FLUSH 06/30/17 10:45 Sodium Chloride 1,000 ml @ 200 mls/hr Q5H PRN IV 06/30/17 10:38 Sodium Chloride 1,000 ml @ 0 mls/hr Q0M PRN OTHER 06/30/17 10:38 (Mannitol Inj) 12.5 gm UNSCH PRN IV 06/30/17 10:45 (Albumin 25% Inj) 25 gm UNSCH PRN IV 06/30/17 10:45 (NS Flush) 5 ml UNSCH PRN IV FLUSH 06/30/17 10:45 (Heparin Inj) UNSCH PRN .XX 06/30/17 10:45 (Gentamicin (Dialysis) Inj) 20 mg UNSCH PRN OTHER 06/30/17 10:45 06/30/17 13:54 (Zofran Inj) 4 mg UNSCH PRN IV PUSH 06/30/17 10:45 (Tylenol) 650 mg UNSCH PRN PO 06/30/17 10:45 07/01/17 20:24 (Benadryl) 25 mg UNSCH PRN PO 06/30/17 10:45 07/01/17 20:25 (Nitrostat Sl) 0.4 mg UNSCH PRN SL 06/30/17 10:45 (Catapres) 0.1 mg UNSCH PRN PO 06/30/17 10:45 (Epogen Inj) 5,000 units UNSCH PRN IV PUSH 06/30/17 10:45 06/30/17 13:54 (Gelfoam 12 Mm/7 Mm Top) 1 foam UNSCH PRN TOP 06/30/17 10:45 (NS Flush) UNSCH PRN IV FLUSH 06/30/17 12:00 (Heparin Inj) UNSCH PRN IV FLUSH 06/30/17 12:00 (Albuterol Neb) 2.5 mg Q2HR NEB PRN NEB 06/30/17 22:30 (Protonix) 20 mg DAILY PO 07/01/17 09:00 07/04/17 09:01 (Ally-Colace) 1 tab BID PO 07/01/17 09:00 07/04/17 09:02 (Glycerin Adult Supp) 2 gm DAILY PRN RECTAL 06/30/17 22:45 (Miralax) 17 gm BID PO 07/01/17 09:00 07/04/17 09:01 (Lactulose Liq) 30 ml DAILY PO 07/01/17 09:00 07/04/17 09:01 (Glycerin Adult Supp) 2 gm BID PRN RECTAL 06/30/17 22:45 (NovoLIN R SUPPLEMENTAL SCALE) 1 ACHS SQ 07/01/17 08:00 (Flomax) 0.8 mg HS PO 07/01/17 21:00 07/03/17 20:26 (Heparin Inj) 5,000 units Q8HR SQ 07/01/17 14:00 07/04/17 14:23 (Mag-Al Plus Susp Liq) 30 ml Q6HR PRN PO 07/01/17 18:00 (Duoneb Neb) 1 ampule Q4HR NEB NEB 07/01/17 20:00 07/04/17 15:27 (Coreg) 6.25 mg BID PO 07/01/17 21:00 07/04/17 09:02 (Folate) 1 mg DAILY PO 07/02/17 09:00 07/04/17 09:02 (Nephrocaps) 1 cap DAILY PO 07/02/17 09:00 07/04/17 09:02 (Drisdol) 50,000 units Q7D PO 07/02/17 18:00 (Baby [place] Saline 0.65% Ethan Drp/ [place]) 2 drop UNSCH PRN EACH NARE 07/03/17 15:00 (Flonase Ethan Spr) 1 spray BID NASAL 07/03/17 15:00 07/04/17 09:00 (Pravachol) 20 mg HS PO 07/03/17 21:00 07/03/17 20:26 ([place] 5-325 Mg) 1 tab Q4H PRN PO 07/04/17 13:45 07/04/17 14:00 ([place] 5-325 Mg) 2 tab Q4H PRN PO 07/04/17 13:45 Vital Signs / I&O Vital Signs Date Time Temp Pulse Resp B/P (MAP) Pulse Ox O2 Delivery O2 Flow Rate FiO2 07/04/17 15:37 16 07/04/17 15:00 75 07/04/17 15:00 95 07/04/17 15:00 97.8 75 16 138/57 (84) 95 07/04/17 11:46 16 07/04/17 11:00 80 07/04/17 11:00 98.0 80 16 115/84 (94) 97 07/04/17 11:00 97 Nasal Cannula 2.00 07/04/17 08:15 94 Nasal Cannula 2.00 07/04/17 07:00 77 07/04/17 07:00 98.4 77 18 136/71 (92) 96 07/04/17 07:00 96 Nasal Cannula 2.00 07/04/17 04:25 16 07/04/17 03:00 95 Nasal Cannula 2.00 07/04/17 03:00 70 07/04/17 03:00 99.9 68 18 137/62 (87) 95 07/03/17 23:00 98.3 76 18 137/72 (93) 95 07/03/17 23:00 95 Nasal Cannula 2.00 07/03/17 23:00 93 07/03/17 20:50 94 Nasal Cannula 2.00 07/03/17 19:00 98.7 79 20 142/78 (99) 94 07/03/17 19:00 84 07/03/17 19:00 94 Nasal Cannula 2.00 I/O 07/03/17 07/03/17 07/03/17 07/04/17 07/04/17 07/04/17 06:59 14:59 22:59 06:59 14:59 22:59 Intake Total 480 ml 440 ml Output Total 1000 ml 2500 ml 1650 ml 500 ml Balance -520 ml -2500 ml -1650 ml -60 ml Intake Oral 480 ml 440 ml Output Urine Total 1000 ml 1650 ml 500 ml Hemodialysis 2500 ml # Bowel Movements 1 0 Physical Exam GENERAL: In NAD. SKIN: Warm and dry. HEAD: Normocephalic. EYES: No scleral icterus. No injection or drainage. NECK: Supple, trachea midline. No JVD or lymphadenopathy. CARDIOVASCULAR: Reg, without murmurs, gallops, or rubs. RESPIRATORY: Breath sounds equal bilaterally. No accessory muscle use. GASTROINTESTINAL: Abdomen soft, non-tender, nondistended. MUSCULOSKELETAL: No cyanosis, trace edema. Laboratory Laboratory Tests Test 07/03/17 20:42 07/04/17 03:49 Total Creatine Kinase 94 U/L 101 U/L Troponin I 0.48 NG/ML 0.46 NG/ML Thyroid Stimulating Hormone 3rd Gen 1.050 uIU/ML Creatine Kinase MB 1.0 NG/ML Assessment and Plan Problem List: (1) NSTEMI (non-ST elevated myocardial infarction) ICD Codes: I21.4 - Non-ST elevation (NSTEMI) myocardial infarction Status: Acute (2) Multi-vessel coronary artery stenosis ICD Codes: I25.10 - Atherosclerotic heart disease of [place] coronary artery without angina pectoris (3) Cardiomyopathy ICD Codes: I42.9 - Cardiomyopathy, unspecified (4) Atrial fibrillation ICD Codes: I48.91 - Unspecified atrial fibrillation (5) Stented coronary artery ICD Codes: Z95.5 - Presence of coronary angioplasty implant and graft (6) CKD (chronic kidney disease) stage 4, GFR 15-29 ml/min ICD Codes: N18.4 - Chronic kidney disease, stage 4 (severe) Status: Chronic (7) Anemia ICD Codes: D64.9 - Anemia, unspecified (8) Hypertension ICD Codes: I10 - Hypertension Status: Chronic Assessment and Plan Neurocardiogenic syncope yest. No recurrent angina of CHF. Tolerating dialysis well. He developed a fib which complicates his management from the standpoint of anticoagulation given his recent significant anemia. Amio started, so far stays in SR. Continue Brilinta and baby ASA to prevent stent thrombosis, full anticoagulation later. Brilinta cannot be discontinued even for a short period of time (risk of stent thrombosis is high). Hgb stable. Continue therapy for CHF. VQ scan low prob. F/u echo again shows improved LV systolic fx. Aggressive risk factor modification. Increase activity. D/w pt and family. Brittany Jenkins MD Jul 04, 2017 17:07
[2017-07-04] MEDS: PRAVASTATIN SOD 20 MG TAB PO SCH (20:30)
[2017-07-04] MEDS: TAMSULOSIN HCL 0.4 MG CAP PO SCH (20:30)
[2017-07-05] VITALS (30 sets, daily range): BP systolic 126–151; BP diastolic 59–70; PULSE 61–86; RESP 16–18; TEMP 98.4–99; O2SAT 92–99
[2017-07-05] MEDS: RESP: ALBUTEROL 2.5 MG/IPRATROPIUM 0.5 MG NEB (SCH) NEB ×6 (01:20→19:36)
[2017-07-05] MEDS: ACETAMINOPHEN/HYDROcodone 325 MG/5 MG TAB PO PRN ×4 (01:59→23:19)
[2017-07-05 04:03] LABS: HEMATOCRIT 30.5 % (39.0-51.0); MEAN CELL VOLUME 92.9 FL (80.0-100.0); MEAN CORPUSCULAR HEMOGLOBIN 30.4 PG (27.0-34.0); MEAN CORPUSCULAR HGB CONC 32.7 % (32.0-36.0); PLATELET COUNT 438 TH/MM3 (150-450); RED BLOOD COUNT 3.29 MIL/MM3 (4.50-5.90); REVIEW FLAG FINAL; WHITE BLOOD COUNT 13.4 TH/MM3 (4.0-11.0)
[2017-07-05 04:15] LABS: BICARBONATE 27.9 MEQ/L (21.0-32.0); POTASSIUM 3.9 MEQ/L (3.5-5.1)
[2017-07-05] MEDS: HEPARIN SODIUM - SQ 10,000 UNITS/ML VIAL SQ SCH ×3 (06:40→21:33)
[2017-07-05] MEDS: INSULIN NovoLIN REGULAR SUPPLEMENTAL SCALE SQ SCH ×3 (08:00→16:12)
[2017-07-05] MEDS ORDERED: ATROPINE SULFATE 1 MG/10 ML SYRINGE ONE (08:43)
[2017-07-05] MEDS: SODIUM CHLORIDE 0.9% FLUSH 10 ML FLUSH IV FLUSH SCH ×2 (09:00→20:41)
[2017-07-05] MEDS: EPOETIN ALFA 10,000 UNITS/ML VIAL IV PUSH PRN (10:02)
[2017-07-05] MEDS: GENTAMICIN SULFATE (DIALYSIS USE ONLY) 20 MG/2 ML VIAL OTHER PRN (10:02)
--- NOTE | 2017-07-05 11:30 | HHI.PR ---
Subjective Remarks Patient complaining about the left lower rib pain. He stated that the 2 tablets of [place] made him very sleepy. He wants to try one tablet. Otherwise he had no complaints. Patient very anxious to go to rehabilitation. Discussed case with patient's dialysis nurse. Objective Vitals Vital Signs Date Time Temp Pulse Resp B/P (MAP) Pulse Ox O2 Delivery O2 Flow Rate FiO2 07/05/17 10:00 73 07/05/17 09:00 78 07/05/17 08:00 78 07/05/17 07:59 96 Nasal Cannula 2.00 07/05/17 07:15 98.4 77 18 151/68 (95) 98 07/05/17 07:15 98 Nasal Cannula 2.00 07/05/17 07:00 75 07/05/17 06:00 71 07/05/17 05:00 66 07/05/17 04:00 70 07/05/17 03:40 98.4 65 18 135/65 (88) 99 07/05/17 03:40 99 Nasal Cannula 07/05/17 03:00 61 07/05/17 02:00 64 07/05/17 01:00 67 07/05/17 00:00 74 07/04/17 23:05 96 Nasal Cannula 2.50 07/04/17 23:00 90 Room Air 07/04/17 23:00 98.6 79 18 135/67 (89) 90 07/04/17 23:00 78 07/04/17 22:00 76 07/04/17 21:00 78 07/04/17 20:00 98.2 83 18 140/65 (90) 96 07/04/17 20:00 76 07/04/17 20:00 96 Room Air 07/04/17 19:44 92 21 07/04/17 19:00 81 07/04/17 15:37 16 07/04/17 15:00 75 07/04/17 15:00 95 07/04/17 15:00 97.8 75 16 138/57 (84) 95 07/04/17 11:46 16 I/O 07/04/17 07/04/17 07/04/17 07/05/17 07/05/17 07/05/17 06:59 14:59 22:59 06:59 14:59 22:59 Intake Total 440 ml 450 ml 600 ml Output Total 500 ml 500 ml 550 ml Balance -60 ml -50 ml 50 ml Intake Oral 440 ml 450 ml 600 ml Output Urine Total 500 ml 500 ml 550 ml # Bowel Movements 0 0 0 Result Diagram: 07/05/17 0302 07/05/17 0302 Imaging Last Impressions Chest X-Ray 07/03/17 0000 Signed Impressions: Service Date/Time: June 14:11 - CONCLUSION: 1. Resolving pulmonary congestion. 2. New right jugular Vas-Cath without evidence of pneumothorax. 3. Otherwise stable chest Marcus Lewis MD Lung Scan-VQ Nuclear Medicine 06/30/17 0000 Signed Impressions: Service Date/Time: Friday, June 30, 2017 12:05 - CONCLUSION: Perfusion better than the ventilation, low probability for pulmonary embolism. Venkat Daley MD FACR Catheter Placement X-Ray 06/30/17 0000 Signed Impressions: Service Date/Time: Friday, June 30, 2017 11:20 - CONCLUSION: Successful Vas-Cath placement via the right internal jugular vein. The patient tolerated the procedure without difficulty. Kei Daley MD Renal Ultrasound 06/28/17 0000 Signed Impressions: Service Date/Time: Wednesday, June 28, 2017 09:24 - CONCLUSION: 1. Cortical thinning and increased echogenicity suggesting underlying medical renal disease. Kei Daley MD Objective Remarks GENERAL: in NAD CARDIOVASCULAR: Regular rate and rhythm without murmurs, gallops, or rubs. Positive tenderness to palpation of the left lower rib area. No ecchymosis noted. No deformity noted. Right Vas-Cath in place. RESPIRATORY: Breath sounds equal bilaterally. No accessory muscle use. GASTROINTESTINAL: Abdomen soft, non-tender, nondistended. MUSCULOSKELETAL: No cyanosis, or edema. BACK: Nontender without obvious deformity. No CVA tenderness. Medications and IVs Current Medications Al Hydrox/Mg Hydrox/Simethicone (Mag-Al Plus Susp Liq) 30 ml ONCE ONCE PO Last administered on 06/27/17 14:13; Start 06/27/17 at 13:45; Stop 06/27/17 at 13:46; Status DC Aspirin (Aspirin) 325 mg ONCE ONCE PO Last administered on 06/27/17 14:13; Start 06/27/17 at 14:00; Stop 06/27/17 at 14:01; Status DC Nitroglycerin (Nitrostat Sl) 0.4 mg ONCE ONCE SL Last administered on 14:19; Start 06/27/17 at 14:00; Stop 06/27/17 at 14:01; Status DC Nitroglycerin (Nitroglycerin 2% Oint) 0.5 inch ONCE ONCE TOPICAL Last administered on 06/27/17 14:23; Start 06/27/17 at 14:00; Stop 06/27/17 at 17:34 ; Status DC Atorvastatin Calcium (Lipitor) 80 mg ONCE ONCE PO ; Start 06/27/17 at 16:15; Stop 06/27/17 at 16:16; Status DC Sodium Chloride 1,000 ml @ 100 mls/hr Q10H IV Last administered on 06/27/17 16:48; Start 06/27/17 at 16:15; Stop 06/28/17 at 00:18; Status DC Heparin Sodium (Porcine) (Heparin Inj) 5,000 units UNSCH PRN IV PUSH APTT LESS THAN 25; Start 06/27/17 at 22:15; Status Cancel Heparin Sodium (Porcine) (Heparin Inj) 2,500 units UNSCH PRN IV PUSH APTT 25 TO 39; Start 06/27/17 at 22:15; Status Cancel Heparin Sodium/ Dextrose 250 ml @ 11.436 mls/ hr TITRATE PRN IV Coagulation management; Start 06/27/17 at 16:15; Status UNV Heparin Sodium (Porcine) (Heparin Inj) 4,000 units ONCE ONCE IV PUSH Last administered on 06/27/17 16:57; Start 06/27/17 at 16:15; Stop 06/27/17 at 16:16 ; Status DC Sodium Chloride (NS Flush) 2 ml BID IV FLUSH Last administered on 07/04/17 20 :30; Start 06/27/17 at 21:00 Sodium Chloride (NS Flush) 2 ml UNSCH PRN IV FLUSH FLUSH AFTER USING IV ACCESS ; Start 06/27/17 at 16:15 Nitroglycerin (Nitroglycerin 2% Oint) 1 inch Q6H TOP ; Start 06/27/17 at 17:00; Stop 06/27/17 at 17:22; Status DC Morphine Sulfate (Morphine Inj) 2 mg Q30M PRN IV PUSH CHEST PAIN; Start at 16:15; Stop 06/27/17 at 18:30; Status DC Heparin Sodium/ Dextrose 250 ml @ 11.436 mls/ hr TITRATE PRN IV Coagulation management Last administered on 06/27/17 16:59; Start 06/27/17 at 16:15; Stop 06/29/17 at 14:59; Status DC Atorvastatin Calcium (Lipitor) 80 mg ONCE ONCE PO Last administered on 16:57; Start 06/27/17 at 16:30; Stop 06/27/17 at 16:31; Status DC Pantoprazole Sodium (Protonix Inj) 40 mg Q24H IV PUSH Last administered on 06/30 18:13; Start 06/27/17 at 17:00; Stop 06/30/17 at 22:25; Status DC Allopurinol (Zyloprim) 100 mg BID PO Last administered on 07/04/17 20:30; Start 06/27/17 at 21:00 Carvedilol (Coreg) 3.125 mg BID PO Last administered on 07/01/17 13:08; Start 06/27/17 at 21:00; Stop 07/01/17 at 18:19; Status DC Sodium Bicarbonate (Sodium Bicarbonate) 650 mg TIDPC PO ; Start 06/27/17 at 18: 30; Stop 06/27/17 at 18:30; Status DC Nitroglycerin (Nitroglycerin 2% Oint) 1 inch Q6H TOP ; Start 06/27/17 at 20:00; Stop 06/27/17 at 20:00; Status DC Nitroglycerin/ Dextrose 250 ml @ 1.5 mls/hr TITRATE PRN IV Chest pain relief Last administered on 06/27/17 18:32; Start 06/27/17 at 17:45; Stop 06/29/17 at 14:59; Status DC Sodium Bicarbonate (Sodium Bicarbonate) 650 mg TIDPC PO Last administered on 18:13; Start 06/27/17 at 18:30; Stop 07/01/17 at 11:37; Status DC Hydromorphone HCl (Dilaudid Pf Inj) 2 mg Q4H PRN IVS pain Last administered on 10/10/17at 00:05; Start 06/27/17 at 18:30; Stop 07/03/17 at 04:54; Status DC Albuterol/ Ipratropium (Duoneb Neb) 1 ampule ONCE ONCE NEB Last administered on 06/28/17 03:11; Start 06/28/17 at 00:45; Stop 06/28/17 at 00:46; Status DC Furosemide (Lasix Inj) 40 mg ONCE ONCE IV PUSH Last administered on 06/28/17 00:56; Start 06/28/17 at 00:45; Stop 06/28/17 at 00:46; Status DC Sodium Chloride 250 ml @ 15 mls/hr ONCE ONCE IV ; Start 06/28/17 at 01:30; Stop 06/28/17 at 18:09; Status DC Furosemide (Lasix Inj) 20 mg UNSCH X1 PRN IV PUSH SEE LABEL COMMENTS Last administered on 06/28/17 03:56; Start 06/28/17 at 01:30; Stop 06/28/17 at 15:00 ; Status DC Atropine Sulfate (Atropine Inj) 1 mg STK-MED ONCE .ROUTE ; Start 06/28/17 at 01: 58; Stop 06/28/17 at 01:59; Status DC Lidocaine HCl (Xylocaine 2% Inj) 100 mg STK-MED ONCE .ROUTE ; Start 06/28/17 at 01:58; Stop 06/28/17 at 01:59; Status DC Epinephrine HCl (EPINEPHrine (1:10,000) INJ) 1 mg STK-MED ONCE .ROUTE ; Start 06/28/17 at 01:58; Stop 06/28/17 at 01:59; Status DC Albuterol/ Ipratropium (Duoneb Neb) 1 ampule Q4HR NEB NEB Last administered on 07/01/17 17:05; Start 06/28/17 at 04:00; Stop 07/01/17 at 17:30; Status DC Albuterol/ Ipratropium (Duoneb Neb) 1 ampule Q2HR NEB PRN NEB SHORTNESS OF BREATH Last administered on 06/28/17 13:50; Start 06/28/17 at 03:00; Stop 06/30 at 22:25; Status DC Dextrose (D50w (Vial) Inj) 50 ml UNSCH PRN IV PUSH HYPOGLYCEMIA-SEE COMMENTS; Start 06/28/17 at 03:00 Glucagon (Glucagon Inj) 1 mg UNSCH PRN OTHER HYPOGLYCEMIA-SEE COMMENTS; Start 06/28/17 at 03:00 Insulin Human Regular (NovoLIN R SUPPLEMENTAL SCALE) 1 Q6H SQ ; Start 06/28/17 at 03:00; Stop 06/30/17 at 22:51; Status DC Influenza Virus Vaccine (Flu (Quadrivalent) Vaccine Inj) 0.5 ml ONCE ONCE IM ; Start 06/29/17 at 10:00; Stop 06/29/17 at 10:00; Status DC Heparin Sodium/ Sodium Chloride 1,000 ml @ As Directed STK-MED ONCE .ROUTE Last administered on 06/28/17 11:51; Start 06/28/17 at 11:51; Stop 06/28/17 at 11:52; Status DC Sodium Chloride 500 ml @ As Directed STK-MED ONCE .ROUTE ; Start 06/28/17 at 11 :51; Stop 06/28/17 at 11:52; Status DC Midazolam HCl (Versed Inj) 2 mg STK-MED ONCE .ROUTE Last administered on 11:51; Start 06/28/17 at 11:51; Stop 06/28/17 at 11:52; Status DC Fentanyl Citrate (fentaNYL INJ) 100 mcg STK-MED ONCE .ROUTE Last administered on 06/28/17 11:51; Start 06/28/17 at 11:51; Stop 06/28/17 at 11:52; Status DC Heparin Sodium (Porcine) (Heparin Inj) 10,000 units STK-MED ONCE .ROUTE Last administered on 06/28/17 12:34; Start 06/28/17 at 12:34; Stop 06/28/17 at 12:35 ; Status DC Ticagrelor (Brilinta) 180 mg STK-MED ONCE PO Last administered on 06/28/17 13: 16; Start 06/28/17 at 13:16; Stop 06/28/17 at 13:17; Status DC Aspirin (Aspirin Chew) 81 mg STK-MED ONCE .ROUTE Last administered on 13:16; Start 06/28/17 at 13:16; Stop 06/28/17 at 13:17; Status DC Ticagrelor (Brilinta) 180 mg STK-MED ONCE PO ; Start 06/28/17 at 13:32; Stop at 13:33; Status DC Aspirin (Aspirin Chew) 81 mg DAILY PO Last administered on 07/04/17 09:01; Start 06/29/17 at 09:00 Ticagrelor (Brilinta) 90 mg BID PO Last administered on 07/04/17 20:30; Start 06/28/17 at 21:00 Pravastatin Sodium (Pravachol) 20 mg HS PO Last administered on 07/02/17 20: 05; Start 06/28/17 at 21:00; Stop 07/03/17 at 20:21; Status DC Iron Sucrose 100 mg/Sodium Chloride 105 ml @ 105 mls/hr DAILY IV Last administered on 07/01/17 08:48; Start 06/29/17 at 09:00; Stop 07/01/17 at 09: 59; Status DC Acetylcysteine (Mucomyst 20% Liq) 1,200 mg BID PO Last administered on 20:31; Start 06/28/17 at 14:30; Stop 06/29/17 at 04:00; Status DC Fluticasone Propionate (Flonase Ethan Spr) 1 spray Q12H PRN NASAL NASAL CONGESTION Last administered on 06/30/17 10:11; Start 06/28/17 at 14:45; Stop 07/03/17 at 14:25; Status DC Patient Own Medication PT OWN MED: OPTIC ARED... DAILY PO Last administered on 07/04/17 09:00; Start 06/28/17 at 16:00 Metoprolol Tartrate (Lopressor Inj) 5 mg STK-MED ONCE .ROUTE ; Start 06/28/17 at 17:32; Stop 06/28/17 at 17:33; Status DC Metoprolol Tartrate (Lopressor Inj) 5 mg Q6H PRN IV PUSH Pulse > 120 Last administered on 06/28/17 17:46; Start 06/28/17 at 17:30 Carvedilol (Coreg) 6.25 mg ONCE ONCE PO Last administered on 06/28/17 18:07; Start 06/28/17 at 18:15; Stop 06/28/17 at 18:16; Status DC Acetaminophen (Tylenol) 650 mg Q6H PRN PO SEE LABEL COMMENTS Last administered on 07/04/17 10:34; Start 06/28/17 at 21:30 Metoprolol Tartrate (Lopressor Inj) 5 mg NOW ONCE IV PUSH Last administered on 06/28/17 21:58; Start 06/28/17 at 21:45; Stop 06/28/17 at 21:46; Status DC Influenza Virus Vaccine (Flu (Quadrivalent) Vaccine Inj) 0.5 ml ONCE ONCE IM Last administered on 06/30/17 10:18; Start 06/30/17 at 09:00; Stop 06/30/17 at 09:01; Status DC Bumetanide (Bumex Inj) 1 mg ONCE ONCE IV PUSH Last administered on 06/29/17 12:10; Start 06/29/17 at 12:30; Stop 06/29/17 at 12:31; Status DC Amiodarone HCl (Cordarone) 400 mg Q12HR PO Last administered on 07/04/17 20: 30; Start 06/29/17 at 15:00 Iohexol (OMNIPAQUE 350 INJ (Itinerant Teacher Assistant)) 100 ml STK-MED ONCE OTHER ; Start at 08:44; Stop 06/30/17 at 08:45; Status DC Iohexol (OMNIPAQUE 350 INJ (Itinerant Teacher Assistant)) 50 ml STK-MED ONCE OTHER ; Start at 08:44; Stop 06/30/17 at 08:45; Status DC Sodium Chloride 1,000 ml @ 0 mls/hr Q0M PRN OTHER For Prime & Rinse Back; Start 06/30/17 at 10:38 Heparin Sodium (Porcine) (Heparin Inj) 8,000 units UNSCH PRN IV FLUSH WITH DIALYSIS; Start 06/30/17 at 10:45 Sodium Chloride 1,000 ml @ 200 mls/hr Q5H PRN IV WITH DIALYSIS; Start 06/30/17 at 10:38 Sodium Chloride 1,000 ml @ 0 mls/hr Q0M PRN OTHER WITH DIALYSIS; Start at 10:38 Mannitol (Mannitol Inj) 12.5 gm UNSCH PRN IV WITH DIALYSIS; Start 06/30/17 at 10:45 Albumin Human (Albumin 25% Inj) 25 gm UNSCH PRN IV WITH DIALYSIS; Start at 10:45 Sodium Chloride (NS Flush) 5 ml UNSCH PRN IV FLUSH WITH DIALYSIS; Start at 10:45 Heparin Sodium (Porcine) (Heparin Inj) UNSCH PRN .XX WITH DIALYSIS; Start 06/30/17 at 10:45 Gentamicin Sulfate (Gentamicin (Dialysis) Inj) 20 mg UNSCH PRN OTHER WITH DIALYSIS Last administered on 07/05/17 10:02; Start 06/30/17 at 10:45 Ondansetron HCl (Zofran Inj) 4 mg UNSCH PRN IV PUSH WITH DIALYSIS; Start at 10:45 Acetaminophen (Tylenol) 650 mg UNSCH PRN PO for headach, pain, temp > 101F Last administered on 07/01/17 20:24; Start 06/30/17 at 10:45 Diphenhydramine HCl (Benadryl) 25 mg UNSCH PRN PO for hives/itching/ anaphylaxis Last administered on 07/01/17 20:25; Start 06/30/17 at 10:45 Nitroglycerin (Nitrostat Sl) 0.4 mg UNSCH PRN SL CHEST PAIN; Start 06/30/17 at 10:45 Clonidine (Catapres) 0.1 mg UNSCH PRN PO for BP > 180/100 X 2 readings; Start 06/30/17 at 10:45 Epoetin Benji (Epogen Inj) 5,000 units UNSCH PRN IV PUSH WITH DIALYSIS Last administered on 07/05/17 10:02; Start 06/30/17 at 10:45 Gelatin (Gelfoam 12 Mm/7 Mm Top) 1 foam UNSCH PRN TOP SEE LABEL COMMENTS; Start 06/30/17 at 10:45 Sodium Chloride (NS Flush) UNSCH PRN IV FLUSH SEE PROTOCOL; Start 06/30/17 at 12:00 Heparin Sodium (Porcine) (Heparin Inj) UNSCH PRN IV FLUSH SEE PROTOCOL; Start 06/30/17 at 12:00 Heparin Sodium (Porcine) (Heparin Inj) 2,200 units STK-MED ONCE IV Last administered on 06/30/17 12:03; Start 06/30/17 at 12:03; Stop 06/30/17 at 12:05 ; Status DC Albuterol Sulfate (Albuterol Neb) 2.5 mg Q2HR NEB PRN NEB dyspnea; Start at 22:30 Pantoprazole Sodium (Protonix) 20 mg DAILY PO Last administered on 07/04/17 09:01; Start 07/01/17 at 09:00 Senna/Docusate Sodium (Ally-Colace) 1 tab BID PO Last administered on 20:30; Start 07/01/17 at 09:00 Glycerin (Glycerin Adult Supp) 2 gm DAILY PRN RECTAL CONSTIPATION; Start at 22:45 Polyethylene Glycol (Miralax) 17 gm BID PO Last administered on 07/04/17 09: 01; Start 07/01/17 at 09:00 Lactulose (Lactulose Liq) 30 ml ONCE ONCE PO Last administered on 07/01/17 03:13; Start 06/30/17 at 22:45; Stop 06/30/17 at 22:46; Status DC Lactulose (Lactulose Liq) 30 ml DAILY PO Last administered on 07/04/17 09:01 ; Start 07/01/17 at 09:00 Methylnaltrexone [place] (Relistor Inj) 12 mg ONCE ONCE SQ Last administered on 07/01/17 00:04; Start 06/30/17 at 22:45; Stop 06/30/17 at 22:46; Status DC Glycerin (Glycerin Adult Supp) 2 gm BID PRN RECTAL CONSTIPATION; Start at 22:45 Insulin Human Regular (NovoLIN R SUPPLEMENTAL SCALE) 1 ACHS SQ ; Start at 08:00 Tamsulosin HCl (Flomax) 0.8 mg HS PO Last administered on 07/04/17 20:30; Start 07/01/17 at 21:00 Calcium Acetate (Phoslo) 667 mg TID PO Last administered on 07/02/17 17:25; Start 07/01/17 at 09:00; Stop 07/02/17 at 17:47; Status DC Heparin Sodium (Porcine) (Heparin Inj) 5,000 units Q8HR SQ Last administered on 07/05/17 06:40; Start 07/01/17 at 14:00 Al Hydrox/Mg Hydrox/Simethicone (Mag-Al Plus Susp Liq) 30 ml Q6HR PRN PO dyspepsia; Start 07/01/17 at 18:00 Albuterol/ Ipratropium (Duoneb Neb) 1 ampule Q4HR NEB NEB Last administered on 07/05/17 07:58; Start 07/01/17 at 20:00 Carvedilol (Coreg) 6.25 mg BID PO Last administered on 07/04/17 20:38; Start 07/01/17 at 21:00 Folic Acid (Folate) 1 mg DAILY PO Last administered on 07/04/17 09:02; Start 07/02/17 at 09:00 Vitamin B Complex/ Vit C/Folic Acid (Nephrocaps) 1 cap DAILY PO Last administered on 07/04/17 09:02; Start 07/02/17 at 09:00 Ergocalciferol (Drisdol) 50,000 units Q7D PO ; Start 07/02/17 at 18:00 Furosemide (Lasix Inj) 40 mg ONCE ONCE IV PUSH Last administered on 02:58; Start 07/03/17 at 03:00; Stop 07/03/17 at 03:01; Status DC Hydromorphone HCl (Dilaudid Pf Inj) 2 mg Q4H PRN IVS pain Last administered on 07/03/17 05:22; Start 07/03/17 at 05:00; Stop 07/03/17 at 20:22; Status DC Sodium Chloride ([place] Saline 0.65% Ethan Drp/ [place]) 2 drop UNSCH PRN EACH NARE nasal congestion; Start 07/03/17 at 15:00 Fluticasone Propionate (Flonase Ethan Spr) 1 spray BID NASAL Last administered on 07/04/17 20:30; Start 07/03/17 at 15:00 Pravastatin Sodium (Pravachol) 20 mg HS PO Last administered on 07/04/17 20: 30; Start 07/03/17 at 21:00 Hydromorphone HCl (Dilaudid Pf Inj) 2 mg Q4H PRN IV PAIN SCALE 1 TO 10 Last administered on 07/04/17 03:25; Start 07/03/17 at 20:30; Stop 07/04/17 at 13 :44; Status DC Acetaminophen/ Hydrocodone Bitart ([place] 5-325 Mg) 1 tab Q4H PRN PO pain 1-7 Last administered on 07/05/17t 06:44; Start 07/04/17 at 13:45; Stop 07/05/17 at 10:09; Status DC Acetaminophen/ Hydrocodone Bitart ([place] 5-325 Mg) 2 tab Q4H PRN PO pain 8-10 Last administered on 07/05/17t 01:59; Start 07/04/17 at 13:45; Stop 07/05/17 at 10:09; Status DC Atropine Sulfate (Atropine Inj) 1 mg STK-MED ONCE .ROUTE ; Start 07/05/17 at 08 :43; Stop 07/05/17 at 08:44; Status DC Acetaminophen/ Hydrocodone Bitart ([place] 5-325 Mg) 1 tab Q4H PRN PO pain 4-10 ; Start 07/05/17 at 10:15 A/P Problem List: (1) Anemia ICD Code: D64.9 - Anemia, unspecified (2) Hyponatremia ICD Code: E87.1 - Hypo-osmolality and hyponatremia (3) Urinary retention ICD Code: R33.9 - Retention of urine, unspecified (4) CKD (chronic kidney disease) stage 4, GFR 15-29 ml/min ICD Code: N18.4 - Chronic kidney disease, stage 4 (severe) Status: Chronic (5) Primary osteoarthritis of right knee ICD Code: M17.11 - Unilateral primary osteoarthritis, right knee (6) NSTEMI (non-ST elevated myocardial infarction) ICD Code: I21.4 - Non-ST elevation (NSTEMI) myocardial infarction Status: Acute (7) status post left total knee replacement Status: Acute Assessment and Plan 72-year-old male p/w chest pain Syncope 07/03 -evaluated by intensive care. Most likely secondary to vasovagal episode. He has been asymptomatic since that one episode. Left lower rib pain -Due to trauma from syncopal episode. -Continue with Narco when necessary for pain. -Patient already has incentive spirometry at bedside. NSTEMI/atrial fibrillation/hypertension -Status post cardiac catheterization with stents to the RCA and left circumflex -on aspirin 81 mg daily and Ticagrelor 90 mg twice a day -Cardiology/Dr. cote following -Echocardiogram 06/30 revealed EF 50-55%. Moderate to severe TR. PAP 60 mmHg -Continue pravastatin, amiodarone, carvedilol. Amlodipine held. -Patient poor candidate for anticoagulation at the moment. Acute hypoxemic respiratory failure likely secondary to pulmonary edema/ pulmonary hypertension -Continue to wean off of nasal cannula as tolerated. -VQ scan 06/30 low probability for pulmonary embolism. -Patient is receiving hemodialysis to help with fluid removal. He will need a permacath in order for discharge. Acute and chronic kidney disease stage V -Hemodialysis catheter right IJ placed by IR today. -Per neurologist this is most likely end-stage renal disease and he most likely will need long-term dialysis. Patient wants peritoneal dialysis. -Continue with dialysis per home planning consultant salesperson. Nasal congestion -Improving with Flonase and saline spray. BPH/gout/anemia secondary to chronic kidney disease -Continue home medication. Status post right total knee replacement by Dr. Marcelino -Knee device -Orthosis following. Hyponatremia/Hyperphosphatemia -Replace electrolytes as clinically indicated -calcium acetate 667 mg 3 times a day Prophylaxis - GI - pantoprazole - DVT - SCD Discussed with patient and his . Discharge Planning Patient most likely will need a permacath for discharge pending order from home planning consultant salesperson. Sejal St MD Jul 05, 2017 11:29
[2017-07-05] MEDS: PATIENT OWN MEDICATION PO SCH (12:47)
[2017-07-05] MEDS: LACTULOSE SYRUP 20 GM/30 ML CUP PO SCH (12:48)
[2017-07-05] MEDS: ALLOPURINOL 100 MG TAB PO SCH ×2 (12:48→20:43)
[2017-07-05] MEDS: TICAGRELOR 90 MG TAB PO SCH ×2 (12:48→20:42)
[2017-07-05] MEDS: CARVEDILOL 3.125 MG TAB PO SCH ×2 (12:48→20:42)
[2017-07-05] MEDS: VITAMIN B CMPLX/VITC/FOLIC AC CAP PO SCH (12:48)
[2017-07-05] MEDS: PANTOPRAZOLE SOD 20 MG DELAYED RELEASE TAB PO SCH (12:49)
[2017-07-05] MEDS: FOLIC ACID 1 MG TAB PO SCH (12:49)
[2017-07-05] MEDS: ASPIRIN 81 MG CHEW TAB PO SCH (12:49)
[2017-07-05] MEDS: DOCUSATE SODIUM 50 MG/SENNA 8.6 MG TAB PO SCH ×2 (12:49→20:43)
[2017-07-05] MEDS: FLUTICASONE PROPIONATE 50 MCG/ACT 16 GM NASAL SPRAY NASAL SCH ×2 (12:50→20:41)
[2017-07-05] MEDS: AMIODARONE 200 MG TAB PO SCH ×2 (12:52→20:43)
[2017-07-05] MEDS: POLYETHYLENE GLYCOL 17 GM PKG PO SCH ×2 (12:52→20:43)
--- NOTE | 2017-07-05 14:23 | HHI.NPPN ---
Subjective History of Present Illness This patient is a 72-year-old male with a history of progressive severe chronic kidney disease with a baseline GFR of approximately 20 although more recently has had GFR is below this level. Patient underwent a total right knee arthroplasty deferred of June, for severe degenerative joint disease. Patient wished to proceed despite the severity of his chronic kidney disease and risk of worsening renal function because of the severity of debilitation associated with his degenerative joint disease. Patient's renal function fortunately did remain relatively stable postoperatively and the patient was discharged in stable clinical condition except for the fact that he did develop some bladder outlet obstruction and required an indwelling Abdul catheter with follow-up with urology post discharge. Patient noted to have presented to the emergency room in [place] with complaints of "heartburn". Subsequent diagnosis having and non-ST CA with elevations in troponin. His serum creatinine level on presentation was 3.6 subsequently deteriorating today to 3.9. He is also said to have developed some respiratory insufficiency in route to the main campus. Chest x-ray showed some evidence of interstitial edema and symptomatology improved with IV furosemide. Patient was seen by cardiology and was taken urgently to the cardiac catheter lab for angiogram. Patient did receive IV saline since admission. Patient now status post placement of 2 bare metal stents. Review of Systems Respiratory Lungs: SOB (mild, improving) Objective Data Data 07/05/17 07/06/17 19:00 07:00 Output Total 800 ml Balance -800 ml Hemodialysis 800 ml Vital Signs Date Time Temp Pulse Resp B/P (MAP) Pulse Ox O2 Delivery O2 Flow Rate FiO2 07/05/17 13:00 78 07/05/17 12:30 98.5 84 16 146/70 (95) 95 07/05/17 12:30 95 Nasal Cannula 2.00 07/05/17 12:00 80 07/05/17 10:00 73 07/05/17 09:00 78 07/05/17 08:00 78 07/05/17 07:59 96 Nasal Cannula 2.00 07/05/17 07:15 98.4 77 18 151/68 (95) 98 07/05/17 07:15 98 Nasal Cannula 2.00 07/05/17 07:00 75 07/05/17 06:00 71 07/05/17 05:00 66 07/05/17 04:00 70 07/05/17 03:40 98.4 65 18 135/65 (88) 99 07/05/17 03:40 99 Nasal Cannula 07/05/17 03:00 61 07/05/17 02:00 64 07/05/17 01:00 67 07/05/17 00:00 74 07/04/17 23:05 96 Nasal Cannula 2.50 07/04/17 23:00 90 Room Air 07/04/17 23:00 98.6 79 18 135/67 (89) 90 07/04/17 23:00 78 07/04/17 22:00 76 07/04/17 21:00 78 07/04/17 20:00 98.2 83 18 140/65 (90) 96 07/04/17 20:00 76 07/04/17 20:00 96 Room Air 07/04/17 19:44 92 21 07/04/17 19:00 81 07/04/17 15:37 16 07/04/17 15:00 75 07/04/17 15:00 95 07/04/17 15:00 97.8 75 16 138/57 (84) 95 -: 07/05/17 0302 07/05/17 0302 Tubes & Lines: Vas-Cath, Abdul Physical Exam General Appearance: Comfortable Eyes Eye Exam: Sclera White Pulmonary Resp Exam: Clear Bilaterally, Breath Sounds Equal Resp Remarks Few basilar crackles. Cardiology CV Exam: Regular Gastrointestinal/Abdomen GI Exam: Soft, Non-Tender Integumentary Skin Exam: Clear, Warm, Normal Turgor Extremeties Extremities Exam: No Edema Neurologic Neuro Exam: Alert, Awake, Speech Clear, Moving All Extremities Psychiatric Psych Exam: Appropriate Responses Assessment/Plan Discussed Condition With: Patient Problem List: (1) Acute kidney insufficiency ICD Codes: N28.9 - Disorder of kidney and ureter, unspecified Status: Acute Plan: Contributory factors include hemodynamic issues with acute CA, cardiac decompensation as well as now contrast nephrotoxicity with probable development of some degree of ATN. s/p vasovagal response 07/03 Urinating more Next HD 07/05 with minimal UF Continue TTS schedule He is going to rehab after his discharge and prefers to fo to [facility]. He has been advised that we do not round there and another nephrology group will see him while there, but desires to f/u again with our practice after discharge. (2) NSTEMI (non-ST elevated myocardial infarction) ICD Codes: I21.4 - Non-ST elevation (NSTEMI) myocardial infarction Status: Acute Plan: Management per cardiology. (3) CKD (chronic kidney disease) stage 4, GFR 15-29 ml/min ICD Codes: N18.4 - Chronic kidney disease, stage 4 (severe) Status: Chronic Plan: History of progressive and severe stage IV CKD. Prior to this admission associated with chronic metabolic acidosis being managed by by mouth sodium bicarbonate. As indicated above the patient was being prepared for initiation of dialysis the not too distant future. Peritoneal dialysis was his chronic modality of choice. (4) Hypertension ICD Codes: I10 - Hypertension Status: Chronic (5) chronic metabolic acidosis Status: Chronic Plan: Resolved with HD (6) Urinary retention ICD Codes: R33.9 - Retention of urine, unspecified Plan: Improving. Abdul out 07/04 and urinating on his own. (7) Anemia of renal disease ICD Codes: D63.1 - Anemia in chronic kidney disease Plan: With a component of iron deficiency and hemodilution. Epogen with HD as ordered Plan This note was created in error. Please disregard. Didi Valencia MD Jul 05, 2017 14:23
--- NOTE | 2017-07-05 14:35 | HHI.NPPN ---
Subjective History of Present Illness This patient is a 72-year-old male with a history of progressive severe chronic kidney disease with a baseline GFR of approximately 20 although more recently has had GFR is below this level. Patient underwent a total right knee arthroplasty deferred of June, for severe degenerative joint disease. Patient wished to proceed despite the severity of his chronic kidney disease and risk of worsening renal function because of the severity of debilitation associated with his degenerative joint disease. Patient's renal function fortunately did remain relatively stable postoperatively and the patient was discharged in stable clinical condition except for the fact that he did develop some bladder outlet obstruction and required an indwelling Abdul catheter with follow-up with urology post discharge. Patient noted to have presented to the emergency room in [place] with complaints of "heartburn". Subsequent diagnosis having and non-ST FL with elevations in troponin. His serum creatinine level on presentation was 3.6 subsequently deteriorating today to 3.9. He is also said to have developed some respiratory insufficiency in route to the main campus. Chest x-ray showed some evidence of interstitial edema and symptomatology improved with IV furosemide. Patient was seen by cardiology and was taken urgently to the cardiac catheter lab for angiogram. Patient did receive IV saline since admission. Patient now status post placement of 2 bare metal stents. Interval History Patient sitting up in a chair. Family in room. Patient comfortable with no verbal complaints except for persistent muscle discomfort left chest. Review of Systems Respiratory Lungs: SOB (mild, improving) Objective Data Data 07/05/17 07/06/17 19:00 07:00 Output Total 800 ml Balance -800 ml Hemodialysis 800 ml Vital Signs Date Time Temp Pulse Resp B/P (MAP) Pulse Ox O2 Delivery O2 Flow Rate FiO2 07/05/17 13:00 78 07/05/17 12:30 98.5 84 16 146/70 (95) 95 07/05/17 12:30 95 Nasal Cannula 2.00 07/05/17 12:00 80 07/05/17 10:00 73 07/05/17 09:00 78 07/05/17 08:00 78 07/05/17 07:59 96 Nasal Cannula 2.00 07/05/17 07:15 98.4 77 18 151/68 (95) 98 07/05/17 07:15 98 Nasal Cannula 2.00 07/05/17 07:00 75 07/05/17 06:00 71 07/05/17 05:00 66 07/05/17 04:00 70 07/05/17 03:40 98.4 65 18 135/65 (88) 99 07/05/17 03:40 99 Nasal Cannula 07/05/17 03:00 61 07/05/17 02:00 64 07/05/17 01:00 67 07/05/17 00:00 74 07/04/17 23:05 96 Nasal Cannula 2.50 07/04/17 23:00 90 Room Air 07/04/17 23:00 98.6 79 18 135/67 (89) 90 07/04/17 23:00 78 07/04/17 22:00 76 07/04/17 21:00 78 07/04/17 20:00 98.2 83 18 140/65 (90) 96 07/04/17 20:00 76 07/04/17 20:00 96 Room Air 07/04/17 19:44 92 21 07/04/17 19:00 81 07/04/17 15:37 16 07/04/17 15:00 75 07/04/17 15:00 95 07/04/17 15:00 97.8 75 16 138/57 (84) 95 -: 07/05/17 0302 07/05/17 0302 Tubes & Lines: Vas-Cath, Abdul Physical Exam General Appearance: Comfortable Eyes Eye Exam: Sclera White Pulmonary Resp Exam: Clear Bilaterally, Breath Sounds Equal Resp Remarks Few basilar crackles. Cardiology CV Exam: Regular Gastrointestinal/Abdomen GI Exam: Soft, Non-Tender Integumentary Skin Exam: Clear, Warm, Normal Turgor Extremeties Extremities Exam: No Edema Neurologic Neuro Exam: Alert, Awake, Speech Clear, Moving All Extremities Psychiatric Psych Exam: Appropriate Responses Assessment/Plan Discussed Condition With: Patient Problem List: (1) Acute kidney insufficiency ICD Codes: N28.9 - Disorder of kidney and ureter, unspecified Status: Acute Plan: Contributory factors include hemodynamic issues with acute FL, cardiac decompensation as well as now contrast nephrotoxicity with probable development of some degree of ATN. Patient's volume status appears to be acceptable. Creatinine level is rising between dialysis sessions indicating an adequate residual renal function to discontinue dialysis presently however will continue to monitor renal indices until next treatment Friday. This was discussed with the family. I discussed with them at length pros and cons of attempting to change Vas-Cath to a PermCath. Risk of line infection in my opinion is high with a Vas-Cath as well as risk of catheter displacement. Unfortunately the antiplatelet agent cannot be discontinued per cardiology for at least 30 days post placement. Risks versus benefit of attempting to change Vas-Cath to a PermCath reviewed with the family. Risk of bleeding is a primary consideration but I am not keen on discharging the patient with a Vas-Cath as opposed to a PermCath because of the above-mentioned risks associated with outpatient Vas-Cath. I will discussed with radiologist. Patient is agreeable to proceed with PermCath placement after reviewing pros and cons. I will add Bumex to reduce intradialytic fluid gains is a patient does have residual urinary output. Continue TTS schedule He is going to rehab after his discharge and prefers to fo to [facility]. He has been advised that we do not round there and another nephrology group will see him while there, but desires to f/u again with our practice after discharge. (2) NSTEMI (non-ST elevated myocardial infarction) ICD Codes: I21.4 - Non-ST elevation (NSTEMI) myocardial infarction Status: Acute Plan: Management per cardiology. (3) CKD (chronic kidney disease) stage 4, GFR 15-29 ml/min ICD Codes: N18.4 - Chronic kidney disease, stage 4 (severe) Status: Chronic Plan: History of progressive and severe stage IV CKD. Prior to this admission associated with chronic metabolic acidosis being managed by by mouth sodium bicarbonate. As indicated above the patient was being prepared for initiation of dialysis the not too distant future. Peritoneal dialysis was his chronic modality of choice. (4) Hypertension ICD Codes: I10 - Hypertension Status: Chronic (5) chronic metabolic acidosis Status: Chronic Plan: Resolved with HD (6) Urinary retention ICD Codes: R33.9 - Retention of urine, unspecified Plan: Improving. Abdul out 07/04 and urinating on his own. (7) Anemia of renal disease ICD Codes: D63.1 - Anemia in chronic kidney disease Plan: With a component of iron deficiency and hemodilution. Epogen with HD as ordered Didi Valencia MD Jul 05, 2017 14:35
[2017-07-05] MEDS: TAMSULOSIN HCL 0.4 MG CAP PO SCH (20:42)
[2017-07-05] MEDS: PRAVASTATIN SOD 20 MG TAB PO SCH (20:43)
[2017-07-06] VITALS (29 sets, daily range): BP systolic 116–146; BP diastolic 59–68; PULSE 60–86; RESP 16–18; TEMP 97.6–99; O2SAT 94–97
[2017-07-06] MEDS: ACETAMINOPHEN/HYDROcodone 325 MG/5 MG TAB PO PRN ×2 (03:41→08:27)
[2017-07-06 05:21] LABS: HEMATOCRIT 30.4 % (39.0-51.0); MEAN CELL VOLUME 92.1 FL (80.0-100.0); MEAN CORPUSCULAR HEMOGLOBIN 30.1 PG (27.0-34.0); MEAN CORPUSCULAR HGB CONC 32.6 % (32.0-36.0); PLATELET COUNT 494 TH/MM3 (150-450); RED CELL DISTRIBUTION WIDTH 15.1 % (11.6-17.2); REVIEW FLAG FINAL; WHITE BLOOD COUNT 14.1 TH/MM3 (4.0-11.0)
[2017-07-06 06:14] LABS: BICARBONATE 29.2 MEQ/L (21.0-32.0); POTASSIUM 3.7 MEQ/L (3.5-5.1)
[2017-07-06] MEDS: HEPARIN SODIUM - SQ 10,000 UNITS/ML VIAL SQ SCH ×3 (06:19→21:20)
[2017-07-06] MEDS: LACTULOSE SYRUP 20 GM/30 ML CUP PO SCH (08:25)
[2017-07-06] MEDS: BUMETANIDE 1 MG TAB PO SCH (08:25)
[2017-07-06] MEDS: ALLOPURINOL 100 MG TAB PO SCH ×2 (08:25→21:21)
[2017-07-06] MEDS: VITAMIN B CMPLX/VITC/FOLIC AC CAP PO SCH (08:25)
[2017-07-06] MEDS: PANTOPRAZOLE SOD 20 MG DELAYED RELEASE TAB PO SCH (08:25)
[2017-07-06] MEDS: TICAGRELOR 90 MG TAB PO SCH ×2 (08:26→21:21)
[2017-07-06] MEDS: ASPIRIN 81 MG CHEW TAB PO SCH (08:26)
[2017-07-06] MEDS: DOCUSATE SODIUM 50 MG/SENNA 8.6 MG TAB PO SCH ×2 (08:26→21:00)
[2017-07-06] MEDS: FOLIC ACID 1 MG TAB PO SCH (08:26)
[2017-07-06] MEDS: CARVEDILOL 3.125 MG TAB PO SCH ×2 (08:26→21:21)
[2017-07-06] MEDS: AMIODARONE 200 MG TAB PO SCH ×2 (08:26→21:21)
[2017-07-06] MEDS: SODIUM CHLORIDE 0.9% FLUSH 10 ML FLUSH IV FLUSH SCH ×2 (08:27→21:21)
[2017-07-06] MEDS: PATIENT OWN MEDICATION PO SCH (08:27)
[2017-07-06] MEDS: FLUTICASONE PROPIONATE 50 MCG/ACT 16 GM NASAL SPRAY NASAL SCH ×2 (08:28→21:22)
[2017-07-06] MEDS: POLYETHYLENE GLYCOL 17 GM PKG PO SCH ×2 (08:28→21:00)
[2017-07-06] MEDS ORDERED: PILL SPLITTER OTHER PRN (10:00)
[2017-07-06] MEDS: CYCLOBENZAPRINE HCL 10 MG TAB PO SCH ×2 (10:35→21:21)
--- NOTE | 2017-07-06 10:40 | HHI.PR ---
Subjective Remarks Follow-up for NSTEMI, dialysis, rib pain Patient continues to complain of rib pain but it is controlled [place]. He stated he doesn't like using the medication and tries to not use as often. He is requesting something less sedating. Patient stated that he feels like it's more of a muscle spasm when he is moving that his muscles very tight. Asking if able to take muscle relaxant. Otherwise patient has no other complaints and feels like he is improving every day. Discussed with patient's nurse. His nurse was at the bedside in the interview. Objective Vitals Vital Signs Date Time Temp Pulse Resp B/P (MAP) Pulse Ox O2 Delivery O2 Flow Rate FiO2 07/06/17 10:00 66 07/06/17 09:00 86 07/06/17 08:00 76 07/06/17 07:38 94 Room Air 07/06/17 07:38 98.1 74 16 144/66 (92) 94 07/06/17 07:00 70 07/06/17 06:17 70 07/06/17 05:06 66 07/06/17 04:39 67 07/06/17 03:50 71 07/06/17 03:50 94 Room Air 07/06/17 03:50 98.5 69 18 146/68 (94) 94 07/06/17 02:08 62 07/06/17 01:20 68 07/06/17 00:17 69 07/05/17 23:50 72 07/05/17 23:46 79 07/05/17 23:46 96 Room Air 07/05/17 23:46 99.0 76 17 140/67 (91) 95 07/05/17 22:00 76 07/05/17 21:00 86 07/05/17 20:00 74 07/05/17 19:45 96 Room Air 07/05/17 19:45 79 07/05/17 19:45 99.0 76 18 139/67 (91) 96 07/05/17 19:36 92 21 07/05/17 18:00 71 07/05/17 17:00 72 07/05/17 16:00 71 07/05/17 15:28 96 Room Air 07/05/17 15:28 98.6 78 16 126/59 (81) 96 07/05/17 15:00 76 07/05/17 14:00 78 07/05/17 13:00 78 07/05/17 12:30 98.5 84 16 146/70 (95) 95 07/05/17 12:30 95 Nasal Cannula 2.00 07/05/17 12:00 80 I/O 07/05/17 07/05/17 07/05/17 07/06/17 07/06/17 07/06/17 07:00 15:00 23:00 07:00 15:00 23:00 Intake Total 600 ml 720 ml 420 ml Output Total 550 ml 800 ml 450 ml 625 ml Balance 50 ml -800 ml 270 ml -205 ml Intake Oral 600 ml 720 ml 420 ml Output Urine Total 550 ml 450 ml 625 ml Hemodialysis 800 ml # Bowel Movements 0 1 1 Result Diagram: 07/06/1743807/06/17438 Objective Remarks GENERAL: in NAD CARDIOVASCULAR: Regular rate and rhythm without murmurs, gallops, or rubs. Positive tenderness to palpation of the left lower rib area. No ecchymosis noted. No deformity noted. Right Vas-Cath in place. RESPIRATORY: Breath sounds equal bilaterally. No accessory muscle use. GASTROINTESTINAL: Abdomen soft, non-tender, nondistended. MUSCULOSKELETAL: No cyanosis, or edema. BACK: Nontender without obvious deformity. No CVA tenderness. Medications and IVs Current Medications Al Hydrox/Mg Hydrox/Simethicone (Mag-Al Plus Susp Liq) 30 ml ONCE ONCE PO Last administered on 06/27/17 14:13; Start 06/27/17 at 13:45; Stop 06/27/17 at 13:46; Status DC Aspirin (Aspirin) 325 mg ONCE ONCE PO Last administered on 06/27/17 14:13; Start 06/27/17 at 14:00; Stop 06/27/17 at 14:01; Status DC Nitroglycerin (Nitrostat Sl) 0.4 mg ONCE ONCE SL Last administered on 14:19; Start 06/27/17 at 14:00; Stop 06/27/17 at 14:01; Status DC Nitroglycerin (Nitroglycerin 2% Oint) 0.5 inch ONCE ONCE TOPICAL Last administered on 06/27/17 14:23; Start 06/27/17 at 14:00; Stop 06/27/17 at 17:34 ; Status DC Atorvastatin Calcium (Lipitor) 80 mg ONCE ONCE PO ; Start 06/27/17 at 16:15; Stop 06/27/17 at 16:16; Status DC Sodium Chloride 1,000 ml @ 100 mls/hr Q10H IV Last administered on 06/27/17 16:48; Start 06/27/17 at 16:15; Stop 06/28/17 at 00:18; Status DC Heparin Sodium (Porcine) (Heparin Inj) 5,000 units UNSCH PRN IV PUSH APTT LESS THAN 25; Start 06/27/17 at 22:15; Status Cancel Heparin Sodium (Porcine) (Heparin Inj) 2,500 units UNSCH PRN IV PUSH APTT 25 TO 39; Start 06/27/17 at 22:15; Status Cancel Heparin Sodium/ Dextrose 250 ml @ 11.436 mls/ hr TITRATE PRN IV Coagulation management; Start 06/27/17 at 16:15; Status UNV Heparin Sodium (Porcine) (Heparin Inj) 4,000 units ONCE ONCE IV PUSH Last administered on 06/27/17 16:57; Start 06/27/17 at 16:15; Stop 06/27/17 at 16:16 ; Status DC Sodium Chloride (NS Flush) 2 ml BID IV FLUSH Last administered on 07/06/17 08 :27; Start 06/27/17 at 21:00 Sodium Chloride (NS Flush) 2 ml UNSCH PRN IV FLUSH FLUSH AFTER USING IV ACCESS ; Start 06/27/17 at 16:15 Nitroglycerin (Nitroglycerin 2% Oint) 1 inch Q6H TOP ; Start 06/27/17 at 17:00; Stop 06/27/17 at 17:22; Status DC Morphine Sulfate (Morphine Inj) 2 mg Q30M PRN IV PUSH CHEST PAIN; Start at 16:15; Stop 06/27/17 at 18:30; Status DC Heparin Sodium/ Dextrose 250 ml @ 11.436 mls/ hr TITRATE PRN IV Coagulation management Last administered on 06/27/17 16:59; Start 06/27/17 at 16:15; Stop 06/29/17 at 14:59; Status DC Atorvastatin Calcium (Lipitor) 80 mg ONCE ONCE PO Last administered on 16:57; Start 06/27/17 at 16:30; Stop 06/27/17 at 16:31; Status DC Pantoprazole Sodium (Protonix Inj) 40 mg Q24H IV PUSH Last administered on 06/30 18:13; Start 06/27/17 at 17:00; Stop 06/30/17 at 22:25; Status DC Allopurinol (Zyloprim) 100 mg BID PO Last administered on 07/06/17 08:25; Start 06/27/17 at 21:00 Carvedilol (Coreg) 3.125 mg BID PO Last administered on 07/01/17 13:08; Start 06/27/17 at 21:00; Stop 07/01/17 at 18:19; Status DC Sodium Bicarbonate (Sodium Bicarbonate) 650 mg TIDPC PO ; Start 06/27/17 at 18: 30; Stop 06/27/17 at 18:30; Status DC Nitroglycerin (Nitroglycerin 2% Oint) 1 inch Q6H TOP ; Start 06/27/17 at 20:00; Stop 06/27/17 at 20:00; Status DC Nitroglycerin/ Dextrose 250 ml @ 1.5 mls/hr TITRATE PRN IV Chest pain relief Last administered on 06/27/17 18:32; Start 06/27/17 at 17:45; Stop 06/29/17 at 14:59; Status DC Sodium Bicarbonate (Sodium Bicarbonate) 650 mg TIDPC PO Last administered on 18:13; Start 06/27/17 at 18:30; Stop 07/01/17 at 11:37; Status DC Hydromorphone HCl (Dilaudid Pf Inj) 2 mg Q4H PRN IVS pain Last administered on 07/01/17 00:05; Start 06/27/17 at 18:30; Stop 07/03/17 at 04:54; Status DC Albuterol/ Ipratropium (Duoneb Neb) 1 ampule ONCE ONCE NEB Last administered on 06/28/17 03:11; Start 06/28/17 at 00:45; Stop 06/28/17 at 00:46; Status DC Furosemide (Lasix Inj) 40 mg ONCE ONCE IV PUSH Last administered on 06/28/17 00:56; Start 06/28/17 at 00:45; Stop 06/28/17 at 00:46; Status DC Sodium Chloride 250 ml @ 15 mls/hr ONCE ONCE IV ; Start 06/28/17 at 01:30; Stop 06/28/17 at 18:09; Status DC Furosemide (Lasix Inj) 20 mg UNSCH X1 PRN IV PUSH SEE LABEL COMMENTS Last administered on 06/28/17 03:56; Start 06/28/17 at 01:30; Stop 06/28/17 at 15:00 ; Status DC Atropine Sulfate (Atropine Inj) 1 mg STK-MED ONCE .ROUTE ; Start 06/28/17 at 01: 58; Stop 06/28/17 at 01:59; Status DC Lidocaine HCl (Xylocaine 2% Inj) 100 mg STK-MED ONCE .ROUTE ; Start 06/28/17 at 01:58; Stop 06/28/17 at 01:59; Status DC Epinephrine HCl (EPINEPHrine (1:10,000) INJ) 1 mg STK-MED ONCE .ROUTE ; Start 06/28/17 at 01:58; Stop 06/28/17 at 01:59; Status DC Albuterol/ Ipratropium (Duoneb Neb) 1 ampule Q4HR NEB NEB Last administered on 07/01/17 17:05; Start 06/28/17 at 04:00; Stop 07/01/17 at 17:30; Status DC Albuterol/ Ipratropium (Duoneb Neb) 1 ampule Q2HR NEB PRN NEB SHORTNESS OF BREATH Last administered on 06/28/17 13:50; Start 06/28/17 at 03:00; Stop 06/30 at 22:25; Status DC Dextrose (D50w (Vial) Inj) 50 ml UNSCH PRN IV PUSH HYPOGLYCEMIA-SEE COMMENTS; Start 06/28/17 at 03:00; Stop 07/05/17 at 16:18; Status DC Glucagon (Glucagon Inj) 1 mg UNSCH PRN OTHER HYPOGLYCEMIA-SEE COMMENTS; Start 06/28/17 at 03:00; Stop 07/05/17 at 16:19; Status DC Insulin Human Regular (NovoLIN R SUPPLEMENTAL SCALE) 1 Q6H SQ ; Start 06/28/17 at 03:00; Stop 07/05/17 at 16:19; Status DC Influenza Virus Vaccine (Flu (Quadrivalent) Vaccine Inj) 0.5 ml ONCE ONCE IM ; Start 06/29/17 at 10:00; Stop 06/29/17 at 10:00; Status DC Heparin Sodium/ Sodium Chloride 1,000 ml @ As Directed STK-MED ONCE .ROUTE Last administered on 06/28/17 11:51; Start 06/28/17 at 11:51; Stop 06/28/17 at 11:52; Status DC Sodium Chloride 500 ml @ As Directed STK-MED ONCE .ROUTE ; Start 06/28/17 at 11 :51; Stop 06/28/17 at 11:52; Status DC Midazolam HCl (Versed Inj) 2 mg STK-MED ONCE .ROUTE Last administered on 11:51; Start 06/28/17 at 11:51; Stop 06/28/17 at 11:52; Status DC Fentanyl Citrate (fentaNYL INJ) 100 mcg STK-MED ONCE .ROUTE Last administered on 06/28/17 11:51; Start 06/28/17 at 11:51; Stop 06/28/17 at 11:52; Status DC Heparin Sodium (Porcine) (Heparin Inj) 10,000 units STK-MED ONCE .ROUTE Last administered on 06/28/17 12:34; Start 06/28/17 at 12:34; Stop 06/28/17 at 12:35 ; Status DC Ticagrelor (Brilinta) 180 mg STK-MED ONCE PO Last administered on 06/28/17 13: 16; Start 06/28/17 at 13:16; Stop 06/28/17 at 13:17; Status DC Aspirin (Aspirin Chew) 81 mg STK-MED ONCE .ROUTE Last administered on 13:16; Start 06/28/17 at 13:16; Stop 06/28/17 at 13:17; Status DC Ticagrelor (Brilinta) 180 mg STK-MED ONCE PO ; Start 06/28/17 at 13:32; Stop at 13:33; Status DC Aspirin (Aspirin Chew) 81 mg DAILY PO Last administered on 07/06/17 08:26; Start 06/29/17 at 09:00 Ticagrelor (Brilinta) 90 mg BID PO Last administered on 07/06/17 08:26; Start 06/28/17 at 21:00 Pravastatin Sodium (Pravachol) 20 mg HS PO Last administered on 07/02/17 20: 05; Start 06/28/17 at 21:00; Stop 07/03/17 at 20:21; Status DC Iron Sucrose 100 mg/Sodium Chloride 105 ml @ 105 mls/hr DAILY IV Last administered on 07/01/17 08:48; Start 06/29/17 at 09:00; Stop 07/01/17 at 09: 59; Status DC Acetylcysteine (Mucomyst 20% Liq) 1,200 mg BID PO Last administered on 20:31; Start 06/28/17 at 14:30; Stop 06/29/17 at 04:00; Status DC Fluticasone Propionate (Flonase Ethan Spr) 1 spray Q12H PRN NASAL NASAL CONGESTION Last administered on 06/30/17 10:11; Start 06/28/17 at 14:45; Stop 07/03/17 at 14:25; Status DC Patient Own Medication PT OWN MED: OPTIC ARED... DAILY PO Last administered on 07/06/17 08:27; Start 06/28/17 at 16:00 Metoprolol Tartrate (Lopressor Inj) 5 mg STK-MED ONCE .ROUTE ; Start 06/28/17 at 17:32; Stop 06/28/17 at 17:33; Status DC Metoprolol Tartrate (Lopressor Inj) 5 mg Q6H PRN IV PUSH Pulse > 120 Last administered on 06/28/17 17:46; Start 06/28/17 at 17:30 Carvedilol (Coreg) 6.25 mg ONCE ONCE PO Last administered on 06/28/17 18:07; Start 06/28/17 at 18:15; Stop 06/28/17 at 18:16; Status DC Acetaminophen (Tylenol) 650 mg Q6H PRN PO SEE LABEL COMMENTS Last administered on 07/04/17 10:34; Start 06/28/17 at 21:30 Metoprolol Tartrate (Lopressor Inj) 5 mg NOW ONCE IV PUSH Last administered on 06/28/17 21:58; Start 06/28/17 at 21:45; Stop 06/28/17 at 21:46; Status DC Influenza Virus Vaccine (Flu (Quadrivalent) Vaccine Inj) 0.5 ml ONCE ONCE IM Last administered on 06/30/17 10:18; Start 06/30/17 at 09:00; Stop 06/30/17 at 09:01; Status DC Bumetanide (Bumex Inj) 1 mg ONCE ONCE IV PUSH Last administered on 06/29/17 12:10; Start 06/29/17 at 12:30; Stop 06/29/17 at 12:31; Status DC Amiodarone HCl (Cordarone) 400 mg Q12HR PO Last administered on 07/06/17 08: 26; Start 06/29/17 at 15:00 Iohexol (OMNIPAQUE 350 INJ (Senior Integration Architect)) 100 ml STK-MED ONCE OTHER ; Start at 08:44; Stop 06/30/17 at 08:45; Status DC Iohexol (OMNIPAQUE 350 INJ (Senior Integration Architect)) 50 ml STK-MED ONCE OTHER ; Start at 08:44; Stop 06/30/17 at 08:45; Status DC Sodium Chloride 1,000 ml @ 0 mls/hr Q0M PRN OTHER For Prime & Rinse Back; Start 06/30/17 at 10:38 Heparin Sodium (Porcine) (Heparin Inj) 8,000 units UNSCH PRN IV FLUSH WITH DIALYSIS; Start 06/30/17 at 10:45 Sodium Chloride 1,000 ml @ 200 mls/hr Q5H PRN IV WITH DIALYSIS; Start 06/30/17 at 10:38 Sodium Chloride 1,000 ml @ 0 mls/hr Q0M PRN OTHER WITH DIALYSIS; Start at 10:38 Mannitol (Mannitol Inj) 12.5 gm UNSCH PRN IV WITH DIALYSIS; Start 06/30/17 at 10:45 Albumin Human (Albumin 25% Inj) 25 gm UNSCH PRN IV WITH DIALYSIS; Start at 10:45 Sodium Chloride (NS Flush) 5 ml UNSCH PRN IV FLUSH WITH DIALYSIS; Start at 10:45 Heparin Sodium (Porcine) (Heparin Inj) UNSCH PRN .XX WITH DIALYSIS; Start 06/30/17 at 10:45 Gentamicin Sulfate (Gentamicin (Dialysis) Inj) 20 mg UNSCH PRN OTHER WITH DIALYSIS Last administered on 07/05/17 10:02; Start 06/30/17 at 10:45 Ondansetron HCl (Zofran Inj) 4 mg UNSCH PRN IV PUSH WITH DIALYSIS; Start at 10:45 Acetaminophen (Tylenol) 650 mg UNSCH PRN PO for headach, temp > 101F Last administered on 07/01/17 20:24; Start 06/30/17 at 10:45 Diphenhydramine HCl (Benadryl) 25 mg UNSCH PRN PO for hives/itching/ anaphylaxis Last administered on 07/01/17 20:25; Start 06/30/17 at 10:45 Nitroglycerin (Nitrostat Sl) 0.4 mg UNSCH PRN SL CHEST PAIN; Start 06/30/17 at 10:45 Clonidine (Catapres) 0.1 mg UNSCH PRN PO for BP > 180/100 X 2 readings; Start 06/30/17 at 10:45 Epoetin Benji (Epogen Inj) 5,000 units UNSCH PRN IV PUSH WITH DIALYSIS Last administered on 07/05/17 10:02; Start 06/30/17 at 10:45 Gelatin (Gelfoam 12 Mm/7 Mm Top) 1 foam UNSCH PRN TOP SEE LABEL COMMENTS; Start 06/30/17 at 10:45 Sodium Chloride (NS Flush) UNSCH PRN IV FLUSH SEE PROTOCOL; Start 06/30/17 at 12:00 Heparin Sodium (Porcine) (Heparin Inj) UNSCH PRN IV FLUSH SEE PROTOCOL; Start 06/30/17 at 12:00 Heparin Sodium (Porcine) (Heparin Inj) 2,200 units STK-MED ONCE IV Last administered on 06/30/17 12:03; Start 06/30/17 at 12:03; Stop 06/30/17 at 12:05 ; Status DC Albuterol Sulfate (Albuterol Neb) 2.5 mg Q2HR NEB PRN NEB dyspnea; Start at 22:30 Pantoprazole Sodium (Protonix) 20 mg DAILY PO Last administered on 07/06/17 08:25; Start 07/01/17 at 09:00 Senna/Docusate Sodium (Ally-Colace) 1 tab BID PO Last administered on 08:26; Start 07/01/17 at 09:00 Glycerin (Glycerin Adult Supp) 2 gm DAILY PRN RECTAL CONSTIPATION; Start at 22:45 Polyethylene Glycol (Miralax) 17 gm BID PO Last administered on 07/05/17 12: 52; Start 07/01/17 at 09:00 Lactulose (Lactulose Liq) 30 ml ONCE ONCE PO Last administered on 07/01/17 03:13; Start 06/30/17 at 22:45; Stop 06/30/17 at 22:46; Status DC Lactulose (Lactulose Liq) 30 ml DAILY PO Last administered on 07/06/17 08:25 ; Start 07/01/17 at 09:00 Methylnaltrexone [place] (Relistor Inj) 12 mg ONCE ONCE SQ Last administered on 07/01/17 00:04; Start 06/30/17 at 22:45; Stop 06/30/17 at 22:46; Status DC Glycerin (Glycerin Adult Supp) 2 gm BID PRN RECTAL CONSTIPATION; Start at 22:45 Insulin Human Regular (NovoLIN R SUPPLEMENTAL SCALE) 1 ACHS SQ ; Start at 08:00; Stop 07/05/17 at 16:18; Status DC Tamsulosin HCl (Flomax) 0.8 mg HS PO Last administered on 07/05/17 20:42; Start 07/01/17 at 21:00 Calcium Acetate (Phoslo) 667 mg TID PO Last administered on 07/02/17 17:25; Start 07/01/17 at 09:00; Stop 07/02/17 at 17:47; Status DC Heparin Sodium (Porcine) (Heparin Inj) 5,000 units Q8HR SQ Last administered on 07/06/17 06:19; Start 07/01/17 at 14:00 Al Hydrox/Mg Hydrox/Simethicone (Mag-Al Plus Susp Liq) 30 ml Q6HR PRN PO dyspepsia; Start 07/01/17 at 18:00 Albuterol/ Ipratropium (Duoneb Neb) 1 ampule Q4HR NEB NEB Last administered on 07/05/17 19:36; Start 07/01/17 at 20:00; Stop 07/05/17 at 19:59; Status DC Carvedilol (Coreg) 6.25 mg BID PO Last administered on 07/06/17 08:26; Start 07/01/17 at 21:00 Folic Acid (Folate) 1 mg DAILY PO Last administered on 07/06/17 08:26; Start 07/02/17 at 09:00 Vitamin B Complex/ Vit C/Folic Acid (Nephrocaps) 1 cap DAILY PO Last administered on 07/06/17 08:25; Start 07/02/17 at 09:00 Ergocalciferol (Drisdol) 50,000 units Q7D PO ; Start 07/02/17 at 18:00 Furosemide (Lasix Inj) 40 mg ONCE ONCE IV PUSH Last administered on 02:58; Start 07/03/17 at 03:00; Stop 07/03/17 at 03:01; Status DC Hydromorphone HCl (Dilaudid Pf Inj) 2 mg Q4H PRN IVS pain Last administered on 07/03/17 05:22; Start 07/03/17 at 05:00; Stop 07/03/17 at 20:22; Status DC Sodium Chloride ([place] Top Saline 0.65% Ethan Drp/ [place]) 2 drop UNSCH PRN EACH NARE nasal congestion; Start 07/03/17 at 15:00 Fluticasone Propionate (Flonase Ethan Spr) 1 spray BID NASAL Last administered on 07/06/17 08:28; Start 07/03/17 at 15:00 Pravastatin Sodium (Pravachol) 20 mg HS PO Last administered on 07/05/17 20: 43; Start 07/03/17 at 21:00 Hydromorphone HCl (Dilaudid Pf Inj) 2 mg Q4H PRN IV PAIN SCALE 1 TO 10 Last administered on 07/04/17 03:25; Start 07/03/17 at 20:30; Stop 07/04/17 at 13 :44; Status DC Acetaminophen/ Hydrocodone Bitart ([place] 5-325 Mg) 1 tab Q4H PRN PO pain 1-7 Last administered on 07/05/17 06:44; Start 07/04/17 at 13:45; Stop 07/05/17 at 10:09; Status DC Acetaminophen/ Hydrocodone Bitart ([place] 5-325 Mg) 2 tab Q4H PRN PO pain 8-10 Last administered on 07/05/17 01:59; Start 07/04/17 at 13:45; Stop 07/05/17 at 10:09; Status DC Atropine Sulfate (Atropine Inj) 1 mg STK-MED ONCE .ROUTE ; Start 07/05/17 at 08 :43; Stop 07/05/17 at 08:44; Status DC Acetaminophen/ Hydrocodone Bitart ([place] 5-325 Mg) 1 tab Q4H PRN PO pain 4-10 Last administered on 07/06/17 08:27; Start 07/05/17 at 10:15; Stop 07/06/17 at 09:50; Status DC Bumetanide (Bumetanide) 1 mg DAILY PO Last administered on 07/06/17 08:25; Start 07/06/17 at 09:00 Cyclobenzaprine HCl (Flexeril) 5 mg BID PO ; Start 07/06/17 at 10:00 Tramadol HCl (Ultram) 50 mg Q6H PRN PO pain 4-10; Start 07/06/17 at 10:00 Miscellaneous (Pill Splitter) 1 ea UNSCH PRN OTHER SEE LABEL COMMENTS; Start 07/06/17 at 10:00 A/P Problem List: (1) Anemia ICD Code: D64.9 - Anemia, unspecified (2) Hyponatremia ICD Code: E87.1 - Hypo-osmolality and hyponatremia (3) Urinary retention ICD Code: R33.9 - Retention of urine, unspecified (4) CKD (chronic kidney disease) stage 4, GFR 15-29 ml/min ICD Code: N18.4 - Chronic kidney disease, stage 4 (severe) Status: Chronic (5) Primary osteoarthritis of right knee ICD Code: M17.11 - Unilateral primary osteoarthritis, right knee (6) NSTEMI (non-ST elevated myocardial infarction) ICD Code: I21.4 - Non-ST elevation (NSTEMI) myocardial infarction Status: Acute (7) status post left total knee replacement Status: Acute Assessment and Plan 72-year-old male p/w chest pain Syncope 07/03 -evaluated by intensive care. Most likely secondary to vasovagal episode. He has been asymptomatic since that one episode. Left lower rib pain -Due to trauma from syncopal episode. -Will try tramadol since it should be less sedating to see if this helps with pain since patient is requesting a less sedating medication. He also think muscle spasm is his aspirin the pain so will try low dose of Flexeril. -Continue to encourage ambulation and incentive spirometry. NSTEMI/atrial fibrillation/hypertension -Status post cardiac catheterization with stents to the RCA and left circumflex -on aspirin 81 mg daily and Ticagrelor 90 mg twice a day -Cardiology/Dr. cote following -Echocardiogram 06/30 revealed EF 50-55%. Moderate to severe TR. PAP 60 mmHg -Continue pravastatin, amiodarone, carvedilol. Amlodipine held. -Patient poor candidate for anticoagulation at the moment. Acute hypoxemic respiratory failure likely secondary to pulmonary edema/ pulmonary hypertension -Continue to wean off of nasal cannula as tolerated. -VQ scan 06/30 low probability for pulmonary embolism. -Patient is receiving hemodialysis to help with fluid removal. He will need a permacath in order for discharge. Acute and chronic kidney disease stage V -Hemodialysis catheter right IJ placed by IR today. -Per neurologist this is most likely end-stage renal disease and he most likely will need long-term dialysis. Patient wants peritoneal dialysis. -Continue with dialysis per sales representative facility services. Nasal congestion -Improving with Flonase and saline spray. BPH/gout/anemia secondary to chronic kidney disease -Continue home medication. Status post right total knee replacement by Dr. Marcelino -Knee device -Orthosis following. Hyponatremia/Hyperphosphatemia -Replace electrolytes as clinically indicated -calcium acetate 667 mg 3 times a day Prophylaxis - GI - pantoprazole - DVT - SCD Discussed with patient and his . Discharge Planning Patient will have permacath placed on Friday. Sejal St MD Jul 06, 2017 10:40
[2017-07-06] MEDS: traMADol HCL 50 MG TAB PO PRN ×2 (12:36→18:19)
[2017-07-06] MEDS: PRAVASTATIN SOD 20 MG TAB PO SCH (21:21)
[2017-07-06] MEDS: TAMSULOSIN HCL 0.4 MG CAP PO SCH (21:21)
[2017-07-07] VITALS (25 sets, daily range): BP systolic 132–153; BP diastolic 61–72; PULSE 62–79; RESP 17–18; TEMP 97.8–99.1; O2SAT 93–97
[2017-07-07] MEDS: traMADol HCL 50 MG TAB PO PRN ×3 (00:15→19:26)
[2017-07-07 05:02] LABS: BICARBONATE 28.3 MEQ/L (21.0-32.0); POTASSIUM 3.8 MEQ/L (3.5-5.1)
[2017-07-07] MEDS: HEPARIN SODIUM - SQ 10,000 UNITS/ML VIAL SQ SCH ×2 (06:00→06:20)
[2017-07-07] MEDS: LACTULOSE SYRUP 20 GM/30 ML CUP PO SCH (09:00)
[2017-07-07] MEDS: SODIUM CHLORIDE 0.9% FLUSH 10 ML FLUSH IV FLUSH SCH ×2 (09:00→20:05)
[2017-07-07] MEDS: POLYETHYLENE GLYCOL 17 GM PKG PO SCH ×2 (09:00→20:05)
[2017-07-07] MEDS: FLUTICASONE PROPIONATE 50 MCG/ACT 16 GM NASAL SPRAY NASAL SCH ×2 (09:00→20:05)
[2017-07-07] MEDS: PATIENT OWN MEDICATION PO SCH (09:00)
[2017-07-07] MEDS: CYCLOBENZAPRINE HCL 10 MG TAB PO SCH ×2 (09:28→20:04)
[2017-07-07] MEDS: VITAMIN B CMPLX/VITC/FOLIC AC CAP PO SCH (09:28)
[2017-07-07] MEDS: ALLOPURINOL 100 MG TAB PO SCH ×2 (09:28→20:04)
[2017-07-07] MEDS: PANTOPRAZOLE SOD 20 MG DELAYED RELEASE TAB PO SCH (09:28)
[2017-07-07] MEDS: DOCUSATE SODIUM 50 MG/SENNA 8.6 MG TAB PO SCH ×2 (09:28→20:05)
[2017-07-07] MEDS: CARVEDILOL 3.125 MG TAB PO SCH ×2 (09:29→20:04)
[2017-07-07] MEDS: AMIODARONE 200 MG TAB PO SCH ×2 (09:29→20:04)
[2017-07-07] MEDS: FOLIC ACID 1 MG TAB PO SCH (09:29)
[2017-07-07] MEDS: TICAGRELOR 90 MG TAB PO SCH ×2 (09:29→20:04)
[2017-07-07] MEDS: BUMETANIDE 1 MG TAB PO SCH (09:29)
[2017-07-07] MEDS ORDERED: SODIUM CHLOR 0.9% 250 ML INJ 250 ML ONE (10:02)
[2017-07-07] MEDS ORDERED: VANCOMYCIN HCL 1000 MG VIAL ONE (10:03)
[2017-07-07] MEDS ORDERED: ceFAZolin 2 GM PREMIX 50 ML ONE (10:03)
[2017-07-07] MEDS ORDERED: HEPARIN SODIUM - SQ 10,000 UNITS/ML VIAL IV FLUSH ONE (10:22)
[2017-07-07] MEDS ORDERED: MIDAZOLAM HCL 2 MG/2 ML VIAL ONE (10:26)
--- NOTE | 2017-07-07 11:24 | PD.RAD ---
Post Procedure Progress Note Pre Procedure Diagnosis: (1) Acute kidney insufficiency (2) Chronic renal insufficiency Post Procedure Diagnosis: (1) Acute kidney insufficiency (2) Chronic renal insufficiency Procedure Date: Jul 07, 2017 Supervising Radiologist: Kei Daley Estimated blood loss: 2cc Anesthesia: Local, Conscious Sedation Plan of Activity Patient to Unit: ROP[facility] Patient Condition: Good Additional Comments: Pt. post perm cath placement via the right IJ Catheter in good position OK for use Full dictated report to follow See PACS Report for procedural detail/treatment Kei Daley MD Jul 07, 2017 11:24
--- NOTE | 2017-07-07 12:39 | HHI.NPPN ---
Subjective History of Present Illness This patient is a 72-year-old male with a history of progressive severe chronic kidney disease with a baseline GFR of approximately 20 although more recently has had GFR is below this level. Patient underwent a total right knee arthroplasty deferred of June, for severe degenerative joint disease. Patient wished to proceed despite the severity of his chronic kidney disease and risk of worsening renal function because of the severity of debilitation associated with his degenerative joint disease. Patient's renal function fortunately did remain relatively stable postoperatively and the patient was discharged in stable clinical condition except for the fact that he did develop some bladder outlet obstruction and required an indwelling Abdul catheter with follow-up with urology post discharge. Patient noted to have presented to the emergency room in [place] with complaints of "heartburn". Subsequent diagnosis having and non-ST RI with elevations in troponin. His serum creatinine level on presentation was 3.6 subsequently deteriorating today to 3.9. He is also said to have developed some respiratory insufficiency in route to the main campus. Chest x-ray showed some evidence of interstitial edema and symptomatology improved with IV furosemide. Patient was seen by cardiology and was taken urgently to the cardiac catheter lab for angiogram. Patient did receive IV saline since admission. Patient now status post placement of 2 bare metal stents. Interval History Patient seen post Facundo cath placement. No complaints. Review of Systems Respiratory Lungs: SOB (mild, improving) Objective Data Data Vital Signs Date Time Temp Pulse Resp B/P (MAP) Pulse Ox O2 Delivery O2 Flow Rate FiO2 07/07/17 10:00 74 07/07/17 09:00 74 07/07/17 08:00 74 07/07/17 07:31 96 21 07/07/17 07:00 98.7 75 18 143/70 (94) 93 07/07/17 07:00 74 07/07/17 07:00 93 Room Air 07/07/17 06:05 69 07/07/17 04:28 65 07/07/17 03:53 98.2 66 17 135/63 (87) 95 07/07/17 03:53 65 07/07/17 03:53 95 Room Air 07/07/17 02:12 62 07/07/17 01:24 64 07/07/17 00:03 65 07/06/17 23:40 66 07/06/17 23:40 98.6 69 17 138/63 (88) 95 07/06/17 23:40 96 Room Air 07/06/17 22:57 70 07/06/17 21:03 97 21 07/06/17 21:00 72 07/06/17 20:40 68 07/06/17 19:50 99.0 63 18 140/63 (88) 94 07/06/17 19:50 70 07/06/17 19:50 94 Room Air 07/06/17 18:00 82 07/06/17 17:00 65 07/06/17 16:02 96 07/06/17 16:00 69 07/06/17 15:15 96 Room Air 07/06/17 15:15 98.1 72 16 116/59 (78) 96 07/06/17 15:00 64 07/06/17 14:00 65 07/06/17 13:00 60 -: 07/06/17 0439 07/07/17 0359 Tubes & Lines: Vas-Cath, Abdul Physical Exam General Appearance: Comfortable Eyes Eye Exam: Sclera White Pulmonary Resp Exam: Clear Bilaterally, Breath Sounds Equal Resp Remarks Few basilar crackles. Cardiology CV Exam: Regular Gastrointestinal/Abdomen GI Exam: Soft, Non-Tender Integumentary Skin Exam: Clear, Warm, Normal Turgor Extremeties Extremities Exam: No Edema Neurologic Neuro Exam: Alert, Awake, Speech Clear, Moving All Extremities Psychiatric Psych Exam: Appropriate Responses Assessment/Plan Discussed Condition With: Patient Problem List: (1) Acute kidney insufficiency ICD Codes: N28.9 - Disorder of kidney and ureter, unspecified Status: Acute Plan: Contributory factors include hemodynamic issues with acute RI, cardiac decompensation as well as now contrast nephrotoxicity with probable development of some degree of ATN. Patient's volume status appears to be acceptable. Perm Cath in place and discharge planning okay from renal point of view at this time. Continue TTS schedule He is going to rehab after his discharge and prefers to fo to [facility]. He has been advised that we do not round there and another nephrology group will see him while there, but desires to f/u again with our practice after discharge. (2) NSTEMI (non-ST elevated myocardial infarction) ICD Codes: I21.4 - Non-ST elevation (NSTEMI) myocardial infarction Status: Acute Plan: Management per cardiology. S/P bare metal stents and Brilinta cannot be held for 30 days per cardiology. (3) CKD (chronic kidney disease) stage 4, GFR 15-29 ml/min ICD Codes: N18.4 - Chronic kidney disease, stage 4 (severe) Status: Chronic Plan: History of progressive and severe stage IV CKD. Prior to this admission associated with chronic metabolic acidosis being managed by by mouth sodium bicarbonate. As indicated above the patient was being prepared for initiation of dialysis the not too distant future. Peritoneal dialysis was his chronic modality of choice. (4) Hypertension ICD Codes: I10 - Hypertension Status: Chronic (5) Urinary retention ICD Codes: R33.9 - Retention of urine, unspecified Plan: Improving. Abdul out 07/04 and urinating on his own. (6) Anemia of renal disease ICD Codes: D63.1 - Anemia in chronic kidney disease Plan: With a component of iron deficiency and hemodilution. Epogen with HD as ordered Didi Valencia MD Jul 07, 2017 12:39
--- NOTE | 2017-07-07 13:00 | RADRPT ---
EXAM DATE/TIME: 07/07/2017 00:00 [facility] COMPARISON: TEMP DIALYSIS CATHETER PLCMT W/US, RIGHT, June 30, 2017, 11:20. INDICATIONS : Patient presents with chronic renal disease in need of dialysis catheter removal. MEDICAL HISTORY : Chronic renal disease Osteoarthritis Hypertension SURGICAL HISTORY : Bilateral knee replacement ENCOUNTER: Subsequent ACUITY: 2 weeks PAIN SCORE: 0/10 LOCATION: N/A IMAGE SERIES: PROCEDURE : 1. Temporary central venous catheter removal. The prescribed catheter was removed intact and hemostasis was achieved with direct pressure. The sit e was dressed appropriately. The patient tolerated the procedure well. CONCLUSION: Uncomplicated catheter removal. Kei Daley MD on July 07, 2017 at 12:59 Board Certified Radiologist. This report was verified electronically.
--- NOTE | 2017-07-07 13:02 | RADRPT ---
EXAM DATE/TIME: 07/07/2017 10:50 [facility] COMPARISON: TEMP CATH MARCELLA CATH REM W/O FL NON-TUNNELLED, July 07, 2017, 0:00. INDICATIONS : Patient presents with chronic renal failure in need of dialysis catheter placement. MEDICAL HISTORY : Chronic renal disease Osteoarthritis Hypertension SURGICAL HISTORY : Bilateral knee replacement ENCOUNTER: Subsequent ACUITY: 2 weeks PAIN SCORE: 0/10 LOCATION: N/A FLUORO TIME: 3.0 IMAGE SERIES: SEDATION TIME: 30 ACCESS: Right internal jugular vein SEDATION: 1.) 2 mg midazolam (Versed) IV 2.) 100 mcg fentanyl (Sublimaze) IV Prophylactic antibiotics were administered with appropriate pre-procedure timing. Vancomycin within 2 hours of procedure, Ancef (or alternative) within 1 hour of procedure. DEVICE: 1. 15 Telugu dual lumen 23 cm Sutton II Plus catheter TECH NOTE: Patient arrived with temp dialysis catheter which was removed and replaced with a 15fr 23 cm perm israel lysis catheter.BAR SOUSA MR#:[id number] Exam Dt/Desc: July 07, 2017PERM CV CATH PLCMT W US RIGHT PROCEDURE : 1. Ultrasound-guided venipuncture. 2. PermaCath placement. 3. Conscious sedation with continuous EKG and oximetry monitoring. The risks, benefits and alternatives to the procedure were explained and verbal and written consent w as obtained. The site was prepped in sterile fashion. Full sterile technique was used, including ca p, mask, sterile gloves and gown and a large sterile sheet. Hand hygiene and 2% chlorhexidine and/or betadine/alcohol prep was utilized per protocol for cutaneous antisepsis. Sterile gel and sterile p robe cover were utilized for ultrasound guidance. The patient was evaluated prior to the procedure. The Vas-Cath was quite high in location. The decisi on was made to access the jugular vein lower to appropriately place a permacath. The skin and subcutaneous tissues were infiltrated with local anesthetic solution. With ultrasound and fluoroscopic guidance a dermatotomy was created over the prescribed vein. A micr opuncture set was used to access the targeted vein and serial dilatation was performed to accept the prescribed length catheter. A subcutaneous tunnel was created in a retrograde fashion the catheter w as pulled through the tunnel. The catheter was flushed and assembled and locked with heparin. The c atheter was sutured in place. Conscious sedation was performed with the prescribed dosages and duration as above in the presence of an independent trained radiology nurse to assist in the monitoring of the patient. EKG and oximetry remained stable throughout the procedure. The patient tolerated the procedure well and there were n o complications. The patient was sent to post anesthesia recovery in stable condition. CONCLUSION: Uncomplicated PermaCath placement as above. Kei Daley MD on July 07, 2017 at 13:00 Board Certified Radiologist. This report was verified electronically.
[2017-07-07] MEDS ORDERED: POLY17S PO (13:06)
[2017-07-07] MEDS ORDERED: ERGO1CAP30 PO (13:06)
[2017-07-07] MEDS ORDERED: Lactulose Liq PO (13:06)
[2017-07-07] MEDS ORDERED: NEPHRO PO (13:06)
[2017-07-07] MEDS ORDERED: BRIL90TA PO (13:06)
[2017-07-07] MEDS ORDERED: BUME1TAB PO (13:06)
[2017-07-07] MEDS ORDERED: FOLI1TAB6 PO (13:06)
[2017-07-07] MEDS ORDERED: CYCL1TAB29 PO (13:06)
[2017-07-07] MEDS ORDERED: ULTR50TA5 PO (13:06)
[2017-07-07] MEDS ORDERED: FLUT50SP NASAL (13:06)
[2017-07-07] MEDS ORDERED: ASPI81CH25 PO (13:06)
[2017-07-07] MEDS ORDERED: PRAV20TA PO (13:06)
[2017-07-07] MEDS ORDERED: CARV3.125 PO (13:06)
[2017-07-07] MEDS ORDERED: PANT20 PO (13:06)
[2017-07-07] MEDS ORDERED: SENN1TAB PO (13:06)
--- NOTE | 2017-07-07 13:08 | HHI.DS ---
Discharge Summary Admission Date Jun 27, 2017 at 15:25 Discharge Date: Jul 07, 2017 Admitting Diagnosis NSTEMI (1) NSTEMI (non-ST elevated myocardial infarction) ICD Code: I21.4 - Non-ST elevation (NSTEMI) myocardial infarction Diagnosis: Principal Status: Acute (2) Hyponatremia ICD Code: E87.1 - Hypo-osmolality and hyponatremia Diagnosis: Principal (3) Urinary retention ICD Code: R33.9 - Retention of urine, unspecified Diagnosis: Secondary (4) CKD (chronic kidney disease) stage 4, GFR 15-29 ml/min ICD Code: N18.4 - Chronic kidney disease, stage 4 (severe) Diagnosis: Principal Status: Chronic (5) status post left total knee replacement Diagnosis: Secondary Status: Acute (6) Acute kidney insufficiency ICD Code: N28.9 - Disorder of kidney and ureter, unspecified Diagnosis: Principal Status: Acute (7) Primary osteoarthritis of right knee ICD Code: M17.11 - Unilateral primary osteoarthritis, right knee Diagnosis: Secondary (8) Contusion of rib on left side ICD Code: S20.212A - Contusion of left front wall of thorax, initial encounter Diagnosis: Principal (9) Syncope, cardiogenic ICD Code: R55 - Syncope and collapse Diagnosis: Principal (10) Anemia ICD Code: D64.9 - Anemia, unspecified Diagnosis: Secondary Procedures See hospital course Brief History - From Admission This patient is a very pleasant 72-year-old gentleman with a strong family history of coronary artery disease. He did have severe unexplained heartburn symptoms over the last evening. He says the discomfort was 10 out of 10 and he did not find any relief with supportive measures. Patient was recently discharged from the hospital on 06/24 after a right total knee replacement. During that hospitalization he had some severe urinary retention which required a urinary catheter to be maintained he was referred to outpatient urology. Patient apparently over the last several days had initially been doing well at home but began to be lethargic and had some low-grade temperatures of about 100.5. His significant other says that he was much more sleepy and then he began complaining of the chest discomfort. Patient describes it as severe heartburn in the middle of his chest and radiating up into his throat. Chest pain was improved with nitroglycerin. He was brought into the emergency room and evaluation did show patient had elevated troponin 4.3 as well as EKG changes which were worrisome for ischemic changes. Patient is admitted to the hospital for further evaluation of non-ST elevation TX. He has no personal cardiac history but has significant family history of sudden cardiac . At age 72 he has outlived all of his immediate family including mother father and brother and sister who apparently from sudden cardiac. Patient also has chronic kidney disease stage IV follows up with his fiscal economist. He has been hyponatremic and anemic and this evaluation today also. Patient's been admitted to the cardiac unit for further evaluation. CBC/BMP: 07/06/17 0439 07/07/17 0359 Significant Findings Laboratory Tests Test 07/05/17 03:02 07/06/17 04:39 07/07/17 03:59 White Blood Count 13.4 TH/MM3 (4.0-11.0) 14.1 TH/MM3 (4.0-11.0) Red Blood Count 3.29 MIL/MM3 (4.50-5.90) 3.30 MIL/MM3 (4.50-5.90) Hemoglobin 10.0 GM/DL (13.0-17.0) 9.9 GM/DL (13.0-17.0) Hematocrit 30.5 % (39.0-51.0) 30.4 % (39.0-51.0) Blood Urea Nitrogen 68 MG/DL (7-18) 41 MG/DL (7-18) 52 MG/DL (7-18) Creatinine 4.77 MG/DL (0.60-1.30) 3.62 MG/DL (0.60-1.30) 4.65 MG/DL (0.60-1.30) Sodium Level 131 MEQ/L (136-145) 135 MEQ/L (136-145) 135 MEQ/L (136-145) Chloride Level 94 MEQ/L (98-107) 96 MEQ/L (98-107) 96 MEQ/L (98-107) Estimat Glomerular Filtration Rate 12 ML/MIN (>89) 17 ML/MIN (>89) 12 ML/MIN (>89) Troponin I 0.22 NG/ML (0.02-0.05) Platelet Count 494 TH/MM3 (150-450) Imaging Last Impressions Central Venous Line 07/07/17 Signed Impressions: Service Date/Time: Friday, July 07, 2017 00:00 - CONCLUSION: Uncomplicated catheter removal. Kei Daley MD Catheter Placement X-Ray 07/07/17 Signed Impressions: Service Date/Time: Friday, July 07, 2017 10:50 - CONCLUSION: Uncomplicated PermaCath placement as above. Kei Daley MD Chest X-Ray 07/03/17 Signed Impressions: Service Date/Time: June 14:11 - CONCLUSION: 1. Resolving pulmonary congestion. 2. New right jugular Vas-Cath without evidence of pneumothorax. 3. Otherwise stable chest Marcus Lewis MD Lung Scan-V Nuclear Medicine 06/30/17 Signed Impressions: Service Date/Time: Friday, June 30, 2017 12:05 - CONCLUSION: Perfusion better than the ventilation, low probability for pulmonary embolism. Venkat Daley MD FACR Renal Ultrasound 06/28/17 Signed Impressions: Service Date/Time: Wednesday, June 28, 2017 09:24 - CONCLUSION: 1. Cortical thinning and increased echogenicity suggesting underlying medical renal disease. Kei Daley MD PE at Discharge GENERAL: in NAD CARDIOVASCULAR: Regular rate and rhythm without murmurs, gallops, or rubs. Positive tenderness to palpation of the left lower rib area. No ecchymosis noted. No deformity noted. Right Vas-Cath in place. RESPIRATORY: Breath sounds equal bilaterally. No accessory muscle use. GASTROINTESTINAL: Abdomen soft, non-tender, nondistended. MUSCULOSKELETAL: No cyanosis, or edema. BACK: Nontender without obvious deformity. No CVA tenderness. Pt update on day of discharge Follow-up for left hip pain, end-stage renal disease, atrial fibrillation Patient stated that he is doing a lot better today. He stated that the tramadol and Flexeril helped him a lot better. He has no complaints. He had permacath placement today. Hospital Course 72-year-old male p/w chest pain NSTEMI/atrial fibrillation/hypertension -Patient was admitted to the ICU in which senior oracle soa developer was consulted and he had a cardiac cauterization done which with stents to the RCA and left circumflex -He was put on aspirin 81 mg daily and Ticagrelor 90 mg twice a day -He had an Echocardiogram 06/30 revealed EF 50-55%. Moderate to severe TR. PAP 60 mmHg. patient was put on pravastatin and carvedilol. -Later during hospital course he developed atrial fibrillation and was put on amiodarone and went back into sinus rhythm. Per senior oracle soa developer at the moment he is a poor candidate for anticoagulation but may consider later future. Syncope 07/03 -evaluated by intensive care. Most likely cardiogenic. Patient has been asystematic since then. Left lower rib pain -Due to trauma from syncopal episode. -Patient was initially given [place] for pain which cause sedation. Later tried Flexeril and tramadol which helped drastically. Acute hypoxemic respiratory failure likely secondary to pulmonary edema/ pulmonary hypertension -Patient had a VQ scan on 06/30 showed low probability pulmonary for pulmonary embolism. -Secondary to in-stent me. Patient received hemodialysis in which he was later able to wean off oxygen. -Continue to wean off of nasal cannula as tolerated. Acute and chronic kidney disease stage V -Nephrology is consulted and patient received hemodialysis through right IJ placed by IR. On 07/07/2000 he had a permacath placed. -Per neurologist this is most likely end-stage renal disease and he most likely will need long-term dialysis. Patient wants peritoneal dialysis. -Continue with dialysis per fiscal economist. Nasal congestion -patient was put on Flonase and saline spray in which symptoms resolved. BPH/gout/anemia secondary to chronic kidney disease -Continue home medication. Status post right total knee replacement by Dr. Marcelino -Knee device -Orthopedics was consulted and signed off. -Patient needs rehabilitation. Hyponatremia/Hyperphosphatemia -Replace electrolytes as clinically indicated -calcium acetate 667 mg 3 times a day Pt Condition on Discharge: Good Discharge Disposition: Discharge to SNF Discharge Time: > 30 minutes Discharge Instructions DIET: Follow Instructions for: Heart Healthy Diet, Renal Failure Diet Activities you can perform: Regular-No Restrictions Follow up Referrals: Cardiology - 2 Weeks with Brittany Jenkins MD Nephrology - 1 Week Orthopedics - 1 Week SNF/[facility]/ - Daily New Medications: Amiodarone (Amiodarone) 200 Mg Tab 400 MG PO Q12HR for atrial fibrillation, #60 TAB 0 Refills Aspirin (Aspirin Low Strength) 81 Mg Chew 81 MG PO DAILY for heart disease, #30 EA 0 Refills Bumetanide (Bumetanide) 1 Mg Tab 1 MG PO DAILY for fluid overload, #30 TAB 0 Refills Carvedilol (Coreg) 3.125 Mg Tab 6.25 MG PO BID for heart disease, #60 TAB 0 Refills Cyclobenzaprine (Flexeril) 10 Mg Tab 5 MG PO BID for muscle spasm, #14 TAB 0 Refills Ergocalciferol (Ergocalciferol) 50,000 Unit Cap 78498 UNITS PO Q7D for vitamin D , #4 CAP 0 Refills Fluticasone Nasal Jefferson (Fluticasone Nasal Jefferson) 50 Mcg/Act Naspr 1 SPRAY NASAL BID for nasal congestion, #1 BOTTLE 0 Refills 50 mcg/spray Folic Acid (Folic Acid) 1 Mg Tablet 1 MG PO DAILY for vitamin, #30 TAB 0 Refills Pantoprazole (Protonix) 20 Mg Tab 20 MG PO DAILY for acid reflux, #30 TAB 0 Refills Polyethylene Glycol 3350 Powder (Polyethylene Glycol 3350 Powder) 17 Gram Pow 17 GM PO BID PRN for CONSTIPATION, #1 BOTTLE 0 Refills Pravastatin (Pravachol) 20 Mg Tab 20 MG PO HS for hyperlipidemia, #30 TAB 0 Refills Sennosides-Docusate Sodium (Senna Plus 8.6-50 mg) 8.6 Mg-50 Mg Tab 1 TAB PO BID for constipation, #60 TAB 0 Refills Ticagrelor (Brilinta) 90 Mg Tab 90 MG PO BID for heart disease, #90 TAB 0 Refills Tramadol (Ultram) 50 Mg Tab 50 MG PO Q6H PRN for moderate to severe pain, #15 TAB 0 Refills Vitamin B Cmplx/Vit C/Folic AC (Nephro-Farrah Rx) 1 Tab 1 CAP PO DAILY for nutrition, #30 TAB 0 Refills [Lactulose Liq] () 30 ML SYRP 30 ML PO DAILY for high ammonia level, #300 ML 0 Refills Continued Medications: Allopurinol (Allopurinol) 100 Mg Tab 100 MG PO BID for Gout, #30 TAB 0 Refills Desonide Topical (Desonide Topical) 0.05% Cream 1 APPLIC TOPICAL DAILY for itchy scalp, GM 0 Refills Tamsulosin (Tamsulosin) 0.4 Mg Cap 2 CAP PO HS for Manage Prostate Problems, #60 CAP 0 Refills Discontinued Medications: Amlodipine (Norvasc) 10 Mg Tab 10 MG PO DAILY for Blood Pressure Management, #30 TAB [address] (Aspirin EC) 81 Mg Tabdr 162 MG PO EVERY OTHER DAY, TAB 0 Refills Carvedilol (Carvedilol) 3.125 Mg Tab 3.125 MG PO BID, #60 TAB 0 Refills Cholecalciferol (Vitamin D3) 1,000 Unit Cap 1 CAP PO BID for Nutritional Supplement, #1 BOTTLE 0 Refills Hydrocodone-Acetaminophen (Hydrocodone-Acetaminophen) 7.5-325 mg Tab 1 TAB PO Q4H PRN for PAIN SCALE 1 TO 10, #50 TAB Sodium Bicarbonate (Sodium Bicarbonate) 650 Mg Tab 650 MG PO TIDPC, #90 TAB 0 Refills Triamcinolone Acetonide Nasal [place] (Nasacort Allergy 24Hr Nasal [place]) 55 Mcg Spr 16.5 GM EACH NARE PRN for congestion, BOTTLE 0 Refills [proOptic Areds 2] () 1 TAB PO BID Sejal St MD Jul 07, 2017 13:08
--- NOTE | 2017-07-07 16:38 | PD.CARD.PN ---
Subjective Subjective Remarks Feels much better, no CP or SOB, R knee stable post op Objective Medications Current Medications Medications (Trade) Dose Ordered Sig/Cory Route Start Time Stop Time Status Last Admin (NS Flush) 2 ml BID IV FLUSH 06/27/17 21:00 07/07/17 09:00 (NS Flush) 2 ml UNSCH PRN IV FLUSH 06/27/17 16:15 (Zyloprim) 100 mg BID PO 06/27/17 21:00 07/07/17 09:28 (Aspirin Chew) 81 mg DAILY PO 06/29/17 09:00 07/06/17 08:26 (Brilinta) 90 mg BID PO 06/28/17 21:00 07/07/17 09:29 Patient Own Medication PT OWN MED: OPTIC ARED... DAILY PO 06/28/17 16:00 07/07/17 09:00 (Lopressor Inj) 5 mg Q6H PRN IV PUSH 06/28/17 17:30 06/28/17 17:46 (Tylenol) 650 mg Q6H PRN PO 06/28/17 21:30 07/04/17 10:34 (Cordarone) 400 mg Q12HR PO 06/29/17 15:00 07/07/17 09:29 Sodium Chloride 1,000 ml @ 0 mls/hr Q0M PRN OTHER 06/30/17 10:38 (Heparin Inj) 8,000 units UNSCH PRN IV FLUSH 06/30/17 10:45 Sodium Chloride 1,000 ml @ 200 mls/hr Q5H PRN IV 06/30/17 10:38 Sodium Chloride 1,000 ml @ 0 mls/hr Q0M PRN OTHER 06/30/17 10:38 (Mannitol Inj) 12.5 gm UNSCH PRN IV 06/30/17 10:45 (Albumin 25% Inj) 25 gm UNSCH PRN IV 06/30/17 10:45 (NS Flush) 5 ml UNSCH PRN IV FLUSH 06/30/17 10:45 (Heparin Inj) UNSCH PRN .XX 06/30/17 10:45 (Gentamicin (Dialysis) Inj) 20 mg UNSCH PRN OTHER 06/30/17 10:45 07/05/17 10:02 (Zofran Inj) 4 mg UNSCH PRN IV PUSH 06/30/17 10:45 07/06/17 12:36 (Tylenol) 650 mg UNSCH PRN PO 06/30/17 10:45 07/01/17 20:24 (Benadryl) 25 mg UNSCH PRN PO 06/30/17 10:45 07/01/17 20:25 (Nitrostat Sl) 0.4 mg UNSCH PRN SL 06/30/17 10:45 (Catapres) 0.1 mg UNSCH PRN PO 06/30/17 10:45 (Epogen Inj) 5,000 units UNSCH PRN IV PUSH 06/30/17 10:45 07/05/17 10:02 (Gelfoam 12 Mm/7 Mm Top) 1 foam UNSCH PRN TOP 06/30/17 10:45 (NS Flush) UNSCH PRN IV FLUSH 06/30/17 12:00 (Heparin Inj) UNSCH PRN IV FLUSH 06/30/17 12:00 (Albuterol Neb) 2.5 mg Q2HR NEB PRN NEB 06/30/17 22:30 (Protonix) 20 mg DAILY PO 07/01/17 09:00 07/07/17 09:28 (Ally-Colace) 1 tab BID PO 07/01/17 09:00 07/07/17 09:28 (Glycerin Adult Supp) 2 gm DAILY PRN RECTAL 06/30/17 22:45 (Miralax) 17 gm BID PO 07/01/17 09:00 07/05/17 12:52 (Lactulose Liq) 30 ml DAILY PO 07/01/17 09:00 07/06/17 08:25 (Glycerin Adult Supp) 2 gm BID PRN RECTAL 06/30/17 22:45 (Flomax) 0.8 mg HS PO 07/01/17 21:00 07/06/17 21:21 (Heparin Inj) 5,000 units Q8HR SQ 07/01/17 14:00 Future Hold 07/07/17 06:20 (Mag-Al Plus Susp Liq) 30 ml Q6HR PRN PO 07/01/17 18:00 (Coreg) 6.25 mg BID PO 07/01/17 21:00 07/07/17 09:29 (Folate) 1 mg DAILY PO 07/02/17 09:00 07/07/17 09:29 (Nephrocaps) 1 cap DAILY PO 07/02/17 09:00 07/07/17 09:28 (Drisdol) 50,000 units Q7D PO 07/02/17 18:00 (Baby [place] Saline 0.65% Ethan Drp/ [place]) 2 drop UNSCH PRN EACH NARE 07/03/17 15:00 (Flonase Ethan Spr) 1 spray BID NASAL 07/03/17 15:00 07/07/17 09:00 (Pravachol) 20 mg HS PO 07/03/17 21:00 07/06/17 21:21 (Bumetanide) 1 mg DAILY PO 07/06/17 09:00 07/07/17 09:29 (Flexeril) 5 mg BID PO 07/06/17 10:00 07/07/17 09:28 (Ultram) 50 mg Q6H PRN PO 07/06/17 10:00 07/07/17 13:33 (Pill Splitter) 1 ea UNSCH PRN OTHER 07/06/17 10:00 Vital Signs / I&O Vital Signs Date Time Temp Pulse Resp B/P (MAP) Pulse Ox O2 Delivery O2 Flow Rate FiO2 07/07/17 16:18 74 07/07/17 15:51 71 07/07/17 15:51 97.8 71 18 132/61 (84) 94 07/07/17 15:51 94 Room Air 07/07/17 15:39 18 07/07/17 14:10 71 07/07/17 13:26 76 07/07/17 12:37 96 Room Air 07/07/17 12:37 98.4 65 18 149/68 (95) 96 07/07/17 12:37 65 07/07/17 10:00 74 07/07/17 09:00 74 07/07/17 08:00 74 07/07/17 07:31 96 21 07/07/17 07:00 98.7 75 18 143/70 (94) 93 07/07/17 07:00 74 07/07/17 07:00 93 Room Air 07/07/17 06:05 69 07/07/17 04:28 65 07/07/17 03:53 98.2 66 17 135/63 (87) 95 07/07/17 03:53 65 07/07/17 03:53 95 Room Air 07/07/17 02:12 62 07/07/17 01:24 64 07/07/17 00:03 65 07/06/17 23:40 66 07/06/17 23:40 98.6 69 17 138/63 (88) 95 07/06/17 23:40 96 Room Air 07/06/17 22:57 70 07/06/17 21:03 97 21 07/06/17 21:00 72 07/06/17 20:40 68 07/06/17 19:50 99.0 63 18 140/63 (88) 94 07/06/17 19:50 70 07/06/17 19:50 94 Room Air 07/06/17 18:00 82 07/06/17 17:00 65 I/O 07/06/17 07/06/17 07/06/17 07/07/17 07/07/17 07/07/17 07:00 15:00 23:00 07:00 15:00 23:00 Intake Total 420 ml 720 ml 200 ml Output Total 625 ml 550 ml Balance -205 ml 720 ml -350 ml Intake Oral 420 ml 720 ml 200 ml Output Urine Total 625 ml 550 ml # Voids 4 # Bowel Movements 1 1 Physical Exam GENERAL: In NAD. SKIN: Warm and dry. HEAD: Normocephalic. EYES: No scleral icterus. No injection or drainage. NECK: Supple, trachea midline. No JVD or lymphadenopathy. CARDIOVASCULAR: Reg, without murmurs, gallops, or rubs. RESPIRATORY: Breath sounds equal bilaterally. No accessory muscle use. GASTROINTESTINAL: Abdomen soft, non-tender, nondistended. MUSCULOSKELETAL: No cyanosis, trace edema, R knee dressing in place Laboratory Laboratory Tests Test 07/07/17 03:59 Blood Urea Nitrogen 52 MG/DL Creatinine 4.65 MG/DL Random Glucose 81 MG/DL Calcium Level 8.7 MG/DL Sodium Level 135 MEQ/L Potassium Level 3.8 MEQ/L Chloride Level 96 MEQ/L Carbon Dioxide Level 28.3 MEQ/L Anion Gap 11 MEQ/L Estimat Glomerular Filtration Rate 12 ML/MIN Imaging Last 24 hours Impressions Central Venous Line 07/07/17 0000 Signed Impressions: Service Date/Time: Friday, July 07, 2017 00:00 - CONCLUSION: Uncomplicated catheter removal. Kei Daley MD Catheter Placement X-Ray 07/07/17 0000 Signed Impressions: Service Date/Time: Friday, July 07, 2017 10:50 - CONCLUSION: Uncomplicated PermaCath placement as above. Kei Daley MD Assessment and Plan Problem List: (1) NSTEMI (non-ST elevated myocardial infarction) ICD Codes: I21.4 - Non-ST elevation (NSTEMI) myocardial infarction Status: Acute (2) Multi-vessel coronary artery stenosis ICD Codes: I25.10 - Atherosclerotic heart disease of [place] coronary artery without angina pectoris (3) Cardiomyopathy ICD Codes: I42.9 - Cardiomyopathy, unspecified (4) Atrial fibrillation ICD Codes: I48.91 - Unspecified atrial fibrillation (5) Stented coronary artery ICD Codes: Z95.5 - Presence of coronary angioplasty implant and graft (6) CKD (chronic kidney disease) stage 4, GFR 15-29 ml/min ICD Codes: N18.4 - Chronic kidney disease, stage 4 (severe) Status: Chronic (7) Anemia ICD Codes: D64.9 - Anemia, unspecified (8) Hypertension ICD Codes: I10 - Hypertension Status: Chronic Assessment and Plan Good progress. No new cardiac issues. No recurrent angina of CHF. Tolerating dialysis well. He developed a fib which complicates his management from the standpoint of anticoagulation given his recent significant anemia. Amio started , so far stays in SR. Continue Brilinta and baby ASA to prevent stent thrombosis , full anticoagulation if needed later. Brilinta cannot be discontinued even for a short period of time (risk of stent thrombosis is high). PermaCath placed today without difficulties. Hgb stable. Continue therapy for CHF. VQ scan low prob. F/u echo again showed improved LV systolic fx. Aggressive risk factor modification. Increase activity. D/w pt and family. Brittany Jenkins MD Jul 07, 2017 16:38
[2017-07-07] MEDS: PRAVASTATIN SOD 20 MG TAB PO SCH (20:04)
[2017-07-07] MEDS: TAMSULOSIN HCL 0.4 MG CAP PO SCH (20:04)
[2017-07-07 21:02] LABS: BACTERIA, URINE RARE /hpf; BLOOD, URINE TRACE (NEG); COMMENT (UR) CULT NOT INDICATED; CULTURE IF INDICATED CULT NOT INDICATED; GLUCOSE,URINE NEG (NEG); KETONE, URINE NEG (NEG); NITRITE,URINE NEG (NEG); PH, URINE 5.5 (5.0-8.5); URINE COLOR LIGHT-YELLOW (YELLW/STRAW)
[2017-07-08] VITALS (24 sets, daily range): BP systolic 134–157; BP diastolic 54–74; PULSE 60–74; RESP 16–18; TEMP 98.4–99.9; O2SAT 94–96
[2017-07-08] MEDS: traMADol HCL 50 MG TAB PO PRN ×3 (06:19→20:27)
[2017-07-08] MEDS: SODIUM CHLORIDE 0.9% FLUSH 10 ML FLUSH IV FLUSH SCH ×2 (09:00→20:31)
[2017-07-08] MEDS: DOCUSATE SODIUM 50 MG/SENNA 8.6 MG TAB PO SCH ×2 (09:00→20:31)
[2017-07-08] MEDS: POLYETHYLENE GLYCOL 17 GM PKG PO SCH ×2 (09:00→20:26)
[2017-07-08] MEDS: LACTULOSE SYRUP 20 GM/30 ML CUP PO SCH (09:00)
[2017-07-08] MEDS: FLUTICASONE PROPIONATE 50 MCG/ACT 16 GM NASAL SPRAY NASAL SCH ×2 (09:00→20:33)
--- NOTE | 2017-07-08 12:17 | HHI.PR ---
Subjective Remarks Follow-up for non-STEMI, severe chronic kidney disease now requiring dialysis. Patient was seen in the dialysis unit. Currently doing well. Denies any chest pain, shortness of breath, fever or chills. He reiterated that he does not want to go to SNF. He would rather go home if he cannot go to inpatient rehabilitation such as [place]. Objective Vitals Vital Signs Date Time Temp Pulse Resp B/P (MAP) Pulse Ox O2 Delivery O2 Flow Rate FiO2 07/08/17 10:23 96 07/08/17 10:00 07/08/17 09:00 64 07/08/17 08:00 62 07/08/17 08:00 98.6 69 16 139/54 (82) 95 07/08/17 08:00 96 Room Air 07/08/17 07:00 63 07/08/17 06:00 61 07/08/17 05:00 68 07/08/17 04:00 71 07/08/17 03:00 98.8 69 16 157/74 (101) 95 07/08/17 03:00 65 07/08/17 02:00 70 07/08/17 01:00 69 07/08/17 00:00 71 07/07/17 23:00 99.1 66 18 153/72 (99) 95 07/07/17 23:00 95 Room Air 07/07/17 23:00 66 07/07/17 22:00 67 07/07/17 21:23 93 21 07/07/17 21:00 64 07/07/17 20:00 68 07/07/17 19:30 97 Room Air 07/07/17 19:30 98.5 68 18 149/68 (95) 97 07/07/17 19:00 68 07/07/17 18:17 79 07/07/17 17:27 63 07/07/17 16:18 74 07/07/17 15:51 71 07/07/17 15:51 97.8 71 18 132/61 (84) 94 07/07/17 15:51 94 Room Air 07/07/17 15:39 18 07/07/17 14:10 71 07/07/17 13:26 76 07/07/17 12:37 96 Room Air 07/07/17 12:37 98.4 65 18 149/68 (95) 96 07/07/17 12:37 65 I/O 07/07/17 07/07/17 07/07/17 07/08/17 07/08/17 07/08/17 07:00 15:00 23:00 07:00 15:00 23:00 Intake Total 200 ml 960 ml 540 ml Output Total 550 ml 650 ml 650 ml Balance -350 ml 310 ml -110 ml Intake Oral 200 ml 960 ml 540 ml Output Urine Total 550 ml 650 ml 650 ml # Bowel Movements 0 0 Result Diagram: 07/06/17 0439 07/07/17 0359 Imaging Last Impressions Central Venous Line 07/07/17 0000 Signed Impressions: Service Date/Time: Friday, July 07, 2017 00:00 - CONCLUSION: Uncomplicated catheter removal. Kei Daley MD Catheter Placement X-Ray 07/07/17 0000 Signed Impressions: Service Date/Time: Friday, July 07, 2017 10:50 - CONCLUSION: Uncomplicated PermaCath placement as above. Kei Daley MD Chest X-Ray 07/03/17 0000 Signed Impressions: Service Date/Time: June 14:11 - CONCLUSION: 1. Resolving pulmonary congestion. 2. New right jugular Vas-Cath without evidence of pneumothorax. 3. Otherwise stable chest Marcus Lewis MD Lung Scan-V Nuclear Medicine 06/30/17 0000 Signed Impressions: Service Date/Time: Friday, June 30, 2017 12:05 - CONCLUSION: Perfusion better than the ventilation, low probability for pulmonary embolism. Venkat Daley MD FACR Renal Ultrasound 06/28/17 0000 Signed Impressions: Service Date/Time: Wednesday, June 28, 2017 09:24 - CONCLUSION: 1. Cortical thinning and increased echogenicity suggesting underlying medical renal disease. Kei Daley MD Objective Remarks GENERAL: Alert, oriented 3, NAD. SKIN: Warm and dry. HEAD: Normocephalic. EYES: No scleral icterus. No injection or drainage. NECK: Supple, trachea midline. No JVD or lymphadenopathy. CARDIOVASCULAR: Regular rate and rhythm without murmurs, gallops, or rubs. RESPIRATORY: Breath sounds equal bilaterally. No accessory muscle use. GASTROINTESTINAL: Abdomen soft, non-tender, nondistended. MUSCULOSKELETAL: No cyanosis, or edema. BACK: Nontender without obvious deformity. No CVA tenderness. Procedures Cardiac cath 06/28/2017 1. Non-ST elevation myocardial infarction. 2. Severe multivessel coronary artery disease. 3. Moderate left ventricular dysfunction consistent with ischemic cardiomyopathy. 4. Successful stenting of the right coronary artery. 5. Successful stenting of the left circumflex artery. 07/03/2017 echocardiogram Mildly dilated left ventricle. Wall thickness is normal. The left ventricular systolic function is low normal with an estimated ejection fraction in the range of 50- 55%. The left atrial size is mildly dilated. The right atrial size is mildly dilated. Moderate mitral valve regurgitation. Mitral annular calcification is present. There is moderate tricuspid regurgitation. There is estimated mild pulmonary hypertension present ( 48 mmHg). The pulmonary valve is not well visualized. A/P Problem List: (1) NSTEMI (non-ST elevated myocardial infarction) ICD Code: I21.4 - Non-ST elevation (NSTEMI) myocardial infarction Status: Acute (2) Hyponatremia ICD Code: E87.1 - Hypo-osmolality and hyponatremia (3) Urinary retention ICD Code: R33.9 - Retention of urine, unspecified (4) CKD (chronic kidney disease) stage 4, GFR 15-29 ml/min ICD Code: N18.4 - Chronic kidney disease, stage 4 (severe) Status: Chronic (5) status post left total knee replacement Status: Acute (6) Acute kidney insufficiency ICD Code: N28.9 - Disorder of kidney and ureter, unspecified Status: Acute (7) Primary osteoarthritis of right knee ICD Code: M17.11 - Unilateral primary osteoarthritis, right knee (8) Contusion of rib on left side ICD Code: S20.212A - Contusion of left front wall of thorax, initial encounter (9) Syncope, cardiogenic ICD Code: R55 - Syncope and collapse (10) Anemia ICD Code: D64.9 - Anemia, unspecified Assessment and Plan 72-year-old male p/w chest pain Syncope 07/03 -evaluated by intensive care. Most likely secondary to vasovagal episode. He has been asymptomatic since that one episode. Left lower rib pain -Due to trauma from syncopal episode. -Continue tramadol since it should be less sedating to see if this helps with pain since patient is requesting a less sedating medication. He also think muscle spasm is his aspirin the pain so will try low dose of Flexeril. -Continue to encourage ambulation and incentive spirometry. NSTEMI/atrial fibrillation/hypertension -Status post cardiac catheterization with stents to the RCA and left circumflex -on aspirin 81 mg daily and Ticagrelor 90 mg twice a day -Cardiology/Dr. Jenkins following -Echocardiogram 06/30 revealed EF 50-55%. Moderate to severe TR. PAP 60 mmHg -Continue pravastatin, amiodarone, carvedilol. Amlodipine held. -Patient poor candidate for anticoagulation at the moment. Acute hypoxemic respiratory failure likely secondary to pulmonary edema/ pulmonary hypertension -Continue to wean off of nasal cannula as tolerated. -VQ scan 06/30 low probability for pulmonary embolism. -Patient is receiving hemodialysis to help with fluid removal. Permacath placed by IR on 07/07/2017. Acute and chronic kidney disease stage V -Hemodialysis catheter right IJ placed by IR -Per neurologist this is most likely end-stage renal disease and he most likely will need long-term dialysis. Patient wants peritoneal dialysis. -Continue with dialysis per kier pleater. Nasal congestion -Improving with Flonase and saline spray. BPH/gout/anemia secondary to chronic kidney disease -Continue home medication. Status post right total knee replacement by Dr. Marcelino -Knee device -Follow up with Dr. Vaughn Marcelino (Orthopedic surgery) as previously scheduled. Hyponatremia/Hyperphosphatemia -Replace electrolytes as clinically indicated -calcium acetate 667 mg 3 times a day Prophylaxis - GI - pantoprazole - DVT - SCD Discharge plan: Patient has a discharge order in place as of 07/07/2017. D/C order was for SNF. If patient cannot qualify for [facility], patient will likely want to go home with home health instead of going to SNF. Discussed with CM today. Erika Baires DO Jul 08, 2017 12:17 pm
[2017-07-08] MEDS: PATIENT OWN MEDICATION PO SCH (13:12)
[2017-07-08] MEDS: CARVEDILOL 3.125 MG TAB PO SCH ×2 (13:13→20:27)
[2017-07-08] MEDS: VITAMIN B CMPLX/VITC/FOLIC AC CAP PO SCH (13:13)
[2017-07-08] MEDS: BUMETANIDE 1 MG TAB PO SCH (13:14)
[2017-07-08] MEDS: AMIODARONE 200 MG TAB PO SCH (13:15)
[2017-07-08] MEDS: ALLOPURINOL 100 MG TAB PO SCH ×2 (13:16→20:27)
[2017-07-08] MEDS: FOLIC ACID 1 MG TAB PO SCH (13:16)
[2017-07-08] MEDS: PANTOPRAZOLE SOD 20 MG DELAYED RELEASE TAB PO SCH (13:16)
[2017-07-08] MEDS: TICAGRELOR 90 MG TAB PO SCH ×2 (13:16→20:27)
[2017-07-08] MEDS: ASPIRIN 81 MG CHEW TAB PO SCH ×2 (13:17→13:19)
[2017-07-08] MEDS: CYCLOBENZAPRINE HCL 10 MG TAB PO SCH ×2 (13:18→20:26)
--- NOTE | 2017-07-08 15:13 | PD.CARD.PN ---
Subjective Subjective Remarks No CP or SOB, R knee stable post op, doing well with PT Objective Medications Current Medications Medications (Trade) Dose Ordered Sig/Cory Route Start Time Stop Time Status Last Admin (NS Flush) 2 ml BID IV FLUSH 06/27/17 21:00 07/08/17 09:00 (NS Flush) 2 ml UNSCH PRN IV FLUSH 06/27/17 16:15 (Zyloprim) 100 mg BID PO 06/27/17 21:00 07/08/17 13:16 (Aspirin Chew) 81 mg DAILY PO 06/29/17 09:00 07/08/17 13:19 (Brilinta) 90 mg BID PO 06/28/17 21:00 07/08/17 13:16 Patient Own Medication PT OWN MED: OPTIC ARED... DAILY PO 06/28/17 16:00 07/08/17 13:12 (Lopressor Inj) 5 mg Q6H PRN IV PUSH 06/28/17 17:30 06/28/17 17:46 (Tylenol) 650 mg Q6H PRN PO 06/28/17 21:30 07/04/17 10:34 (Cordarone) 400 mg Q12HR PO 06/29/17 15:00 07/08/17 13:15 Sodium Chloride 1,000 ml @ 0 mls/hr Q0M PRN OTHER 06/30/17 10:38 (Heparin Inj) 8,000 units UNSCH PRN IV FLUSH 06/30/17 10:45 Sodium Chloride 1,000 ml @ 200 mls/hr Q5H PRN IV 06/30/17 10:38 Sodium Chloride 1,000 ml @ 0 mls/hr Q0M PRN OTHER 06/30/17 10:38 (Mannitol Inj) 12.5 gm UNSCH PRN IV 06/30/17 10:45 (Albumin 25% Inj) 25 gm UNSCH PRN IV 06/30/17 10:45 (NS Flush) 5 ml UNSCH PRN IV FLUSH 06/30/17 10:45 (Heparin Inj) UNSCH PRN .XX 06/30/17 10:45 (Gentamicin (Dialysis) Inj) 20 mg UNSCH PRN OTHER 06/30/17 10:45 07/05/17 10:02 (Zofran Inj) 4 mg UNSCH PRN IV PUSH 06/30/17 10:45 07/06/17 12:36 (Tylenol) 650 mg UNSCH PRN PO 06/30/17 10:45 07/01/17 20:24 (Benadryl) 25 mg UNSCH PRN PO 06/30/17 10:45 07/01/17 20:25 (Nitrostat Sl) 0.4 mg UNSCH PRN SL 06/30/17 10:45 (Catapres) 0.1 mg UNSCH PRN PO 06/30/17 10:45 (Epogen Inj) 5,000 units UNSCH PRN IV PUSH 06/30/17 10:45 07/05/17 10:02 (Gelfoam 12 Mm/7 Mm Top) 1 foam UNSCH PRN TOP 06/30/17 10:45 (NS Flush) UNSCH PRN IV FLUSH 06/30/17 12:00 (Heparin Inj) UNSCH PRN IV FLUSH 06/30/17 12:00 (Albuterol Neb) 2.5 mg Q2HR NEB PRN NEB 06/30/17 22:30 (Protonix) 20 mg DAILY PO 07/01/17 09:00 07/08/17 13:16 (Ally-Colace) 1 tab BID PO 07/01/17 09:00 07/07/17 09:28 (Glycerin Adult Supp) 2 gm DAILY PRN RECTAL 06/30/17 22:45 (Miralax) 17 gm BID PO 07/01/17 09:00 07/05/17 12:52 (Lactulose Liq) 30 ml DAILY PO 07/01/17 09:00 07/06/17 08:25 (Glycerin Adult Supp) 2 gm BID PRN RECTAL 06/30/17 22:45 (Flomax) 0.8 mg HS PO 07/01/17 21:00 07/07/17 20:04 (Heparin Inj) 5,000 units Q8HR SQ 07/01/17 14:00 Future Hold 07/07/17 06:20 (Mag-Al Plus Susp Liq) 30 ml Q6HR PRN PO 07/01/17 18:00 (Coreg) 6.25 mg BID PO 07/01/17 21:00 07/08/17 13:13 (Folate) 1 mg DAILY PO 07/02/17 09:00 07/08/17 13:16 (Nephrocaps) 1 cap DAILY PO 07/02/17 09:00 07/08/17 13:13 (Drisdol) 50,000 units Q7D PO 07/02/17 18:00 (Baby [place] Saline 0.65% Ethan Drp/ [place]) 2 drop UNSCH PRN EACH NARE 07/03/17 15:00 (Flonase Ethan Spr) 1 spray BID NASAL 07/03/17 15:00 07/08/17 09:00 (Pravachol) 20 mg HS PO 07/03/17 21:00 07/07/17 20:04 (Bumetanide) 1 mg DAILY PO 07/06/17 09:00 07/08/17 13:14 (Flexeril) 5 mg BID PO 07/06/17 10:00 07/08/17 13:18 (Ultram) 50 mg Q6H PRN PO 07/06/17 10:00 07/08/17 13:19 (Pill Splitter) 1 ea UNSCH PRN OTHER 07/06/17 10:00 Vital Signs / I&O Vital Signs Date Time Temp Pulse Resp B/P (MAP) Pulse Ox O2 Delivery O2 Flow Rate FiO2 07/08/17 14:00 74 07/08/17 14:00 97 Room Air 07/08/17 14:00 98.5 69 16 138/71 (93) 95 07/08/17 10:23 96 07/08/17 10:00 07/08/17 09:00 64 07/08/17 08:00 62 07/08/17 08:00 98.6 69 16 139/54 (82) 95 07/08/17 08:00 96 Room Air 07/08/17 07:00 63 07/08/17 06:00 61 07/08/17 05:00 68 07/08/17 04:00 71 07/08/17 03:00 98.8 69 16 157/74 (101) 95 07/08/17 03:00 65 07/08/17 02:00 70 07/08/17 01:00 69 07/08/17 00:00 71 07/07/17 23:00 99.1 66 18 153/72 (99) 95 07/07/17 23:00 95 Room Air 07/07/17 23:00 66 07/07/17 22:00 67 07/07/17 21:23 93 21 07/07/17 21:00 64 07/07/17 20:00 68 07/07/17 19:30 97 Room Air 07/07/17 19:30 98.5 68 18 149/68 (95) 97 07/07/17 19:00 68 07/07/17 18:17 79 07/07/17 17:27 63 07/07/17 16:18 74 07/07/17 15:51 71 07/07/17 15:51 97.8 71 18 132/61 (84) 94 07/07/17 15:51 94 Room Air 07/07/17 15:39 18 I/O 07/07/17 07/07/17 07/07/17 07/08/17 07/08/17 07/08/17 07:00 15:00 23:00 07:00 15:00 23:00 Intake Total 200 ml 960 ml 540 ml Output Total 550 ml 650 ml 650 ml 1000 ml Balance -350 ml 310 ml -110 ml -1000 ml Intake Oral 200 ml 960 ml 540 ml Output Urine Total 550 ml 650 ml 650 ml Hemodialysis 1000 ml # Bowel Movements 0 0 Physical Exam GENERAL: In NAD. SKIN: Warm and dry. HEAD: Normocephalic. EYES: No scleral icterus. No injection or drainage. NECK: Supple, trachea midline. No JVD or lymphadenopathy. CARDIOVASCULAR: Reg, without murmurs, gallops, or rubs. RESPIRATORY: Breath sounds equal bilaterally. No accessory muscle use. GASTROINTESTINAL: Abdomen soft, non-tender, nondistended. MUSCULOSKELETAL: No cyanosis, trace edema, R knee dressing in place Laboratory Laboratory Tests Test 07/07/17 19:45 Urine Color LIGHT-YELLOW Urine Turbidity CLEAR Urine pH 5.5 Urine Specific [place] 1.007 Urine Protein 30 mg/dL Urine Glucose (UA) NEG mg/dL Urine Ketones NEG mg/dL Urine Occult Blood TRACE Urine Nitrite NEG Urine Bilirubin NEG Urine Urobilinogen LESS THAN 2.0 MG/DL Urine Leukocyte Esterase NEG Urine RBC 7 /hpf Urine WBC 2 /hpf Urine Bacteria RARE /hpf Microscopic Urinalysis Comment CULT NOT INDICATED Assessment and Plan Problem List: (1) NSTEMI (non-ST elevated myocardial infarction) ICD Codes: I21.4 - Non-ST elevation (NSTEMI) myocardial infarction Status: Acute (2) Multi-vessel coronary artery stenosis ICD Codes: I25.10 - Atherosclerotic heart disease of [place] coronary artery without angina pectoris (3) Cardiomyopathy ICD Codes: I42.9 - Cardiomyopathy, unspecified (4) Atrial fibrillation ICD Codes: I48.91 - Unspecified atrial fibrillation (5) Stented coronary artery ICD Codes: Z95.5 - Presence of coronary angioplasty implant and graft (6) CKD (chronic kidney disease) stage 4, GFR 15-29 ml/min ICD Codes: N18.4 - Chronic kidney disease, stage 4 (severe) Status: Chronic (7) Anemia ICD Codes: D64.9 - Anemia, unspecified (8) Hypertension ICD Codes: I10 - Hypertension Status: Chronic Assessment and Plan No new cardiac issues, stable from cardiac standpoint. No recurrent angina of CHF. Tolerating dialysis well. He developed a fib which complicates his management from the standpoint of anticoagulation given his recent significant anemia. Amio started, so far stays in SR. Continue Brilinta and baby ASA to prevent stent thrombosis, full anticoagulation if needed later. Brilinta cannot be discontinued even for a short period of time (risk of stent thrombosis is high). PermaCath placed today without difficulties. Hgb stable. Continue therapy for CHF. F/u echo again showed markedly improved LV systolic fx. Continue aggressive risk factor modification. Increase activity. OK to discharge to [facility]. D/w pt and family. Brittany Jenkins MD Jul 08, 2017 15:13
--- NOTE | 2017-07-08 15:21 | HHI.NPPN ---
Subjective History of Present Illness This patient is a 72-year-old male with a history of progressive severe chronic kidney disease with a baseline GFR of approximately 20 although more recently has had GFR is below this level. Patient underwent a total right knee arthroplasty deferred of June, for severe degenerative joint disease. Patient wished to proceed despite the severity of his chronic kidney disease and risk of worsening renal function because of the severity of debilitation associated with his degenerative joint disease. Patient's renal function fortunately did remain relatively stable postoperatively and the patient was discharged in stable clinical condition except for the fact that he did develop some bladder outlet obstruction and required an indwelling Abdul catheter with follow-up with urology post discharge. Patient noted to have presented to the emergency room in [place] with complaints of "heartburn". Subsequent diagnosis having and non-ST [place] with elevations in troponin. His serum creatinine level on presentation was 3.6 subsequently deteriorating today to 3.9. He is also said to have developed some respiratory insufficiency in route to the main campus. Chest x-ray showed some evidence of interstitial edema and symptomatology improved with IV furosemide. Patient was seen by cardiology and was taken urgently to the cardiac catheter lab for angiogram. Patient did receive IV saline since admission. Patient now status post placement of 2 bare metal stents. Interval History Pt seen in dialysis unit. Tolerated treatment well. Is a bit agitated today as he was apparently declined at [facility] and not sure what status is at being accepted at [facility]. Otherwise, says he feels well. Objective Data Data 07/08/17 07/09/17 19:00 07:00 Output Total 1000 ml Balance -1000 ml Hemodialysis 1000 ml Vital Signs Date Time Temp Pulse Resp B/P (MAP) Pulse Ox O2 Delivery O2 Flow Rate FiO2 07/08/17 14:00 74 07/08/17 14:00 97 Room Air 07/08/17 14:00 98.5 69 16 138/71 (93) 95 07/08/17 10:23 96 07/08/17 10:00 07/08/17 09:00 64 07/08/17 08:00 62 07/08/17 08:00 98.6 69 16 139/54 (82) 95 07/08/17 08:00 96 Room Air 07/08/17 07:00 63 07/08/17 06:00 61 07/08/17 05:00 68 07/08/17 04:00 71 07/08/17 03:00 98.8 69 16 157/74 (101) 95 07/08/17 03:00 65 07/08/17 02:00 70 07/08/17 01:00 69 07/08/17 00:00 71 07/07/17 23:00 99.1 66 18 153/72 (99) 95 07/07/17 23:00 95 Room Air 07/07/17 23:00 66 07/07/17 22:00 67 07/07/17 21:23 93 21 07/07/17 21:00 64 07/07/17 20:00 68 07/07/17 19:30 97 Room Air 07/07/17 19:30 98.5 68 18 149/68 (95) 97 07/07/17 19:00 68 07/07/17 18:17 79 07/07/17 17:27 63 07/07/17 16:18 74 07/07/17 15:51 71 07/07/17 15:51 97.8 71 18 132/61 (84) 94 07/07/17 15:51 94 Room Air 07/07/17 15:39 18 -: 07/06/17 0439 07/07/17 0359 Imaging Last Impressions Central Venous Line 07/07/17 0000 Signed Impressions: Service Date/Time: Friday, July 07, 2017 00:00 - CONCLUSION: Uncomplicated catheter removal. Kei Daley MD Catheter Placement X-Ray 07/07/17 0000 Signed Impressions: Service Date/Time: Friday, July 07, 2017 10:50 - CONCLUSION: Uncomplicated PermaCath placement as above. Kei Daley MD Chest X-Ray 07/03/17 0000 Signed Impressions: Service Date/Time: June 14:11 - CONCLUSION: 1. Resolving pulmonary congestion. 2. New right jugular Vas-Cath without evidence of pneumothorax. 3. Otherwise stable chest Marcus Lewis MD Lung Scan-V Nuclear Medicine 06/30/17 0000 Signed Impressions: Service Date/Time: Friday, June 30, 2017 12:05 - CONCLUSION: Perfusion better than the ventilation, low probability for pulmonary embolism. Venkat Daley MD FACR Renal Ultrasound 06/28/17 0000 Signed Impressions: Service Date/Time: Wednesday, June 28, 2017 09:24 - CONCLUSION: 1. Cortical thinning and increased echogenicity suggesting underlying medical renal disease. Kei Daley MD Tubes & Lines: Perma-Cath Medication Review Current Medications Medications (Trade) Dose Ordered Sig/Cory Route Start Time Stop Time Status Last Admin (NS Flush) 2 ml BID IV FLUSH 06/27/17 21:00 07/08/17 09:00 (NS Flush) 2 ml UNSCH PRN IV FLUSH 06/27/17 16:15 (Zyloprim) 100 mg BID PO 06/27/17 21:00 07/08/17 13:16 (Aspirin Chew) 81 mg DAILY PO 06/29/17 09:00 07/08/17 13:19 (Brilinta) 90 mg BID PO 06/28/17 21:00 07/08/17 13:16 Patient Own Medication PT OWN MED: OPTIC ARED... DAILY PO 06/28/17 16:00 07/08/17 13:12 (Lopressor Inj) 5 mg Q6H PRN IV PUSH 06/28/17 17:30 06/28/17 17:46 (Tylenol) 650 mg Q6H PRN PO 06/28/17 21:30 07/04/17 10:34 Sodium Chloride 1,000 ml @ 0 mls/hr Q0M PRN OTHER 06/30/17 10:38 (Heparin Inj) 8,000 units UNSCH PRN IV FLUSH 06/30/17 10:45 Sodium Chloride 1,000 ml @ 200 mls/hr Q5H PRN IV 06/30/17 10:38 Sodium Chloride 1,000 ml @ 0 mls/hr Q0M PRN OTHER 06/30/17 10:38 (Mannitol Inj) 12.5 gm UNSCH PRN IV 06/30/17 10:45 (Albumin 25% Inj) 25 gm UNSCH PRN IV 06/30/17 10:45 (NS Flush) 5 ml UNSCH PRN IV FLUSH 06/30/17 10:45 (Heparin Inj) UNSCH PRN .XX 06/30/17 10:45 (Gentamicin (Dialysis) Inj) 20 mg UNSCH PRN OTHER 06/30/17 10:45 07/05/17 10:02 (Zofran Inj) 4 mg UNSCH PRN IV PUSH 06/30/17 10:45 07/06/17 12:36 (Tylenol) 650 mg UNSCH PRN PO 06/30/17 10:45 07/01/17 20:24 (Benadryl) 25 mg UNSCH PRN PO 06/30/17 10:45 07/01/17 20:25 (Nitrostat Sl) 0.4 mg UNSCH PRN SL 06/30/17 10:45 (Catapres) 0.1 mg UNSCH PRN PO 06/30/17 10:45 (Epogen Inj) 5,000 units UNSCH PRN IV PUSH 06/30/17 10:45 07/05/17 10:02 (Gelfoam 12 Mm/7 Mm Top) 1 foam UNSCH PRN TOP 06/30/17 10:45 (NS Flush) UNSCH PRN IV FLUSH 06/30/17 12:00 (Heparin Inj) UNSCH PRN IV FLUSH 06/30/17 12:00 (Albuterol Neb) 2.5 mg Q2HR NEB PRN NEB 06/30/17 22:30 (Protonix) 20 mg DAILY PO 07/01/17 09:00 07/08/17 13:16 (Ally-Colace) 1 tab BID PO 07/01/17 09:00 07/07/17 09:28 (Glycerin Adult Supp) 2 gm DAILY PRN RECTAL 06/30/17 22:45 (Miralax) 17 gm BID PO 07/01/17 09:00 07/05/17 12:52 (Lactulose Liq) 30 ml DAILY PO 07/01/17 09:00 07/06/17 08:25 (Glycerin Adult Supp) 2 gm BID PRN RECTAL 06/30/17 22:45 (Flomax) 0.8 mg HS PO 07/01/17 21:00 07/07/17 20:04 (Heparin Inj) 5,000 units Q8HR SQ 07/01/17 14:00 Future Hold 07/07/17 06:20 (Mag-Al Plus Susp Liq) 30 ml Q6HR PRN PO 07/01/17 18:00 (Coreg) 6.25 mg BID PO 07/01/17 21:00 07/08/17 13:13 (Folate) 1 mg DAILY PO 07/02/17 09:00 07/08/17 13:16 (Nephrocaps) 1 cap DAILY PO 07/02/17 09:00 07/08/17 13:13 (Drisdol) 50,000 units Q7D PO 07/02/17 18:00 (Baby [place] Saline 0.65% Ethan Drp/ [place]) 2 drop UNSCH PRN EACH NARE 07/03/17 15:00 (Flonase Ethan Spr) 1 spray BID NASAL 07/03/17 15:00 07/08/17 09:00 (Pravachol) 20 mg HS PO 07/03/17 21:00 07/07/17 20:04 (Bumetanide) 1 mg DAILY PO 07/06/17 09:00 07/08/17 13:14 (Flexeril) 5 mg BID PO 07/06/17 10:00 07/08/17 13:18 (Ultram) 50 mg Q6H PRN PO 07/06/17 10:00 07/08/17 13:19 (Pill Splitter) 1 ea UNSCH PRN OTHER 07/06/17 10:00 (Cordarone) 200 mg DAILY PO 07/09/17 09:00 Physical Exam General Appearance: Comfortable Eyes Eye Exam: Sclera White Pulmonary Resp Exam: Clear Bilaterally, Breath Sounds Equal Cardiology CV Exam: Regular Gastrointestinal/Abdomen GI Exam: Soft, Non-Tender Integumentary Skin Exam: Clear, Warm, Normal Turgor Extremeties Extremities Exam: No Edema Neurologic Neuro Exam: Alert, Awake, Speech Clear, Moving All Extremities Psychiatric Psych Exam: Appropriate Responses Assessment/Plan Discussed Condition With: Patient Problem List: (1) Acute kidney insufficiency ICD Codes: N28.9 - Disorder of kidney and ureter, unspecified Status: Acute Plan: Contributory factors include hemodynamic issues with acute [place], cardiac decompensation as well as now contrast nephrotoxicity with probable development of some degree of ATN. Seen in HD today. To continue TTS schedule. Uncertain about discharge today. If he is being discharged home instead of rehab, we need to be notified so we can get him set up for outpatient dialysis. If he is going to [facility], they can continue HD in house. If going to [facility], they can perform HD there. (2) NSTEMI (non-ST elevated myocardial infarction) ICD Codes: I21.4 - Non-ST elevation (NSTEMI) myocardial infarction Status: Acute Plan: Management per cardiology. (3) CKD (chronic kidney disease) stage 4, GFR 15-29 ml/min ICD Codes: N18.4 - Chronic kidney disease, stage 4 (severe) Status: Chronic Plan: History of progressive and severe stage IV CKD. Prior to this admission associated with chronic metabolic acidosis being managed by by mouth sodium bicarbonate. As indicated above the patient was being prepared for initiation of dialysis the not too distant future. Peritoneal dialysis was his chronic modality of choice. (4) Hypertension ICD Codes: I10 - Hypertension Status: Chronic (5) Urinary retention ICD Codes: R33.9 - Retention of urine, unspecified Plan: Improving. Abdul out 07/04 and urinating on his own. (6) Anemia of renal disease ICD Codes: D63.1 - Anemia in chronic kidney disease Plan: With a component of iron deficiency and hemodilution. Epogen with HD as ordered Deborah Garcia Jul 08, 2017 15:21
[2017-07-08] MEDS ORDERED: AMIO200T PO (15:33)
[2017-07-08] MEDS: PRAVASTATIN SOD 20 MG TAB PO SCH (20:27)
[2017-07-08] MEDS: TAMSULOSIN HCL 0.4 MG CAP PO SCH (20:31)
[2017-07-09] VITALS (27 sets, daily range): BP systolic 128–152; BP diastolic 60–70; PULSE 58–90; RESP 16–18; TEMP 98.2–99.4; O2SAT 95–97
[2017-07-09 05:16] LABS: HEMATOCRIT 30.3 % (39.0-51.0); MEAN CELL VOLUME 92.7 FL (80.0-100.0); MEAN CORPUSCULAR HEMOGLOBIN 29.8 PG (27.0-34.0); MEAN CORPUSCULAR HGB CONC 32.2 % (32.0-36.0); PLATELET COUNT 537 TH/MM3 (150-450); RED BLOOD COUNT 3.27 MIL/MM3 (4.50-5.90); REVIEW FLAG FINAL; WHITE BLOOD COUNT 12.4 TH/MM3 (4.0-11.0)
[2017-07-09 05:41] LABS: BICARBONATE 30.7 MEQ/L (21.0-32.0); POTASSIUM 3.5 MEQ/L (3.5-5.1)
[2017-07-09] MEDS: CYCLOBENZAPRINE HCL 10 MG TAB PO SCH ×2 (08:54→20:54)
[2017-07-09] MEDS: DOCUSATE SODIUM 50 MG/SENNA 8.6 MG TAB PO SCH ×2 (08:56→20:54)
[2017-07-09] MEDS: ALLOPURINOL 100 MG TAB PO SCH ×2 (08:56→20:54)
[2017-07-09] MEDS: PANTOPRAZOLE SOD 20 MG DELAYED RELEASE TAB PO SCH (08:56)
[2017-07-09] MEDS: ASPIRIN 81 MG CHEW TAB PO SCH (08:56)
[2017-07-09] MEDS: FOLIC ACID 1 MG TAB PO SCH (08:56)
[2017-07-09] MEDS: AMIODARONE 200 MG TAB PO SCH (08:56)
[2017-07-09] MEDS: CARVEDILOL 3.125 MG TAB PO SCH ×2 (08:56→20:53)
[2017-07-09] MEDS: TICAGRELOR 90 MG TAB PO SCH ×2 (08:56→20:54)
[2017-07-09] MEDS: BUMETANIDE 1 MG TAB PO SCH (08:56)
[2017-07-09] MEDS: LACTULOSE SYRUP 20 GM/30 ML CUP PO SCH (09:00)
[2017-07-09] MEDS: FLUTICASONE PROPIONATE 50 MCG/ACT 16 GM NASAL SPRAY NASAL SCH ×2 (09:00→20:53)
[2017-07-09] MEDS: VITAMIN B CMPLX/VITC/FOLIC AC CAP PO SCH (09:00)
[2017-07-09] MEDS: PATIENT OWN MEDICATION PO SCH (09:00)
[2017-07-09] MEDS: POLYETHYLENE GLYCOL 17 GM PKG PO SCH ×2 (09:00→20:54)
[2017-07-09] MEDS: traMADol HCL 50 MG TAB PO PRN ×2 (11:41→18:18)
--- NOTE | 2017-07-09 16:53 | PD.CARD.PN ---
Subjective Subjective Remarks No angina or SOB, left chest wall pain after a fall, feels much better Objective Medications Current Medications Medications (Trade) Dose Ordered Sig/[place] Route Start Time Stop Time Status Last Admin (NS Flush) 2 ml BID IV FLUSH 06/27/17 21:00 07/08/17 20:31 (NS Flush) 2 ml UNSCH PRN IV FLUSH 06/27/17 16:15 (Zyloprim) 100 mg BID PO 06/27/17 21:00 07/09/17 08:56 (Aspirin Chew) 81 mg DAILY PO 06/29/17 09:00 07/09/17 08:56 (Brilinta) 90 mg BID PO 06/28/17 21:00 07/09/17 08:56 Patient Own Medication PT OWN MED: OPTIC ARED... DAILY PO 06/28/17 16:00 07/08/17 13:12 (Lopressor Inj) 5 mg Q6H PRN IV PUSH 06/28/17 17:30 06/28/17 17:46 (Tylenol) 650 mg Q6H PRN PO 06/28/17 21:30 07/04/17 10:34 Sodium Chloride 1,000 ml @ 0 mls/hr Q0M PRN OTHER 06/30/17 10:38 (Heparin Inj) 8,000 units UNSCH PRN IV FLUSH 06/30/17 10:45 Sodium Chloride 1,000 ml @ 200 mls/hr Q5H PRN IV 06/30/17 10:38 Sodium Chloride 1,000 ml @ 0 mls/hr Q0M PRN OTHER 06/30/17 10:38 (Mannitol Inj) 12.5 gm UNSCH PRN IV 06/30/17 10:45 (Albumin 25% Inj) 25 gm UNSCH PRN IV 06/30/17 10:45 (NS Flush) 5 ml UNSCH PRN IV FLUSH 06/30/17 10:45 (Heparin Inj) UNSCH PRN .XX 06/30/17 10:45 (Gentamicin (Dialysis) Inj) 20 mg UNSCH PRN OTHER 06/30/17 10:45 07/05/17 10:02 (Zofran Inj) 4 mg UNSCH PRN IV PUSH 06/30/17 10:45 07/06/17 12:36 (Tylenol) 650 mg UNSCH PRN PO 06/30/17 10:45 07/01/17 20:24 (Benadryl) 25 mg UNSCH PRN PO 06/30/17 10:45 07/01/17 20:25 (Nitrostat Sl) 0.4 mg UNSCH PRN SL 06/30/17 10:45 (Catapres) 0.1 mg UNSCH PRN PO 06/30/17 10:45 (Epogen Inj) 5,000 units UNSCH PRN IV PUSH 06/30/17 10:45 07/05/17 10:02 (Gelfoam 12 Mm/7 Mm Top) 1 foam UNSCH PRN TOP 06/30/17 10:45 (NS Flush) UNSCH PRN IV FLUSH 06/30/17 12:00 (Heparin Inj) UNSCH PRN IV FLUSH 06/30/17 12:00 (Albuterol Neb) 2.5 mg Q2HR NEB PRN NEB 06/30/17 22:30 (Protonix) 20 mg DAILY PO 07/01/17 09:00 07/09/17 08:56 (Ally-Colace) 1 tab BID PO 07/01/17 09:00 07/09/17 08:56 (Glycerin Adult Supp) 2 gm DAILY PRN RECTAL 06/30/17 22:45 (Miralax) 17 gm BID PO 07/01/17 09:00 07/08/17 20:26 (Lactulose Liq) 30 ml DAILY PO 07/01/17 09:00 07/06/17 08:25 (Glycerin Adult Supp) 2 gm BID PRN RECTAL 06/30/17 22:45 (Flomax) 0.8 mg HS PO 07/01/17 21:00 07/08/17 20:31 (Heparin Inj) 5,000 units Q8HR SQ 07/01/17 14:00 Future Hold 07/07/17 06:20 (Mag-Al Plus Susp Liq) 30 ml Q6HR PRN PO 07/01/17 18:00 (Coreg) 6.25 mg BID PO 07/01/17 21:00 07/09/17 08:56 (Folate) 1 mg DAILY PO 07/02/17 09:00 07/09/17 08:56 (Nephrocaps) 1 cap DAILY PO 07/02/17 09:00 07/08/17 13:13 (Drisdol) 50,000 units Q7D PO 07/02/17 18:00 (Baby [place] Saline 0.65% Ethan Drp/ [place]) 2 drop UNSCH PRN EACH NARE 07/03/17 15:00 (Flonase Ethan Spr) 1 spray BID NASAL 07/03/17 15:00 07/08/17 20:33 (Pravachol) 20 mg HS PO 07/03/17 21:00 07/08/17 20:27 (Bumetanide) 1 mg DAILY PO 07/06/17 09:00 07/09/17 08:56 (Flexeril) 5 mg BID PO 07/06/17 10:00 07/09/17 08:54 (Ultram) 50 mg Q6H PRN PO 07/06/17 10:00 07/09/17 11:41 (Pill Splitter) 1 ea UNSCH PRN OTHER 07/06/17 10:00 (Cordarone) 200 mg DAILY PO 07/09/17 09:00 07/09/17 08:56 Vital Signs / I&O Vital Signs Date Time Temp Pulse Resp B/P (MAP) Pulse Ox O2 Delivery O2 Flow Rate FiO2 07/09/17 15:45 98.7 60 18 130/60 (83) 97 07/09/17 15:45 60 07/09/17 11:30 61 07/09/17 11:30 98.3 61 18 128/65 (86) 95 07/09/17 10:10 96 07/09/17 07:15 98.4 60 18 151/68 (95) 95 07/09/17 07:15 60 07/09/17 06:00 58 07/09/17 05:00 63 07/09/17 04:00 61 07/09/17 03:00 96 Room Air 07/09/17 03:00 98.2 64 16 142/66 (91) 96 07/09/17 03:00 63 07/09/17 02:00 61 07/09/17 01:00 58 07/09/17 00:00 62 07/08/17 23:10 94 Room Air 07/08/17 23:10 99.0 67 18 134/63 (86) 94 07/08/17 23:00 69 07/08/17 22:00 69 07/08/17 21:00 66 07/08/17 20:00 99.9 63 18 149/67 (94) 96 07/08/17 20:00 96 Room Air 07/08/17 20:00 60 07/08/17 19:05 21 07/08/17 19:00 60 07/08/17 18:00 66 07/08/17 17:00 65 I/O 07/08/17 07/08/17 07/08/17 07/09/17 07/09/17 07/09/17 06:59 14:59 22:59 06:59 14:59 22:59 Intake Total 540 ml 975 ml 300 ml Output Total 650 ml 1000 ml 610 ml 625 ml Balance -110 ml -1000 ml 365 ml -325 ml Intake Oral 540 ml 975 ml 300 ml Output Urine Total 650 ml 610 ml 625 ml Hemodialysis 1000 ml # Bowel Movements 0 0 0 Physical Exam GENERAL: In NAD. SKIN: Warm and dry. HEAD: Normocephalic. EYES: No scleral icterus. No injection or drainage. NECK: Supple, trachea midline. No JVD or lymphadenopathy. CARDIOVASCULAR: Reg, without murmurs, gallops, or rubs. RESPIRATORY: Breath sounds equal bilaterally. No accessory muscle use. GASTROINTESTINAL: Abdomen soft, non-tender, nondistended. MUSCULOSKELETAL: No cyanosis, trace edema, R knee dressing in place Laboratory Laboratory Tests Test 07/09/17 04:32 White Blood Count 12.4 TH/MM3 Red Blood Count 3.27 MIL/MM3 Hemoglobin 9.8 GM/DL Hematocrit 30.3 % Mean Corpuscular Volume 92.7 FL Mean Corpuscular Hemoglobin 29.8 PG Mean Corpuscular Hemoglobin Concent 32.2 % Red Cell Distribution Width 15.0 % Platelet Count 537 TH/MM3 Mean Platelet Volume 7.4 FL Blood Urea Nitrogen 36 MG/DL Creatinine 3.81 MG/DL Random Glucose 93 MG/DL Albumin 2.6 GM/DL Calcium Level 8.5 MG/DL Phosphorus Level 3.1 MG/DL Sodium Level 134 MEQ/L Potassium Level 3.5 MEQ/L Chloride Level 97 MEQ/L Carbon Dioxide Level 30.7 MEQ/L Anion Gap 6 MEQ/L Estimat Glomerular Filtration Rate 16 ML/MIN Assessment and Plan Problem List: (1) NSTEMI (non-ST elevated myocardial infarction) ICD Codes: I21.4 - Non-ST elevation (NSTEMI) myocardial infarction Status: Acute (2) Multi-vessel coronary artery stenosis ICD Codes: I25.10 - Atherosclerotic heart disease of [place] coronary artery without angina pectoris (3) Cardiomyopathy ICD Codes: I42.9 - Cardiomyopathy, unspecified (4) Atrial fibrillation ICD Codes: I48.91 - Unspecified atrial fibrillation (5) Stented coronary artery ICD Codes: Z95.5 - Presence of coronary angioplasty implant and graft (6) CKD (chronic kidney disease) stage 4, GFR 15-29 ml/min ICD Codes: N18.4 - Chronic kidney disease, stage 4 (severe) Status: Chronic (7) Anemia ICD Codes: D64.9 - Anemia, unspecified (8) Hypertension ICD Codes: I10 - Hypertension Status: Chronic Assessment and Plan Remains stable from cardiac standpoint. No recurrent angina of CHF. Tolerating dialysis well. He developed a fib which complicates his management from the standpoint of anticoagulation given his recent significant anemia. Amio started , so far stays in SR. Continue Brilinta and baby ASA to prevent stent thrombosis , full anticoagulation if needed later. Brilinta cannot be discontinued even for a short period of time (risk of stent thrombosis is high). PermaCath placed without difficulties, no significant bleeding. Hgb stable. Continue therapy for CHF. F/u echo again showed markedly improved LV systolic fx. Continue aggressive risk factor modification. Increase activity. Discharge to [facility] as planned. Will schedule outpt card f/u once rehab completed. Brittany Jenkins MD Jul 09, 2017 16:53
--- NOTE | 2017-07-09 19:39 | HHI.NPPN ---
Subjective History of Present Illness This patient is a 72-year-old male with a history of progressive severe chronic kidney disease with a baseline GFR of approximately 20 although more recently has had GFR is below this level. Patient underwent a total right knee arthroplasty deferred of June, for severe degenerative joint disease. Patient wished to proceed despite the severity of his chronic kidney disease and risk of worsening renal function because of the severity of debilitation associated with his degenerative joint disease. Patient's renal function fortunately did remain relatively stable postoperatively and the patient was discharged in stable clinical condition except for the fact that he did develop some bladder outlet obstruction and required an indwelling Abdul catheter with follow-up with urology post discharge. Patient noted to have presented to the emergency room in [place] with complaints of "heartburn". Subsequent diagnosis having and non-ST [place] with elevations in troponin. His serum creatinine level on presentation was 3.6 subsequently deteriorating today to 3.9. He is also said to have developed some respiratory insufficiency in route to the main campus. Chest x-ray showed some evidence of interstitial edema and symptomatology improved with IV furosemide. Patient was seen by cardiology and was taken urgently to the cardiac catheter lab for angiogram. Patient did receive IV saline since admission. Patient now status post placement of 2 bare metal stents. Interval History Patient had no verbal complaints today. He was however apparently refused by the rehabilitation in house as his ambulation was actually better than the criteria for admission. Objective Data Data 07/09/17 07/10/17 19:00 07:00 Intake Total 900 ml Output Total 600 ml Balance 300 ml Intake Oral 900 ml Output Urine Total 600 ml # Bowel Movements 0 Vital Signs Date Time Temp Pulse Resp B/P (MAP) Pulse Ox O2 Delivery O2 Flow Rate FiO2 07/09/17 17:00 58 07/09/17 16:00 60 07/09/17 15:45 98.7 60 18 130/60 (83) 97 07/09/17 15:45 60 07/09/17 15:00 64 07/09/17 14:00 62 07/09/17 13:00 62 07/09/17 12:00 58 07/09/17 11:30 61 07/09/17 11:30 98.3 61 18 128/65 (86) 95 07/09/17 11:00 62 07/09/17 10:10 96 07/09/17 10:00 68 07/09/17 09:00 90 07/09/17 08:00 60 07/09/17 07:15 98.4 60 18 151/68 (95) 95 07/09/17 07:15 60 07/09/17 06:00 58 07/09/17 05:00 63 07/09/17 04:00 61 07/09/17 03:00 96 Room Air 07/09/17 03:00 98.2 64 16 142/66 (91) 96 07/09/17 03:00 63 07/09/17 02:00 61 07/09/17 01:00 58 07/09/17 00:00 62 07/08/17 23:10 94 Room Air 07/08/17 23:10 99.0 67 18 134/63 (86) 94 07/08/17 23:00 69 07/08/17 22:00 69 07/08/17 21:00 66 07/08/17 20:00 99.9 63 18 149/67 (94) 96 07/08/17 20:00 96 Room Air 07/08/17 20:00 60 -: 07/09/17 0432 07/09/17 0432 Tubes & Lines: Perma-Cath Physical Exam General Appearance: Comfortable Eyes Eye Exam: Sclera White Pulmonary Resp Exam: Clear Bilaterally, Breath Sounds Equal Resp Remarks Few basilar crackles. Cardiology CV Exam: Regular Gastrointestinal/Abdomen GI Exam: Soft, Non-Tender Integumentary Skin Exam: Clear, Warm, Normal Turgor Extremeties Extremities Exam: No Edema Neurologic Neuro Exam: Alert, Awake, Speech Clear, Moving All Extremities Psychiatric Psych Exam: Appropriate Responses Assessment/Plan Discussed Condition With: Patient Problem List: (1) Acute kidney insufficiency ICD Codes: N28.9 - Disorder of kidney and ureter, unspecified Status: Acute Plan: Contributory factors include hemodynamic issues with acute [place], cardiac decompensation as well as now contrast nephrotoxicity with probable development of some degree of ATN. If patient is discharged tomorrow we'll defer dialysis in house as outpatient schedule appears to be Friday and Friday at 10:15 AM as discussed with the patient. Dialysis can be Friday as an outpatient so dialysis will be unnecessary tomorrow. Discharge okay from renal point of view. (2) NSTEMI (non-ST elevated myocardial infarction) ICD Codes: I21.4 - Non-ST elevation (NSTEMI) myocardial infarction Status: Acute Plan: Management per cardiology. (3) CKD (chronic kidney disease) stage 4, GFR 15-29 ml/min ICD Codes: N18.4 - Chronic kidney disease, stage 4 (severe) Status: Chronic Plan: History of progressive and severe stage IV CKD. Prior to this admission associated with chronic metabolic acidosis being managed by by mouth sodium bicarbonate. As indicated above the patient was being prepared for initiation of dialysis the not too distant future. Peritoneal dialysis was his chronic modality of choice. (4) Hypertension ICD Codes: I10 - Hypertension Status: Chronic (5) Urinary retention ICD Codes: R33.9 - Retention of urine, unspecified Plan: Improving. Abdul out 07/04 and urinating on his own. (6) Anemia of renal disease ICD Codes: D63.1 - Anemia in chronic kidney disease Plan: With a component of iron deficiency and hemodilution. Epogen with HD as ordered Didi Valencia MD Jul 09, 2017 19:39
[2017-07-09] MEDS: TAMSULOSIN HCL 0.4 MG CAP PO SCH (20:53)
[2017-07-09] MEDS: PRAVASTATIN SOD 20 MG TAB PO SCH (20:54)
[2017-07-09] MEDS: SODIUM CHLORIDE 0.9% FLUSH 10 ML FLUSH IV FLUSH SCH ×2 (21:00→21:15)
--- NOTE | 2017-07-09 21:40 | HHI.PR ---
Subjective Remarks Follow-up for non-STEMI, severe chronic kidney disease now requiring dialysis. Patient was seen earlier this afternoon in the presence of case maker as well as patient's . Patient is currently doing well. No fever, chills. They want to be able to go to [facility]. However, his insurance company is not approving [facility] placement. Objective Vitals Vital Signs Date Time Temp Pulse Resp B/P (MAP) Pulse Ox O2 Delivery O2 Flow Rate FiO2 07/09/17 20:52 96 07/09/17 17:00 58 07/09/17 16:00 60 07/09/17 15:45 98.7 60 18 130/60 (83) 97 07/09/17 15:45 60 07/09/17 15:00 64 07/09/17 14:00 62 07/09/17 13:00 62 07/09/17 12:00 58 07/09/17 11:30 61 07/09/17 11:30 98.3 61 18 128/65 (86) 95 07/09/17 11:00 62 07/09/17 10:10 96 07/09/17 10:00 68 07/09/17 09:00 90 07/09/17 08:00 60 07/09/17 07:15 98.4 60 18 151/68 (95) 95 07/09/17 07:15 60 07/09/17 06:00 58 07/09/17 05:00 63 07/09/17 04:00 61 07/09/17 03:00 96 Room Air 07/09/17 03:00 98.2 64 16 142/66 (91) 96 07/09/17 03:00 63 07/09/17 02:00 61 07/09/17 01:00 58 07/09/17 00:00 62 07/08/17 23:10 94 Room Air 07/08/17 23:10 99.0 67 18 134/63 (86) 94 07/08/17 23:00 69 07/08/17 22:00 69 I/O 07/08/17 07/08/17 07/08/17 07/09/17 07/09/17 07/09/17 07:00 15:00 23:00 07:00 15:00 23:00 Intake Total 540 ml 975 ml 300 ml 900 ml Output Total 650 ml 1000 ml 610 ml 625 ml 600 ml Balance -110 ml -1000 ml 365 ml -325 ml 300 ml Intake Oral 540 ml 975 ml 300 ml 900 ml Output Urine Total 650 ml 610 ml 625 ml 600 ml Hemodialysis 1000 ml # Bowel Movements 0 0 0 0 Result Diagram: 07/09/1743107/09/17431 Imaging Last Impressions Central Venous Line 07/07/17 0000 Signed Impressions: Service Date/Time: Friday, July 07, 2017 00:00 - CONCLUSION: Uncomplicated catheter removal. Kei Daley MD Catheter Placement X-Ray 07/07/17 0000 Signed Impressions: Service Date/Time: Friday, July 07, 2017 10:50 - CONCLUSION: Uncomplicated PermaCath placement as above. Kei Daley MD Chest X-Ray 07/03/17 0000 Signed Impressions: Service Date/Time: June 14:11 - CONCLUSION: 1. Resolving pulmonary congestion. 2. New right jugular Vas-Cath without evidence of pneumothorax. 3. Otherwise stable chest Marcus Lewis MD Lung Scan-V Nuclear Medicine 06/30/17 0000 Signed Impressions: Service Date/Time: Friday, June 30, 2017 12:05 - CONCLUSION: Perfusion better than the ventilation, low probability for pulmonary embolism. Venkat Daley MD FACR Renal Ultrasound 06/28/17 0000 Signed Impressions: Service Date/Time: Wednesday, June 28, 2017 09:24 - CONCLUSION: 1. Cortical thinning and increased echogenicity suggesting underlying medical renal disease. Kei Daley MD Objective Remarks GENERAL: Alert, oriented 3, NAD. SKIN: Warm and dry. HEAD: Normocephalic. EYES: No scleral icterus. No injection or drainage. NECK: Supple, trachea midline. No JVD or lymphadenopathy. CARDIOVASCULAR: Regular rate and rhythm without murmurs, gallops, or rubs. RESPIRATORY: Breath sounds equal bilaterally. No accessory muscle use. GASTROINTESTINAL: Abdomen soft, non-tender, nondistended. MUSCULOSKELETAL: No cyanosis, or edema. BACK: Nontender without obvious deformity. No CVA tenderness. Procedures Cardiac cath 06/28/2017 1. Non-ST elevation myocardial infarction. 2. Severe multivessel coronary artery disease. 3. Moderate left ventricular dysfunction consistent with ischemic cardiomyopathy. 4. Successful stenting of the right coronary artery. 5. Successful stenting of the left circumflex artery. 07/03/2017 echocardiogram Mildly dilated left ventricle. Wall thickness is normal. The left ventricular systolic function is low normal with an estimated ejection fraction in the range of 50- 55%. The left atrial size is mildly dilated. The right atrial size is mildly dilated. Moderate mitral valve regurgitation. Mitral annular calcification is present. There is moderate tricuspid regurgitation. There is estimated mild pulmonary hypertension present ( 48 mmHg). The pulmonary valve is not well visualized. A/P Problem List: (1) NSTEMI (non-ST elevated myocardial infarction) ICD Code: I21.4 - Non-ST elevation (NSTEMI) myocardial infarction Status: Acute (2) Hyponatremia ICD Code: E87.1 - Hypo-osmolality and hyponatremia (3) Urinary retention ICD Code: R33.9 - Retention of urine, unspecified (4) CKD (chronic kidney disease) stage 4, GFR 15-29 ml/min ICD Code: N18.4 - Chronic kidney disease, stage 4 (severe) Status: Chronic (5) status post left total knee replacement Status: Acute (6) Acute kidney insufficiency ICD Code: N28.9 - Disorder of kidney and ureter, unspecified Status: Acute (7) Primary osteoarthritis of right knee ICD Code: M17.11 - Unilateral primary osteoarthritis, right knee (8) Contusion of rib on left side ICD Code: S20.212A - Contusion of left front wall of thorax, initial encounter (9) Syncope, cardiogenic ICD Code: R55 - Syncope and collapse (10) Anemia ICD Code: D64.9 - Anemia, unspecified Assessment and Plan 72-year-old male p/w chest pain Syncope 07/03 -evaluated by intensive care. Most likely secondary to vasovagal episode. He has been asymptomatic since that one episode. Left lower rib pain -Due to trauma from syncopal episode. -Continue tramadol since it should be less sedating to see if this helps with pain since patient is requesting a less sedating medication. He also think muscle spasm is his aspirin the pain so will try low dose of Flexeril. -Continue to encourage ambulation and incentive spirometry. NSTEMI/atrial fibrillation/hypertension -Status post cardiac catheterization with stents to the RCA and left circumflex -on aspirin 81 mg daily and Ticagrelor 90 mg twice a day -Cardiology/Dr. Jenkins following -Echocardiogram 06/30 revealed EF 50-55%. Moderate to severe TR. PAP 60 mmHg -Continue pravastatin, amiodarone, carvedilol. Amlodipine held. -Patient poor candidate for anticoagulation at the moment. Acute hypoxemic respiratory failure likely secondary to pulmonary edema/ pulmonary hypertension -Continue to wean off of nasal cannula as tolerated. -VQ scan 06/30 low probability for pulmonary embolism. -Patient is receiving hemodialysis to help with fluid removal. Permacath placed by IR on 07/07/2017. Acute and chronic kidney disease stage V -Hemodialysis catheter right IJ placed by IR -Per neurologist this is most likely end-stage renal disease and he most likely will need long-term dialysis. Patient wants peritoneal dialysis. -Continue with dialysis per radiology technician. Nasal congestion -Improving with Flonase and saline spray. BPH/gout/anemia secondary to chronic kidney disease -Continue home medication. Status post right total knee replacement by Dr. Marcelino -Knee device -Follow up with Dr. Vaughn Marcelino (Orthopedic surgery) as previously scheduled. Hyponatremia/Hyperphosphatemia -Replace electrolytes as clinically indicated -calcium acetate 667 mg 3 times a day Prophylaxis - GI - pantoprazole - DVT - SCD Discharge plan: Patient has a discharge order in place as of 07/07/2017. Will try to discuss with insurance company physician to see if patient's application to be placed at [facility] can be approved. IF not, patient wants to go home with home health. Erika Baires DO Jul 09, 2017 21:40
[2017-07-10] VITALS (16 sets, daily range): BP systolic 109–147; BP diastolic 58–68; PULSE 60–86; RESP 18; TEMP 98.1–98.5; O2SAT 95–97
[2017-07-10] MEDS ORDERED: LACT10SO PO (07:49)
--- NOTE | 2017-07-10 07:51 | HHI.FF ---
Face to Face Verification Diagnosis: (1) NSTEMI (non-ST elevated myocardial infarction) (2) Atrial fibrillation (3) Acute kidney insufficiency Physical Therapy Order: Evaluate and Treat, Improve ambulation, Strength and gait training Home Health Nursing Order: Signs/symptoms of disease process CHF education Medication education-adverse effect Nursing assessment with vital signs I have seen patient Anurag Best Sr Che on 07/10/17. My clinical findings support the need for the requested home health care services because: Ltd mobility - disease progression Deconditioned w/ increased weakness Limited ability to care for self Need for psychosocial assistance Impaired cognition/judgement High risk of falls Infection w/ risk of complications I certify that my clinical findings support that this patient is homebound because: Unsteady gait/balance Unsafe to leave home unassisted Need for psychosocial assistance [id number] bed/chair Unable to use public transportation Erika Baires DO Jul 10, 2017 7:51 am
[2017-07-10] MEDS: CARVEDILOL 3.125 MG TAB PO SCH (08:12)
[2017-07-10] MEDS: AMIODARONE 200 MG TAB PO SCH (08:12)
[2017-07-10] MEDS: TICAGRELOR 90 MG TAB PO SCH (08:12)
[2017-07-10] MEDS: BUMETANIDE 1 MG TAB PO SCH (08:12)
[2017-07-10] MEDS: FOLIC ACID 1 MG TAB PO SCH (08:12)
[2017-07-10] MEDS: traMADol HCL 50 MG TAB PO PRN (08:12)
[2017-07-10] MEDS: PANTOPRAZOLE SOD 20 MG DELAYED RELEASE TAB PO SCH (08:12)
[2017-07-10] MEDS: VITAMIN B CMPLX/VITC/FOLIC AC CAP PO SCH (08:13)
[2017-07-10] MEDS: ALLOPURINOL 100 MG TAB PO SCH (08:13)
[2017-07-10] MEDS: DOCUSATE SODIUM 50 MG/SENNA 8.6 MG TAB PO SCH (08:13)
[2017-07-10] MEDS: CYCLOBENZAPRINE HCL 10 MG TAB PO SCH (08:13)
[2017-07-10] MEDS: ASPIRIN 81 MG CHEW TAB PO SCH (08:13)
[2017-07-10] MEDS: LACTULOSE SYRUP 20 GM/30 ML CUP PO SCH (08:15)
[2017-07-10] MEDS: POLYETHYLENE GLYCOL 17 GM PKG PO SCH (08:15)
[2017-07-10] MEDS: PATIENT OWN MEDICATION PO SCH (08:17)
[2017-07-10] MEDS: FLUTICASONE PROPIONATE 50 MCG/ACT 16 GM NASAL SPRAY NASAL SCH (08:18)
[2017-07-10] MEDS: SODIUM CHLORIDE 0.9% FLUSH 10 ML FLUSH IV FLUSH SCH (08:18)
--- NOTE | 2017-07-10 09:07 | PD.ORT.PN ---
Subjective Post Op Day #: 16 Subjective Remarks He has been improving steadily He has less left rib pain. He is anxious to go home or to [facility]. Range of Motion Not recorded by PT. CPM set at 0 to 100 degrees. Distance Walked 35 feet, twice yesterday with PT. Objective Vitals Vital Signs Date Time Temp Pulse Resp B/P (MAP) Pulse Ox O2 Delivery O2 Flow Rate FiO2 07/10/17 08:04 98.1 72 18 140/67 (91) 96 07/10/17 07:00 67 07/10/17 06:01 66 07/10/17 05:19 64 07/10/17 04:28 64 07/10/17 03:36 98.5 64 18 147/68 (94) 95 07/10/17 03:36 62 07/10/17 02:14 64 07/10/17 01:33 62 07/10/17 00:15 67 07/09/17 23:18 99.4 66 18 152/70 (97) 95 07/09/17 23:18 67 07/09/17 22:00 66 07/09/17 21:00 66 07/09/17 20:52 96 07/09/17 20:00 62 07/09/17 19:20 66 07/09/17 19:20 98.8 64 17 144/67 (92) 96 07/09/17 17:00 58 07/09/17 16:00 60 07/09/17 15:45 98.7 60 18 130/60 (83) 97 07/09/17 15:45 60 07/09/17 15:00 64 07/09/17 14:00 62 07/09/17 13:00 62 07/09/17 12:00 58 07/09/17 11:30 61 07/09/17 11:30 98.3 61 18 128/65 (86) 95 07/09/17 11:00 62 07/09/17 10:10 96 07/09/17 10:00 68 07/09/17 09:00 90 I/O 07/09/17 07/09/17 07/09/17 07/10/17 07/10/17 07/10/17 06:59 14:59 22:59 06:59 14:59 22:59 Intake Total 300 ml 900 ml 240 ml Output Total 625 ml 600 ml 300 ml Balance -325 ml 300 ml -60 ml Intake Oral 300 ml 900 ml 240 ml Output Urine Total 625 ml 600 ml 300 ml # Bowel Movements 0 0 1 Result Diagram: 07/09/1743107/09/17431 Objective Remarks He is resting relatively comfortably, supine in bed. The wound is clean and dry and well healed. There is no erythema, nor induration. There is fairly good motion in the knee. Assessment & Plan Ortho Post Op Day #: 16 Problem List: (1) Status post total right knee replacement ICD Codes: Z96.651 - Presence of right artificial knee joint Plan: Continue postop care and PT. We have discussed wound care, PT and activvities. The steristrips can be removed. Assessment and Plan Orthopaedically, he remains stable. Plans for the knee are as above. Please contact me if there are issues, concerns or questions about his knee. When he is ready for discharge, I believe that he would be a good candidate for placement in [facility], considering the TKR, recent IL and stents and his renal insufficiency. This facility would offer better continuity of care compared to similar facilities elsewhere. He still has a postop appointment with me. Olayinka Marcelino MD ([place]) Jul 10, 2017 09:07
--- NOTE | 2017-07-10 17:57 | HHI.DS ---
Discharge Summary Admission Date Jun 27, 2017 at 15:25 Discharge Date: Jul 10, 2017 Admitting Diagnosis NSTEMI (1) NSTEMI (non-ST elevated myocardial infarction) ICD Code: I21.4 - Non-ST elevation (NSTEMI) myocardial infarction Diagnosis: Principal Status: Acute (2) Hyponatremia ICD Code: E87.1 - Hypo-osmolality and hyponatremia Diagnosis: Principal (3) Urinary retention ICD Code: R33.9 - Retention of urine, unspecified Diagnosis: Secondary (4) CKD (chronic kidney disease) stage 4, GFR 15-29 ml/min ICD Code: N18.4 - Chronic kidney disease, stage 4 (severe) Diagnosis: Principal Status: Chronic (5) status post left total knee replacement Diagnosis: Secondary Status: Acute (6) Acute kidney insufficiency ICD Code: N28.9 - Disorder of kidney and ureter, unspecified Diagnosis: Principal Status: Acute (7) Primary osteoarthritis of right knee ICD Code: M17.11 - Unilateral primary osteoarthritis, right knee Diagnosis: Secondary (8) Contusion of rib on left side ICD Code: S20.212A - Contusion of left front wall of thorax, initial encounter Diagnosis: Principal (9) Syncope, cardiogenic ICD Code: R55 - Syncope and collapse Diagnosis: Principal (10) Anemia ICD Code: D64.9 - Anemia, unspecified Diagnosis: Secondary Procedures Cardiac cath 06/28/2017 1. Non-ST elevation myocardial infarction. 2. Severe multivessel coronary artery disease. 3. Moderate left ventricular dysfunction consistent with ischemic cardiomyopathy. 4. Successful stenting of the right coronary artery. 5. Successful stenting of the left circumflex artery. 07/03/2017 echocardiogram Mildly dilated left ventricle. Wall thickness is normal. The left ventricular systolic function is low normal with an estimated ejection fraction in the range of 50- 55%. The left atrial size is mildly dilated. The right atrial size is mildly dilated. Moderate mitral valve regurgitation. Mitral annular calcification is present. There is moderate tricuspid regurgitation. There is estimated mild pulmonary hypertension present ( 48 mmHg). The pulmonary valve is not well visualized. Brief History - From Admission This patient is a very pleasant 72-year-old gentleman with a strong family history of coronary artery disease. He did have severe unexplained heartburn symptoms over the last evening. He says the discomfort was 10 out of 10 and he did not find any relief with supportive measures. Patient was recently discharged from the hospital on 06/24 after a right total knee replacement. During that hospitalization he had some severe urinary retention which required a urinary catheter to be maintained he was referred to outpatient urology. Patient apparently over the last several days had initially been doing well at home but began to be lethargic and had some low-grade temperatures of about 100.5. His significant other says that he was much more sleepy and then he began complaining of the chest discomfort. Patient describes it as severe heartburn in the middle of his chest and radiating up into his throat. Chest pain was improved with nitroglycerin. He was brought into the emergency room and evaluation did show patient had elevated troponin 4.3 as well as EKG changes which were worrisome for ischemic changes. Patient is admitted to the hospital for further evaluation of non-ST elevation SC. He has no personal cardiac history but has significant family history of sudden cardiac . At age 72 he has outlived all of his immediate family including mother father and brother and sister who apparently from sudden cardiac. Patient also has chronic kidney disease stage IV follows up with his clinical asst. He has been hyponatremic and anemic and this evaluation today also. Patient's been admitted to the cardiac unit for further evaluation. CBC/BMP: 07/09/17 0432 07/09/17 0432 Significant Findings Laboratory Tests Test 07/07/17 19:45 07/09/17 04:32 Urine Protein 30 mg/dL (NEG-TRACE) Urine Occult Blood TRACE (NEG) Urine RBC 7 /hpf (0-3) Urine Bacteria RARE /hpf (NONE) White Blood Count 12.4 TH/MM3 (4.0-11.0) Red Blood Count 3.27 MIL/MM3 (4.50-5.90) Hemoglobin 9.8 GM/DL (13.0-17.0) Hematocrit 30.3 % (39.0-51.0) Platelet Count 537 TH/MM3 (150-450) Blood Urea Nitrogen 36 MG/DL (7-18) Creatinine 3.81 MG/DL (0.60-1.30) Albumin 2.6 GM/DL (3.4-5.0) Sodium Level 134 MEQ/L (136-145) Chloride Level 97 MEQ/L (98-107) Estimat Glomerular Filtration Rate 16 ML/MIN (>89) Imaging Last Impressions Central Venous Line 07/07/17 Signed Impressions: Service Date/Time: Friday, July 07, 2017 00:00 - CONCLUSION: Uncomplicated catheter removal. Kei Daley MD Catheter Placement X-Ray 07/07/17 Signed Impressions: Service Date/Time: Friday, July 07, 2017 10:50 - CONCLUSION: Uncomplicated PermaCath placement as above. Kei Daley MD Chest X-Ray 07/03/17 Signed Impressions: Service Date/Time: June 14:11 - CONCLUSION: 1. Resolving pulmonary congestion. 2. New right jugular Vas-Cath without evidence of pneumothorax. 3. Otherwise stable chest Marcus Lewis MD Lung Scan-V Nuclear Medicine 06/30/17 Signed Impressions: Service Date/Time: Friday, June 30, 2017 12:05 - CONCLUSION: Perfusion better than the ventilation, low probability for pulmonary embolism. Venkat Daley MD FACR Renal Ultrasound 06/28/17 Signed Impressions: Service Date/Time: Wednesday, June 28, 2017 09:24 - CONCLUSION: 1. Cortical thinning and increased echogenicity suggesting underlying medical renal disease. Kei Daley MD PE at Discharge GENERAL: Alert, oriented 3, NAD. SKIN: Warm and dry. HEAD: Normocephalic. EYES: No scleral icterus. No injection or drainage. NECK: Supple, trachea midline. No JVD or lymphadenopathy. CARDIOVASCULAR: Regular rate and rhythm without murmurs, gallops, or rubs. RESPIRATORY: Breath sounds equal bilaterally. No accessory muscle use. GASTROINTESTINAL: Abdomen soft, non-tender, nondistended. MUSCULOSKELETAL: No cyanosis, or edema. BACK: Nontender without obvious deformity. No CVA tenderness. Pt update on day of discharge Patient is resting in bed. No acute concerns. Since insurance company denied his request to go to [facility], he would rather go home. I also told him that he can stay in the hospital for 1 or 2 more days per my discussion with insurance company. However, he states he would rather be home. Hospital Course 72-year-old male p/w chest pain Syncope 07/03 -evaluated by intensive care. Most likely secondary to vasovagal episode. He has been asymptomatic since that one episode. Left lower rib pain -Due to trauma from syncopal episode. -Continue tramadol since it should be less sedating to see if this helps with pain since patient is requesting a less sedating medication. He also think muscle spasm is his aspirin the pain so will try low dose of Flexeril. -Continue to encourage ambulation and incentive spirometry. NSTEMI/atrial fibrillation/hypertension -Status post cardiac catheterization with stents to the RCA and left circumflex -on aspirin 81 mg daily and Ticagrelor 90 mg twice a day -Cardiology/Dr. Jenkins following -Echocardiogram 06/30 revealed EF 50-55%. Moderate to severe TR. PAP 60 mmHg -Continue pravastatin, amiodarone, carvedilol. Amlodipine held. -Patient poor candidate for anticoagulation at the moment. Acute hypoxemic respiratory failure likely secondary to pulmonary edema/ pulmonary hypertension -Continue to wean off of nasal cannula as tolerated. -VQ scan 06/30 low probability for pulmonary embolism. -Patient is receiving hemodialysis to help with fluid removal. Permacath placed by IR on 07/07/2017. Acute and chronic kidney disease stage V -Hemodialysis catheter right IJ placed by IR -Per neurologist this is most likely end-stage renal disease and he most likely will need long-term dialysis. Patient wants peritoneal dialysis. -Continue with dialysis per clinical asst. Nasal congestion -Improving with Flonase and saline spray. BPH/gout/anemia secondary to chronic kidney disease -Continue home medication. Status post right total knee replacement by Dr. Marcelino -Knee device -Follow up with Dr. Vaughn Marcelino (Orthopedic surgery) as previously scheduled. Hyponatremia/Hyperphosphatemia -Replace electrolytes as clinically indicated -calcium acetate 667 mg 3 times a day Prophylaxis - GI - pantoprazole - DVT - SCD I held a peer to peer conversation with patient's insurance company. They decline to approve patient's admission to [facility]. However, they would be okay with patient staying in the hospital for 1 or 2 more days. I discussed with patient and his . They would rather go home with home health at this point. Nephrology has discussed with patient regarding re-starting dialysis tomorrow as patient wants MWF dialysis. We had a lengthy conversation today as well as yesterday. All questions answered. Discussed with Case management, RN. Patient was subsequently discharged home with home health. Pt Condition on Discharge: Good Discharge Disposition: Disch w/ Home Health Serv Discharge Time: > 30 minutes Discharge Instructions DIET: Follow Instructions for: Heart Healthy Diet, Renal Failure Diet Activities you can perform: Regular-No Restrictions Follow up Referrals: Cardiology - 2 Weeks with Brittany Jenkins MD Nephrology - 1 Week Orthopedics - 1 Week SNF/DETENTION/HH - Daily New Medications: Lactulose Liq (Lactulose Liq) 10 Gm/15 Ml Soln 30 ML PO DAILY PRN for high ammonia for 30 Days, #900 ML 0 Refills Amiodarone (Amiodarone) 200 Mg Tab 200 MG PO DAILY for Heart, #30 TAB Aspirin (Aspirin Low Strength) 81 Mg Chew 81 MG PO DAILY for heart disease, #30 EA 0 Refills Bumetanide (Bumetanide) 1 Mg Tab 1 MG PO DAILY for fluid overload, #30 TAB 0 Refills Carvedilol (Coreg) 3.125 Mg Tab 6.25 MG PO BID for heart disease, #60 TAB 0 Refills Cyclobenzaprine (Flexeril) 10 Mg Tab 5 MG PO BID for muscle spasm, #14 TAB 0 Refills Ergocalciferol (Ergocalciferol) 50,000 Unit Cap 50441 UNITS PO Q7D for vitamin D , #4 CAP 0 Refills Fluticasone Nasal Talala (Fluticasone Nasal Talala) 50 Mcg/Act Naspr 1 SPRAY NASAL BID for nasal congestion, #1 BOTTLE 0 Refills 50 mcg/spray Folic Acid (Folic Acid) 1 Mg Tablet 1 MG PO DAILY for vitamin, #30 TAB 0 Refills Pantoprazole (Protonix) 20 Mg Tab 20 MG PO DAILY for acid reflux, #30 TAB 0 Refills Polyethylene Glycol 3350 Powder (Polyethylene Glycol 3350 Powder) 17 Gram Pow 17 GM PO BID PRN for CONSTIPATION, #1 BOTTLE 0 Refills Pravastatin (Pravachol) 20 Mg Tab 20 MG PO HS for hyperlipidemia, #30 TAB 0 Refills Sennosides-Docusate Sodium (Senna Plus 8.6-50 mg) 8.6 Mg-50 Mg Tab 1 TAB PO BID for constipation, #60 TAB 0 Refills Ticagrelor (Brilinta) 90 Mg Tab 90 MG PO BID for heart disease, #90 TAB 0 Refills Tramadol (Ultram) 50 Mg Tab 50 MG PO Q6H PRN for moderate to severe pain, #15 TAB 0 Refills Vitamin B Cmplx/Vit C/Folic AC (Nephro-Farrah Rx) 1 Tab 1 CAP PO DAILY for nutrition, #30 TAB 0 Refills [Lactulose Liq] () 30 ML SYRP 30 ML PO DAILY for high ammonia level, #300 ML 0 Refills Continued Medications: Allopurinol (Allopurinol) 100 Mg Tab 100 MG PO BID for Gout, #30 TAB 0 Refills Desonide Topical (Desonide Topical) 0.05% Cream 1 APPLIC TOPICAL DAILY for itchy scalp, GM 0 Refills Tamsulosin (Tamsulosin) 0.4 Mg Cap 2 CAP PO HS for Manage Prostate Problems, #60 CAP 0 Refills Discontinued Medications: Amlodipine (Norvasc) 10 Mg Tab 10 MG PO DAILY for Blood Pressure Management, #30 TAB [address] (Aspirin EC) 81 Mg Tabdr 162 MG PO EVERY OTHER DAY, TAB 0 Refills Carvedilol (Carvedilol) 3.125 Mg Tab 3.125 MG PO BID, #60 TAB 0 Refills Cholecalciferol (Vitamin D3) 1,000 Unit Cap 1 CAP PO BID for Nutritional Supplement, #1 BOTTLE 0 Refills Hydrocodone-Acetaminophen (Hydrocodone-Acetaminophen) 7.5-325 mg Tab 1 TAB PO Q4H PRN for PAIN SCALE 1 TO 10, #50 TAB Sodium Bicarbonate (Sodium Bicarbonate) 650 Mg Tab 650 MG PO TIDPC, #90 TAB 0 Refills Triamcinolone Acetonide Nasal Talala (Nasacort Allergy 24Hr Nasal Talala) 55 Mcg Spr 16.5 GM EACH NARE PRN for congestion, BOTTLE 0 Refills [proOptic Areds 2] () 1 TAB PO BID Erika Baires DO Jul 10, 2017 17:57
== END 2017-07-10 14:23 | disposition home health service (06) | DRG 248 ==
LOC: PHED 12:03 → PHEDA 15:25 → HCIN 23:00 → N03A 06-28 02:14 → HCPC 07-02 21:47 → HCVI 07-03 13:55 → HCPC 07-04 10:10
PROVIDERS: ADMIT Hospitalist; ATTEND Hospitalist
PROC: 5A1D70Z Performance of Urinary Filtration, Intermittent, Less than 6 Hours Per Day (ICD-10-PCS; 2017-06-25)
PROC: 02713EZ Dilation of Coronary Artery, Two Arteries with Two Intraluminal Devices, Percutaneous Approach (ICD-10-PCS; principal; 2017-06-28)
PROC: 4A023N7 Measurement of Cardiac Sampling and Pressure, Left Heart, Percutaneous Approach (ICD-10-PCS; 2017-06-28)
PROC: B2111ZZ Fluoroscopy of Multiple Coronary Arteries using Low Osmolar Contrast (ICD-10-PCS; 2017-06-28)
PROC: B2151ZZ Fluoroscopy of Left Heart using Low Osmolar Contrast (ICD-10-PCS; 2017-06-28)
PROC: 30233N1 Transfusion of Nonautologous Red Blood Cells into Peripheral Vein, Percutaneous Approach (ICD-10-PCS; 2017-06-28)
PROC: 5A09357 Assistance with Respiratory Ventilation, Less than 24 Consecutive Hours, Continuous Positive Airway Pressure (ICD-10-PCS; 2017-06-28)
PROC: 05HM33Z Insertion of Infusion Device into Right Internal Jugular Vein, Percutaneous Approach (ICD-10-PCS; 2017-06-30)
PROC: 5A12012 Performance of Cardiac Output, Single, Manual (ICD-10-PCS; 2017-07-03)
PROC: 05HM33Z Insertion of Infusion Device into Right Internal Jugular Vein, Percutaneous Approach (ICD-10-PCS; 2017-07-07)
DX: I21.4 Non-ST elevation (NSTEMI) myocardial infarction (principal); N18.6 End stage renal disease; J96.01 Acute respiratory failure with hypoxia; N17.0 Acute kidney failure with tubular necrosis; I13.2 Hypertensive heart and chronic kidney disease with heart failure and with stage 5 chronic kidney disease, or end stage renal disease; E87.2 Acidosis; I27.20 Pulmonary hypertension, unspecified; I48.91 Unspecified atrial fibrillation; E87.1 Hypo-osmolality and hyponatremia; R55 Syncope and collapse; I46.9 Cardiac arrest, cause unspecified; J98.11 Atelectasis; I25.5 Ischemic cardiomyopathy; I25.118 Atherosclerotic heart disease of native coronary artery with other forms of angina pectoris; F40.240 Claustrophobia; M47.9 Spondylosis, unspecified; E78.00 Pure hypercholesterolemia, unspecified; Z96.653 Presence of artificial knee joint, bilateral; Z82.49 Family history of ischemic heart disease and other diseases of the circulatory system; Z82.41 Family history of sudden cardiac death; N40.1 Benign prostatic hyperplasia with lower urinary tract symptoms; R33.8 Other retention of urine; I50.9 Heart failure, unspecified; Z23 Encounter for immunization; D63.1 Anemia in chronic kidney disease; E61.1 Iron deficiency; I08.1 Rheumatic disorders of both mitral and tricuspid valves; S20.212A Contusion of left front wall of thorax, initial encounter; Y92.230 Patient room in hospital as the place of occurrence of the external cause; E83.39 Other disorders of phosphorus metabolism; M10.9 Gout, unspecified; R09.81 Nasal congestion; Z99.2 Dependence on renal dialysis
CPT/HCPCS: 36430; 36556; 36558; 36600; 71010; 76775; 76937; 77001; 78582; 80048; 80053; 80061; 80069; 80074; 81001; 82272; 82306; 82550; 82552; 82728; 82805; 82948; 83540; 83550; 83605; 83735; 83880; 83970; 84443; 84484; 85002; 85025; 85027; 85610; 85730; 86850; 86900; 86901; 86920; 87641; 90686; 90935; 92928; 92929; 93005; 93306; 93308; 93458; 94002; 94150; 94640; 94664; 94667; 94668; 96374; 96375; 99152; 99153; A9540; A9567; C1725; C1750; C1752; C1760; C1769; C1876; C1887; C1893; C9113; G0269; J0171; J0461; J0690; J1170; J1580; J1644; J1756; J1940; J2212; J2250; J2405; J3010; J3370; J7030; J7040; J7050; P9016; Q2038; Q4081; Q9967

== ENCOUNTER 2018-09-29 19:34 | Observation (INO) ==
--- NOTE | 2018-09-29 20:00 | ED ---
HPI General Chief complaint: Chest Pain Stated complaint: Chest pain Time Seen by Provider: 09/29/18 19:37 Source: patient Mode of arrival: EMS Limitations: no limitations History of Present Illness HPI narrative: The patient is a 73 year old male who presents to the [facility] emergency department with a history of chest pain that began while eating this evening. The patient reports a prior history of myocardial infarction a year ago with 2 stents placed and subsequently last summer an additional stent placed. The patient reports that he is on Plavix and low-dose aspirin daily. He reports that he took an additional low-dose aspirin at the onset of symptoms began to relax. He reports that within 2-3 minutes the pain resolved. He reports that the pain was in the center of his chest and at the right sternal border. He reports that it felt like heartburn. He reports that it felt similar to the pain that he had when he had his myocardial infarction. He denies having any shortness of breath. He denies having any radiation of pain, diaphoresis, or nausea associated with this. He cannot recall when he last had a stress test. 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 The patient's medical history is also significant for having chronic renal failure on peritoneal dialysis. He reports that he has been doing his peritoneal dialysis regularly. He denies any change in the color fluid. He denies having any recent fevers. On review of systems otherwise, the patient denies having any cough, congestion, neck pain, abdominal pain, vomiting, diarrhea, urinary symptoms, or neurologic symptoms. Related Data Home Medications Medication Instructions Recorded Confirmed B complex-vitamin C-folic acid 1 tab PO DAILY 09/24/18 09/29/18 [Nephro-Farrah] allopurinol 100 mg PO DAILY 09/24/18 09/29/18 amiodarone 100 mg PO DAILY 09/24/18 09/29/18 amlodipine 5 mg PO BID 09/24/18 09/29/18 aspirin [Adult Low Dose Aspirin] 81 mg PO DAILY 09/24/18 09/29/18 calcitriol 0.25 mcg PO 3XW 09/24/18 09/29/18 clopidogrel [Plavix] 75 mg PO DAILY 09/24/18 09/29/18 coenzyme Q10 [Co Q-10] 100 mg PO DAILY 09/24/18 09/29/18 cyclobenzaprine 5 mg PO BID PRN 09/24/18 09/29/18 ergocalciferol (vitamin D2) 50,000 unit PO QWEEK 09/24/18 09/29/18 [Vitamin D2] ezetimibe 10 mg PO DAILY 09/24/18 09/29/18 ferric citrate [Auryxia] 210 mg PO TID 09/24/18 09/29/18 folic acid 1 mg PO DAILY 09/24/18 09/29/18 pantoprazole 40 mg PO DAILY 09/24/18 09/29/18 pravastatin 20 mg PO DAILY 09/24/18 09/29/18 sennosides-docusate sodium 1 tab PO DAILY 09/24/18 09/29/18 tamsulosin 0.8 mg PO DAILY 09/24/18 09/29/18 vit C,E-Fh-heswt-lutein-zeaxan 1 tab PO DAILY 09/24/18 09/29/18 [PreserVision AREDS-2] Allergies Allergy/AdvReac Type Severity Reaction Status Date / Time morphine Allergy Severe Nausea/Vomi Verified 09/29/18 19:54 ting Review of Systems ROS: all other systems reviewed are negative [facility] Medical History Medical History Atrial fibrillation (Acute) Chronic neck and back pain (Acute) Chronic renal insufficiency (Acute) Dialysis patient (Acute) H/O urinary retention (Acute) High cholesterol (Acute) Hx of cardiac arrest (Acute) Hx of gout (Acute) Hx of skin cancer, basal cell (Acute) Hypertension (Acute) Macular degeneration (Acute) Osteoarthritis (Acute) Peritoneal dialysis catheter in place (Acute) Wears dentures (Acute) Surgical History Surgical History History of total bilateral knee replacement (TKR) (Acute) Hx of cardiac catheterization (Acute) Hx of cataract removal with insertion of prosthetic lens (Acute) Social History Social History Substance History: No History of Abuse Second Hand Smoke Exposure: Yes Smoking Status: Never smoker Tobacco Type: Cigarettes How Often Do You Have a Drink Containing Alcohol: Monthly or less Recent Travel in [facility] within the Last 8 Weeks: No Recent Out of Country Travel within the Last 8 Weeks: No Immunization History Tetanus Immunization: <5 Years Exam Const General: cooperative, no acute distress and well developed Nutritional Appearance: well nourished Orientation: alert, awake and oriented x3 [facility] Head: normocephalic and atraumatic Nose: no nasal discharge and no epistaxis Mouth: moist mucous membranes Throat: posterior oropharynx normal and uvula midline Eyes Sclera: normal sclerae Pupils: PERRL Neck Neck: no meningeal signs, trachea midline and no JVD Lymphatic: no lymphadenopathy noted Resp Effort & Inspection: no use of accessory muscles Auscultation: clear to auscultation bilaterally Cardio Rate: regular rate Rhythm: regular rhythm Heart Sounds: no gallops, murmur (With a 1/6 systolic murmur audible, no gallops or rubs.) systolic and no rubs GI Inspection: non-distended Palpation: soft, no hepatosplenomegaly, no guarding, not rigid and nontender Auscultation: normal bowel sounds Back/Spine/Pelvis Back: no CVA tenderness Skin General: dry skin (warm) Neuro General: alert, awake, oriented x3 and other (Grossly nonfocal) Speech: speech normal Motor: no movement abnormalities noted Extrem General: normal to inspection (2+ pulses in all 4 extremities.), no calf tenderness, no clubbing, no cyanosis and edema (Trace pedal edema) Laterality: bilaterally Psych Mood: congruent mood Affect: normal affect Judgment: judgment good Course Initial Documented Vital Signs Temperature 98.5 F 09/29/18 19:37 Pulse Rate 77 09/29/18 19:37 Respiratory Rate 17 09/29/18 19:37 Blood Pressure 172/97 H 09/29/18 19:37 Last Documented Vital Signs Temperature 98.5 F 09/29/18 19:53 Pulse Rate 76 09/29/18 19:53 Respiratory Rate 18 09/29/18 19:53 Blood Pressure 172/97 H 09/29/18 19:53 Pulse Oximetry 98 09/29/18 19:54 Medical Decision Making MDM Narrative Medical decision making narrative: During the course of the patient's emergency department visit, the patient's history, examination, and differential diagnosis were reviewed with the patient. The patient was placed on a cardiac monitor technician with oximetry and frequent blood pressure monitoring. The patient had IV access obtained and blood work sent for analysis. A diagnostic evaluation was started regarding the patient's chest pain that is now resolved. The patient was initially provided an additional 243 mg of aspirin p.o., nitroglycerin 1 inch to the chest wall. The patient's diagnostic studies are remarkable for a white count of 8.6, hemoglobin 9.5 which is comparable to his level of anemia previously, platelets are 348 with 13.4 monocytes, 5.2 eosinophils, PT PTT within normal limits, chemistries remarkable for sodium of 134, BUN is 53, creatinine is 6.04, CPK is 373, troponin I is 0.04, lipase 123. CHEST X-RAY:Shows minimal bibasilar atelectasis. The patient's results were discussed with the patient, including the plan of care. I explained that further testing and/ or monitoring is indicated based on the patient's history, examination, and/ or laboratory findings. Therefore, I recommended admission for additional evaluation. The patient expressed understanding and was agreeable with this plan. The patient was admitted to the hospital in stable condition and sent to a bed under the care of the [facility]. Medical Screen Exam Complete: Yes Emergency Medical Condition: Yes Differential Diagnosis Differential Diagnosis: Acute coronary syndrome, versus acid reflux, versus dyspepsia, versus pancreatitis Medical Records Medical records reviewed: Yes I reviewed the patient's medical records. Lab Data Lab results reviewed: Yes I reviewed the patient's lab results. Result diagrams: 09/29/18 19:07 09/29/18 19:07 Lab Results 09/29/18 09/29/18 09/29/18 Range/Units 19:07 19:07 19:07 WBC 8.6 (4.0-11.0) th/mm3 RBC 2.84 L (4.50-5.90) mil/mm3 Hgb 9.5 L (13.0-17.0) gm/dL Hct 28.5 L (39.0-51.0) % MCV 100.1 H (80.0-100.0) fL MCH 33.3 (27.0-34.0) pg MCHC 33.2 (32.0-36.0) % RDW 14.6 (11.6-17.2) % Plt Count 348 (150-450) th/mm3 MPV 7.2 (7.0-11.0) fL Neut % (Auto) 59.1 (16.0-70.0) % Lymph % (Auto) 21.1 (9.0-44.0) % [place] % (Auto) 13.4 H (0.0-8.0) % Eos % (Auto) 5.2 H (0.0-4.0) % Baso % (Auto) 1.2 (0.0-2.0) % Neut # (Auto) 5.1 (1.8-7.7) th/mm3 Lymph # (Auto) 1.8 (1.0-4.8) th/mm3 [place] # (Auto) 1.2 H (0.0-0.9) th/mm3 Eos # (Auto) 0.4 (0.0-0.4) th/mm3 Baso # (Auto) 0.1 (0.0-0.2) th/mm3 WBC Differential . Differential Comment Auto diff final PT 10.1 (9.8-11.6) sec INR 1.0 Ratio APTT 24.7 (23.4-31.7) sec Sodium 134 L (136-145) meq/L Potassium 4.1 (3.5-5.1) meq/L Chloride 101 (98-107) meq/L Carbon Dioxide 22.1 (21.0-32.0) meq/L Anion Gap 11 (5-15) meq/L BUN 53 H (7-18) mg/dL Creatinine 6.04 H (0.60-1.30) mg/dL Estimated GFR 9 L (>89) mL/min Random Glucose 93 (74-106) mg/dL Calcium 8.7 (8.5-10.1) mg/dL Magnesium 2.1 (1.5-2.5) mg/dL Total Bilirubin 0.3 (0.2-1.0) mg/dL AST 32 (15-37) U/L ALT 18 (12-78) U/L Alkaline Phosphatase 111 (45-117) U/L Total Creatine Kinase 373 H (39-308) U/L CK-MB (CK-2) 3.4 (0.5-3.6) ng/mL CK-MB (CK-2) % 0.9 (0.0-4.0) % Troponin I 0.04 (0.02-0.05) ng/mL Total Protein 6.8 (6.4-8.2) g/dL Albumin 3.4 (3.4-5.0) g/dL Lipase 123 (73-393) U/L Imaging Data Radiologist's impression: Chest X-Ray 09/29/18 19:53 CONCLUSION: Minimal bibasilar atelectasis. ECG Data Attestation: I personally reviewed and interpreted this ECG as follows: Interpretation: The patient had an EKG done on arrival. The patient's EKG reveals a sinus rhythm heart rate of 84, QRS duration is 104 ms, QTC [address] segment elevation. Discharge Plan Discharge Disposition Patient Disposition: ED Admit(ED Internal Use Only) Discharge Order Discharge Orders: ED Use Only Admit Order (Routine); Ordered 09/29/18 Ordered By: Sharri Damico Discharge Details Diagnosis: Chest pain, rule out acute myocardial infarction Physicians Team ED Provider: Sharri Damico Primary Care Provider: Bo Flannery Attending Provider: Justen Bradshaw Other Providers: [facility],Insurance Status ED Status: Admitted Observation Patient
--- NOTE | 2018-09-29 20:12 | XR ---
EXAM DATE: 09/29/2018 8:08 PM EST AGE/SEX: 73 years / Male INDICATIONS: Chest pain for 5 min prior to visit. CLINICAL DATA: This is the patient's initial encounter. Patient reports that signs and symptoms have been present for 1 day and indicates a pain score of 7/10. MEDICAL/SURGICAL HISTORY: . Hypercholesterolemia. Hypertension Stage 4 Renal disease, Osteoarth ritis. . Total knee replacement, left. Total knee replacement, right. 3 cardiac stents. COMPARISON: 07/03/2017. FINDINGS: Trace atelectasis seen of both bases. No pneumonic infiltrate seen. No pleural effusion or pneumothor ax. Heart size stable, within normal limits. CONCLUSION: Minimal bibasilar atelectasis. Electronically signed by: Don Presley MD Board Certified Radiologist 09/29/2018 8:11 PM EST
[2018-09-29 20:48] LABS: Baso # (Auto) 0.1 th/mm3 (0.0-0.2); Baso % (Auto) 1.2 % (0.0-2.0); Eos # (Auto) 0.4 th/mm3 (0.0-0.4); Eos % (Auto) 5.2 % (0.0-4.0); Hematocrit 28.5 % (39.0-51.0); Hemoglobin 9.5 gm/dL (13.0-17.0); Lymph # (Auto) 1.8 th/mm3 (1.0-4.8); Lymph % (Auto) 21.1 % (9.0-44.0); Mean Corpuscular HGB Conc 33.2 % (32.0-36.0); Mean Corpuscular Hemoglobin 33.3 pg (27.0-34.0); Mean Corpuscular Volume 100.1 fL (80.0-100.0); Mean Platelet Volume 7.2 fL (7.0-11.0); Mono # (Auto) 1.2 th/mm3 (0.0-0.9); Mono % (Auto) 13.4 % (0.0-8.0); Neut # (Auto) 5.1 th/mm3 (1.8-7.7); Neut % (Auto) 59.1 % (16.0-70.0); Platelet Count 348 th/mm3 (150-450); Red Blood Count 2.84 mil/mm3 (4.50-5.90); Red Cell Distribution Width 14.6 % (11.6-17.2); White Blood Count 8.6 th/mm3 (4.0-11.0)
[2018-09-29 21:07] LABS: Albumin 3.4 g/dL (3.4-5.0); Anion Gap 11 meq/L (5-15); Aspartate Aminotransferase 32 U/L (15-37); Blood Urea Nitrogen 53 mg/dL (7-18); Calcium 8.7 mg/dL (8.5-10.1); Carbon Dioxide 22.1 meq/L (21.0-32.0); Chloride 101 meq/L (98-107); Glomerular Filtration Rate 9 mL/min (>89); Glucose,Random 93 mg/dL (74-106); Lipase 123 U/L (73-393); Magnesium 2.1 mg/dL (1.5-2.5); Potassium 4.1 meq/L (3.5-5.1); Sodium 134 meq/L (136-145)
[2018-09-29 21:10] LABS: Alanine Aminotransferase 18 U/L (12-78); Alkaline Phosphatase 111 U/L (45-117); Creatine Kinase 373 U/L (39-308); Total Protein 6.8 g/dL (6.4-8.2); Troponin I 0.04 ng/mL (0.02-0.05)
[2018-09-29 21:15] LABS: Prothrombin Time 10.1 sec (9.8-11.6)
[2018-09-29 21:16] LABS: Activated Partial Thrombo Time 24.7 sec (23.4-31.7)
[2018-09-29] MEDS ORDERED: Acetaminophen 500 MG Tablet PO PRN (21:19)
[2018-09-29 21:22] LABS: CKMB Percent 0.9 % (0.0-4.0); Creatine Kinase MB 3.4 ng/mL (0.5-3.6)
--- NOTE | 2018-09-29 21:41 | ECG ---
Date Performed: 09/29/2018 Time Performed: 19:33:35 PTAGE: 73 years EKG: Sinus rhythm WITH FIRST DEGREE AV BLOCK NONSPECIFIC T-WAVE ABNORMALITY ABNORMAL ECG PREVIOUS TRACING : 09/28/2018 10.08 Since the previous tracing, no significant change noted DOCTOR: Brittany Jenkins Interpretating Date/Time 09/29/2018 21:39:09
[2018-09-29] MEDS ORDERED: amLODIPine 5 MG Tablet PO ONE (22:38)
[2018-09-29 23:07] LABS: Troponin I 0.04 ng/mL (0.02-0.05)
[2018-09-29 23:19] LABS: CKMB Percent 0.9 % (0.0-4.0)
[2018-09-30 02:21] LABS: Troponin I 0.05 ng/mL (0.02-0.05)
[2018-09-30 02:33] LABS: CKMB Percent 0.9 % (0.0-4.0)
--- NOTE | 2018-09-30 08:32 | P.HPCA ---
History of Present Illness Primary Care Physician: Bo Flannery MD Chief Complaint: Chest pain History of Present Illness: This is a 73-year-old male with history of 3 prior stents, celiac and SMA stents , renal failure and undergoes peritoneal dialysis daily, hypertension, hyperlipidemia, and anemia that presents to ED with complaint of chest discomfort patient states he had a central chest heaviness while eating yesterday. States he had some noodles and some broccoli without problems but developed this discomfort on eating bread and chicken. It lasted 3-4 minutes. Denies associate shortness of breath, nausea, diaphoresis. States he did feel similar to when needing stents July 2017 as well as having to have 1 of the areas intervene on again with another stent last summer. His initial cardiac catheterization was July 2017 at which time he needed stent to the circumflex and RCA by Dr. cote. He states while in [place] last summer 1 of those areas needed another stent. Voices compliance with all his medications. Continues to follow with Dr. cote. He had aortogram with Dr. Campbell earlier this week to check the stents in the celiac and SMA and they were found to be patent. Past history: History of coronary disease with stenting x3, celiac and SMA stent , renal failure undergoing peritoneal dialysis daily, hypertension, hyperlipidemia, and anemia. Family history: Positive for CAD. Social history: He does not smoke. - Diagnosis (1) Chest pain (2) CAD (coronary artery disease) (3) History of heart artery stent (4) Hypertension (5) Hyperlipidemia (6) Renal failure (7) Chronic renal failure (8) Anemia Review of Systems General: Patient denies fevers, chills, and recent travel. HEENT: Patient denies headache, sore throat, difficulty swallowing. Cardiovascular: Has the chest discomfort as mentioned above. Denies sensation of heart beating rapidly or irregularly. No syncope. Denies diaphoresis. Respiratory: Denies shortness of breath or inspirational chest discomfort. Denies coughing wheezing or hemoptysis. GI: Patient denies nausea, vomiting, diarrhea, abdominal pain, bloody stools. Musculoskeletal: Patient denies joint pain or edema. Denies calf pain or edema. Neurovascular: Patient denies numbness, tingling, weakness in extremities. Denies headache. Endocrine: Denies polyuria and polydipsia. Hematologic: Denies easy bruising. Skin: Denies rash or itching. [facility] - History History Provided By: Patient - Medical History Medical History: Medical History (Last Reviewed 09/29/18 @ 19:57 by Sharri Damico MD) Atrial fibrillation Chronic neck and back pain Chronic renal insufficiency Dialysis patient H/O urinary retention High cholesterol Hx of cardiac arrest Hx of gout Hx of skin cancer, basal cell Hypertension Macular degeneration Osteoarthritis Peritoneal dialysis catheter in place Wears dentures - Surgical History Surgical History: Surgical History (Last Reviewed 09/29/18 @ 19:57 by Sharri Damico MD) History of total bilateral knee replacement (TKR) Hx of cardiac catheterization Hx of cataract removal with insertion of prosthetic lens - Tobacco History Second Hand Smoke Exposure: No Tobacco Use In Past 30 Days: Yes Smoking Status: Never smoker Tobacco Type: Cigarettes - Alcohol History How Often Do You Have a Drink Containing Alcohol: Never - Substance Use History Substance History: No History of Abuse - Travel History Recent Travel in the [place] Within the Last 8 Weeks: No Recent Travel Out of the Country Within the Last 8 Weeks: No - Immunization History Tetanus Immunization: <5 Years Medications and Allergies Active Medications: Active Medications Acetaminophen (Tylenol) 500 mg PO Q4H PRN PRN Reason: HEADACHE Albuterol (Albuterol Neb (Prn)) 2.5 mg NEB UNSCH PRN PRN Reason: SHORTNESS OF BREATH/WHEEZING Albuterol (Duoneb Neb (Prn)) 1 ampul NEB UNSCH PRN PRN Reason: SHORTNESS OF BREATH/WHEEZING Aminophylline (Aminophylline Inj) 100 mg IV.PUSH ONCE ONE Stop: 09/30/18 08:18 Amlodipine Besylate (Norvasc) 5 mg PO BID [facility] Aspirin (Ecotrin) 81 mg PO DAILY [facility] Calcitriol (Rocaltrol) 0.25 mcg PO 3XW [facility] Clopidogrel Bisulfate (Plavix) 75 mg PO DAILY [facility] Ezetimibe (Zetia) 10 mg PO DAILY [facility] Famotidine (Pepcid) 20 mg PO BID [facility] Folic Acid (Folic Acid) 1 mg PO DAILY [facility] Non-Formulary Medication (Amiodarone [Amiodarone]) 100 mg PO DAILY [facility] Non-Formulary Medication (Cyclobenzaprine [Cyclobenzaprine]) 5 mg PO BID PRN PRN Reason: Spasms Non-Formulary Medication (Ferric Citrate [Auryxia]) 210 mg PO TID [facility] Non-Formulary Medication (Vit C,D-Bw-Slszv-Lutein-Zeaxan [Preservision Areds-2] ) 1 tab PO DAILY [facility] Pantoprazole Sodium (Protonix) 40 mg PO DAILY [facility] Pravastatin Sodium (Pravachol) 20 mg PO DAILY [facility] Regadenoson (Lexiscan Inj) 0.4 mg IV.PUSH ONCE ONE Stop: 09/30/18 08:18 Sodium Chloride (Ns Flush) 2 ml IV.FLUSH UNSCH PRN PRN Reason: FLUSH AFTER USING IV ACCESS Sodium Chloride (Ns Flush) 2 ml IV.FLUSH PRN PRN PRN Reason: FLUSH AFTER USING IV ACCESS Sodium Chloride (Ns Flush) 2 ml IV.FLUSH BID [facility] Tamsulosin HCl (Flomax) 0.8 mg PO DAILY [facility] Allergies Allergy/AdvReac Type Severity Reaction Status Date / Time morphine Allergy Severe Nausea/Vomi Verified 09/29/18 19:54 ting Home Medications Medication Instructions Recorded Confirmed Type B complex-vitamin C-folic acid 1 tab PO DAILY 09/24/18 09/29/18 History [Nephro-Farrah] allopurinol 100 mg PO DAILY 09/24/18 09/29/18 History amiodarone 100 mg PO DAILY 09/24/18 09/29/18 History amlodipine 5 mg PO BID 09/24/18 09/29/18 History aspirin [Adult Low Dose Aspirin] 81 mg PO DAILY 09/24/18 09/29/18 History calcitriol 0.25 mcg PO 3XW 09/24/18 09/29/18 History clopidogrel [Plavix] 75 mg PO DAILY 09/24/18 09/29/18 History coenzyme Q10 [Co Q-10] 100 mg PO DAILY 09/24/18 09/29/18 History cyclobenzaprine 5 mg PO BID PRN 09/24/18 09/29/18 History ergocalciferol (vitamin D2) 50,000 unit PO QWEEK 09/24/18 09/29/18 History [Vitamin D2] ezetimibe 10 mg PO DAILY 09/24/18 09/29/18 History ferric citrate [Auryxia] 210 mg PO TID 09/24/18 09/29/18 History folic acid 1 mg PO DAILY 09/24/18 09/29/18 History pantoprazole 40 mg PO DAILY 09/24/18 09/29/18 History pravastatin 20 mg PO DAILY 09/24/18 09/29/18 History sennosides-docusate sodium 1 tab PO DAILY 09/24/18 09/29/18 History tamsulosin 0.8 mg PO DAILY 09/24/18 09/29/18 History vit C,A-Mn-armtd-lutein-zeaxan 1 tab PO DAILY 09/24/18 09/29/18 History [PreserVision AREDS-2] Exam Vital signs: Vital Signs 09/29/18 19:37 09/29/18 19:53 09/29/18 19:54 Temperature 98.5 F 98.5 F Pulse Rate 77 76 Respiratory Rate 17 18 Blood Pressure 172/97 H 172/97 H Pulse Oximetry 99 98 09/29/18 23:30 09/30/18 04:00 09/30/18 07:58 Temperature 98.7 F 98.2 F Pulse Rate 72 76 69 Respiratory Rate 19 18 20 Blood Pressure 168/77 H 156/68 H 155/72 H Pulse Oximetry 99 94 L Intake & Output 09/29/18 09/30/18 09/30/18 18:59 06:59 18:59 Weight 88.45 kg Other: Date of Last Bowel Movement 09/29/18 Weight On Admission 88.451 kg Narrative: GENERAL: This is a well-nourished, well-developed patient, in no apparent distress. Patient speaks in clear complete sentences. Patient is pleasant. HEENT: Head is atraumatic and normocephalic. Neck is supple without lymphadenopathy and trachea is midline. No JVD or carotid bruits. CARDIOVASCULAR: Regular rate and rhythm without murmurs, gallops, or rubs. RESPIRATORY: Clear to auscultation. Breath sounds equal bilaterally. No wheezes , rales, or rhonchi. Chest wall is nontender. No use of accessory muscles. GASTROINTESTINAL: Abdomen is nontender, nondistended. Abdomen soft. No obvious pulsatile mass or bruit. No CVA tenderness. Strong femoral pulses bilaterally. Normal bowel sounds in all quadrants. MUSCULOSKELETAL: Patient is moving upper and lower extremities freely. No calf tenderness or edema, no Homans sign. Strong pulses in upper and lower extremities. NEUROLOGICAL: Patient is alert and oriented. Cranial nerves 2-12 are grossly intact. No focal deficits and speech is clear. SKIN: No rash and turgor is normal. Results 09/29/18 19:07 09/29/18 19:07 Cardiac Enzymes 09/29/18 09/29/18 09/30/18 Range/Units 19:07 22:27 01:30 AST 32 (15-37) U/L CK-MB (CK-2) 3.4 3.0 3.0 (0.5-3.6) ng/mL Troponin I 0.04 0.04 0.05 (0.02-0.05) ng/mL Coagulation 09/29/18 Range/Units 19:07 PT 10.1 (9.8-11.6) sec APTT 24.7 (23.4-31.7) sec CBC 09/29/18 Range/Units 19:07 WBC 8.6 (4.0-11.0) th/mm3 RBC 2.84 L (4.50-5.90) mil/mm3 Hgb 9.5 L (13.0-17.0) gm/dL Hct 28.5 L (39.0-51.0) % Plt Count 348 (150-450) th/mm3 Neut # (Auto) 5.1 (1.8-7.7) th/mm3 Lymph # (Auto) 1.8 (1.0-4.8) th/mm3 Fleming # (Auto) 1.2 H (0.0-0.9) th/mm3 Eos # (Auto) 0.4 (0.0-0.4) th/mm3 Baso # (Auto) 0.1 (0.0-0.2) th/mm3 Comprehensive Metabolic Panel 09/29/18 Range/Units 19:07 Sodium 134 L (136-145) meq/L Potassium 4.1 (3.5-5.1) meq/L Chloride 101 (98-107) meq/L Carbon Dioxide 22.1 (21.0-32.0) meq/L BUN 53 H (7-18) mg/dL Creatinine 6.04 H (0.60-1.30) mg/dL Calcium 8.7 (8.5-10.1) mg/dL AST 32 (15-37) U/L ALT 18 (12-78) U/L Alkaline Phosphatase 111 (45-117) U/L Total Protein 6.8 (6.4-8.2) g/dL Albumin 3.4 (3.4-5.0) g/dL Intake and Output 09/29/18 09/30/18 09/30/18 22:59 06:59 14:59 Other: Date of Last Bowel Movement 09/29/18 Weight 88.451 kg 88.45 kg Weight On Admission 88.451 kg - Imaging and Cardiology Imaging: Impressions Chest X-Ray 09/29/18 19:53 CONCLUSION: Minimal bibasilar atelectasis. EKG interpretations - EKG EKG shows: sinus rhythm Caprini VTE Risk Assessment Caprini VTE Risk Assessment: Moderate/High Risk (score >= 2) Caprini Risk Assessment Model: Point Value = 1 Point Value = 2 Point Value = 3 Point Value = 5 Age 41-60 Minor surgery BMI > 25 kg/m2 Swollen legs Varicose veins or History of unexplained or recurrent spontaneous Oral contraceptives or hormone replacement Sepsis (< 1 month) Serious lung disease, including pneumonia (< 1 month) Abnormal pulmonary function Acute myocardial infarction Congestive heart failure (< 1 month) History of inflammatory bowel disease Medical patient at bed rest Age 61-74 Arthroscopic surgery Major open surgery (> 45 min) Laparoscopic surgery (> 45 min) Malignancy Confined to bed (> 72 hours) Immobilizing plaster cast Central venous access Age >= 75 History of VTE Family history of VTE Factor V Leiden Prothrombin [id number] Lupus anticoagulant Anticardiolipin antibodies Elevated serum homocysteine Heparin-induced thrombocytopenia Other congenital or acquired thrombophilia Stroke (< 1 month) Elective arthroplasty Hip, pelvis, or leg fracture Acute spinal cord injury (< 1 month) Prophylaxis Regimen: Total Risk Factor Score Risk Level Prophylaxis Regimen 0-1 Low Early ambulation 2 Moderate Order ONE of the following: *Sequential Compression Device (SCD) *Heparin 5000 units SQ BID 3-4 Higher Order ONE of the following medications: *Heparin 5000 units SQ TID *Enoxaparin/Lovenox 40 mg SQ daily (WT < 150 kg, CrCl > 30 mL/min) *Enoxaparin/Lovenox 30 mg SQ daily (WT < 150 kg, CrCl > 10-29 mL/min) *Enoxaparin/Lovenox 30 mg SQ BID (WT < 150 kg, CrCl > 30 mL/min) AND/OR *Sequential Compression Device (SCD) 5 or more Highest Order ONE of the following medications: *Heparin 5000 units SQ TID (Preferred with Epidurals) *Enoxaparin/Lovenox 40 mg SQ daily (WT < 150 kg, CrCl > 30 mL/min) *Enoxaparin/Lovenox 30 mg SQ daily (WT < 150 kg, CrCl > 10-29 mL/min) *Enoxaparin/Lovenox 30 mg SQ BID (WT < 150 kg, CrCl > 30 mL/min) AND *Sequential Compression Device (SCD) Assessment and Plan - Assessment (1) Chest pain Code(s): R07.9 - Chest pain, unspecified Status: Acute (2) CAD (coronary artery disease) Code(s): I25.10 - Atherosclerotic heart disease of [place] coronary artery without angina pectoris Status: Acute (3) History of heart artery stent Code(s): Z95.5 - Presence of coronary angioplasty implant and graft Status: Acute (4) Hypertension Code(s): I10 - Essential (primary) hypertension Status: Acute (5) Hyperlipidemia Code(s): E78.5 - Hyperlipidemia, unspecified Status: Acute (6) Renal failure Code(s): N19 - Unspecified kidney failure Status: Acute (7) Chronic renal failure Code(s): N18.9 - Chronic kidney disease, unspecified Status: Acute (8) Anemia Code(s): D64.9 - Anemia, unspecified Status: Acute - Plan * Chest pain: Patient has had serial cardiac enzymes and EKGs for ruling out purposes and has been seen by Dr. Topher Martin of cardiology and the chest pain center. Dr. Martin spoke with his strategy director Dr. cote. Patient will undergo a Lexiscan and further plan pending results of that. After discharge she will need follow-up with his strategy director and PCP * Renal failure: Patient has daily peritoneal dialysis. 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 * CAD: This will be reassessed with stress testing. He need to continue his medication follow-up with his strategy director. * Hypertension: Continue medication. * Hyperlipidemia: Continue medication. * Anemia: Continue medication. Patient is stable at this time. He is agreeable to this plan. H&P: Quality - VTE Deep Vein Thrombosis/Pulmonary Embolism Present on Admission: No
[2018-09-30] MEDS ORDERED: Famotidine 20 MG Tablet PO SCH (09:00)
[2018-09-30] MEDS ORDERED: Folic Acid 1 MG Tablet PO SCH (10:00)
[2018-09-30] MEDS ORDERED: Ezetimibe 10 MG Tablet PO SCH (10:00)
[2018-09-30] MEDS ORDERED: Regadenoson Inj 0.4 MG/5 ML Syringe IV.PUSH ONE (10:00)
[2018-09-30] MEDS ORDERED: amLODIPine 5 MG Tablet PO SCH (10:00)
[2018-09-30] MEDS ORDERED: Vitamins A,C,E/Lutein/Minerals Tablet PO SCH (11:00)
[2018-09-30] MEDS ORDERED: FERRIC CITRATE 210 MG PO SCH (11:00)
[2018-09-30] MEDS ORDERED: Amiodarone 200 MG Tablet PO SCH (11:00)
[2018-09-30] MEDS ORDERED: Calcitriol 0.25 MCG Capsule PO SCH (11:00)
--- NOTE | 2018-09-30 13:43 | NM ---
EXAM DATE: 09/30/2018 1:26 PM EST AGE/SEX: 73 years / Male INDICATIONS:Angina. . Substernal chest pain. CLINICAL DATA: This is the patient's initial encounter. Patient reports that signs and symptoms have been present for 2 days and indicates a pain score of 1/10. MEDICAL/SURGICAL HISTORY: Hypertension. Coronary artery stent. Bilateral knee surgery. COMPARISON: [facility], MYOCARDIAL PERF PHARM SPECT, 12/04/2017. . DOSE: 8.5 mCi Tc 99m Myoview at rest 25.4 mCi [id number] at stress 0.4 mg Lexiscan STRESS SYMPTOMS: None. EJECTION FRACTION: 58 % TECHNIQUE: The patient underwent pharmacologic stress with infusion of prescribed dose. Continuous ECG tracing was monitored during stress. Gated SPECT imaging was performed after stress and conventi onal SPECT imaging was performed at rest. The examination was performed on a SPECT/CT scanner, both attenuation and non-corrected datasets were reviewed. FINDINGS: Distribution: The maximum perfused segment at stress is in the septal wall. Perfusion Study: The pattern of perfusion at stress demonstrates a fixed defect in posterior basal and inferior wall most of the due to diaphragmatic attenuation and/or possibly old infarction. No arcelia reciable ischemia. There is also reduction in perfusion to the high anterior wall which extends to mi d and lower anteroapical wall during stress and appears fixed during rest. Gated Study: There are intact wall motion and wall thickening without hypokinetic or dyskinetic segm ents. The ejection fraction is calculated at 58%. RISK CATEGORY: Low (<1% Annual Mortality Rate) CONCLUSION: 1. No appreciable ischemia. Electronically signed by: Kip Camarillo MD Board Certified Radiologist 09/30/2018 1:42 PM EST
--- NOTE | 2018-09-30 13:48 | P.CONVS ---
History of Present Illness Service: Vascular Surgery Consult date: 09/30/18 Reason for Consult: Wound Check Primary Care Provider: Bo Flannery MD Chief Complaint: Left arm Wound Check History of Present Illness: Mr. Bolton is a 73/Male who is s/p Aortogram w/ mesenteric angiogram (09/28/18 w / Dr. Campbell) Spoke with patient yesterday who reported he had "bruising" around his L upper arm incision line that was stable at this time Pt arrived to the ED c/o Chest Pain and requested we look at the incision site. Pt examined in Nuclear med. Pt denied fever or chills L arm incision w/ expected ecchymosis efraín wound/ Appears stable/No drainage, warmth, erythema or swelling Review of Systems Constitutional: Denies chills, Denies fever(s) Skin/Breast: Reports change in skin color (L arm efraín wound ecchymotic ) PMFSH - History History Provided By: Patient - Medical History Medical History: Medical History (Last Reviewed 09/30/18 @ 13:38 by Christi Foy) Atrial fibrillation Chronic neck and back pain Chronic renal insufficiency Dialysis patient H/O urinary retention High cholesterol Hx of cardiac arrest Hx of gout Hx of skin cancer, basal cell Hypertension Macular degeneration Osteoarthritis Peritoneal dialysis catheter in place Wears dentures - Surgical History Surgical History: Surgical History (Last Reviewed 09/30/18 @ 13:38 by Christi Foy) History of total bilateral knee replacement (TKR) Hx of cardiac catheterization Hx of cataract removal with insertion of prosthetic lens - Tobacco History Second Hand Smoke Exposure: No Tobacco Use In Past 30 Days: Yes Smoking Status: Never smoker Tobacco Type: Cigarettes - Alcohol History How Often Do You Have a Drink Containing Alcohol: Never - Substance Use History Substance History: No History of Abuse - Travel History Recent Travel in the [place] Within the Last 8 Weeks: No Recent Travel Out of the Country Within the Last 8 Weeks: No - Immunization History Tetanus Immunization: <5 Years Medications and Allergies Active Medications: Active Medications Acetaminophen (Tylenol) 500 mg PO Q4H PRN PRN Reason: HEADACHE Albuterol (Albuterol Neb (Prn)) 2.5 mg NEB ONCE PRN PRN Reason: SOB/WHEEZING Stop: 10/01/18 23:59 Albuterol (Duoneb Neb (Prn)) 1 ampul NEB ONCE PRN PRN Reason: SOB/WHEEZING Stop: 10/01/18 23:59 Amiodarone HCl (Cordarone) 100 mg PO DAILY [facility] Last Admin: 09/30/18 13:06 Dose: Not Given Amlodipine Besylate (Norvasc) 5 mg PO BID [facility] Last Admin: 09/30/18 10:06 Dose: 5 mg Aspirin (Ecotrin) 81 mg PO DAILY [facility] Last Admin: 09/30/18 10:06 Dose: 81 mg Calcitriol (Rocaltrol) 0.25 mcg PO MoWeFr [facility] Last Admin: 09/30/18 13:07 Dose: Not Given Clopidogrel Bisulfate (Plavix) 75 mg PO DAILY [facility] Last Admin: 09/30/18 10:05 Dose: 75 mg Cyclobenzaprine HCl (Flexeril) 5 mg PO BID PRN PRN Reason: SPASM Ezetimibe (Zetia) 10 mg PO DAILY [facility] Last Admin: 09/30/18 10:06 Dose: 10 mg Famotidine (Pepcid) 20 mg PO BID [facility] Last Admin: 09/30/18 10:05 Dose: 20 mg Folic Acid (Folic Acid) 1 mg PO DAILY [facility] Last Admin: 09/30/18 10:06 Dose: 1 mg Miscellaneous (Pill Splitter) 1 each OTHER UNSCH [facility] Multivitamins/Minerals (Ocuvite With Lutein) 1 tab PO DAILY [facility] Last Admin: 09/30/18 13:06 Dose: Not Given Pantoprazole Sodium (Protonix) 40 mg PO DAILY [facility] Last Admin: 09/30/18 10:04 Dose: 40 mg Ferric Citrate ( Auryxia) 210 Mg Po Tid 0 each PO TID [facility] Pravastatin Sodium (Pravachol) 20 mg PO DAILY [facility] Last Admin: 09/30/18 10:04 Dose: 20 mg Sodium Chloride (Ns Flush) 2 ml IV.FLUSH UNSCH PRN PRN Reason: FLUSH AFTER USING IV ACCESS Sodium Chloride (Ns Flush) 2 ml IV.FLUSH PRN PRN PRN Reason: FLUSH AFTER USING IV ACCESS Sodium Chloride (Ns Flush) 2 ml IV.FLUSH BID [facility] Tamsulosin HCl (Flomax) 0.8 mg PO DAILY [facility] Last Admin: 09/30/18 10:05 Dose: 0.8 mg Allergies Allergy/AdvReac Type Severity Reaction Status Date / Time morphine Allergy Severe Nausea/Vomi Verified 09/29/18 19:54 ting Home Medications Medication Instructions Recorded Confirmed Type B complex-vitamin C-folic acid 1 tab PO DAILY 09/24/18 09/29/18 History [Nephro-Farrah] allopurinol 100 mg PO DAILY 09/24/18 09/29/18 History amiodarone 100 mg PO DAILY 09/24/18 09/29/18 History amlodipine 5 mg PO BID 09/24/18 09/29/18 History aspirin [Adult Low Dose Aspirin] 81 mg PO DAILY 09/24/18 09/29/18 History calcitriol 0.25 mcg PO 3XW 09/24/18 09/29/18 History clopidogrel [Plavix] 75 mg PO DAILY 09/24/18 09/29/18 History coenzyme Q10 [Co Q-10] 100 mg PO DAILY 09/24/18 09/29/18 History cyclobenzaprine 5 mg PO BID PRN 09/24/18 09/29/18 History ergocalciferol (vitamin D2) 50,000 unit PO QWEEK 09/24/18 09/29/18 History [Vitamin D2] ezetimibe 10 mg PO DAILY 09/24/18 09/29/18 History ferric citrate [Auryxia] 210 mg PO TID 09/24/18 09/29/18 History folic acid 1 mg PO DAILY 09/24/18 09/29/18 History pantoprazole 40 mg PO DAILY 09/24/18 09/29/18 History pravastatin 20 mg PO DAILY 09/24/18 09/29/18 History sennosides-docusate sodium 1 tab PO DAILY 09/24/18 09/29/18 History tamsulosin 0.8 mg PO DAILY 09/24/18 09/29/18 History vit C,G-Xj-pdjmy-lutein-zeaxan 1 tab PO DAILY 09/24/18 09/29/18 History [PreserVision AREDS-2] Physical Exam Vital Signs / I&O: Vital Signs 09/29/18 19:37 09/29/18 19:53 09/29/18 19:54 Temperature 98.5 F 98.5 F Pulse Rate 77 76 Respiratory Rate 17 18 Blood Pressure 172/97 H 172/97 H Pulse Oximetry 99 98 09/29/18 23:30 09/30/18 04:00 09/30/18 07:58 Temperature 98.7 F 98.2 F Pulse Rate 72 76 69 Respiratory Rate 19 18 20 Blood Pressure 168/77 H 156/68 H 155/72 H Pulse Oximetry 99 94 L Intake & Output 09/29/18 09/30/18 09/30/18 18:59 06:59 18:59 Weight 88.45 kg Other: Date of Last Bowel Movement 09/29/18 Weight On Admission 88.451 kg Neuro: No deficits Vascular: Palpable L radial pulse LEFT arm incision line intact with surgical glue, NO drainage, swelling, odor or warmth noted Ecchymotic area noted efraín wound -R arm incision Extremities: L arm 5/5 Strong roll out manager strength Laboratory Results - last 24 hr 09/29/18 09/29/18 09/29/18 19:07 19:07 19:07 WBC 8.6 RBC 2.84 L Hgb 9.5 L Hct 28.5 L MCV 100.1 H MCH 33.3 MCHC 33.2 RDW 14.6 Plt Count 348 MPV 7.2 Neut % (Auto) 59.1 Lymph % (Auto) 21.1 Leake % (Auto) 13.4 H Eos % (Auto) 5.2 H Baso % (Auto) 1.2 Neut # (Auto) 5.1 Lymph # (Auto) 1.8 Leake # (Auto) 1.2 H Eos # (Auto) 0.4 Baso # (Auto) 0.1 WBC Differential . Differential Comment Auto diff final PT 10.1 INR 1.0 APTT 24.7 Sodium 134 L Potassium 4.1 Chloride 101 Carbon Dioxide 22.1 Anion Gap 11 BUN 53 H Creatinine 6.04 H Estimated GFR 9 L Random Glucose 93 Calcium 8.7 Magnesium 2.1 Total Bilirubin 0.3 AST 32 ALT 18 Alkaline Phosphatase 111 Total Creatine Kinase 373 H CK-MB (CK-2) 3.4 CK-MB (CK-2) % 0.9 Troponin I 0.04 Total Protein 6.8 Albumin 3.4 Lipase 123 09/29/18 09/30/18 22:27 01:30 WBC RBC Hgb Hct MCV MCH MCHC RDW Plt Count MPV Neut % (Auto) Lymph % (Auto) Leake % (Auto) Eos % (Auto) Baso % (Auto) Neut # (Auto) Lymph # (Auto) Leake # (Auto) Eos # (Auto) Baso # (Auto) WBC Differential Differential Comment PT INR APTT Sodium Potassium Chloride Carbon Dioxide Anion Gap BUN Creatinine Estimated GFR Random Glucose Calcium Magnesium Total Bilirubin AST ALT Alkaline Phosphatase Total Creatine Kinase 334 H 320 H CK-MB (CK-2) 3.0 3.0 CK-MB (CK-2) % 0.9 0.9 Troponin I 0.04 0.05 Total Protein Albumin Lipase Impressions Chest X-Ray 09/29/18 19:53 CONCLUSION: Minimal bibasilar atelectasis. Assessment and Plan - Plan 73/M s/p Mesenteric angiogram POD 2 Pt c/o L arm bruising with small amount of clear drainage last night and this am - Incision currently dry w/o drainage L arm incision and arm looks okay w/ expected post surgical bruising efraín wound L arm w/o swelling or hematoma Plan Leave L arm incision open to air May apply a dry sterile dressing if drainage is present - use sterile 4x4 then Kerlix Pt clear for d/c from a vascular stand point Advised pt to call our office if symptoms progress or worsens Will see pt in a few weeks at scheduled post op visit Christi Foy NP [facility] [phone] Discharge Planning: clear for d/c Keep post op f/u visit
--- NOTE | 2018-10-01 13:32 | TR ---
Date Performed: 09/30/2018 Time Performed: 12:19:22 DOCTOR: Nikolai Lipscomb DRUG LIST: CLINICAL HISTORY: REASON FOR TEST: REASON FOR ENDING: OBSERVATION: CONCLUSION: COMMENTS: Lexiscan stress test was performed under standard four minute protocol. Radionuclide was injected one minute prior to ending the test. No electrocardiographic abormalities were present t o suggest ischemia. Nuclear imaging and interpretation are pending.
--- NOTE | 2018-10-01 13:46 | ECG ---
Date Performed: 09/30/2018 Time Performed: 01:48:48 PTAGE: 73 years EKG: Sinus rhythm WITH FIRST DEGREE AV BLOCK NONSPECIFIC T-WAVE ABNORMALITY ABNORMAL ECG INTERPRETATION BASED ON A DEF AYLA AGE OF 38 YEARS Since PREVIOUS TRACING , no significant change noted DOCTOR: Nikolai Lipscomb Interpretating Date/Time 10/01/2018 13:45:38
== END 2018-09-30 14:31 | disposition home or self-care (01) ==
LOC: NEDA 19:34 → NEPC 19:34 → NEPHCDU 09-30 00:58
PROVIDERS: ADMIT Internal Medicine Interventional Cardiology; ATTEND Internal Medicine Interventional Cardiology
CPT/HCPCS: 71010; 71045; 78452; 80053; 82550; 82552; 83690; 83735; 84484; 85025; 85610; 85730; 93005; 93017; 99285; A9502; G0378; J2785; Q9969